=== PATIENT | male | born 1940 | race Caucasian/White ===

== ENCOUNTER → 2020-06-14 09:01 | Outpatient (BNVA) | payer MEDICARE, BC, SELFPAY | PROVIDERS: PCP Internal Medicine; Visit Provider Nurse Practitioner Family | DX: M47.27 Other spondylosis with radiculopathy, lumbosacral region (principal); M96.1 Postlaminectomy syndrome, not elsewhere classified | CPT/HCPCS: 99202 ==

== ENCOUNTER 2020-11-19 12:05 | Day surgery (SDC) | payer MEDICARE, BC, SELFPAY ==
--- NOTE | 2020-11-18 09:21 | HO.ANESPROP2 ---
Documented by User: Lore Mandujano 11/18/20 09:26 HPI - Anesthesia Eval Consult details Narrative: 80yo M for Lumbar Spinal Cord Stimulation Trial [facility] Active Problems Active Problems: All Active Problems (Updated 06/14/20 @ 13:37 by Shaylee Villafuerte NP) Failed back syndrome (Acute) Spondylosis of lumbosacral spine with radiculopathy (Acute) Past Medical History Medical History Arthritis BPH (benign prostatic hyperplasia) Diabetes HLD (hyperlipidemia) MARIE (iron deficiency anemia) Lumbar spinal stenosis Meningioma [place] (obstructive sleep apnea) PLMD (periodic limb movement disorder) Subclinical hypothyroidism Social History Social History (Updated 11/18/20 @ 09:24 by Lore Mandujano) Patient Tobacco Use Status: Former Tobacco user Tobacco use type: Cigarette Smoked in Last 30 Days: No Use of substances other than those prescribed or required for medical reasons: No Are you DNR?: No Advance Directives: No Advance Directives Information Provided: Yes Recently lost weight without trying: No Nutrition Risks: No Nutritional Risk Poor oral hygiene: No Meds Allergies Allergy/AdvReac Type Severity Reaction Status Date / Time No Known Allergies Allergy Verified 06/14/20 09:20 Home Medications Medication Instructions Recorded Confirmed Last Taken Type duloxetine 60 mg capsule,delayed 60 mg PO DAILY 06/14/20 06/14/20 Unknown History release gabapentin 600 mg tablet 0 mg PO 06/14/20 06/14/20 Unknown History lisinopril 2.5 mg tablet 2.5 mg PO DAILY 06/14/20 06/14/20 Unknown History oxycodone 5 mg tablet mg PO 06/14/20 06/14/20 Unknown History simvastatin 10 mg tablet mg PO 06/14/20 06/14/20 Unknown History tamsulosin 0.4 mg capsule 0.4 mg PO DAILY 06/14/20 06/14/20 Unknown History Exam Exam Date and Time: November 18, 2020920 Assessment and Plan Assessment Anesthesia Assessment: Chart Reviewed Documented by User: Alycia Nicholson 11/19/20 13:45 [facility] Past Medical History Medical History Arthritis BPH (benign prostatic hyperplasia) Diabetes HLD (hyperlipidemia) MARIE (iron deficiency anemia) Lumbar spinal stenosis Meningioma [place] (obstructive sleep apnea) PLMD (periodic limb movement disorder) Subclinical hypothyroidism Family History Family history of problems with anesthesia: Yes Surgical History History of Problems with Anesthesia: No Social History Social History (Updated 11/18/20 @ 09:24 by Lore Mandujano) Patient Tobacco Use Status: Former Tobacco user Tobacco use type: Cigarette Smoked in Last 30 Days: No Use of substances other than those prescribed or required for medical reasons: No Are you DNR?: No Advance Directives: No Advance Directives Information Provided: Yes Recently lost weight without trying: No Nutrition Risks: No Nutritional Risk Poor oral hygiene: No Meds Allergies Allergy/AdvReac Type Severity Reaction Status Date / Time No Known Allergies Allergy Verified 06/14/20 09:20 Home Medications Medication Instructions Recorded Confirmed Last Taken Type duloxetine 60 mg capsule,delayed 60 mg PO DAILY 06/14/20 06/14/20 Unknown History release gabapentin 600 mg tablet 0 mg PO 06/14/20 06/14/20 Unknown History lisinopril 2.5 mg tablet 2.5 mg PO DAILY 06/14/20 06/14/20 Unknown History oxycodone 5 mg tablet mg PO 06/14/20 06/14/20 Unknown History simvastatin 10 mg tablet mg PO 06/14/20 06/14/20 Unknown History tamsulosin 0.4 mg capsule 0.4 mg PO DAILY 06/14/20 06/14/20 Unknown History Exam Airway Mallampati Class: II TM Dist: >3cm Neck ROM: Full Assessment and Plan Assessment Anesthesia Assessment: Anesthesia Plan Discussed Final Anesthetic Review Family History of Problems with Anesthesia: Yes History of Problems with Anesthesia: No NPO: Yes ASA Class: II Final Preanesthetic Review: No Changes in Pt Med Stat, Meds/Allgs Chart Reviewed, Consent Obtained/Reviewed and Anes Risks/Benef Reviewed Patient Risk: Low Procedure Risk: Low Assessment/Block/Sedation in SS: Assess/Block/Sedation-SS Anesthetic Plan Anesthetic Plan: MAC: Disposition: Standard PACU
--- NOTE | ~2020-11-19 | FL_ITS ---
EXAMINATION: XR FLUOROSCOPY WITH IMAGES CLINICAL INFORMATION: Stimulator trial COMPARISON: None. TECHNIQUE: Fluoroscopy performed by Dr. Awais Queen. Fluoroscopy time: 4.3 minutes DAP: 20.4 Gycm2 Images: 3 FINDINGS: There are 2 electrodes overlying mid posterior spinal canal with tips in region of lower aspect T8. There are mild multilevel degenerative disc changes with mild disc narrowing and endplate sclerosis and vertebral spurring. FL/FL guidance in OR IMPRESSION: Fluoroscopy for pain management procedure.
[2020-11-19 12:38] VITALS: BMI 24.2
[2020-11-19 12:54] VITALS: BP 135/75; PULSE 84; RESP 16; TEMP 36.3; O2SAT 97
[2020-11-19 13:01] LABS: Glucose, Whole Blood 111 mg/dL (60-115)
--- NOTE | 2020-11-19 13:10 | MHC.SHP ---
Pre-Procedural Eval Section A Date of Service: 11/19/20 Section B Chief Complaint: Failed Back Syndrome, Spondylosis Details of Present Illness: as above Relevant Family History (Specify if Yes): No Relevant Social History: None Present Medications: see Short Stay Collaborative assessment Medical History: No relevant PMH History of Previous Operations: Relevant previous surgery/procedure and date(s) Allergies: Allergies Allergy/AdvReac Type Severity Reaction Status Date / Time No Known Allergies Allergy Verified 06/14/20 09:20 Review of Systems Sugical H&P ROS: Negative: Constitution, Cardiovascular, Respiratory, Neurological, Psychiatric, Hem-Onc, Allergic/Immunologic, Gastrointestinal, Genitourinary, Musculoskeletal, Integumentary, Endocrine and Eyes/Ears/Nose/Throat Exam Surgical H&P Exam: Normal: HEENT, Normal: Heart, Normal: Lungs, Normal: Extremities, Normal: Abdomen, Normal: Skin and Normal: Neurological Plan Diagnosis/Plan: Unchanged I have reviewed the history and physical and performed a pertinent physical examination on my patient. No changes have occurred unless specified.
[2020-11-19] MEDS: Lactated Ringers 1,000 ML 100 ML IVCONT (13:16)
[2020-11-19 15:25] VITALS: BP 127/77; PULSE 87; RESP 12; TEMP 36.6; O2SAT 97
--- NOTE | 2020-11-19 15:35 | P.BOP_ITS ---
Brief Operative Note Date of Service: 11/19/20 Pre-op diagnosis: Postlaminectomy syndrome failed back syndrome. Post-op diagnosis: same Procedure: Trial of [employer] spinal cord stimulator Implants: Nothing permanent Surgeon: Awais Queen MD Anesthesia: MAC Was an Shellac Polisher used for this Procedure?: No Estimated blood loss (mL): 8 Condition: stable Disposition: PACU
--- NOTE | 2020-11-19 15:37 | P.OP_ITS ---
Operative Note Operative Note Date of Service: 11/19/20 Narrative: Mr. Bolaños is very pleasant?80 years old male who came today into the operating room for trial of spinal cord stimulator for the treatment of post laminectomy/ failed back syndrome. Preoperatively patient received 2 g of Cefasolin approximately 30 minutes before procedure. After obtaining informed consent patient was brought to the operating room, HE was positioned prone on operating table, [place] [employer] monitors were applied and patient was deeply sedated.? Time-out was performed delineating name and date of of the patient, correct site, side, the nature of the procedure, patient's allergy, preoperative antibiotic if needed.? All operating room staff was participating in OR time-out procedure. Patient's entire back was prepped with ChloraPrep twice and draped with full body fenestrated drape.? Sterilely draped C-arm was brought over operating field and sqare picture of T11-T12 L1 L2 vertebrae as were demonstrated on the screen.?extensive hardware was noted at L3- L5 area. Attention FIRST? was concentrated on the L1- L2 epidural interspace.? The location of the projection of the right pedicle center of the L3 vertebra was found on the skin using C- arm.? This location was injected with mixture of lidocaine 2% and Marcaine 0.5% 5 cc.? After that 11 blade was used to make a dontrell on the skin.? 10 cm 14 gauge Tuohy needle was inserted through the skin and advanced toward L1- L2 epidural interspace using loss of resistance to air technique to locate epidural space. Inadvertantly the epidural needle entered the the intrathecal space and SCF flow was detected at the hub of the needle. The needle was withdrawn and pressure was applied. After that 15 cm 14 gauge curved introducer epidural needle was inserted through the same skin dontrell and advanced to T12 - L1 epidural interspace.? The advancement of the needle was performed on anterior posterior and lateral views.? Guitar wire and loss of resistance technique were used to locate epidural space.? When guitar wire was spread in the epidural fashion, epidural lead was inserted through the skin and it was advanced to T8 positionSLIGHTLY RIGHT OF THE MIDLINE.? After that location of the hardware at the pedical of the L3 vertebra was found on the skin using C-arm.? This location was injected with mixture of lidocaine 2% and Marcaine 0.5% 5 cc.? After that 11 blade was used to make a dontrell on the skin.? 15 cm 14 gauge curved introducer epidural needle was inserted through the dontrell and advanced to T12 -L1 epidural interspace.? The advancement of the needle was performed on anterior posterior and lateral views.? Guitar wire and loss of resistance technique were used to locate epidural space.? When guitar wire was spread in the epidural fashion, epidural lead was inserted through the needle and advanced to the T8 epidural slightly left of the midline. At this moment patient was awaken and the epidural leads were connected to the testing device.? The patient reported stimulation corresponding to her pain.? After satisfactory position of the leads were established the needles were withdrawn, the stylette wires were removed from the epidural leads.? The anchoring devices were dislodged on the leads and advanced to the level of the skin.? The anchoring devices were sutured with two 0-0 silk sutures to the skin of the patient.? The leads were connected to testing device.? Bacitracin ointment was applied to the entrance point of bilateral needles.? Sterile dressing was applied to the patient's back.? The testing device was also glued to the patient's back.? Upon completion of the procedure the patient was taken to PACU where HE recovered and UNEVENTFULLY, HE WENT HOME WITHOUT IMMEDIATE COMPLICATIONS.? The patient will be given prescription for small dose Percocets for postoperative pain control , she will continue to use ANTIBIOTICS:keflex 500 mg 2 pills q 8 hours. He will be taking OTC probiotics in between the doses of the antibiotics for the next 6 days while he is on the trial.Although the risck of the post dural puncture headache is low in this patient the patient was prescribed fioricet and explained conservative care of PDPH at home if headache would develop.
[2020-11-19 15:40] VITALS: BP 137/66; PULSE 74; RESP 16; O2SAT 98
[2020-11-19 15:55] VITALS: BP 144/67; PULSE 67; RESP 16; O2SAT 96
[2020-11-19 16:10] VITALS: BP 147/85; PULSE 68; RESP 16; O2SAT 96
[2020-11-19 16:25] VITALS: BP 144/78; PULSE 68; RESP 16; TEMP 36.6; O2SAT 96
[2020-11-19] MEDS: Acetaminophen 325 MG TABLET 650 MG PO (16:40)
[2020-11-19] MEDS: oxyCODONE HCl Immed Release 5 MG TABLET PO (16:40)
== END 2020-11-19 16:58 | disposition home or self-care (01) ==
PROVIDERS: PCP Internal Medicine; Visit Provider Anesthesiology
PROC: (CPT 63650; principal; 2020-11-19 13:40)
DX: M47.27 Other spondylosis with radiculopathy, lumbosacral region (principal); M96.1 Postlaminectomy syndrome, not elsewhere classified; M54.5 Low back pain; M48.061 Spinal stenosis, lumbar region without neurogenic claudication; M19.90 Unspecified osteoarthritis, unspecified site; Z98.1 Arthrodesis status; G47.61 Periodic limb movement disorder; E11.9 Type 2 diabetes mellitus without complications; D50.9 Iron deficiency anemia, unspecified; Z79.899 Other long term (current) drug therapy; Z87.891 Personal history of nicotine dependence
CPT/HCPCS: 63650 ×2; 82947; C1778; J0690; J3010

== ENCOUNTER → 2020-11-25 11:32 | Outpatient (BNVA) | payer MEDICARE, BC, SELFPAY | PROVIDERS: PCP Internal Medicine; Visit Provider Anesthesiology | DX: M47.27 Other spondylosis with radiculopathy, lumbosacral region (principal); M96.1 Postlaminectomy syndrome, not elsewhere classified | CPT/HCPCS: 99212 ==

== ENCOUNTER 2021-02-03 11:34 | Day surgery (SDC) | payer MEDICARE, BC, SELFPAY ==
[2021-01-27 13:52] VITALS: BMI 24.2
--- NOTE | 2021-02-02 10:06 | HO.ANESPROP2 ---
Documented by User: Lore Mandujano NP 02/02/21 10:10 HPI - Anesthesia Eval Consult details Narrative: 81yo M for Lumbar Spinal Cord Stimulation Implant s/p stim trial 10/2020 with MAC [facility] Active Problems Active Problems: All Active Problems (Updated 01/27/21 @ 13:49 by Yvrose Clemens, MIAN) Spondylosis of lumbosacral spine with radiculopathy (Acute) Failed back syndrome (Acute) Past Medical History Medical History Arthritis BPH (benign prostatic hyperplasia) Diabetes HLD (hyperlipidemia) MARIE (iron deficiency anemia) Lumbar spinal stenosis Meningioma [place] (obstructive sleep apnea) PLMD (periodic limb movement disorder) Spinal cord stimulator status Subclinical hypothyroidism Family History Family history of problems with anesthesia: Yes Surgical History Surgical History History of lumbar fusion History of Problems with Anesthesia: No Social History Social History Are you a primary child day care teacher to a significant other at home: No Do you presently have visiting nurse or other home services: No Patient Tobacco Use Status: Former Tobacco user Tobacco use type: Cigarette Use of substances other than those prescribed or required for medical reasons: No Have you been hit, kicked, punched, or otherwise hurt by someone within the past year? If so, by whom?: No Are you DNR?: No Advance Directives: No Advance Directives Information Provided: No Advance Directives on File: No Recently lost weight without trying: No Eating poorly because of decreased appetite: No Nutrition Risks: No Nutritional Risk Meds Allergies Allergy/AdvReac Type Severity Reaction Status Date / Time No Known Allergies Allergy Verified 01/27/21 13:49 Home Medications Medication Instructions Recorded Confirmed Last Taken Type duloxetine 60 mg capsule,delayed 60 mg PO DAILY 06/14/20 01/27/21 Unknown History release gabapentin 600 mg tablet 600 mg PO DAILY 06/14/20 01/27/21 Unknown History lisinopril 2.5 mg tablet 2.5 mg PO DAILY 06/14/20 01/27/21 Unknown History oxycodone 5 mg tablet 5 mg PO 06/14/20 06/14/20 Unknown History simvastatin 10 mg tablet 10 mg PO DAILY 06/14/20 01/27/21 Unknown History tamsulosin 0.4 mg capsule 0.4 mg PO DAILY 06/14/20 01/27/21 Unknown History Exam Exam Date and Time: February 02, 2021 1006 Height,Weight and Vital Signs: Height 5 ft 6 in Weight 68 kg Assessment and Plan Assessment Anesthesia Assessment: Chart Reviewed Final Anesthetic Review Family History of Problems with Anesthesia: Yes History of Problems with Anesthesia: No Documented by User: Branden Godwin MD 02/03/21 14:21 [facility] Past Medical History Medical History Arthritis BPH (benign prostatic hyperplasia) Diabetes HLD (hyperlipidemia) MARIE (iron deficiency anemia) Lumbar spinal stenosis Meningioma [place] (obstructive sleep apnea) PLMD (periodic limb movement disorder) Spinal cord stimulator status Subclinical hypothyroidism Family History Family history of problems with anesthesia: No Surgical History Surgical History History of lumbar fusion History of Problems with Anesthesia: Yes (PONV) Social History Social History Are you a primary child day care teacher to a significant other at home: No Do you presently have visiting nurse or other home services: No Patient Tobacco Use Status: Former Tobacco user Tobacco use type: Cigarette Use of substances other than those prescribed or required for medical reasons: No Have you been hit, kicked, punched, or otherwise hurt by someone within the past year? If so, by whom?: No Are you DNR?: No Advance Directives: No Advance Directives Information Provided: No Advance Directives on File: No Recently lost weight without trying: No Eating poorly because of decreased appetite: No Nutrition Risks: No Nutritional Risk Meds Allergies Allergy/AdvReac Type Severity Reaction Status Date / Time No Known Allergies Allergy Verified 01/27/21 13:49 Home Medications Medication Instructions Recorded Confirmed Last Taken Type duloxetine 60 mg capsule,delayed 60 mg PO DAILY 06/14/20 01/27/21 Unknown History release gabapentin 600 mg tablet 600 mg PO DAILY 06/14/20 01/27/21 Unknown History lisinopril 2.5 mg tablet 2.5 mg PO DAILY 06/14/20 01/27/21 Unknown History oxycodone 5 mg tablet 5 mg PO 06/14/20 06/14/20 Unknown History simvastatin 10 mg tablet 10 mg PO DAILY 06/14/20 01/27/21 Unknown History tamsulosin 0.4 mg capsule 0.4 mg PO DAILY 06/14/20 01/27/21 Unknown History Exam Airway Mallampati Class: II TM Dist: >3cm Neck ROM: Limited Denture: Upper Other: Bilateral hearing aids Assessment and Plan Assessment Anesthesia Assessment: Anesthesia Plan Discussed Final Anesthetic Review Family History of Problems with Anesthesia: No History of Problems with Anesthesia: Yes (PONV) NPO: Yes ASA Class: III Final Preanesthetic Review: No Changes in Pt Med Stat, Meds/Allgs Chart Reviewed, Consent Obtained/Reviewed and Anes Risks/Benef Reviewed Patient Risk: Intermediate Procedure Risk: Low Anesthetic Plan Anesthetic Plan: MAC: Disposition: Standard PACU
--- NOTE | ~2021-02-03 | FL_ITS ---
EXAMINATION: XR FLUOROSCOPY WITH IMAGES CLINICAL INFORMATION: Spinal cord stimulation implant COMPARISON: Fluoroscopic spot view 11/19/2020. TECHNIQUE: Fluoroscopy performed by Dr. Awais Queen. Fluoroscopy time: 5.0 minutes DAP: 1.15 mGycm2 Images: 3 FINDINGS: There are 2 electrodes seen overlying the midline posterior thoracic spinal canal. Visualized leads within the [id number] are intact without defect or kinking. FL/FL guidance in OR IMPRESSION: Fluoroscopy for pain management procedure.
--- NOTE | 2021-02-03 12:48 | PC.NURSE ---
cut noted to left index finger. dry and intact. redness and swelling noted. instructed patient to see his primary care physician for his finger.
[2021-02-03 12:59] VITALS: BP 138/64; PULSE 91; RESP 16; TEMP 36.3; O2SAT 96
[2021-02-03] MEDS: Lactated Ringers 1,000 ML 100 ML IVCONT (13:14)
--- NOTE | 2021-02-03 13:15 | MHC.SHP ---
Pre-Procedural Eval Section A Date of Service: 02/03/21 The patient is an INPATIENT: No Changes since office visit: Yes Changes in Medication and Yes Patient answered all questions Section B Chief Complaint: Post Laminectomy Syndrome Details of Present Illness: as above Relevant Family History (Specify if Yes): No Relevant Social History: None Present Medications: see Short Stay Collaborative assessment Medical History: No relevant PMH History of Previous Operations: No relevant previous surgery Allergies: Allergies Allergy/AdvReac Type Severity Reaction Status Date / Time No Known Allergies Allergy Verified 01/27/21 13:49 Review of Systems Sugical H&P ROS: Negative: Constitution, Cardiovascular, Respiratory, Neurological, Psychiatric, Hem-Onc, Allergic/Immunologic, Gastrointestinal, Genitourinary, Musculoskeletal, Integumentary, Endocrine and Eyes/Ears/Nose/Throat Exam Surgical H&P Exam: Normal: HEENT, Normal: Heart, Normal: Lungs, Normal: Extremities, Normal: Abdomen, Normal: Skin and Normal: Neurological Plan Diagnosis/Plan: Unchanged I have reviewed the history and physical and performed a pertinent physical examination on my patient. No changes have occurred unless specified.
--- NOTE | 2021-02-03 13:19 | P.OP_ITS ---
Operative Note Operative Note Date of Service: 02/03/21 Narrative: Mr. Ibrahim is a very pleasant 81 y.o. who came today into the operating room for implantation of spinal cord stimulator for the treatment of pain related to? postlaminectomy syndrome.?He had successful trial of spinal cord stimulation. ? Preoperatively patient received antibiotic cefasolin? 2g approximately 30 minutes before the procedure. After obtaining informed consent patient was brought to the operating room, he was positioned prone on the OR table, [place] [employer] monitors were applied and patient was sedated. ?? Time-out was performed delineating correct site, side, the nature of the procedure, patient's allergy, preoperative antibiotic.? All operating room staff was participating in OR time-out procedure. Patient's entire back was prepped with DuraPrep twice and draped with full body drape including [place]ob[place] film.? Sterilely draped C-arm was brought over operating field and square picture of T12, L1, L2?vertebrae? were demonstrated on the screen.? THE PROJECTION OF?L1- L2??SPINOUS PROCESSES TO THE SKIN WERE INFILTRATED WITH LIDOCAINE 2% MIXED WITH BUPIVACAINE 0.5%.? 7 CM LONG VERTICAL INCISION using a 10 blade scalpel WAS PERFORMED IN STRICT MIDLINE VERTICAL FASHION.? THOROUGH HEMOSTASIS WAS PERFORMED using electrocautery. ?Thorough tissue dissections was performed until prevertebral fascia was freed from overlying tissues.? Attention FIRST? was concentrated on the RIGHT T12-L1 epidural interspace.? The location of the projection of the right pedicle center of the?L2?vertebra was found on the prevertebral fascia using C-arm.? This location was injected with mixture of lidocaine 2% and Marcaine 0.5% 5 cc in approximate direction of needle advancement.? After that ? 10 cm 14 gauge straight introducer epidural needle was inserted through the fascia and advanced toward?T12-L1 epidural interspace.? The advancement of the needle was performed on anterior posterior and lateral views.? Guitar wire and loss of resistance technique were used to locate epidural space.? When guitar wire was spread in the epidural fashion, epidural lead was inserted through the skin and it was advanced to the position in the POSTERIOR EPIDURAL SPACE slightly?RIGHT?TO THE MIDLINE at the posterior T8 needle body epidural space. After that location of the projection of the LEFT pedicle center of the L2 vertebra was found -using C-arm.? This location was injected with mixture of lidocaine 2% and Marcaine 0.5% 5 cc.. .? 10 cm 14 gauge curved introducer epidural needle was inserted through the fascia and advanced to T12-L1 epidural interspace.? The advancement of the needle was performed on anterior posterior and lateral views.? Guitar wire and loss of resistance technique TO AIR were used to locate epidural space.? When guitar wire was spread in the epidural fashion, epidural lead was inserted through the needle and advanced to the T9 POSTERIOR EPIDURAL SPACE SLIGHTLY?LEFT to the existing LEAD.? THE LOCATION OF BOTH LEADS WAS VERIFIED ON ANTERIOR POSTERIOR AND LATERAL VIEWS. THE PATIENT WAS AWAKEN and the test of the stimulation was performed. The patient reported stimulation corresponding to his pain. He was resedated after that. After satisfactory position of the leads were established the needles were withdrawn, the stylette wires were removed from the epidural leads.? The anchoring devices were dislodged on the leads and advanced to the level of the skin.? The anchoring devices were advanced along the epidural leads and dislodged and epidural leads at the level of prevertebral fascia.? They were sutured to prevertebral fascia with 2 separate etibone sutures per each anchoring device.? The fixating screws was fixed until 3 clicks were heard on each anchoring device.?Diffused cappilary bleading in the woubd requered me to use electrocautery again to stop it. After that the wound was irrigated with copious amount of Vancomycin containing normal saline and packed with Vancomycin soaked 4 x 4. ?After that attention was concentrated on the left upper buttock??of the patient?where he wanted the battery to be implanted.? 6 cm long horizontal incision was performed 3 cm below the projection to the skin of the top left illiac crest. the wound was deepened and widened and thorough hemostasis was performed. The pocket was created to accomodate the battery. Irrigation with vancomycin containing saline was performed.After that the tunneling device was used to connect midline incision and the left upper buttock incision. Thorough hemostasis was performed. ? The impedance was satisfactory.? After that tunneling device was used to connect both wounds.? Cervical leads from the thoracic wound were dislodged into the loin wound.? They were connected to the battery. After that both wounds were thoroughly irrigated with normal saline containing vancomycin.? Sutures were applied to the most superior lateral and most superior medial corners of the? wound.? Those sutures were tied after the battery was inserted into the pocket with the epidural leads collected behind the body of the battery.. After that 0 Vicryl sutures were used to close both wounds.?While closing the midline spinal wound the bleeding was discovered coming from the proximal site of the tunnel. Three surgicell pledges were used to pack the bleeding site, the pledges were left behind in the wound. 2-0 Vicryl was used to approximate the level of the skin.? [place] were applied to skin level.? Bacitracin ointment was smeared on the staple line.? Sterile dressing was applied.? Abdominal binder was applied.? The patient was transferred to the [facility], awaken, extubated and in stable condition transferred to PACU.? He recovered uneventfully.? He went home without immediate complications. ?
[2021-02-03 13:20] LABS: Glucose, Whole Blood 110 mg/dL (60-115)
[2021-02-03 15:42] VITALS: BP 118/79; PULSE 78; RESP 16; TEMP 36.2; O2SAT 96
--- NOTE | 2021-02-03 15:53 | P.BOP_ITS ---
Brief Operative Note Date of Service: 02/03/21 Pre-op diagnosis: postlaminectomy syndrome Post-op diagnosis: same Procedure: implantation of spinal cord stimulator Epidural leads and alpha technology battery P Implants: epidural leads and alpha technology battery. Surgeon: Awais Queen MD Anesthesia: MAC Was an Stull Installer used for this Procedure?: No Estimated blood loss (mL): 30 Pathology: none sent Condition: stable Disposition: PACU
[2021-02-03 15:57] VITALS: BP 125/53; PULSE 72; RESP 16; O2SAT 98
[2021-02-03 16:12] VITALS: BP 114/69; PULSE 74; RESP 16; O2SAT 100
[2021-02-03] MEDS: cephALEXin 500 MG CAPSULE 1000 MG PO (17:19)
[2021-02-03 17:20] VITALS: BP 132/64; PULSE 75; RESP 16; O2SAT 100
== END 2021-02-03 17:28 ==
LOC: HO.SSS 11:34
PROVIDERS: PCP Internal Medicine; Visit Provider Anesthesiology
PROC: (CPT 63685; principal; 2021-02-03 12:40)
DX: M54.50 Low back pain, unspecified (principal); M47.27 Other spondylosis with radiculopathy, lumbosacral region; M96.1 Postlaminectomy syndrome, not elsewhere classified; M48.061 Spinal stenosis, lumbar region without neurogenic claudication; G47.61 Periodic limb movement disorder; Z98.1 Arthrodesis status; E11.9 Type 2 diabetes mellitus without complications; Z87.891 Personal history of nicotine dependence
CPT/HCPCS: 63685; 63650 ×2; 82947; C1713; C1778; C1787; C1820; J0690; J3370

== ENCOUNTER → 2021-02-09 11:01 | Outpatient (BNVA) | payer MEDICARE, BC, SELFPAY | PROVIDERS: PCP Internal Medicine; Visit Provider Anesthesiology | DX: M47.27 Other spondylosis with radiculopathy, lumbosacral region (principal); M96.1 Postlaminectomy syndrome, not elsewhere classified | CPT/HCPCS: 99212 ==

== ENCOUNTER → 2021-02-16 11:02 | Outpatient (BNVA) | payer MEDICARE, BC, SELFPAY | PROVIDERS: PCP Internal Medicine; Visit Provider Anesthesiology | DX: M47.27 Other spondylosis with radiculopathy, lumbosacral region (principal); M96.1 Postlaminectomy syndrome, not elsewhere classified | CPT/HCPCS: 99212 ==

== ENCOUNTER 2021-10-03 15:08 | Outpatient (REF) | payer MEDICARE, BC, SELFPAY ==
--- NOTE | ~2021-10-03 | XR_ITS ---
EXAMINATION: XR PELVIS CLINICAL INFORMATION: Pain COMPARISON: None TECHNIQUE: AP view of the pelvis. FINDINGS: Bone alignment is normal. No fracture or dislocation is seen. There are mild degenerative changes of both hip joints with small osteophytes and reticular soft tissue calcifications or ossifications. No joint space narrowing is seen. Bones of the pelvis are unremarkable. There is soft tissue arterial calcification. XR/XR pelvis 1-2V IMPRESSION: Mild degenerative changes at the hip joints.
--- NOTE | ~2021-10-03 | XR_ITS ---
EXAMINATION: XR THORACIC SPINE CLINICAL INFORMATION: Post laminectomy syndrome COMPARISON: None TECHNIQUE: 3 views of the thoracic spine were obtained. FINDINGS: There is a spinal stimulator with the tip of the T8 vertebral body level. There is mild curvature of the lower thoracic spine to the left. There is multilevel degenerative spondylosis and degenerative disc disease of the lower thoracic spine. No fracture or dislocation is seen. There is elevation of the right hemidiaphragm. There is subsegmental atelectasis in the right lung. XR/XR thoracic spine 3V IMPRESSION: Spinal stimulator mid thoracic spinal canal. Degenerative changes of the mid and lower thoracic spine. Elevated right hemidiaphragm.
--- NOTE | ~2021-10-03 | XR_ITS ---
EXAMINATION: XR LUMBOSACRAL SPINE CLINICAL INFORMATION: Spondylosis and radiculopathy COMPARISON: None TECHNIQUE: Three views of the lumbosacral spine. FINDINGS: Bone alignment is normal. No fracture or dislocation is seen. Postsurgical change of the lower lumbar spine with left posterior david and interpedicular screws at L3-L4 and right posterior rods and interpedicular screws at L4-L5. There are prosthetic disc interspace her seen. There is a stimulator seen in the lower thoracic spinal canal entering the spinal canal at this T12-L1 level. Disc spaces are otherwise normal. There is lower lumbar spine facet arthritis. There is evidence of atherosclerotic disease. There is a radiopaque density that projects over the soft tissues anterior to the L4 vertebral body seen on the lateral view only. XR/XR lumbar spine 2-3V IMPRESSION: Postsurgical changes to the lower lumbar spine. Spinal stimulator. Lower lumbar spine facet arthritis.
== END 2021-10-03 15:09 | disposition home or self-care (01) ==
LOC: HO.XRAY 15:08
PROVIDERS: PCP Internal Medicine; Visit Provider Internal Medicine
DX: M96.1 Postlaminectomy syndrome, not elsewhere classified (principal); M25.559 Pain in unspecified hip
CPT/HCPCS: 72072; 72100; 72170; 99212

== ENCOUNTER → 2021-10-10 13:05 | Outpatient (BNVA) | payer MEDICARE, BC, SELFPAY | PROVIDERS: PCP Internal Medicine; Visit Provider Anesthesiology | DX: M16.12 Unilateral primary osteoarthritis, left hip (principal); M96.1 Postlaminectomy syndrome, not elsewhere classified; M47.27 Other spondylosis with radiculopathy, lumbosacral region | CPT/HCPCS: 99212 ==

== ENCOUNTER → 2021-12-19 10:05 | Outpatient (BNVA) | payer MEDICARE, BC, SELFPAY | PROVIDERS: PCP Internal Medicine; Visit Provider Anesthesiology | DX: M16.12 Unilateral primary osteoarthritis, left hip (principal); M25.552 Pain in left hip; M96.1 Postlaminectomy syndrome, not elsewhere classified; M47.27 Other spondylosis with radiculopathy, lumbosacral region | CPT/HCPCS: 99212 ==

== ENCOUNTER 2021-12-20 06:11 | Outpatient (REF) | payer MEDICARE, BC, SELFPAY ==
--- NOTE | ~2021-12-20 | FL_ITS ---
EXAMINATION: XR FLUOROSCOPY WITH IMAGES CLINICAL INFORMATION: Left hip pain. COMPARISON: None. TECHNIQUE: Fluoroscopy performed by Shaylee Villafuerte. Fluoroscopy time: 0.1 minute. Cumulative Dose: 5.10 mGy. DAP: 1.39 Gy-cm2. Images: 1. FINDINGS: There is a single right hip image revealing needle positioned at the right hip joint space with contrast opacifying the joint space. The hip joint space is maintained normal. No spurring or bony erosive changes seen. FL/FL guidance in treatment room IMPRESSION: Fluoroscopy guidance was provided to referrer for right hip injection.
== END 2021-12-20 06:12 | disposition home or self-care (01) ==
LOC: HO.RADIR 06:11
PROVIDERS: Visit Provider Anesthesiology
DX: M16.12 Unilateral primary osteoarthritis, left hip (principal); M96.1 Postlaminectomy syndrome, not elsewhere classified; M47.27 Other spondylosis with radiculopathy, lumbosacral region
CPT/HCPCS: 20610; J3300

== ENCOUNTER → 2022-01-23 13:04 | Outpatient (BNVA) | payer MEDICARE, BC, SELFPAY | PROVIDERS: PCP Internal Medicine; Visit Provider Anesthesiology | DX: M16.12 Unilateral primary osteoarthritis, left hip (principal); M25.559 Pain in unspecified hip; M96.1 Postlaminectomy syndrome, not elsewhere classified; M47.27 Other spondylosis with radiculopathy, lumbosacral region | CPT/HCPCS: 99212 ==

== ENCOUNTER 2022-03-20 14:06 | Emergency (ER) | payer MEDICARE, BC, SELFPAY ==
--- NOTE | ~2022-03-20 | CT_ITS ---
EXAMINATION: NONCONTRAST HEAD CT NONCONTRAST MAXILLOFACIAL CT NONCONTRAST CERVICAL SPINE CT INDICATION INFORMATION: Fall with head strike and facial trauma COMPARISON: None TECHNIQUE: Separate noncontrast CT examinations of the head, maxillofacial bones, and cervical spine were performed. Coronal and sagittal images were created for each examination at the technologist workstation. This CT examination was performed using dose optimization techniques as appropriate, variously including the following: *Automated exposure control *Adjustment of mA and/or kV according to patient size (this includes techniques or standardized protocols for targeted exams where dose is matched to indication/reason for exam; i.e. extremities or head) *Use of iterative reconstruction technique DLP: 1518 mGy-cm FINDINGS: HEAD: No intra or extra-axial fluid collection or hemorrhage. Small 0.7 cm partially calcified anterior left frontal extra-axial mass consistent with small meningioma series 4 image 30. No midline shift or herniation. Basal cisterns are patent. Montes-white matter differentiation is maintained. Small area of encephalomalacia in the anterior right frontal lobe underlying the frontal craniotomy. No hydrocephalus. Small there is mild scattered hypoattenuation in the supratentorial white matter, nonspecific. No acute soft tissue abnormality. No calvarial fracture. Prior right frontal craniotomy. The mastoid air cells are well aerated. MAXILLOFACIAL: Minimally displaced fractures of the bilateral nasal bones nondisplaced fracture through the adjacent perpendicular plate of the ethmoid. No other acute facial bone fracture. Mild mucosal thickening and small mucous retention cyst in the right maxillary sinus. Right middle turbinate cresencio bullosa. Minimal mucosal thickening along the frontal sinus drainage pathways. The mandibular heads are normally positioned in the glenoid fossa. Status post bilateral lens extractions. Globes and retro-orbital structures otherwise intact. No retrobulbar hematoma. CERVICAL SPINE: Alignment:Approximately 4 mm grade 1/2 anterolisthesis of C3 upon C4 secondary to advanced facet arthrosis at this level. Minimal grade 1 anterolisthesis at C4-C5. No additional subluxation. Vertebra:No acute fracture. No prevertebral soft tissue swelling. Degenerative disc disease:Multilevel cervical spondylosis severe at C5-C6 and C6-C7 moderate to severe at C3-C4 with disc height loss, endplate sclerosis and proliferative change. Advanced multilevel bilateral facet arthrosis and multilevel uncovertebral spurring. Other findings:No cervical lymphadenopathy. Visualized thyroid gland is unremarkable. Visualized lung apices are clear. CT/CT cervical spine wo IV con IMPRESSION: 1. No intracranial hemorrhage or calvarial fracture. 2. Minimally displaced fractures of the bilateral nasal bones and nondisplaced fracture of the adjacent perpendicular plate of the ethmoid. 3. No traumatic subluxation or acute cervical spine fracture. 4. Incidental small 0.7 cm partially calcified left frontal meningioma.
--- NOTE | 2022-03-20 15:18 | ECG_ITS ---
Test Reason : FALL Blood Pressure : / mmHG Vent. Rate : 099 BPM Atrial Rate : 099 BPM P-R Int : 154 ms QRS Dur : 076 ms QT Int : 314 ms P-R-T Axes : 051 -21 013 degrees QTc Int : 402 ms Poor data quality Normal sinus rhythm Left anterior fascicular block Abnormal ECG No previous ECGs available Referred By: Dede Fonseca Electronically Signed By:ANTWAN DOBSON MD
[2022-03-20 15:19] VITALS: BP 96/43; PULSE 109; RESP 18; TEMP 36.4; O2SAT 93; BMI 24.5
--- NOTE | 2022-03-20 15:20 | ED.GENADULT ---
HPI - General Adult General Chief complaint: Fall Stated complaint: Fall/Facial lac Time Seen by Provider: 03/20/22 22:19 Related Data Home Medications Medication Instructions Recorded Confirmed duloxetine 60 mg capsule,delayed 60 mg PO DAILY 06/14/20 10/03/21 release gabapentin 600 mg tablet 600 mg PO DAILY 06/14/20 10/03/21 lisinopril 2.5 mg tablet 2.5 mg PO DAILY 06/14/20 10/03/21 oxycodone 5 mg tablet 5 mg PO 06/14/20 10/03/21 simvastatin 10 mg tablet 10 mg PO DAILY 06/14/20 10/03/21 tamsulosin 0.4 mg capsule 0.4 mg PO DAILY 06/14/20 10/03/21 diclofenac sodium 50 mg 50 mg PO BID 10/03/21 10/03/21 tablet,delayed release Previous Rx's Medication Instructions Recorded amoxicillin 875 mg-potassium 1 tab PO Q12H 10 days #20 tabs 03/21/22 clavulanate 125 mg tablet Allergies Allergy/AdvReac Type Severity Reaction Status Date / Time No Known Allergies Allergy Verified 03/20/22 15:24 [facility] Past Medical History Medical History Arthritis BPH (benign prostatic hyperplasia) Diabetes HLD (hyperlipidemia) MARIE (iron deficiency anemia) Lumbar spinal stenosis Meningioma [place] (obstructive sleep apnea) PLMD (periodic limb movement disorder) Spinal cord stimulator status Subclinical hypothyroidism Surgical History History of lumbar fusion Social History Social History Are you a primary intensive care ambulance paramedic to a significant other at home: No Do you presently have visiting nurse or other home services: No Patient Tobacco Use Status: Former Tobacco user Tobacco use type: Cigarette Advance Directives: No Advance Directives Information Provided: No Physical Exam ED Vital Signs: BMI result Body Mass Index 24.5 Course Reevaluation(s) Reevaluation #1: RME 82 year old male pmhx of chornic back pain prsents s/p trip and fall with headache and abrasions to face. Patient states he was walking to his car felt like his knee gave out on him falling forward and hitting his face on the sidewalk. Wasnt able to get up alone required help. Severe headache constant since fall. No loc,not on thinners. Denies preceding sx. No CP,SOB,dizziness, vision changes, weakness, changes in speech, changes in bowel habits, neck pain, numbness, tingling, saddle paresthesias PE: abrasions to face, ambulatory w/ unsteady gait. NIHSS-0 Plan- imaging, labs Time: 15:24 Medications Administered Discontinued Medications Generic Name Dose Route Start Last Admin Trade Name Rachel PRN Reason Stop Dose Admin Acetaminophen 650 mg 03/20/22 22:34 03/20/22 23:05 Acetaminophen 325 Mg Tablet PO 03/20/22 22:35 650 mg ONCE ONE Administration Diphtheria/Tetanus/Acell Pertussis 0.5 ml 03/20/22 22:32 03/20/22 22:58 Diphth,Pertus(Acell),Tet Adult 0.5 Ml Syringe IM 03/20/22 22:33 0.5 ml .ONCE ONE Administration Ceftriaxone Sodium 1 gm/ 50 mls @ 100 mls/hr 03/20/22 22:31 03/21/22 00:40 Sodium Chloride IV 03/20/22 23:00 Infused ONCE ONE Infusion Sodium Chloride 1,000 mls @ 999 mls/hr 03/20/22 22:45 03/21/22 00:40 Ns IVCONT 03/20/22 23:45 Infused .Q1H1M ALYSSA Infusion Lidocaine HCl 4 ml 03/20/22 22:33 03/20/22 23:05 Lidocaine Hcl 2% 2 Ml Vial INFILTRATI 03/20/22 22:34 4 ml ONCE ONE Administration Morphine Sulfate 2 mg 03/20/22 22:34 03/20/22 22:54 Morphine Sulfate 2 Mg/Ml Cartridge IVPUSH 03/20/22 22:35 2 mg ONCE ONE Administration Protocol Ondansetron HCl 4 mg 03/20/22 22:34 03/20/22 22:54 Ondansetron Hcl 4 Mg/2 Ml Vial IVPUSH 03/20/22 22:35 4 mg ONCE ONE Administration Medical Decision Making Lab Data 03/20/22 16:19 03/20/22 16:19 Labs: Lab Results 03/20/22 03/20/22 03/20/22 Range/Units 16:19 16:19 16:19 WBC 10.5 (4.8-10.8) X10*3/uL RBC 3.61 L (4.60-5.80) X10*6/uL Hgb 10.8 L (14.0-18.0) g/dl Hct 34.7 L (42.0-52.0) % MCV 96.1 (80.0-98.0) fL MCH 29.9 (27.0-33.0) pg MCHC 31.1 (31.0-36.0) g/dl RDW 14.5 (11.0-16.0) % Plt Count 243 (160-400) X10*3/uL MPV 10.4 (9.4-12.4) fL Immature Gran % (Auto) 0.4 (0.0-0.4) % Neut % (Auto) 76.3 H (45-73) % Lymph % (Auto) 10.7 L (20-40) % [place] % (Auto) 11.2 H (2-11) % Eos % (Auto) 1.1 (0-4) % Baso % (Auto) 0.3 (0-2) % Lymph # (Auto) 1.1 L (1.2-4.9) X10*3/uL [place] # (Auto) 1.2 (0.1-1.2) X10*3/uL Eos # (Auto) 0.1 (0.0-0.4) X10*3/uL Baso # (Auto) 0.0 (0.0-0.2) X10*3/uL Abs Immat Gran (auto) 0.04 H (0.00-0.03) X10*3/uL Absolute Neuts (auto) 8.0 (2.0-8.3) x10*3/uL Absolute Nucleated RBC 0.000 (0.0-0.012) X10*3/uL Nucleated RBC % (auto) 0.0 (0.0-0.2) /100WBC Sodium 138 (135-145) mmol/L Potassium 4.6 (3.3-5.1) mmol/L Chloride 108 (96-108) mmol/L Carbon Dioxide 23 (22-29) mmol/L Anion Gap 12 (12-20) BUN 24 H (9-16) mg/dL Creatinine 1.14 (0.5-1.4) mg/dL Estim Creat Clear Calc 43.5 Estimated GFR > 60 Random Glucose 176 H (60-115) mg/dL Calcium 9.2 (8.4-10.2) mg/dL Magnesium 2.1 (1.6-2.6) mg/dL Total Bilirubin 0.4 (0.0-1.0) mg/dL AST 19 (5-37) U/L ALT 20 (0-40) U/L Alkaline Phosphatase 62 (39-117) U/L Troponin I High Sens < 3.5 (<3.5-35.0) ng/L Total Protein 6.5 (6.5-8.0) g/dL Albumin 3.9 (3.5-5.0) g/dL Urine Color Urine Appearance Urine pH (5.0-9.0) Ur Specific [place] (1.005-1.025) Urine Protein (Neg-Trace) mg/dL Urine Glucose (UA) (Negative) mg/dL Urine Ketones (Negative) mg/dL Urine Blood (Negative) Urine Nitrite (Negative) Ur Leukocyte Esterase (Negative) Urine RBC (0-2) /HPF Urine WBC (0-5) /HPF Ur Squamous Epith Cells (0-2) /HPF Urine Bacteria (None Seen) Hyaline Casts (0-2) /LPF Granular Casts COVID-19 (PINEDA) (Negative) COVID-19 Clin Com 03/20/22 03/20/22 Range/Units 16:19 17:47 WBC (4.8-10.8) X10*3/uL RBC (4.60-5.80) X10*6/uL Hgb (14.0-18.0) g/dl Hct (42.0-52.0) % MCV (80.0-98.0) fL MCH (27.0-33.0) pg MCHC (31.0-36.0) g/dl RDW (11.0-16.0) % Plt Count (160-400) X10*3/uL MPV (9.4-12.4) fL Immature Gran % (Auto) (0.0-0.4) % Neut % (Auto) (45-73) % Lymph % (Auto) (20-40) % [place] % (Auto) (2-11) % Eos % (Auto) (0-4) % Baso % (Auto) (0-2) % Lymph # (Auto) (1.2-4.9) X10*3/uL [place] # (Auto) (0.1-1.2) X10*3/uL Eos # (Auto) (0.0-0.4) X10*3/uL Baso # (Auto) (0.0-0.2) X10*3/uL Abs Immat Gran (auto) (0.00-0.03) X10*3/uL Absolute Neuts (auto) (2.0-8.3) x10*3/uL Absolute Nucleated RBC (0.0-0.012) X10*3/uL Nucleated RBC % (auto) (0.0-0.2) /100WBC Sodium (135-145) mmol/L Potassium (3.3-5.1) mmol/L Chloride (96-108) mmol/L Carbon Dioxide (22-29) mmol/L Anion Gap (12-20) BUN (9-16) mg/dL Creatinine (0.5-1.4) mg/dL Estim Creat Clear Calc Estimated GFR Random Glucose (60-115) mg/dL Calcium (8.4-10.2) mg/dL Magnesium (1.6-2.6) mg/dL Total Bilirubin (0.0-1.0) mg/dL AST (5-37) U/L ALT (0-40) U/L Alkaline Phosphatase (39-117) U/L Troponin I High Sens (<3.5-35.0) ng/L Total Protein (6.5-8.0) g/dL Albumin (3.5-5.0) g/dL Urine Color Yellow Urine Appearance Clear Urine pH 5.0 (5.0-9.0) Ur Specific [place] 1.025 (1.005-1.025) Urine Protein Trace (Neg-Trace) mg/dL Urine Glucose (UA) 100 H (Negative) mg/dL Urine Ketones Trace (Negative) mg/dL Urine Blood Negative (Negative) Urine Nitrite Negative (Negative) Ur Leukocyte Esterase Small (1+) H (Negative) Urine RBC 0-2 (0-2) /HPF Urine WBC 11-20 H (0-5) /HPF Ur Squamous Epith Cells 3-5 (0-2) /HPF Urine Bacteria None Seen (None Seen) Hyaline Casts >20 (0-2) /LPF Granular Casts Present COVID-19 (PINEDA) Negative (Negative) COVID-19 Clin Com See Note Discharge Plan Discharge Clinical Impression: Concussion without loss of consciousness, Closed fracture nasal bone, Closed fracture of ethmoid sinus, Laceration of nose Patient Disposition: Home, Self-Care Instructions: Nasal Fracture (ED), Facial Fracture (ED), Concussion (ED), Post Concussion Syndrome (ED), Facial Laceration (ED) Additional Instructions: You were evaluated for injury sustained from a fall. CT scan of head, facial bones and cervical spine indicates nasal bone fracture and ethmoid sinus fracture. Your symptoms are also consistent with a concussion. You must follow-up with her primary care physician closely for post concussive protocol. We placed 4 sutures to your nose. Please return in 5-7 days to have sutures removed. Take Augmentin 875 mg twice a day for the next 10 days. Take Tylenol 650 mg every 6 hours as needed for muscle aches and headache. Thank you for choosing this emergency department for evaluation. Please follow-up with primary care physician as needed. Return to the emergency department for any new, concerning, or worsening symptoms. Prescriptions: New amoxicillin-pot clavulanate 875-125 mg tablet 1 tab PO Q12H 10 Days Qty: 20 0RF No Action duloxetine 60 mg capsule,delayed release(DR/EC) 60 mg PO DAILY lisinopril 2.5 mg tablet 2.5 mg PO DAILY simvastatin 10 mg tablet 10 mg PO DAILY gabapentin 600 mg tablet 600 mg PO DAILY tamsulosin 0.4 mg capsule 0.4 mg PO DAILY oxycodone 5 mg tablet 5 mg PO diclofenac sodium 50 mg tablet,delayed release (DR/EC) 50 mg PO BID Referrals: Parrish Cabrera MD [Primary Care Provider] - 3 days (Nasal bone fracture, ethmoid fracture, concussion, nasal laceration) Interventions: ED Discharge Assessment Last Done: 03/21/22 01:26 Discharge Date/Time: 03/21/22 01:29
[2022-03-20 16:26] LABS: MANUAL DIFF FLAG NO
[2022-03-20 16:35] LABS: Basophils Percent Auto 0.3 % (0-2); Eosinophils Absolute Auto 0.1 X10*3/uL (0.0-0.4); Eosinophils Percent Auto 1.1 % (0-4); Hematocrit 34.7 % (42.0-52.0); Hemoglobin 10.8 g/dl (14.0-18.0); Imm Gran Abs Auto 0.04 X10*3/uL (0.00-0.03); Imm Gran Pct Auto 0.4 % (0.0-0.4); Lymphocytes Absolute Auto 1.1 X10*3/uL (1.2-4.9); Lymphocytes Percent Auto 10.7 % (20-40); Mean Corpuscular HGB Conc 31.1 g/dl (31.0-36.0); Mean Corpuscular Hemoglobin 29.9 pg (27.0-33.0); Mean Corpuscular Volume 96.1 fL (80.0-98.0); Mean Platelet Volume 10.4 fL (9.4-12.4); Monocytes Absolute Auto 1.2 X10*3/uL (0.1-1.2); Monocytes Percent Auto 11.2 % (2-11); Neutrophils Percent Auto 76.3 % (45-73); Platelet Count 243 X10*3/uL (160-400); Red Blood Count 3.61 X10*6/uL (4.60-5.80); Red Cell Distribution Width 14.5 % (11.0-16.0); White Blood Count 10.5 X10*3/uL (4.8-10.8)
[2022-03-20 16:48] LABS: COVID-19 Test Negative (Negative); IDNOW Serial# 16C4AD1C
[2022-03-20 16:51] LABS: Alanine Aminotransferase 20 U/L (0-40); Albumin Level 3.9 g/dL (3.5-5.0); Alkaline Phosphatase 62 U/L (39-117); Anion Gap 12 (12-20); Aspartate Amino Transferase 19 U/L (5-37); Bilirubin Total 0.4 mg/dL (0.0-1.0); Blood Urea Nitrogen 24 mg/dL (9-16); Calcium 9.2 mg/dL (8.4-10.2); Carbon Dioxide 23 mmol/L (22-29); Chloride 108 mmol/L (96-108); Creatinine Clr Calc Pharmacy 43.5; Estimated Glomerular Filt Rate > 60; Glucose Random 176 mg/dL (60-115); Magnesium 2.1 mg/dL (1.6-2.6); Potassium 4.6 mmol/L (3.3-5.1); Sodium 138 mmol/L (135-145); Total Protein 6.5 g/dL (6.5-8.0)
[2022-03-20 16:52] LABS: Troponin-I High Sensitivity < 3.5 ng/L (<3.5-35.0)
[2022-03-20 18:00] LABS: Appearance Urine Clear; Color Urine Yellow; Glucose Urine UA 100 mg/dL (Negative); Leukocyte Esterase Urine Small (1+) (Negative); Nitrite Urine Negative (Negative); Specific Gravity - Urine 1.025 (1.005-1.025); UMIC TRIGGER UACC YES; Urine Blood Negative (Negative); Urine Ketones Trace mg/dL (Negative); Urine Protein Trace mg/dL (Neg-Trace)
[2022-03-20 18:09] LABS: Bacteria Urine None Seen (None Seen); Granular Casts Urine Present; Hyaline Casts Urine >20 /LPF (0-2); RBC Urine 0-2 /HPF (0-2); UACC Culture Trigger YES
[2022-03-20 21:31] VITALS: BP 136/87; PULSE 74; RESP 16; TEMP 36.8; O2SAT 98
--- NOTE | 2022-03-20 22:19 | ED_ITS ---
HPI - Fall General Chief Complaint: Fall Stated Complaint: Fall/Facial lac Time Seen by Provider: 03/20/22 22:19 Source: patient and family Mode of arrival: wheelchair Limitations: no limitations History of Present Illness HPI Narrative: 82-year-old male presents for evaluations of injury sustained from a mechanical fall. Patient states that he either tripped and fell, had some leg weakness, and landed on his face. He does not recall the entire events of the fall, states that his found him on the ground behind his car. MD complaint: fall Onset (ago): hour(s) (Within the hour of arrival) Fall from: standing Fall witnessed: no Place fall occurred: home Loss of consciousness: unsure Prolonged down time: no Context: tripped/slipped Location of injury: head and face Severity: moderate Severity scale (1-10): 5 Quality: aching Associated symptoms (after fall): headache and neck pain Related Data Home Medications Medication Instructions Recorded Confirmed duloxetine 60 mg capsule,delayed 60 mg PO DAILY 06/14/20 10/03/21 release gabapentin 600 mg tablet 600 mg PO DAILY 06/14/20 10/03/21 lisinopril 2.5 mg tablet 2.5 mg PO DAILY 06/14/20 10/03/21 oxycodone 5 mg tablet 5 mg PO 06/14/20 10/03/21 simvastatin 10 mg tablet 10 mg PO DAILY 06/14/20 10/03/21 tamsulosin 0.4 mg capsule 0.4 mg PO DAILY 06/14/20 10/03/21 diclofenac sodium 50 mg 50 mg PO BID 10/03/21 10/03/21 tablet,delayed release Previous Rx's Medication Instructions Recorded amoxicillin 875 mg-potassium 1 tab PO Q12H 10 days #20 tabs 03/21/22 clavulanate 125 mg tablet Allergies Allergy/AdvReac Type Severity Reaction Status Date / Time No Known Allergies Allergy Verified 03/20/22 15:24 Review of Systems Review of Systems: Constitutional: No Fever, No Chills ENT/Mouth: No Ear Pain, No Hoarseness, No sore throat Eyes: No Eye Pain, No Swelling, No Redness, No Foreign Body Cardiovascular: No Chest Pain, No SOB Respiratory: No Cough, No Dyspnea Gastrointestinal: No Nausea, No Vomiting, No Diarrhea, No abdominal Pain Genitourinary: No Dysuria, No Hematuria Musculoskeletal: positive neck pain, No Myalgias, No Joint Swelling Skin: Positive nasal bridge laceration, positive forehead abrasion, No rash Neuro: No Weakness, No Numbness, No Paresthesias, No Loss of Consciousness, No Dizziness, No Headache Psych: No Anxiety/Panic, No Depression Heme/Lymph: no easy bruising, no Lymphadenopathy Endocrine: No Polyuria, No Polydipsia Yes all other systems are reviewed and are negative [facility] Past Medical History Attestation statement: The following information was validated with the patient. Source: old records reviewed Medical History Arthritis BPH (benign prostatic hyperplasia) Diabetes HLD (hyperlipidemia) MARIE (iron deficiency anemia) Lumbar spinal stenosis Meningioma CAROLINA (obstructive sleep apnea) PLMD (periodic limb movement disorder) Spinal cord stimulator status Subclinical hypothyroidism Surgical History History of lumbar fusion Social History Social History Are you a primary hospice care consultant to a significant other at home: No Do you presently have visiting nurse or other home services: No Patient Tobacco Use Status: Former Tobacco user Tobacco use type: Cigarette Advance Directives: No Advance Directives Information Provided: No Physical Exam Vital Signs: Vital Signs: Last Vital Signs Temp 98.3 F 03/20/22 21:31 Pulse 97 03/20/22 22:49 Resp 16 03/20/22 21:31 BP 140/72 H 03/20/22 22:49 Pulse Ox 98 03/20/22 21:31 O2 Del Method 03/20/22 21:31 BMI result Body Mass Index 24.5 Appearance: Alert. Oriented X3. No acute distress. Eyes: Pupils equal, round and reactive to light. ENT: Pharynx normal. Neck: Normal inspection. Neck supple. CVS: Normal heart rate and rhythm. Pulses normal. Respiratory: No respiratory distress. Breath sounds normal. Abdomen: Soft and nontender. Skin: Laceration to bridge of nose, abrasion to forehead and nasal bridge Extremities: No lower extremity edema. Moves all extremities against resistance. Gait well-balanced well coordinated. Neuro: No motor deficit. No sensory deficit. Cranial nerves 2-12 intact. Course Course Course Narrative: 82-year-old male presents for injury sustained from a fall. States that he had head strike to the face, felt dizzy prior to the fall, he has a laceration down the bridge of his nose. Upon triage patient's blood pressure was 96/43 with a heart rate of 109. Currently blood pressure is 137/68. Both nares are patent. CT scan indicates a minimally displaced nasal fracture, and a nondisplaced ethmoid fracture. Patient has a noted calcified meningioma, has a had a history of tumor resection to the frontal portion of his brain and has a metal plate. He is aware that he does have the meningioma, which has been longstanding chronic issue. 22:[address] Cain, hospitalist feels that this patient requires ENT evaluation for minimally displaced nasal fracture. We did call out to [facility]. 00:58 patient states that he would like to discontinue the order for PT social sciences lecturer, states that he would like to be discharged home. I did discuss in detail signs and symptoms indicating need for emergent intervention. Patient and patient's verbalized understanding and agrees to plan of care. They do understand that must follow-up with primary care physician this week. Consultations Consultation #1: Ant Medications Administered Discontinued Medications Generic Name Dose Route Start Last Admin Trade Name Freq PRN Reason Stop Dose Admin Acetaminophen 650 mg 03/20/22 22:34 03/20/22 23:05 Acetaminophen 325 Mg Tablet PO 03/20/22 22:35 650 mg ONCE ONE Administration Diphtheria/Tetanus/Acell Pertussis 0.5 ml 03/20/22 22:32 03/20/22 22:58 Diphth,Pertus(Acell),Tet Adult 0.5 Ml Syringe IM 03/20/22 22:33 0.5 ml .ONCE ONE Administration Ceftriaxone Sodium 1 gm/ 50 mls @ 100 mls/hr 03/20/22 22:31 03/21/22 00:40 Sodium Chloride IV 03/20/22 23:00 Infused ONCE ONE Infusion Sodium Chloride 1,000 mls @ 999 mls/hr 03/20/22 22:45 03/21/22 00:40 Ns IVCONT 03/20/22 23:45 Infused .Q1H1M ALYSSA Infusion Lidocaine HCl 4 ml 03/20/22 22:33 03/20/22 23:05 Lidocaine Hcl 2% 2 Ml Vial INFILTRATI 03/20/22 22:34 4 ml ONCE ONE Administration Morphine Sulfate 2 mg 03/20/22 22:34 03/20/22 22:54 Morphine Sulfate 2 Mg/Ml Cartridge IVPUSH 03/20/22 22:35 2 mg ONCE ONE Administration Protocol Ondansetron HCl 4 mg 03/20/22 22:34 03/20/22 22:54 Ondansetron Hcl 4 Mg/2 Ml Vial IVPUSH 03/20/22 22:35 4 mg ONCE ONE Administration Procedures Laceration Laceration 1: Site: face Size (cm): 2 Description: linear and contaminated Depth: simple, single layer Local Anesthetic: lidocaine 2% Amount of anesthesia used (mL): 4 Pre-repair: wound explored, irrigated extensively and extensive helen ridement Skin layer closed with: nylon Size (cm): 6-0 Number of sutures: 4 Technique: simple, interrupted MDM - Fall Differential Diagnosis Differential diagnosis: Likely fracture and concussion without loss of consciousness Medical Records Attestation: I reviewed the patient's medical records. Lab Data Attestation: I reviewed the patient's lab results. Result diagrams: 03/20/22 16:19 03/20/22 16:19 Labs: Lab Results 03/20/22 03/20/22 03/20/22 Range/Units 16:19 16:19 16:19 WBC 10.5 (4.8-10.8) X10*3/uL RBC 3.61 L (4.60-5.80) X10*6/uL Hgb 10.8 L (14.0-18.0) g/dl Hct 34.7 L (42.0-52.0) % MCV 96.1 (80.0-98.0) fL MCH 29.9 (27.0-33.0) pg MCHC 31.1 (31.0-36.0) g/dl RDW 14.5 (11.0-16.0) % Plt Count 243 (160-400) X10*3/uL MPV 10.4 (9.4-12.4) fL Immature Gran % (Auto) 0.4 (0.0-0.4) % Neut % (Auto) 76.3 H (45-73) % Lymph % (Auto) 10.7 L (20-40) % [place] % (Auto) 11.2 H (2-11) % Eos % (Auto) 1.1 (0-4) % Baso % (Auto) 0.3 (0-2) % Lymph # (Auto) 1.1 L (1.2-4.9) X10*3/uL [place] # (Auto) 1.2 (0.1-1.2) X10*3/uL Eos # (Auto) 0.1 (0.0-0.4) X10*3/uL Baso # (Auto) 0.0 (0.0-0.2) X10*3/uL Abs Immat Gran (auto) 0.04 H (0.00-0.03) X10*3/uL Absolute Neuts (auto) 8.0 (2.0-8.3) x10*3/uL Absolute Nucleated RBC 0.000 (0.0-0.012) X10*3/uL Nucleated RBC % (auto) 0.0 (0.0-0.2) /100WBC Sodium 138 (135-145) mmol/L Potassium 4.6 (3.3-5.1) mmol/L Chloride 108 (96-108) mmol/L Carbon Dioxide 23 (22-29) mmol/L Anion Gap 12 (12-20) BUN 24 H (9-16) mg/dL Creatinine 1.14 (0.5-1.4) mg/dL Estim Creat Clear Calc 43.5 Estimated GFR > 60 Random Glucose 176 H (60-115) mg/dL Calcium 9.2 (8.4-10.2) mg/dL Magnesium 2.1 (1.6-2.6) mg/dL Total Bilirubin 0.4 (0.0-1.0) mg/dL AST 19 (5-37) U/L ALT 20 (0-40) U/L Alkaline Phosphatase 62 (39-117) U/L Troponin I High Sens < 3.5 (<3.5-35.0) ng/L Total Protein 6.5 (6.5-8.0) g/dL Albumin 3.9 (3.5-5.0) g/dL Urine Color Urine Appearance Urine pH (5.0-9.0) Ur Specific [place] (1.005-1.025) Urine Protein (Neg-Trace) mg/dL Urine Glucose (UA) (Negative) mg/dL Urine Ketones (Negative) mg/dL Urine Blood (Negative) Urine Nitrite (Negative) Ur Leukocyte Esterase (Negative) Urine RBC (0-2) /HPF Urine WBC (0-5) /HPF Ur Squamous Epith Cells (0-2) /HPF Urine Bacteria (None Seen) Hyaline Casts (0-2) /LPF Granular Casts COVID-19 (PINEDA) (Negative) COVID-19 Clin Com 03/20/22 03/20/22 Range/Units 16:19 17:47 WBC (4.8-10.8) X10*3/uL RBC (4.60-5.80) X10*6/uL Hgb (14.0-18.0) g/dl Hct (42.0-52.0) % MCV (80.0-98.0) fL MCH (27.0-33.0) pg MCHC (31.0-36.0) g/dl RDW (11.0-16.0) % Plt Count (160-400) X10*3/uL MPV (9.4-12.4) fL Immature Gran % (Auto) (0.0-0.4) % Neut % (Auto) (45-73) % Lymph % (Auto) (20-40) % [place] % (Auto) (2-11) % Eos % (Auto) (0-4) % Baso % (Auto) (0-2) % Lymph # (Auto) (1.2-4.9) X10*3/uL [place] # (Auto) (0.1-1.2) X10*3/uL Eos # (Auto) (0.0-0.4) X10*3/uL Baso # (Auto) (0.0-0.2) X10*3/uL Abs Immat Gran (auto) (0.00-0.03) X10*3/uL Absolute Neuts (auto) (2.0-8.3) x10*3/uL Absolute Nucleated RBC (0.0-0.012) X10*3/uL Nucleated RBC % (auto) (0.0-0.2) /100WBC Sodium (135-145) mmol/L Potassium (3.3-5.1) mmol/L Chloride (96-108) mmol/L Carbon Dioxide (22-29) mmol/L Anion Gap (12-20) BUN (9-16) mg/dL Creatinine (0.5-1.4) mg/dL Estim Creat Clear Calc Estimated GFR Random Glucose (60-115) mg/dL Calcium (8.4-10.2) mg/dL Magnesium (1.6-2.6) mg/dL Total Bilirubin (0.0-1.0) mg/dL AST (5-37) U/L ALT (0-40) U/L Alkaline Phosphatase (39-117) U/L Troponin I High Sens (<3.5-35.0) ng/L Total Protein (6.5-8.0) g/dL Albumin (3.5-5.0) g/dL Urine Color Yellow Urine Appearance Clear Urine pH 5.0 (5.0-9.0) Ur Specific [place] 1.025 (1.005-1.025) Urine Protein Trace (Neg-Trace) mg/dL Urine Glucose (UA) 100 H (Negative) mg/dL Urine Ketones Trace (Negative) mg/dL Urine Blood Negative (Negative) Urine Nitrite Negative (Negative) Ur Leukocyte Esterase Small (1+) H (Negative) Urine RBC 0-2 (0-2) /HPF Urine WBC 11-20 H (0-5) /HPF Ur Squamous Epith Cells 3-5 (0-2) /HPF Urine Bacteria None Seen (None Seen) Hyaline Casts >20 (0-2) /LPF Granular Casts Present COVID-19 (PINEDA) Negative (Negative) COVID-19 Clin Com See Note Imaging Data CT scan head, face, cervical spine: Attestation: I personally reviewed and interpreted this imaging study as follows: Radiologist's impression: FINDINGS: HEAD: No intra or extra-axial fluid collection or hemorrhage. Small 0.7 cm partially calcified anterior left frontal extra-axial mass consistent with small meningioma series 4 image 30. No midline shift or herniation. Basal cisterns are patent. Montes-white matter differentiation is maintained. Small area of encephalomalacia in the anterior right frontal lobe underlying the frontal craniotomy. No hydrocephalus. Small there is mild scattered hypoattenuation in the supratentorial white matter, nonspecific. No acute soft tissue abnormality. No calvarial fracture. Prior right frontal craniotomy. The mastoid air cells are well aerated. MAXILLOFACIAL: Minimally displaced fractures of the bilateral nasal bones nondisplaced fracture through the adjacent perpendicular plate of the ethmoid. No other acute facial bone fracture. Mild mucosal thickening and small mucous retention cyst in the right maxillary sinus. Right middle turbinate cresencio bullosa. Minimal mucosal thickening along the frontal sinus drainage pathways. The mandibular heads are normally positioned in the glenoid fossa. Status post bilateral lens extractions. Globes and retro-orbital structures otherwise intact. No retrobulbar hematoma. CERVICAL SPINE: Alignment:Approximately 4 mm grade 1/2 anterolisthesis of C3 upon C4 secondary to advanced facet arthrosis at this level. Minimal grade 1 anterolisthesis at C4-C5. No additional subluxation. Vertebra:No acute fracture. No prevertebral soft tissue swelling. Degenerative disc disease:Multilevel cervical spondylosis severe at C5-C6 and C6-C7 moderate to severe at C3-C4 with disc height loss, endplate sclerosis and proliferative change. Advanced multilevel bilateral facet arthrosis and multilevel uncovertebral spurring. Other findings:No cervical lymphadenopathy. Visualized thyroid gland is unremarkable. Visualized lung apices are clear. CT/CT cervical spine wo IV con IMPRESSION: 1.? No intracranial hemorrhage or calvarial fracture. 2.? Minimally displaced fractures of the bilateral nasal bones and nondisplaced fracture of the adjacent perpendicular plate of the ethmoid. 3.? No traumatic subluxation or acute cervical spine fracture. 4.? Incidental small 0.7 cm partially calcified left frontal meningioma. ? ECG Data Attestation: I personally reviewed and interpreted this ECG as follows: ECG interpretation date: 03/20/22 ECG interpretation time: 16:08 Prior ECG tracings: not available for review Interpretation: Vent. rate 99 BPM WI interval 154 ms QRS duration 76 ms QT/QTc 314/402 ms P-R-T axes 51 -21 13 Normal sinus rhythm Inferior infarct , age undetermined Abnormal ECG No previous ECGs available Discharge Plan Discharge Clinical Impression: Concussion without loss of consciousness, Closed fracture nasal bone, Closed fracture of ethmoid sinus, Laceration of nose Patient Disposition: Home, Self-Care Instructions: Nasal Fracture (ED), Facial Fracture (ED), Concussion (ED), Post Concussion Syndrome (ED), Facial Laceration (ED) Additional Instructions: You were evaluated for injury sustained from a fall. CT scan of head, facial bones and cervical spine indicates nasal bone fracture and ethmoid sinus fract ure. Your symptoms are also consistent with a concussion. You must follow-up with her primary care physician closely for post concussive protocol. We placed 4 sutures to your nose. Please return in 5-7 days to have sutures removed. Take Augmentin 875 mg twice a day for the next 10 days. Take Tylenol 650 mg every 6 hours as needed for muscle aches and headache. Thank you for choosing this emergency department for evaluation. Please follow-up with primary care physician as needed. Return to the emergency department for any new, concerning, or worsening symptoms. Prescriptions: New amoxicillin-pot clavulanate 875-125 mg tablet 1 tab PO Q12H 10 Days Qty: 20 0RF No Action duloxetine 60 mg capsule,delayed release(DR/EC) 60 mg PO DAILY lisinopril 2.5 mg tablet 2.5 mg PO DAILY simvastatin 10 mg tablet 10 mg PO DAILY gabapentin 600 mg tablet 600 mg PO DAILY tamsulosin 0.4 mg capsule 0.4 mg PO DAILY oxycodone 5 mg tablet 5 mg PO diclofenac sodium 50 mg tablet,delayed release (DR/EC) 50 mg PO BID Referrals: Parrish Cabrera MD [Primary Care Provider] - 3 days (Nasal bone fracture, ethmoid fracture, concussion, nasal laceration)
[2022-03-20 22:47] VITALS: BP 137/68; PULSE 85
[2022-03-20 22:48] VITALS: BP 129/72; PULSE 93
[2022-03-20 22:49] VITALS: BP 140/72; PULSE 97
[2022-03-20] MEDS: ondansetron HCL 4 MG/2 ML VIAL IVPUSH (22:54)
[2022-03-20] MEDS: 0.9 % Sodium Chloride 1,000 ML 999 ML IVCONT (22:54)
[2022-03-20] MEDS: Morphine Sulfate 2 MG/ML CARTRIDGE IVPUSH (22:54)
[2022-03-20] MEDS: Diphth,Pertus(ACell),Tet Adult 0.5 ML SYRINGE IM (22:58)
[2022-03-20] MEDS: cefTRIAXone sodium 1 GM in 0.9 % Sodium Chloride 50 ML IV (23:03)
[2022-03-20] MEDS: Acetaminophen 325 MG TABLET 650 MG PO (23:05)
--- NOTE | 2022-03-21 00:40 | PC.NURSE ---
Patient's Belonging's are in Locker [employer], In the POD. Yellow copy of list is in belonging's bag, White copy is at the Nurses' Station
--- NOTE | 2022-03-21 07:46 | MHC.CM.ED ---
Received case management consult overnight. Patient was discharged prior to being seen by case management.
== END 2022-03-21 01:29 | disposition home or self-care (01) ==
PROVIDERS: Physician Assistant; Emergency Provider Emergency Medicine; PCP Internal Medicine
DX: S06.0X0A Concussion without loss of consciousness, initial encounter (principal); S02.2XXA Fracture of nasal bones, initial encounter for closed fracture; S02.19XA Other fracture of base of skull, initial encounter for closed fracture; S01.21XA Laceration without foreign body of nose, initial encounter; W18.30XA Fall on same level, unspecified, initial encounter; Y93.9 Activity, unspecified; Y92.014 Private driveway to single-family (private) house as the place of occurrence of the external cause; Y99.9 Unspecified external cause status; D32.9 Benign neoplasm of meninges, unspecified; Z20.822 Contact with and (suspected) exposure to COVID-19
CPT/HCPCS: 12051; 70450; 70486; 72125; 80053; 81001; 83735; 84484; 85025; 87086; 87635; 90471; 90715; 93005; 96361; 96374; 96375; 99284; J0696; J2270; J2405

== ENCOUNTER 2022-12-21 13:59 | Outpatient (AMB) | payer MEDICARE, BC, SELFPAY ==
--- NOTE | 2022-12-21 14:00 | AM.OFFWIN_ITS ---
Intake Vital Signs 12/21/22 14:06 Weight 139 lb BP 110/60 Blood Pressure Location Lt brachial Position Sitting Pulse 103 H Pulse Source Pulse Oximeter Pulse Oximetry (%) 98 Oxygen Delivery Method Room Air Intake Visit Reasons: LIFE CONSULTANT Sciatic nerve pain Intake Note: Patient here for sciatic nerve pain that has been very bothersome over the past week, he states he is unable to sleep at night. Patient Tobacco Use Status: Former Tobacco user Allergies No Known Allergies Allergy (Verified 12/21/22 14:07) Do you need a note to return to daycare/school/sports/work: No HPI HPI Comments History of Present Illness Details a 2-year-old male that presents with back pain. Patient states he woke up been having back pain for approximately 1 week the pain starts in his right lower back and radiates down to his leg. Worse with movement. Study is adequate. Denies fevers chills saddle anesthesia difficulties in the restroom [facility] Medical History Arthritis BPH (benign prostatic hyperplasia) Diabetes HLD (hyperlipidemia) MARIE (iron deficiency anemia) Lumbar spinal stenosis Meningioma [place] (obstructive sleep apnea) PLMD (periodic limb movement disorder) Spinal cord stimulator status Subclinical hypothyroidism Surgical History History of lumbar fusion Social History Are you a primary medicare compliance auditor to a significant other at home: No Do you presently have visiting nurse or other home services: No Patient Tobacco Use Status: Former Tobacco user Tobacco use type: Cigarette Review of Systems [facility] [place] Reports back pain Physical Exam Vital Signs: Last Vital Signs Pulse 103 H 12/21/22 14:06 BP 110/60 12/21/22 14:06 Pulse Ox 98 12/21/22 14:06 Oxygen Delivery Method Room Air 12/21/22 14:06 Back/Spine/Pelvis Other: no midline tenderness to palpation Assessment & Plan Assessment & Plan (1) Back pain: Code(s): M54.9 - Dorsalgia, unspecified Plan VSs Exam patient Alert andoriented no acute distress exam is otherwise unremarkable note above. Patient presentation most consistent with sciatic. Patient can take NSAIDs given history of gastric ulcer. Will prescribe 2 days steroids lidocaine patches and recommend symptomatic treatment. Medications: New prednisone 40 mg (2 x 20 mg) PO DAILY 4 tabs 0RF lidocaine 4% (Aspercreme (lidocaine)) 1 patch topical DAILY PRN 10 ea 0RF pain Coding Level of Care Code New Pt Level 3 (76687) Diagnoses Back pain M54.9
[2022-12-21 14:06] VITALS: BP 110/60; PULSE 103; O2SAT 98
== END 2022-12-21 14:54 | disposition home or self-care (01) ==
PROVIDERS: PCP Internal Medicine; Visit Provider Physician Assistant
DX: M54.9 Dorsalgia, unspecified (principal)
CPT/HCPCS: 99203

== ENCOUNTER 2024-08-23 16:14 | Emergency (ER) | payer MEDICARE, BC, SELFPAY ==
--- NOTE | 2024-08-23 16:21 | ED.WOUNDLAC ---
HPI - Wound/Laceration General Chief Complaint: Wound/Laceration Stated Complaint: abrasion l arm Time Seen by Provider: 08/23/24 16:32 Source: patient Mode of arrival: ambulatory Limitations: no limitations History of Present Illness ED Provider: opal sepulveda np HPI narrative: Patient is an 84-year-old male who presents emergency department for evaluation of accident until laceration to the left forearm. He reports he was attempting to put some grass into a wagon, he sustained an abrasion to the left forearm from a metal portion of the wagon. Reports that the skin is torn off. Reports initially that it had bled quite a bit but has since stopped. Denies use of anticoagulants or known coagulation disorders. Is uncertain of the exact date of his last tetanus vaccination believes it has been within the past 5 years. Related Data Home Medications ?Medication ?Instructions ?Recorded ?Confirmed duloxetine 60 mg capsule,delayed 60 mg PO DAILY 06/14/20 10/03/21 release gabapentin 600 mg tablet 600 mg PO DAILY 06/14/20 10/03/21 lisinopril 2.5 mg tablet 2.5 mg PO DAILY 06/14/20 10/03/21 simvastatin 10 mg tablet 10 mg PO DAILY 06/14/20 10/03/21 tamsulosin 0.4 mg capsule 0.4 mg PO DAILY 06/14/20 10/03/21 diclofenac sodium 50 mg 50 mg PO BID 10/03/21 10/03/21 tablet,delayed release Previous Rx's ?Medication ?Instructions ?Recorded lidocaine 4 % topical patch 1 patch topical DAILY PRN pain #10 12/21/22 (Aspercreme (lidocaine)) ea prednisone 20 mg tablet 40 mg (2 x 20 mg) PO DAILY #4 tabs 12/21/22 Allergies Allergy/AdvReac Type Severity Reaction Status Date / Time No Known Allergies Allergy Verified 08/23/24 16:24 Review of Systems Review of Systems: Yes all other systems are reviewed and are negative PMFSH Past Medical History Attestation statement: The following information was validated with the patient. Source: old records reviewed Medical History Spinal cord stimulator status HLD (hyperlipidemia) BPH (benign prostatic hyperplasia) Meningioma Lumbar spinal stenosis Arthritis CAROLINA (obstructive sleep apnea) PLMD (periodic limb movement disorder) Subclinical hypothyroidism Diabetes MARIE (iron deficiency anemia) Surgical History History of lumbar fusion Social History Social History Are you a primary residential care facility manager to a significant other at home: No Do you presently have visiting nurse or other home services: No Comment: medicated at 1640 with Tylenol and Oxycodone Patient Tobacco Use Status: Former Tobacco user Tobacco use type: Cigarette Smoked in Last 30 Days: No Use of substances other than those prescribed or required for medical reasons: No Advance Directives: No Advance Directives Information Provided: Yes Physical Exam Vital Signs: Vital Signs: Last Vital Signs Temp 97.5 F 08/23/24 16:22 Pulse 95 08/23/24 16:32 Resp 18 08/23/24 16:22 BP 108/52 L 08/23/24 16:32 Pulse Ox 99 08/23/24 16:22 O2 Del Method Room Air 08/23/24 16:22 BMI result Body Mass Index 23.4 Appearance: Alert.?Oriented to person, place and time. No acute distress.?Normal affect. CVS: Heart sounds normal. Normal heart rate and rhythm.? Pulses normal.?? Respiratory: No respiratory distress.? Lung sounds clear to auscultation bilaterally?? Skin: Skin warm and dry.? Normal skin color.? Left forearm skin tear Neuro: Moves all extremities spontaneously. Sensation intact bilaterally. Ambulates with normal steady gait. Medical Decision Making Medical Decision Making MDM Narrative: Patient is an 84-year-old male past medical history of BPH, diabetes, hyperlipidemia, IVDA, angioma, CAR[place]INA, subclinical hypothyroidism who presents emergency department for evaluation of an accidental laceration to the left [place] some metal on a wagon as per HPI. Initially endorsed quite a bit of bleeding but has resolved on arrival to triage. Examination is concerning for superficial avulsion/skin tear as per PE portion of this note. His blood pressure is a bit low on arrival 93/42, mildly tachycardic with a pulse of 104. Out of abundance of caution, will check CBC to assure significant anemia. He is not aware of what his baseline blood pressure is. He does take lisinopril for hypertension. Tetanus vaccination per medical record was updated in November of 2023. Patient is declining to have his CBC checked while in the ED, has had no further bleeding, on evaluation Repeat blood pressure 108/52. Dizziness, lightheadedness, palpitations, shortness of breath. Wound was cleansed with normal saline, Xeroform gauze applied over the exposed epidermis, a nonstick dressing followed by a gauze wrap. He has full range of motion to the bony tenderness admission for acute osseous abnormality, would defer XR imaging. Patient discharged home Differential Diagnosis Differential Diagnoses: The differential diagnosis associated with the presentation includes (See narrative above) Admission/Observation Consideration of admission/observation: Escalation of care including admission/observation considered Lab Data 08/23/24 17:57 Labs: Lab Results 08/23/24 Range/Units 17:57 WBC 8.5 (4.8-10.8) X10*3/uL RBC 2.70 L D (4.60-5.80) X10*6/uL Hgb 8.5 L D (14.0-18.0) g/dl Hct 26.6 L D (42.0-52.0) % MCV 98.5 H (80.0-98.0) fL MCH 31.5 (27.0-33.0) pg MCHC 32.0 (31.0-36.0) g/dl RDW 13.2 (11.0-16.0) % Plt Count 269 (160-400) X10*3/uL MPV 9.2 L (9.4-12.4) fL Immature Gran % (Auto) 0.4 (0.0-0.4) % Neut % (Auto) 68.6 (45-73) % Lymph % (Auto) 16.1 L (20-40) % [place] % (Auto) 11.1 H (2-11) % Eos % (Auto) 3.3 (0-4) % Baso % (Auto) 0.5 (0-2) % Lymph # (Auto) 1.4 (1.2-4.9) X10*3/uL [place] # (Auto) 0.9 (0.1-1.2) X10*3/uL Eos # (Auto) 0.3 (0.0-0.4) X10*3/uL Baso # (Auto) 0.0 (0.0-0.2) X10*3/uL Abs Immat Gran (auto) 0.03 (0.00-0.03) X10*3/uL Absolute Neuts (auto) 5.8 (2.0-8.3) x10*3/uL Absolute Nucleated RBC 0.000 (0.0-0.012) X10*3/uL Nucleated RBC % (auto) 0.0 (0.0-0.2) /100WBC External Record Review External record reviewed: Outpatient record Chronic Conditions Patient?s care impacted by: Other (Narrative above) Discharge Plan Discharge Clinical Impression: Skin tear of left upper extremity Patient Disposition: Home, Self-Care Instructions: Laceration (ED) Additional Instructions: Clean the area twice daily with warm water and mild soap. Apply topical bacitracin ointment and a nonstick dressing. Follow-up with primary care doctor. Return with any new or worsening symptoms or concerns. Prescriptions: No Action prednisone 20 mg tablet 40 mg PO DAILY Qty: 4 0RF lidocaine [Aspercreme (lidocaine)] 4 % adhesive patch,medicated 1 patch topical DAILY PRN (Reason: pain) Qty: 10 0RF duloxetine 60 mg capsule,delayed release(DR/EC) 60 mg PO DAILY lisinopril 2.5 mg tablet 2.5 mg PO DAILY simvastatin 10 mg tablet 10 mg PO DAILY gabapentin 600 mg tablet 600 mg PO DAILY tamsulosin 0.4 mg capsule 0.4 mg PO DAILY diclofenac sodium 50 mg tablet,delayed release (DR/EC) 50 mg PO BID Referrals: Parrish Cabrera MD [Primary Care Provider] - Print Language: Telugu
[2024-08-23 16:22] VITALS: BP 93/42; PULSE 86; RESP 18; TEMP 36.4; O2SAT 99; BMI 23.4
[2024-08-23 16:32] VITALS: BP 108/52; PULSE 95
[2024-08-23 18:09] LABS: MANUAL DIFF FLAG NO
[2024-08-23 18:10] LABS: Basophils Percent Auto 0.5 % (0-2); Eosinophils Absolute Auto 0.3 X10*3/uL (0.0-0.4); Eosinophils Percent Auto 3.3 % (0-4); Hematocrit 26.6 % (42.0-52.0); Hemoglobin 8.5 g/dl (14.0-18.0); Imm Gran Abs Auto 0.03 X10*3/uL (0.00-0.03); Imm Gran Pct Auto 0.4 % (0.0-0.4); Lymphocytes Absolute Auto 1.4 X10*3/uL (1.2-4.9); Lymphocytes Percent Auto 16.1 % (20-40); Mean Corpuscular Hemoglobin 31.5 pg (27.0-33.0); Mean Corpuscular Volume 98.5 fL (80.0-98.0); Mean Platelet Volume 9.2 fL (9.4-12.4); Monocytes Absolute Auto 0.9 X10*3/uL (0.1-1.2); Monocytes Percent Auto 11.1 % (2-11); Neutrophils Absolute Auto 5.8 x10*3/uL (2.0-8.3); Neutrophils Percent Auto 68.6 % (45-73); Platelet Count 269 X10*3/uL (160-400); Red Cell Distribution Width 13.2 % (11.0-16.0); White Blood Count 8.5 X10*3/uL (4.8-10.8)
[2024-08-23 18:27] VITALS: BP 108/52; PULSE 95; RESP 20; TEMP -17.7; TEMP 0; O2SAT 0
== END 2024-08-23 18:27 | disposition home or self-care (01) ==
PROVIDERS: Nurse Practitioner Family; Emergency Provider Emergency Medicine; PCP Internal Medicine
DX: S51.812A Laceration without foreign body of left forearm, initial encounter (principal); W26.8XXA Contact with other sharp object(s), not elsewhere classified, initial encounter; Y93.H2 Activity, gardening and landscaping; Y92.017 Garden or yard in single-family (private) house as the place of occurrence of the external cause; Y99.9 Unspecified external cause status; R00.0 Tachycardia, unspecified; I10 Essential (primary) hypertension
CPT/HCPCS: 36415; 85025; 99283; 99284

== ENCOUNTER 2024-09-02 12:44 | Emergency (ER) | payer MEDICARE, BC, SELFPAY ==
--- NOTE | 2024-09-02 13:04 | ED.GENADULT ---
HPI - General Adult General Chief complaint: Wound/Laceration Stated complaint: seen recently, arm turning red Time Seen by Provider: 09/02/24 16:17 Source: patient and family Mode of arrival: ambulatory Limitations: no limitations History of Present Illness ED Provider: Dr. Shaylee Matson HPI narrative: patient comes to the emergency room complaining of an infected forearm. Patient states that approximately 10 days ago, patient has scraped his forearm with a stephane nail. According to the patient, he is up-to-date with his tetanus shot, received his last Tdap in November of 2023 per patient's . Patient states that his wound is very itchy, does not hurt, has not had any fever or chills. Patient states that now it is oozing clear fluid. Patient denies any numbness tingling, denies any significant pain in the area. Patient able to flex and extend the elbow without any pain with normal range of motion. Related Data Home Medications ?Medication ?Instructions ?Recorded ?Confirmed duloxetine 60 mg capsule,delayed 60 mg PO DAILY 06/14/20 10/03/21 release gabapentin 600 mg tablet 600 mg PO DAILY 06/14/20 10/03/21 lisinopril 2.5 mg tablet 2.5 mg PO DAILY 06/14/20 10/03/21 simvastatin 10 mg tablet 10 mg PO DAILY 06/14/20 10/03/21 tamsulosin 0.4 mg capsule 0.4 mg PO DAILY 06/14/20 10/03/21 diclofenac sodium 50 mg 50 mg PO BID 10/03/21 10/03/21 tablet,delayed release Previous Rx's ?Medication ?Instructions ?Recorded lidocaine 4 % topical patch 1 patch topical DAILY PRN pain #10 12/21/22 (Aspercreme (lidocaine)) ea prednisone 20 mg tablet 40 mg (2 x 20 mg) PO DAILY #4 tabs 12/21/22 cephalexin 500 mg capsule 500 mg PO BID #14 caps 09/02/24 diphenhydramine HCl 2 % topical 1 appl topical QID PRN itching 09/02/24 gel (Benadryl) #103 mL doxycycline hyclate 100 mg capsule 100 mg PO BID #14 caps 09/02/24 Allergies Allergy/AdvReac Type Severity Reaction Status Date / Time No Known Allergies Allergy Verified 09/02/24 13:08 Review of Systems Review of Systems: Constitutional : No Weight loss, No Fever, No Chills, No Night Sweats, No Fatigue, No Malaise ENT/Mouth : No Hearing loss, No Ear Pain, No Nasal Congestion, No Sinus Pain, No Hoarseness, No sore throat, No Rhinorrhea, No Swallowing Difficulty Eyes: No Eye Pain, No Swelling, No Redness, No Foreign Body, No Discharge, No Vision Changes Cardiovascular : No Chest Pain, No SOB, No Dyspnea on Exertion, No Orthopnea, No Edema, No Palpitations Respiratory : No Cough, No Sputum, No Wheezing, No Smoke Exposure, No Dyspnea Gastrointestinal : No Nausea, No Vomiting, No Diarrhea, No Constipation, No abdominal Pain, No Hematochezia, No Melena Genitourinary : no irregular bleeding, No Dysuria, No Urinary Frequency, No Hematuria, No Urinary Incontinence, No Urgency, No Flank Pain, No Urinary Flow Changes, No Hesitancy Musculoskeletal : No joint pain, No Myalgias, No Joint Swelling Skin : Complaining of an infected scrape in the left forearm Neuro : No Weakness, No Numbness, No Paresthesias, No Loss of Consciousness, No Dizziness, No Headache Psych : No Anxiety/Panic, No Depression, No SI/HI/AH/VH, No Social Issues, Heme/Lymph: No Bruising, No Bleeding,No Lymphadenopathy Endocrine : No Polyuria, No Polydipsia, No Temperature Intolerance PMFSH Past Medical History Medical History Spinal cord stimulator status HLD (hyperlipidemia) BPH (benign prostatic hyperplasia) Meningioma Lumbar spinal stenosis Arthritis [place] (obstructive sleep apnea) PLMD (periodic limb movement disorder) Subclinical hypothyroidism Diabetes MARIE (iron deficiency anemia) Surgical History History of lumbar fusion Social History Social History Are you a primary caretaker resort to a significant other at home: No Do you presently have visiting nurse or other home services: No Comment: medicated at 1640 with Tylenol and Oxycodone Patient Tobacco Use Status: Former Tobacco user Tobacco use type: Cigarette Advance Directives: No Advance Directives Information Provided: No Physical Exam ED Vital Signs: Vital Signs - 24 hr 09/02/24 13:06 Temperature 97.8 F Pulse Rate 96 Respiratory Rate 18 Blood Pressure 126/63 Pulse Oximetry 95 Oxygen Delivery Method Room Air BMI result Body Mass Index 23.5 Const Other: Appearance: Alert. Oriented X3. No acute distress. Eyes: Pupils equal, round and reactive to light. ENT: Pharynx normal. Neck: Normal inspection. Neck supple. No lymph nodes noted. No crepitus CVS: Normal heart rate and rhythm. Pulses normal. Normal S1 and S2 Respiratory: No respiratory distress. Breath sounds normal. No Wheezing. No rales Abdomen: Soft and nontender. No rigidity. No distention. Skin: Skin warm and dry. see extremities below. Extremities: No lower extremity edema. No Lacerations. No Rash . Patient's left arm in the proximal forearm there is cellulitis, ecchymosis. There is a 3 cm x 3 cm abrasion that is oozing serosanguineous fluid. No pus. Patient states that there is no pain at all. Patient's elbow within normal limits, no effusion noted, normal flexion and extension Neuro: Oriented X 3. No motor deficit. No sensory deficit. Moving all extremities. No slurred speech. CN 2 through 12 grossly intact Psych: calm, cooperative, normal affect Course Course Course Narrative: This is a rapid medical exam performed by Ranulfo Alexandre NP: Additional HPI, ROS, PE not included below will be deferred to primary provider. Patient is an 84-year-old male with history of lumbar postlaminectomy syndrome, failed back syndrome presenting with complaint of left arm redness spreading up arm. Seen on 08/23 for skin tear to same arm. Plan: labs Medical Decision Making Medical Decision Making [facility] Narrative: my interpretation of labs: Patient's hematology is at baseline, normal white blood cell count. Anemic at baseline. Patient asymptomatic. No significant abnormality in patient's chemistry. Septic joint is not suspected. Patient was given the 1st dose of antibiotics here in the emergency room, cephalexin and doxycycline. Patient instructed to keep a close eye on his 1, if it is not getting better or getting worse, he needs to return to emergency room and plan for admission for IV antibiotics. Patient and agree with plan. Patient also requesting an anti-itch medication to put a in the surrounding skin since it is very itchy Lab Data [facility] Lab Attestation statement: I reviewed the patient's lab results. 09/02/24 13:40 09/02/24 13:40 Labs: Lab Results 09/02/24 Range/Units 13:40 WBC 6.7 (4.8-10.8) X10*3/uL RBC 2.88 L (4.60-5.80) X10*6/uL Hgb 9.0 L (14.0-18.0) g/dl Hct 28.3 L (42.0-52.0) % MCV 98.3 H (80.0-98.0) fL MCH 31.3 (27.0-33.0) pg MCHC 31.8 (31.0-36.0) g/dl RDW 13.0 (11.0-16.0) % Plt Count 228 (160-400) X10*3/uL MPV 9.5 (9.4-12.4) fL Immature Gran % (Auto) 0.3 (0.0-0.4) % Neut % (Auto) 60.8 (45-73) % Lymph % (Auto) 22.5 (20-40) % [place] % (Auto) 11.7 H (2-11) % Eos % (Auto) 4.0 (0-4) % Baso % (Auto) 0.7 (0-2) % Lymph # (Auto) 1.5 (1.2-4.9) X10*3/uL [place] # (Auto) 0.8 (0.1-1.2) X10*3/uL Eos # (Auto) 0.3 (0.0-0.4) X10*3/uL Baso # (Auto) 0.1 (0.0-0.2) X10*3/uL Abs Immat Gran (auto) 0.02 (0.00-0.03) X10*3/uL Absolute Neuts (auto) 4.1 (2.0-8.3) x10*3/uL Absolute Nucleated RBC 0.000 (0.0-0.012) X10*3/uL Nucleated RBC % (auto) 0.0 (0.0-0.2) /100WBC ESR 28 H (0-15) MM/HR Sodium 137 (135-145) mmol/L Potassium 4.5 (3.3-5.1) mmol/L Chloride 107 (96-108) mmol/L Carbon Dioxide 24 (22-29) mmol/L Anion Gap 11 L (12-20) BUN 24 H (9-16) mg/dL Creatinine 0.75 (0.5-1.4) mg/dL Estim Creat Clear Calc 63.8 Estimated GFR > 60 Random Glucose 100 (60-115) mg/dL Calcium 8.9 (8.4-10.2) mg/dL Total Bilirubin 0.3 (0.0-1.0) mg/dL AST 25 (5-37) U/L ALT 21 (0-40) U/L Alkaline Phosphatase 110 (39-117) U/L C-Reactive Protein 0.18 (< or = 0.50) mg/dL Total Protein 6.6 (6.5-8.0) g/dL Albumin 3.8 (3.5-5.0) g/dL Discharge Plan Discharge Clinical Impression: Cellulitis of forearm, left Patient Disposition: Home, Self-Care Instructions: Cellulitis (ED) Additional Instructions: Please follow-up with your primary care physician tomorrow. If you have any worsening or new symptoms, please return to the emergency room or call 911 Prescriptions: New cephalexin 500 mg capsule 500 mg PO BID Qty: 14 0RF doxycycline hyclate 100 mg capsule 100 mg PO BID Qty: 14 0RF Benadryl 2 % gel 1 appl topical QID PRN (Reason: itching) Qty: 103 0RF No Action prednisone 20 mg tablet 40 mg PO DAILY Qty: 4 0RF lidocaine [Aspercreme (lidocaine)] 4 % adhesive patch,medicated 1 patch topical DAILY PRN (Reason: pain) Qty: 10 0RF duloxetine 60 mg capsule,delayed release(DR/EC) 60 mg PO DAILY lisinopril 2.5 mg tablet 2.5 mg PO DAILY simvastatin 10 mg tablet 10 mg PO DAILY gabapentin 600 mg tablet 600 mg PO DAILY tamsulosin 0.4 mg capsule 0.4 mg PO DAILY diclofenac sodium 50 mg tablet,delayed release (DR/EC) 50 mg PO BID Print Language: Armenian
[2024-09-02 13:06] VITALS: BP 126/63; PULSE 96; RESP 18; TEMP 36.6; O2SAT 95; BMI 23.5
[2024-09-02 13:48] LABS: MANUAL DIFF FLAG NO
[2024-09-02 13:50] LABS: Basophils Absolute Auto 0.1 X10*3/uL (0.0-0.2); Basophils Percent Auto 0.7 % (0-2); Eosinophils Absolute Auto 0.3 X10*3/uL (0.0-0.4); Hematocrit 28.3 % (42.0-52.0); Imm Gran Abs Auto 0.02 X10*3/uL (0.00-0.03); Imm Gran Pct Auto 0.3 % (0.0-0.4); Lymphocytes Absolute Auto 1.5 X10*3/uL (1.2-4.9); Lymphocytes Percent Auto 22.5 % (20-40); Mean Corpuscular HGB Conc 31.8 g/dl (31.0-36.0); Mean Corpuscular Hemoglobin 31.3 pg (27.0-33.0); Mean Corpuscular Volume 98.3 fL (80.0-98.0); Mean Platelet Volume 9.5 fL (9.4-12.4); Monocytes Absolute Auto 0.8 X10*3/uL (0.1-1.2); Monocytes Percent Auto 11.7 % (2-11); Neutrophils Absolute Auto 4.1 x10*3/uL (2.0-8.3); Neutrophils Percent Auto 60.8 % (45-73); Platelet Count 228 X10*3/uL (160-400); Red Blood Count 2.88 X10*6/uL (4.60-5.80); White Blood Count 6.7 X10*3/uL (4.8-10.8)
[2024-09-02 14:07] LABS: Alanine Aminotransferase 21 U/L (0-40); Albumin Level 3.8 g/dL (3.5-5.0); Alkaline Phosphatase 110 U/L (39-117); Anion Gap 11 (12-20); Aspartate Amino Transferase 25 U/L (5-37); Bilirubin Total 0.3 mg/dL (0.0-1.0); Blood Urea Nitrogen 24 mg/dL (9-16); C Reactive Protein 0.18 mg/dL (< or = 0.50); Calcium 8.9 mg/dL (8.4-10.2); Carbon Dioxide 24 mmol/L (22-29); Chloride 107 mmol/L (96-108); Creatinine Clr Calc Pharmacy 63.8; Estimated Glomerular Filt Rate > 60; Glucose Random 100 mg/dL (60-115); Potassium 4.5 mmol/L (3.3-5.1); Sodium 137 mmol/L (135-145); Total Protein 6.6 g/dL (6.5-8.0)
[2024-09-02 14:27] LABS: Erythrocyte Sedimentation Rate 28 MM/HR (0-15)
--- OUTSIDE RECORDS SUMMARY | 2024-09-02 16:34 | XMS_ITS | Clinical Summary ---
Author Organization [facility] Address [address] [place] [address] Phone Care Team Providers Care Senior Sql Server Developer Name Role Phone Parrish Cabrera MD Primary Care Provider [phone] Allergies No known active allergies Medications tamsulosin (FLOMAX) 0.4 mg 24 hr capsule Take 1 capsule (0.4 mg total) by mouth 1 (one) time each day. 10/29/19 24 Active aspirin 81 mg EC tablet Take 1 tablet (81 mg total) by mouth 1 (one) time each day. Active blood-glucose meter kit Use to test blood sugars daily 10/19/19 22 Active acetaminophen (TYLENOL) 500 mg tablet Take 1 tablet (500 mg total) by mouth every 6 (six) hours if needed for moderate pain or mild pain. OTC Active apple cider vinegar 600 mg capsule Take by mouth 1 (one) time each day. OTC Active MAGNESIUM ORAL Take 1 tablet by mouth 1 (one) time each day. OTC Active glucose blood (Truetest Test Strips) test strip Test blood sugar Daily 05/12/19 16 Active ACETYLCARNITIN E HCL ORAL Take 1,000 mg by mouth 2 (two) times a day. OTC Active ONETOUCH DELICA LANCETS MISC 1 Each by Does not apply route daily. 07/21/19 15 Active Autolet lancing device Use to test blood sugar once daily 03/04/20 14 Active lisinopriL (PRINIVIL,ZEST RIL) 2.5 mg tablet TAKE 1 TABLET BY MOUTH DAILY 90 tablet 1 05/30/19 25 Active diclofenac (VOLTAREN) 50 mg EC tablet TAKE 1 TABLET BY MOUTH TWICE DAILY NEEDED FOR PAIN 180 tablet 1 06/11/19 25 Active celecoxib (CeleBREX) 100 mg capsule 05/19/19 25 Active DULoxetine (CYMBALTA) [address] capsule Take 1 capsule (60 mg total) by mouth 1 (one) time each day. 90 each 08/22/19 25 Active simvastatin (ZOCOR) 10 mg tablet Take 1 tablet (10 mg total) by mouth at bedtime. 90 each 08/22/19 25 Active gabapentin (NEURONTIN) 600 mg tablet TAKE 1 TABLET BY MOUTH TWICE DAILY 60 tablet 2 09/03/19 25 Active DULoxetine (CYMBALTA) [address] capsule Take 1 capsule (60 mg total) by mouth 1 (one) time each day. 02/20/20 24 025 Discontinued(Re order) ondansetron (ZOFRAN) 4 mg tablet Take 1 tablet (4 mg total) by mouth every 8 (eight) hours if needed. 025 Discontinued(Th erapy completed) clotrimazole-b etamethasone (LOTRISONE) 1-0.05 % cream Apply thin layer to affected area twice daily for 1 week 11/27/19 24 025 Discontinued(Th erapy completed) simvastatin (ZOCOR) 10 mg tablet Take 1 tablet (10 mg total) by mouth at bedtime. 10/29/19 24 025 Discontinued(Re order) gabapentin (NEURONTIN) 600 mg tablet TAKE 1 TABLET BY MOUTH TWICE DAILY 60 tablet 4 03/31/20 24 025 Discontinued Active Problems Problem Noted Date Diagnosed Date Abnormal ECG 04/23/2024 Assessment & Plan (04/24/2024 12:47 PM EST): The patient has not had clinical evidence of coronary obstructive disease. 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 The patient has also had frequent but asymptomatic atrial premature beats in the past. There is no evidence of dysrhythmia on today's examination or electrocardiogram. I am making arrangements for a regadenoson nuclear stress test which will be performed tomorrow. I would have a high threshold for invasive study. We will be in touch with the patient and with the referring physician team once the results of stress testing are available. I am hoping that the patient's surgery can be performed in timely fashion. Orders: Regadenoson (Lexiscan) nuclear stress test with myocardial perfusion; Future Hepatic steatosis 12/27/2023 Overview (03/18/2024): Noted on CT scan done in [facility] emergency room on 12/22/2023. Mild ascending aorta dilation (CMS/HCC V24) 08/2023 Overview (03/18/2024): 4.0 cm on echo May 2023. Echo was obtained due to isolated episode of short lived atypical chest pain. Renal cyst 05/04/2023 Iron deficiency anemia 12/16/2018 Subclinical hypothyroidism 12/16/2018 Essential hypertension 01/14/2018 Assessment & Plan (04/24/2024 12:47 PM EST): Orders: ECG 12 lead PLMD (periodic limb movement disorder) 7 Overview (03/18/2024): [facility] Polysomnogram: Date 06/22/2016; SE 60%; SM 79%; REM 1%; RDI 2 (AHI 5), worse in REM (RDI 13 - AHI 13), Central apneas 0; Obstructive apneas 0; Mixed apneas 0; hypopneas 10; RERAs 16; average oxygen saturation 93% (lowest 89% - without saturations <88% for 5% or more of study); PLMs 102. Obstructive sleep apnea 06/20/2016 Overview (03/18/2024): [facility] Polysomnogram: Date 06/22/2016; SE 60%; SM 79%; REM 1%; RDI 2 (AHI 5), worse in REM (RDI 13 - AHI 13), Central apneas 0; Obstructive apneas 0; Mixed apneas 0; hypopneas 10; RERAs 16; average oxygen saturation 93% (lowest 89% - without saturations <88% for 5% or more of study); PLMs 102. 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 No polyuria or polydipsia. He is not on any glucose lowering agents. Orders: CBC and differential; Future Thyroid stimulating hormone; Future Vitamin B12; Future Comprehensive metabolic panel; Future Hemoglobin A1c; Future Actinic keratosis 03/05/2014 Overview (03/18/2024): Actinic keratosis Lumbar spinal stenosis 07/02/2012 Meningioma ([facility] V24, [facility] V28) 07/28/2008 Overview (03/18/2024): Follow with Dr. Vela, last visit 06/03, per pt, follow up q2y 11/03/11: I spoke to the Miky in regards to the scheduling of his mri brain scan, he did not keep his schedule appointment on 09/21/11 , his states that when her saw the specialist he was told that he was doing well and to follow up in 3 years so she thinks that we are trying to book the mri too early so I am going to remove his mri order from scheduling report Benign prostatic hyperplasia 10/14/2007 Diverticulitis of colon without hemorrhage 04/02 Overview (03/18/2024): Incidental finding at colonoscopy 04/02/2007. Benign neoplasm of cerebral meninges ([facility] V24, [facility] V28) 11/22/2006 Overview (03/18/2024): small frontal meningioma on MRI 2006 Pt prefers no further evaluation DM w/o complication type II ([facility] V24, [facility] V[facility]) 11/13/2006 Overview (03/18/2024): Last Assessment & Plan: Checking Your Blood Sugars Please check your blood sugars every day. Please check your sugars at the following times of day: before breakfast and before bedtime Your Blood Sugar Goals Pre Meal: 90-130 2 hours after meals: 110-160 Bedtime: 110-150 Use the Results ?? Bring your glucometer to every appointment ?? Write your fingerstick blood sugars down on a log sheet or record book. Bring them to your appointment ?? Look for patterns in the numbers. The results help you and your provider make decisions about your diabetes treatment plan. Your Results and your Goals Your Result / Date of Completion Your Goal / How Often to Assess Component Value Date HGBA1C 6.6 11/21/2013 Less than 7% --- 2-4 times per year BP Readings from Last 1 Encounters: 01/27/14 119/68 Less than 140/90 --- once per year Component Value Date MALBCR 46 05/22/2013 Less than 30 --- once per year Component Value Date LDL 83 07/05/2013 Less than 100 --- once per year Wt Readings from Last 1 Encounters: 01/27/14 179 lb 1.6 oz (81.239 kg) Your goal weight by next visit: 170lb --- reassess 2-4 times a year Health Maintenance Due Topic Date Due ? Adult Immunization: Zostavax For Patients Over 60 1998 ? Adult Immunization: Pneumovax For High Risk Patients (#2) 07/23/2007 ? Diabetes: Annual Foot Exam 10/18/2011 ? Diabetes: Annual Care Plan 08/27/2013 ? Flu Shot 12/22/2013 Your Action Plan Your diabetes is well controlled and no changes are required to your current plan. Check blood glucose as directed and write down all results. Continue to work on weight loss with a goal of losing 2-4 pounds per month Contact me if you experience any barriers to care such as inability to purchase your medication, difficulty getting to your appointments or difficulty understanding your care plan When to Call your Healthcare Provider If your blood sugar falls below 70 and you do not know why or you become unconscious If you are sick and unable to take liquids because or nausea or vomiting If you have a fever over 101 If your blood sugar is 300 or higher on greater than 3 separate occasions during the same week If you are just unsure what to do Educational Resources [place] [employer] (www.diabetes.org) Centers for Disease Control and Prevention (www.cdc.gov/diabetes) This care plan was created in collaboration with Miky Mnoge on 01/27/2014 Assessment & Plan (04/24/2024 12:47 PM EST): The patient has diabetes mellitus and nonobstructive peripheral vascular disease. He has an abnormal electrocardiogram but no clinical evidence of congestive heart failure. Although his electrocardiogram has suggested prior inferior infarction for at least a couple of years the patient has more recently had an echocardiogram which demonstrated normal wall motion and no evidence of prior infarction. Orders: Regadenoson (Lexiscan) nuclear stress test with myocardial perfusion; Future Pure hypercholesterolemia 11/13/2006 Assessment & Plan (04/24/2024 12:47 PM EST): The patient has treated hypercholesterolemia with an LDL cholesterol of 62 mg/dL. This meets the goal of less than 70 mg/dL. We will continue the present regimen. Osteoarthrosis 03/31/2005 Overview (03/18/2024): IMO Update Fall 2015 Encounters Date Type Department Care Team Description 09/01/2024 1:30 PM EDT Office Visit Adult Medicine [address] [phone] Parrish Cabrera MD Skin abrasion (Primary Dx); 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, CMS/HCC V28); Essential hypertension; Accidental fall, subsequent encounter 08/28/2024 Telephone Adult Medicine [address] [phone] Parrish Cabrera MD faxed order ([facility] [id number]) 08/26/2024 Telephone Adult Medicine [address] [phone] Parrish Cabrera MD faxed order ([employer] [id number]) 08/25/2024 Telephone Adult Medicine [address] [phone] Kayla Conrad MA home health certificate [id number] 08/21/2024 11:00 AM EDT Office Visit [address] [phone] Alexx Benjamin, RORY Ear anomaly (Primary Dx); Chronic bilateral low back pain, unspecified whether sciatica present 08/21/[address] [phone] Parrish Cabrera MD vna 08/13/[address] [phone] Parrish Cabrera MD VNA 08/11/[address] [facility] [address] [place] [phone] Nilesh Adams MD Encounter for other general examination 08/08/[address] [phone] Parrish Cabrera MD Hospital Follow-up; Reschedule (Hospital Follow-up) 08/06/[address] [facility] [address] [place] [phone] Nilesh Adams MD Encounter for other general examination 08/04/[address] [facility] [address] [place] [phone] Nilesh Adams MD Encounter for other general examination 08/02/[address] [facility] [address] [place] [phone] Nilesh Adams MD Encounter for other general examination 08/02/[address] [facility] [address] [place] [phone] Nilesh Adams MD Encounter for other general examination 08/01/[address] [phone] Parrish Cabrera MD vna 08/01/2024 Lab Requisition [facility] [address] [facility] [place] [phone] Nilesh Adams MD Encounter for other general examination 07/22/2024 Telephone [facility] Cardiology [place] [address] [place] [address] Parrish Cabrera MD Medical Records from Last 3 Months Immunizations Name Administration Dates Next Due H1N1 Inj Preservative Free 05/03/2009 Influenza trivalent, 0.5mL ( Fluad) 65yo and older 02/21/2023,02/17/2022,02/02/2021,02/05,03/05/2019,01/14/2018,01/22/2017 Influenza trivalent, 0.5mL, preservative free (Fluarix; FluLaval; Fluzone) ages 6mo and older (Afluria) 3 years and older 01/11/2016,01/20/2015,01/27/2014,01/01,01/02/2012,02/20/2011,01/30/2010 ,01/20/2009,02/11/2008,02/02/2007,12/0 05/2005,02/14/2005 Pfizer (ages 12 & older) Biv alent, COVID-19 02/17/2022 Pneumococcal conjugate 13 va lent (Prevnar 13, PCV13) 2mo and older 01/11/2016 Pneumococcal conjugate 20 va lent (Prevnar 20, PCV 20) 2mo and older 02/21/2023 Pneumococcal polysaccharide 23 valent (Pneumovax 23) 2yo and older 07/22/2002 Td Tetanus diptheria (Tdvax) 7yo and older 07/22/2002,07/22/2002 Tdap Tetanus diptheria acell ular pertussis (Boostrix; Adacel) 7yo and older 03/20/2022,01/02/2012 Zoster recombinant (Shingrix ) 19yo and older 11/08/2020,08/30/2020 Surgical History Surgery Date Site/Laterality Comments OTHER SURGICAL HISTORY 1968 PROCEDURE: AR VGTMY W/PYLOROPLASTY W/WO GASTROST PARIETAL CELL; COMMENT: GI bleeding, remote; [facility]. ROTATOR CUFF REPAIR 2002 PROCEDURE: HISTORICAL ROTATOR CUFF REPAIR; COMMENT: right CATARACT EXTRACTION PROCEDURE: HISTORICAL CATARACT REMOVAL; COMMENT: right eye COLONOSCOPY 04/02/2007 PROCEDURE: HISTORICAL COLONOSCOPY; COMMENT: negative COLONOSCOPY 04/21/2019 PROCEDURE: HISTORICAL COLONOSCOPY; COMMENT: 5 mm AC polyp: Tubular adenoma UPPER GASTROINTESTINAL ENDOSCOPY 04/21/2019 PROCEDURE: AR UPPER GI ENDOSCOPY PERFORMED; COMMENT: Visually normal, duodenal biopsies obtained, pathology: Normal APPENDECTOMY PROCEDURE: AR APPENDECTOMY Medical History Medical History Date Comments Hypertrophy of prostate with out urinary obstruction and other lower urinary tract symptoms (LUTS) DX:Hypertrophy of prosta te without urinary obstruction and other lower urinary tract symptoms (LUTS) Calculus of kidney DX:Calculus o f kidney Closed fracture of lateral malleolus DX:Closed fracture of lateral malleolus; COMMENT: right ankle Peptic ulcer, unspecified si te, unspecified as acute or chronic, without mention of hemorrhage or perforation, with obstruction DX:Peptic ulcer, unspeci fied site, unspecified as acute or chronic, without mention of hemorrhage or perforation, with obstruction; COMMENT: s/p vagotamy Osteoarthrosis, unspecified whether generalized or localized, lower leg DX:Osteoarthrosis, unspecified whether generalized or localized, lower leg; COMMENT: right ankle Pure hypercholesterolemia 11/13/2006 DX:Pur e hypercholesterolemia Benign neoplasm of cerebral meninges (CMS/HCC V24, CMS/HCC V28) 11/22/2006 DX:Benign neoplasm of cereb ral meninges (HCC); COMMENT: small frontal meningioma on MRI 2006 Diverticulosis of colon (wit hout mention of hemorrhage) 04/02/2007 DX:Diverticulosis of colon ( without mention of hemorrhage); COMMENT: Incidental finding at colonoscopy 04/02/2007. Special screening for malign ant neoplasms, colon 04/02/2007 DX:Special screening for mal ignant neoplasms, colon; COMMENT: Negative colonoscopy 04/02/2007, no colon cancer screening needed for 10 years. Family history of carotid endarterectomy 10/14/2007 DX:Family history of carotid endarterectomy Historical Medical DX 10/14/2007 DX:BPH Meningioma (CMS/HCC V24, CMS/HCC V28) 07/28/2008 DX:Meningioma (HCC) Type II or unspecified type diabetes mellitus without mention of complication, not stated as uncontrolled DX:Type II or unspecified ty pe diabetes mellitus without mention of complication, not stated as uncontrolled Type II or unspecified type diabetes mellitus with unspecified complication, not stated as uncontrolled DX:Type II or unspecified ty pe diabetes mellitus with unspecified complication, not stated as uncontrolled Lumbar spinal stenosis 07/02/2012 DX:Lumbar spinal stenosis Actinic keratosis, hx of DX:Acti ramos keratosis, hx of Moderate obstructive sleep apnea 09/21/2014 DX:Moderate obstructive sleep apnea; COMMENT: 2008 polysomnogram, pt decided against cPAP treatment Essential hypertension 01/14/2018 DX:Essent ial hypertension Subclinical hypothyroidism 12/16/2018 DX:[place] bclinical hypothyroidism Essential hypertension 01/14/2018 Family History Medical History Relation Name Comments No Known Problems Aunt No Known Problems Brother Alzheimer's disease Father late ons et Cataracts Father No Known Problems Maternal Grandfather No Known Problems Maternal Grandmother Lung cancer Mother smoker No Known Problems Other No Known Problems Paternal Grandfather No Known Problems Paternal Grandmother No Known Problems Sister No Known Problems Uncle Blindness Neg Hx Colon cancer Neg Hx Glaucoma Neg Hx Macular degeneration Neg Hx Strabismus Neg Hx Relation Name Status Comments Aunt Brother Father Maternal Grandfather Maternal Grandmother Mother Other Paternal Grandfather Paternal Grandmother Sister Uncle Social History Tobacco Use Types Packs/Day Years Used Date Smoking Tobacco: Former Smokeless Tobacco: Never Alcohol Use Standard Drinks/Week Comments No 0 (1 standard drink = 0.6 oz pur e alcohol) Financial Risk Answer Date Recorded How hard is it for you to pa y for the very basics like food, housing, medical care, and air conditioning / heating? Not very hard 08/15/2024 Transportation Answer Date Recorded Has the lack of transportati on kept you from meetings, work, or from getting things needed for daily living? No Has the lack of transportati on kept you from medical appointments or from getting medications? No 08/15/2024 Living Situation Answer Date Recorded What is your living situation? 0 08/15/2024 Sex and Gender Information Value Date Recorded Sex Assigned at Male 07/30/2024 2:37 PM EDT Legal Sex Male 4:41 AM EST Gender Identity Male 07/30/2024 2:37 PM EDT Sexual Orientation Straight 07/30/2024 2 :37 PM EDT Obstetrics History Last Filed Vital Signs Vital Sign Reading Time Taken Comments Blood Pressure 122/66 09/01/2024 1:21 PM EDT Pulse 82 09/01/2024 1:21 PM EDT Temperature 36.1 ??C (96.9 ??F) 09/01/2024 1:21 PM ED T Respiratory Rate 20 09/01/2024 1:21 PM EDT Oxygen Saturation 95% 08/21/2024 11:08 AM EDT Inhaled Oxygen Concentration - - Weight 66.7 kg (147 lb) 09/01/2024 1:21 PM EDT Height 160 cm (5' 3 ) 09/01/2024 1:21 PM EDT Body Mass Index 26.04 09/01/2024 1:21 PM EDT Plan of Treatment Upcoming Encounters Date Type Department Care Team (Late st Contact Info) Description 09/09/2024 11:00 AM EDT Office Visit Adult Medicine [facility] [address] [place] [phone] Parrish Cabrera MD [address] [place] [address] 04/14/2025 1:00 PM EST Appointment [facility] Ultrasound [address] [place] [phone] 05/20/2025 10:00 AM EST Office Visit Vascular Surgery - [place] [address] [phone] Zenaida Rose MD [address] [address] Health Maintenance Due Date Last Done Comments Diabetes: Annual Foot Exam 01/25/1950 Hepatitis A Vaccines (1 of 2 - Risk 2-dose series) 1957 Hepatitis B Vaccines (1 of 3 - Risk 3-dose series) 1998 RSV Immunization Adult Patients (1 - 1-dose 75+ series) 2013 Diabetes: Blood Sugar Control Test (HGBA1C) 03/26/2024 09/25/2023, 09/25/2023 COVID-19 Vaccine (7 - Pfizer risk season) 2024 01/26/2024, 02/17/2022, 09/12/2021, Additional history exists Diabetes: Annual Retina Eye Exam 08/13/2024 08/14/2023 Depression Screening 08/19/2024 08/20/2023 Medicare Annual Wellness Visit 08/19/2024 08/20/2023 Falls Risk Assessment 12/03/2024 12/04/2023 Hypertension/CHF/CAD Annual BMP Blood Test 08/11/2025 08/11/2024, 08/06/2024, 08/04/2024, Additional history exists Social Influencers of Health Screening 08/15/2025 08/15/2024 Cholesterol Screening (Lipid Panel) 11/17/2027 11/16/2022 DTaP,Tdap,and Td Vaccines (6 - Td or Tdap) 12/13/2033 12/14/2023, 03/20/2022, 01/02/2012, Additional history exists Zoster Vaccines Completed 11/08/2020, 08/30/2020 Pneumococcal Vaccine: 50+ Years Completed 02/21/2023, 01/11/2016, 07/22/2002 Influenza Vaccine Completed 01/26/2024, , 12/25/2022, Additional history exists HIB Vaccines Aged Out No longer eligi ble based on patient's age to complete this topic HPV Vaccines Aged Out No longer eligi ble based on patient's age to complete this topic IPV Vaccines Aged Out No longer eligi ble based on patient's age to complete this topic MMR Vaccines Aged Out No longer eligi ble based on patient's age to complete this topic Meningococcal ACWY Vaccine Aged Out N o longer eligible based on patient's age to complete this topic Meningococcal B Vaccine Aged Out No l onger eligible based on patient's age to complete this topic RSV Immunization Patients Under 20 months Aged Out No longer eligible based on patient's age to complete this topic Varicella Vaccines Aged Out No longer eligible based on patient's age to complete this topic Procedures Procedure Name Priority Date/Time Associated Diagnosis Comments POC GLUCOSE Routine 09/01/2024 1:37 PM EDT Diabetes mellitus type 2 with neurological manifestations ([facility] V24, [facility] V28) CBC WITH AUTO DIFFERENTIAL Routine 08/11/2024 5:25 AM EDT Encounter for other general examination CBC AND DIFFERENTIAL Routine 08/11/2024 5:25 AM EDT Encounter for other general examination COMPREHENSIVE METABOLIC PANEL Routine 08/11/2024 5:25 AM EDT Encounter for other general examination CBC WITH AUTO DIFFERENTIAL Routine 08/06/2024 6:12 AM EDT Encounter for other general examination CBC AND DIFFERENTIAL Routine 08/06/2024 6:12 AM EDT Encounter for other general examination COMPREHENSIVE METABOLIC PANEL Routine 08/06/2024 6:12 AM EDT Encounter for other general examination BASIC METABOLIC PANEL Routine 08/04/2024 6:06 AM EDT Encounter for other general examination CULTURE BLOOD Routine 08/02/2024 2:45 PM EDT Encounter for other general examination CBC WITH AUTO DIFFERENTIAL STAT 08/02/2024 2:40 PM EDT Encounter for other general examination CBC AND DIFFERENTIAL STAT 08/02/2024 2:40 PM EDT Encounter for other general examination COMPREHENSIVE METABOLIC PANEL STAT 08/02/2024 2:40 PM EDT Encounter for other general examination CULTURE BLOOD Routine 08/02/2024 2:40 PM EDT Encounter for other general examination URINALYSIS WITH REFLEX MICROSCOPIC AND CULTURE Routine 08/02/2024 4:00 AM EDT Encounter for other general examination MONTES URINE CULTURE TUBE Routine 08/02/2024 4:00 AM EDT Encounter for other general examination URINALYSIS WITH REFLEX MICROSCOPIC AND CULTURE Routine 08/02/2024 4:00 AM EDT Encounter for other general examination RBC MORPHOLOGY REVIEW Routine 08/01/2024 6:47 AM EDT Encounter for other general examination CBC WITH AUTO DIFFERENTIAL Routine 08/01/2024 6:47 AM EDT Encounter for other general examination MAGNESIUM Routine 08/01/2024 6:47 AM EDT Encounter for other general examination CBC AND DIFFERENTIAL Routine 08/01/2024 6:47 AM EDT Encounter for other general examination COMPREHENSIVE METABOLIC PANEL Routine 08/01/2024 6:47 AM EDT Encounter for other general examination FALLS RISK ASSESSMENT Routine 12/04/2023 HEMOGLOBIN A1C Routine 09/25/2023 DEPRESSION SCREENING Routine 08/20/2023 DIABETES EYE EXAM Routine 08/14/2023 LIPID PANEL Routine 11/16/2022 from Last 3 Months or Most Recently Relevant to Health Maintenance Results * POC glucose manually resulted (09/01/2024 1:37 PM EDT) Glucose POC 190 mg/dL Blood Capillary blood specimen / Unknown 09/01/2024 1:37 PM EDT Parrish Cabrera MD POINT OF CARE TEST ENTER/EDIT OR DERABLES Final Result * (ABNORMAL) CBC auto differential (08/11/2024 5:25 AM EDT) Only the most recent of4 resultswithin the time period is included. WBC 10.1 4.8 - 10.8 K/mcL LAB HEMETOLOGY METHOD 08/11/2024 1:15 PM EDT [facility] RBC 2.90(L) 4.50 - 5.50 M/mcL LAB HEMETOLOGY METHOD 08/11/2024 1:15 PM EDT [facility] Hemoglobin 9.4(L) 13.5 - 17.5 g/dL LAB HEMETOLOGY METHOD 08/11/2024 1:15 PM [facility] Hematocrit 30.1(L) 42.0 - 54.0 % LAB HEMETOLOGY METHOD 08/11/2024 1:15 PM [facility] MCV 103.1(H) 79.0 - 98.0 FL LAB HEMETOLOGY METHOD 08/11/2024 1:15 PM [facility] MCH 32.2(H) 27.0 - 32.0 pcg LAB HEMETOLOGY METHOD 08/11/2024 1:15 PM [facility] MCHC 31.2(L) 32.0 - 37.0 g/dL LAB HEMETOLOGY METHOD 08/11/2024 1:15 PM [facility] RDW 13.4 11.0 - 15.0 % LAB HEMETOLOGY METHOD 08/11/2024 1:15 PM [facility] Platelets 425(H) 130 - 400 K/mcL LAB HEMETOLOGY METHOD 08/11/2024 1:15 PM [facility] MPV 9.8 7.0 - 11.0 FL LAB HEMETOLOGY METHOD 08/11/2024 1:15 PM [facility] NRBC 0.0 <1.0 % LAB HEMETOLOGY METHOD 08/11/2024 1:15 PM [facility] NRBC Absolute 0.00 <0.10 K/mcL LAB HEMETOLOGY METHOD 08/11/2024 1:15 PM [facility] Neutrophils Relative 67.1 % LAB HEMETOLOGY METHOD 08/11/2024 1:15 PM EDT [facility] Lymphocytes Relative 17.1 % LAB HEMETOLOGY METHOD 08/11/2024 1:15 PM T [facility] Monocytes Relative 11.2 % LAB HEMETOLOGY METHOD 08/11/2024 1:15 PM [facility] Eosinophils Relative 3.5 % LAB HEMETOLOGY METHOD 08/11/2024 1:15 PM [facility] Basophils Relative 0.5 % LAB HEMETOLOGY METHOD 08/11/2024 1:15 PM [facility] Immature Granulocytes Relative 0.6 % LAB HEMETOLOGY METHOD 08/11/2024 1:15 PM [facility] Neutrophils Absolute 6.74 1.50 - 7.00 K/mcL LAB HEMETOLOGY METHOD 08/11/2024 1:15 PM [facility] Lymphocytes Absolute 1.72 1.00 - 5.00 K/mcL LAB HEMETOLOGY METHOD 08/11/2024 1:15 PM [facility] Monocytes Absolute 1.13(H) 0.20 - 1.00 K/mcL LAB HEMETOLOGY METHOD 08/11/2024 1:15 PM [facility] Eosinophils Absolute 0.35 0.00 - 0.50 K/mcL LAB HEMETOLOGY METHOD 08/11/2024 1:15 PM [facility] Basophils Absolute 0.05 0.00 - 0.20 K/mcL LAB HEMETOLOGY METHOD 08/11/2024 1:15 PM [facility] Immature Granulocytes Absolute 0.06(H) 0.00 - 0.03 K/mcL LAB HEMETOLOGY METHOD 08/11/2024 1:15 PM [facility] Blood Venous blood specimen / Unknown Venipuncture / Unknown 08/11/2024 5:25 AM EDT 08/11/2024 11:25 AM EDT us Nilesh Adams MD LAB BLOOD ORDERABLES Final Res ult [facility] [address] [place] [address], * (ABNORMAL) Comprehensive metabolic panel (08/11/2024 5:25 AM EDT) Only the most recent of4 resultswithin the time period is included. Sodium 139 133 - 145 mmol/L LAB CHEMISTRY METHOD 08/11/2024 3:12 PM [facility] Potassium 4.5 3.5 - 5.5 mmol/L LAB CHEMISTRY METHOD 08/11/2024 3:12 PM [facility] Chloride 105 96 - 110 mmol/L LAB CHEMISTRY METHOD 08/11/2024 3:12 PM [facility] CO2 27 21 - 32 mmol/L LAB CHEMISTRY METHOD 08/11/2024 3:12 PM [facility] Anion Gap 7 3 - 11 LAB CHEMISTRY METHOD 08/11/2024 3:12 PM [facility] Glucose 91 70 - 100 mg/dL LAB CHEMISTRY METHOD 08/11/2024 3:12 PM [facility] BUN 15 5 - 25 mg/dL LAB CHEMISTRY METHOD 08/11/2024 3:12 PM [facility] Creatinine 0.60(L) 0.70 - 1.30 mg/dL LAB CHEMISTRY METHOD 08/11/2024 3:12 PM [facility] eGFR 94 >=60 mL/min/1. 73m2 LAB CHEMISTRY METHOD 08/11/2024 3:12 PM [facility] Comment:Calculation based on the??Chronic Kidney Disease Epidemiology Collaboration (CKD-EPI) equation refit??without adjustment for race. BUN/Creatinine Ratio 25.0 LAB CHEMISTRY METHOD 08/11/2024 3:12 PM [facility] Calcium 9.1 8.5 - 10.5 mg/dL LAB CHEMISTRY METHOD 08/11/2024 3:12 PM [facility] AST (SGOT) 45(H) 10 - 42 unit/L LAB CHEMISTRY METHOD 08/11/2024 3:12 PM [facility] ALT (SGPT) 60 10 - 60 unit/L LAB CHEMISTRY METHOD 08/11/2024 3:12 PM [facility] Alkaline Phosphatase 120 42 - 121 unit/L LAB CHEMISTRY METHOD 08/11/2024 3:12 PM [facility] Total Protein 6.5 6.0 - 8.0 g/dL LAB CHEMISTRY METHOD 08/11/2024 3:12 PM [facility] Albumin 3.1(L) 3.2 - 5.0 g/dL LAB CHEMISTRY METHOD 08/11/2024 3:12 PM [facility] Total Bilirubin 0.4 0.0 - 1.4 mg/dL LAB CHEMISTRY METHOD 08/11/2024 3:12 PM [facility] Blood Venous blood specimen / Unknown Venipuncture / Unknown 08/11/2024 5:25 AM EDT 08/11/2024 11:25 AM EDT us Nilesh Adams MD LAB BLOOD ORDERABLES Final Res ult [facility] [address] [place] [address], * (ABNORMAL) Basic metabolic panel (08/04/2024 6:06 AM EDT) Sodium 140 133 - 145 mmol/L LAB CHEMISTRY METHOD 08/04/2024 1:42 PM [facility] Potassium 4.4 3.5 - 5.5 mmol/L LAB CHEMISTRY METHOD 08/04/2024 1:42 PM EDT [facility] Chloride 110 96 - 110 mmol/L LAB CHEMISTRY METHOD 08/04/2024 1:42 PM [facility] CO2 23 21 - 32 mmol/L LAB CHEMISTRY METHOD 08/04/2024 1:42 PM [facility] Anion Gap 7 3 - 11 LAB CHEMISTRY METHOD 08/04/2024 1:42 PM [facility] Glucose 107(H) 70 - 100 mg/dL LAB CHEMISTRY METHOD 08/04/2024 1:42 PM [facility] BUN 20 5 - 25 mg/dL LAB CHEMISTRY METHOD 08/04/2024 1:42 PM [facility] Creatinine 0.68(L) 0.70 - 1.30 mg/dL LAB CHEMISTRY METHOD 08/04/2024 1:42 PM [facility] eGFR 91 >=60 mL/min/1. 73m2 LAB CHEMISTRY METHOD 08/04/2024 1:42 PM [facility] Comment:Calculation based on the??Chronic Kidney Disease Epidemiology Collaboration (CKD-EPI) equation refit??without adjustment for race. BUN/Creatinine Ratio 29.4 LAB CHEMISTRY METHOD 08/04/2024 1:42 PM [facility] Calcium 8.7 8.5 - 10.5 mg/dL LAB CHEMISTRY METHOD 08/04/2024 1:42 PM [facility] Blood Venous blood specimen / Unknown Venipuncture / Unknown 08/04/2024 6:06 AM EDT 08/04/2024 9:47 AM EDT us Nilesh Adams MD LAB BLOOD ORDERABLES Final Res ult [facility] [address] [place] [address], * Culture blood (08/02/2024 2:45 PM EDT) Only the most recent of2 resultswithin the time period is included. Culture, Blood No growth at 5 days 08/07/2024 6:02 PM EDT [facility] Blood 08/02/2024 2:45 PM EDT 08/02/2024 5:03 PM EDT us Nilesh Adams MD LAB MICROBIOLOGY - GENERAL ORD ERABLES Final Result [facility] [address] [place] [address], [place] [phone] * (ABNORMAL) Urinalysis with reflex microscopic and culture (08/02/2024 4:00 AM EDT) [facility] Specific [place] Urine 1.025 1.003 - 1.030 LAB URINALYSIS - AUTOMATED METHOD 08/02/2024 11:47 AM [facility] pH, Urine 5.5 5.0 - 8.0 pH LAB URINALYSIS - AUTOMATED METHOD 08/02/2024 11:47 AM [facility] Leukocytes, Urine Negative Negative LAB URINALYSIS - AUTOMATED METHOD 08/02/2024 11:47 AM [facility] Nitrite, Urine Negative Negative LAB URINALYSIS - AUTOMATED METHOD 08/02/2024 11:47 AM [facility] Protein, Urine Trace <=Trace mg/dL LAB URINALYSIS - AUTOMATED METHOD 08/02/2024 11:47 AM [facility] Glucose, Urine Negative Negative mg/dL LAB URINALYSIS - AUTOMATED METHOD 08/02/2024 11:47 AM [facility] Ketones, Urine Trace(A) Negative mg/dL LAB URINALYSIS - AUTOMATED METHOD 08/02/2024 11:47 AM [facility] Urobilinogen, Urine 1.0 0.2 - 1.0 mg/dL LAB URINALYSIS - AUTOMATED METHOD 08/02/2024 11:47 AM EDT [facility] Bilirubin, Urine Negative Negative LAB URINALYSIS - AUTOMATED METHOD 08/02/2024 11:47 AM EDT [facility] Blood, Urine Negative Negative LAB URINALYSIS - AUTOMATED METHOD 08/02/2024 11:47 AM EDT [facility] Urine Urine specimen obtained by clean catch procedure / Unknown Non-blood Collection / Unknown 08/02/2024 4:00 AM EDT 08/02/2024 11:03 AM EDT Nilesh Adams MD LAB URINE ORDERABLES Final Res ult Performing Organization Address City/[facility]/ZIP Co de Phone Number [facility] [address] [place] [address], [place] [phone] * Montes urine culture tube (08/02/2024 4:00 AM EDT) Extra Tube Hold for add-ons. 08/02/2024 1:01 PM EDT [facility] Comment:Auto resulted. Urine Urine specimen obtained by clean catch procedure / Unknown Non-blood Collection / Unknown 08/02/2024 4:00 AM EDT 08/02/2024 11:03 AM EDT Nilesh Adams MD LAB URINE ORDERABLES Final Res ult [facility] [address] [place] [address], [place] [phone] * (ABNORMAL) RBC morphology review (08/01/2024 6:47 AM EDT) Rbc Morphology Consistent with indices Consistent with indices, Normal for LAB HEMETOLOGY METHOD 08/01/2024 12:00 PM EDT [facility] Platelet Morphology - WAM See Note(A) Normal LAB HEMETOLOGY METHOD 08/01/2024 12:00 PM EDT [facility] Comment:PLT: Normal Blood Venous blood specimen / Unknown Venipuncture / Unknown 08/01/2024 6:47 AM EDT 08/01/2024 10:49 AM EDT Nilesh Adams MD LAB BLOOD ORDERABLES Final Res ult Performing Organization Address City/[facility]/ZIP Co de Phone Number [facility] [address] [place] [address], [place] [phone] * Magnesium (08/01/2024 6:47 AM EDT) [facility] Magnesium 2.1 1.9 - 2.6 mg/dL LAB CHEMISTRY METHOD 08/01/2024 12:20 PM EDT [facility] Blood Venous blood specimen / Unknown Venipuncture / Unknown 08/01/2024 6:47 AM EDT 08/01/2024 10:49 AM EDT Nilesh Adams MD LAB BLOOD ORDERABLES Final Res ult Performing Organization Address [facility]/ZIP Co de Phone Number [facility] [address] [place] [address], [place] [phone] * Falls Risk Assessment (12/04/2023) Pathologist [facility] Falls Risk Assessment Abstracted Historical Provider HEALTH MAINTENANCE Final Result * Hemoglobin A1c (09/25/2023) Pathologist [facility] Hemoglobin A1C 6.3 <=6.5 % Blood Venous blood specimen / Unknown Historical Provider LAB BLOOD ORDERABLES Soniya l Result * Depression Screening (08/20/2023) Pathologist [facility] Depression Screening Abstracted Historical Provider HEALTH MAINTENANCE Final Result * Diabetes Eye Exam (08/14/2023) Diabetes: Annual Retina Eye Exam Abstracted Historical Provider HEALTH MAINTENANCE Final Result * Lipid panel (11/16/2022) LDL/HDL Ratio 3 0 - 4 Triglycerides 89 0 - 150 mg/dL Cholesterol 123 0 - 200 mg/dL HDL 44 >=40 mg/dL LDL Cholesterol 62 0 - 100 mg/dL Blood Venous blood specimen / Unknown Historical Provider LAB BLOOD ORDERABLES Soniya l Result from Last 3 Months or Most Recently Relevant to Health Maintenance Insurance MEDICARE [facility] Member Subscriber Plan / Payer (Ef fective 2015-Present) Name:Miky Monge Relation to Subscriber:Spouse Name:BETTE MONGE Date of :1941 Address: [address] [place] [id number] Payer ID:[id number] Group ID:[id number] Type:Not on file Address: [address] [place] [id number] Care Teams Senior Sql Server Developer Relationship Specialty Start Date End Date Parrish Cabrera MD [address] [place] [id number] PCP - General 12/24/1998
--- OUTSIDE RECORDS SUMMARY | 2024-09-02 16:34 | XMS_ITS | Clinical Summary ---
Author Organization [facility] Address [address] [place] [address] Care Team Providers Care Marriage Counselor Name Role Phone Unavailable Primary Care Provider Unavailabl e Social History Tobacco Use Types Packs/Day Years Used Date Smoking Tobacco: Never Assessed Sex and Gender Information Value Date Recorded Sex Assigned at Not on file Gender Identity Not on file Sexual Orientation Not on file Plan of Treatment Health Maintenance Due Date Last Done Comments COVID-19 Vaccine (#1) 1938 Depression Screening 1950 Preventative Health Evaluation 01/25/1956 Shingrix-Zoster Vaccine (1 of 2) 01/25/1988 Fall Risk Assessment 2003 RSV Adult > 60+ Yrs or (1 - 1-dose 75+ series) 2013 Pneumococcal Vaccine (3 of 3 - PPSV23 or PCV20) 01/10/2021 01/11/2016, 07/22/2002 DTap / Tdap / Td (2 - Td or Tdap) 01/01/2022 01/02/2012 Influenza Vaccine (#1) 2023 9, 01/14/2018, 01/22/2017, Additional history exists Hepatitis B Vaccines Aged Out No long er eligible based on patient's age to complete this topic RSV Ped < 20 months Aged Out No longe r eligible based on patient's age to complete this topic
--- OUTSIDE RECORDS SUMMARY | 2024-09-02 16:34 | XMS_ITS | Encounter Summary ---
Author Organization [facility] Address [address] [place] [address] Care Team Providers Care Bottom Stop Attacher Name Role Phone Parrish Cabrera MD Primary Care Provider [phone] Encounter Details Date Type Department Care Team (Late Contact Info) Description 08/02/2024 Lab Requisition [facility] - Main Lab [address] [facility] [place] [phone] Nilesh Adams MD [address] [place] [phone] Encounter for other general examination Social History Tobacco Use Types Packs/Day Years Used Date Smoking Tobacco: Former Smokeless Tobacco: Never Alcohol Use Standard Drinks/Week Comments No 0 (1 standard drink = 0.6 oz pur e alcohol) Sex and Gender Information Value Date Recorded Sex Assigned at Male 07/30/2024 2:37 PM EDT Legal Sex Male 4:41 AM EST Gender Identity Male 07/30/2024 2:37 PM EDT Sexual Orientation Straight 07/30/2024 2: 37 PM EDT documented as of this encounter Plan of Treatment Upcoming Encounters Date Type Department Care Team (Late Contact Info) Description 09/09/2024 11:00 AM EDT Office Visit Adult Medicine [address] [phone] Parrish Cabrera MD [address] [place] [address] 04/14/2025 1:00 PM EST Appointment [facility] Ultrasound [address] [place] [phone] 05/20/2025 10:00 AM EST Office Visit Vascular Surgery - [place] [address] [place] [phone] Zenaida Rose MD [address] [place] [address] documented as of this encounter Procedures Procedure Name Priority Date/Time Associated Diagnosis Comments URINALYSIS WITH REFLEX MICROSCOPIC AND CULTURE Routine 08/02/2024 4:00 AM EDT Encounter for other general examination MONT[facility] URINE CULTURE TUBE Routine 08/02/2024 4:00 AM EDT Encounter for other general examination URINALYSIS WITH REFLEX MICROSCOPIC AND CULTURE Routine 08/02/2024 4:00 AM EDT Encounter for other general examination documented in this encounter Results * (ABNORMAL) Urinalysis with reflex microscopic and culture (08/02/2024 4:00 AM EDT) Specific [place] Urine 1.025 1.003 - 1.030 LAB URINALYSIS - AUTOMATED METHOD 08/02/2024 11:47 AM T [facility] pH, Urine 5.5 5.0 - 8.0 pH LAB URINALYSIS - AUTOMATED METHOD 08/02/2024 11:47 AM [facility] Leukocytes, Urine Negative Negative LAB URINALYSIS - AUTOMATED METHOD 08/02/2024 11:47 AM [facility] Nitrite, Urine Negative Negative LAB URINALYSIS - AUTOMATED METHOD 08/02/2024 11:47 AM [facility] Protein, Urine Trace <=Trace mg/dL LAB URINALYSIS - AUTOMATED METHOD 08/02/2024 11:47 AM EDT [facility] Glucose, Urine Negative Negative mg/dL LAB URINALYSIS - AUTOMATED METHOD 08/02/2024 11:47 AM EDT [facility] Ketones, Urine Trace(A) Negative mg/dL LAB URINALYSIS - AUTOMATED METHOD 08/02/2024 11:47 AM EDT [facility] Urobilinogen, Urine 1.0 0.2 - 1.0 mg/dL LAB URINALYSIS - AUTOMATED METHOD 08/02/2024 11:47 AM EDT [facility] Bilirubin, Urine Negative Negative LAB URINALYSIS - AUTOMATED METHOD 08/02/2024 11:47 AM EDT [facility] Blood, Urine Negative Negative LAB URINALYSIS - AUTOMATED METHOD 08/02/2024 11:47 AM T [facility] Urine Urine specimen obtained by clean catch procedure / Unknown Non-blood Collection / Unknown 08/02/2024 4:00 AM EDT 08/02/2024 11:03 AM EDT us Nilesh Adams MD LAB URINE ORDERABLES Final Res ult Performing Organization Address City/[facility]/ZIP Co de Phone Number [facility] [address] [place] [address], [place] [phone] * Montes urine culture tube (08/02/2024 4:00 AM EDT) Extra Tube Hold for add-ons. 08/02/2024 1:01 PM EDT [facility] Comment:Auto resulted. Urine Urine specimen obtained by clean catch procedure / Unknown Non-blood Collection / Unknown 08/02/2024 4:00 AM EDT 08/02/2024 11:03 AM EDT us Nilesh Adams MD LAB URINE ORDERABLES Final Res ult [facility] [address] [place] [address], documented in this encounter Visit Diagnoses Diagnosis Encounter for other general examination documented in this encounter Care Teams Bottom Stop Attacher Relationship Specialty Start Date End Date Parrish Cabrera MD [address] [place] [address] PCP - General 12/24/1998 documented as of this encounter
--- OUTSIDE RECORDS SUMMARY | 2024-09-02 16:34 | XMS_ITS | Encounter Summary ---
Author Organization [facility] Address [address] [place] [address] Care Team Providers Care Correctional Officer Captain Name Role Phone Parrish Cabrera MD Primary Care Provider [phone] Encounter Details Date Type Department Care Team (Late st Contact Info) Description 08/11/2024 Lab Requisition [facility] - Main Lab [address] [facility] [place] [address] Nilesh Adams MD [address] [place] [address] [phone] Encounter for other general examination Social History [...] 11:00 AM EDT Office Visit Adult Medicine [facility] [address] [place] [address] Parrish Cabrera MD [address] [place] [address] 04/14/2025 1:00 PM EST Appointment [facility] Ultrasound [address] [place] [phone] 05/20/2025 10:00 AM EST Office Visit Vascular Surgery - [place] [address] [place] [phone] Zenaida Rose MD [address] [place] [address] documented as of this encounter Procedures Procedure Name Priority Date/Time Associated Diagnosis Comments CBC WITH AUTO DIFFERENTIAL Routine 08/11/2024 5:25 AM EDT Encounter for other general examination CBC AND DIFFERENTIAL Routine 08/11/2024 5:25 AM EDT Encounter for other general examination COMPREHENSIVE METABOLIC PANEL Routine 08/11/2024 5:25 AM EDT Encounter for other general examination documented in this encounter Results * (ABNORMAL) CBC auto differential (08/11/2024 5:25 AM EDT) WBC 10.1 4.8 - 10.8 K/[facility] LAB HEMETOLOGY METHOD 08/11/2024 1:15 PM EDT [facility] RBC 2.90(L) 4.50 - 5.50 M/[facility] LAB HEMETOLOGY METHOD 08/11/2024 1:15 PM [facility] LAB Hemoglobin 9.4(L) 13.5 - 17.5 g/dL LAB HEMETOLOGY METHOD [facility]24 [facility] Hematocrit 30.1(L) 42.0 - 54.0 % LAB HEMETOLOGY METHOD 08/11/2024 1:15 PM [facility] LAB MCV 103.1(H) 79.0 - 98.0 FL LAB HEMETOLOGY METHOD 08/11/2024 1:15 PM [facility] MCH 32.2(H) 27.0 - 32.0 pcg LAB HEMETOLOGY METHOD 08/11/2024 1:15 PM [facility] LAB MCHC 31.2(L) 32.0 - 37.0 g/dL LAB HEMETOLOGY METHOD 08/11/2024 1:15 PM [facility] LAB RDW 13.4 11.0 - 15.0 % LAB HEMETOLOGY METHOD 08/11/2024 1:15 PM [facility] LAB Platelets 425(H) 130 - 400 K/mcL LAB HEMETOLOGY METHOD 08/11/2024 1:15 PM [facility] LAB MPV 9.8 7.0 - 11.0 FL LAB HEMETOLOGY METHOD 08/11/2024 1:15 PM [facility] LAB NRBC 0.0 <1.0 % LAB HEMETOLOGY METHOD 08/11/2024 1:15 PM [facility] LAB NRBC Absolute 0.00 <0.10 K/mcL LAB HEMETOLOGY METHOD 08/11/2024 1:15 PM [facility] Neutrophils Relative 67.1 % LAB HEMETOLOGY METHOD 08/11/2024 1:15 PM [facility] LAB Lymphocytes Relative 17.1 % LAB HEMETOLOGY METHOD 08/11/2024 1:15 PM EDT [facility] Monocytes Relative 11.2 % LAB HEMETOLOGY METHOD 08/11/2024 1:15 PM EDT [facility] Eosinophils Relative 3.5 % LAB HEMETOLOGY METHOD 08/11/2024 1:15 PM [facility] Basophils Relative 0.5 % LAB HEMETOLOGY METHOD 08/11/2024 1:15 PM [facility] LAB Immature Granulocytes Relative 0.6 % LAB HEMETOLOGY METHOD 08/11/2024 1:15 PM [facility] Neutrophils Absolute 6.74 1.50 - 7.00 K/mcL LAB HEMETOLOGY METHOD 08/11/2024 1:15 PM [facility] Lymphocytes Absolute 1.72 1.00 - 5.00 K/mcL LAB HEMETOLOGY METHOD 08/11/2024 1:15 PM [facility] Monocytes Absolute 1.13(H) 0.20 - 1.00 K/mcL LAB HEMETOLOGY METHOD 08/11/2024 1:15 PM [facility] LAB Eosinophils Absolute 0.35 0.00 - 0.50 K/mcL LAB HEMETOLOGY METHOD 08/11/2024 1:15 PM [facility] Basophils Absolute 0.05 0.00 - 0.20 K/mcL LAB HEMETOLOGY METHOD 08/11/2024 1:15 PM [facility] LAB Immature Granulocytes Absolute 0.06(H) 0.00 - 0.03 K/mcL LAB HEMETOLOGY METHOD 08/11/2024 1:15 PM [facility] Blood Venous blood specimen / Unknown Venipuncture / Unknown 08/11/2024 5:25 AM EDT 08/11/2024 11:25 AM EDT us Nilesh Adams MD LAB BLOOD ORDERABLES Final Res ult [facility] [address] [place] [address], [place] [phone] * (ABNORMAL) Comprehensive metabolic panel (08/11/2024 5:25 AM EDT) Sodium 139 133 - 145 mmol/L LAB CHEMISTRY METHOD 08/11/2024 3:12 PM EDT [facility] Potassium 4.5 3.5 - 5.5 mmol/L LAB CHEMISTRY METHOD 08/11/2024 3:12 PM [facility] Chloride 105 96 - 110 mmol/L LAB CHEMISTRY METHOD 08/11/2024 3:12 PM [facility] CO2 27 21 - 32 mmol/L LAB CHEMISTRY METHOD 08/11/2024 3:12 PM [facility] Anion Gap 7 3 - 11 LAB CHEMISTRY METHOD 08/11/2024 3:12 PM [facility] Glucose 91 70 - 100 mg/dL LAB CHEMISTRY METHOD 08/11/2024 3:12 PM [facility] BUN 15 5 - 25 mg/dL LAB CHEMISTRY METHOD 08/11/2024 3:12 PM [facility] Creatinine 0.60(L) 0.70 - 1.30 mg/dL LAB CHEMISTRY METHOD 08/11/2024 3:12 PM [facility] eGFR 94 >=60 mL/min/1. 73m2 LAB CHEMISTRY METHOD 08/11/2024 3:12 PM [facility] LAB Comment:Calculation based on the??Chronic Kidney Disease Epidemiology Collaboration (CKD-EPI) equation refit??without adjustment for race. BUN/Creatinine Ratio 25.0 LAB CHEMISTRY METHOD 08/11/2024 3:12 PM [facility] Calcium 9.1 8.5 - 10.5 mg/dL LAB CHEMISTRY METHOD 08/11/2024 3:12 PM EDT [facility] AST (SGOT) 45(H) 10 - 42 unit/L LAB CHEMISTRY METHOD 08/11/2024 3:12 PM EDT [facility] ALT (SGPT) 60 10 - 60 unit/L LAB CHEMISTRY METHOD 08/11/2024 3:12 PM EDT [facility] Alkaline Phosphatase 120 42 - 121 unit/L LAB CHEMISTRY METHOD 08/11/2024 3:12 PM EDT [facility] Total Protein 6.5 6.0 - 8.0 g/dL LAB CHEMISTRY METHOD 08/11/2024 3:12 PM EDT [facility] Albumin 3.1(L) 3.2 - 5.0 g/dL LAB CHEMISTRY METHOD 08/11/2024 3:12 PM EDT [facility] Total Bilirubin 0.4 0.0 - 1.4 mg/dL LAB CHEMISTRY METHOD 08/11/2024 3:12 PM EDT [facility] Blood Venous blood specimen / Unknown Venipuncture / Unknown 08/11/2024 5:25 AM EDT 08/11/2024 11:25 AM EDT us Nilesh Adams MD LAB BLOOD ORDERABLES Final Res ult [facility] [address] [place] [address], documented in this encounter Visit Diagnoses Diagnosis Encounter for other general examination documented in this encounter Care Teams Correctional Officer Captain Relationship Specialty Start Date End Date Parrish Cabrera MD [address] [place] [id number] PCP - General 12/24/1998 documented as of this encounter
--- OUTSIDE RECORDS SUMMARY | 2024-09-02 16:34 | XMS_ITS | Encounter Summary ---
Author Organization [facility] Address [address] [place] [address] Care Team Providers Care Motor Room Controller Name Role Phone Parrish Cabrera MD Primary Care Provider [phone] Reason for Visit * Reason Comments Hospital Follow-up Encounter Details Date Type Department Care Team (Late st Contact Info) Description 09/01/2024 1:30 PM EDT Office Visit Adult Medicine [facility] [address] [place] [phone] Parrish Cabrera MD [address] [place] [address] [phone] Skin abrasion (Primary Dx); 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, CMS/HCC V28); Essential hypertension; Accidental fall, subsequent encounter Social History Tobacco Use Types Packs/Day Years [...] PM EDT documented as of this encounter Last Filed Vital Signs Vital Sign Reading Time Taken Comments Blood Pressure 122/66 09/01/2024 1:21 PM EDT Pulse 82 09/01/2024 1:21 PM EDT Temperature 36.1 ??C (96.9 ??F) 09/01/2024 1:21 PM ED T Respiratory Rate 20 09/01/2024 1:21 PM EDT Oxygen Saturation - - Inhaled Oxygen Concentration - - Weight 66.7 kg (147 lb) 09/01/2024 1:21 PM EDT Height 160 cm (5' 3 ) 09/01/2024 1:21 PM EDT Body Mass Index 26.04 09/01/2024 1:21 PM EDT documented in this encounter Progress Notes * Parrish Cabrera MD - 09/01/2024 1:30 PM EDT CHIEF COMPLAINT: Hospital Follow-up IDENTIFIER: Miky Ibrahim is a 84 y.o. old male. HPI: Although the main purpose for this visit is for posthospital evaluation after patient's recent back surgery, he is however reported an accidental fall causing large area of skin abrasion in the left forearm, requiring another ER relation about 1 week ago. Patient and the have many questions regarding local care of the large area of skin breakdown. stated patient developed confusion during the immediate postoperative time requiring prolongedrehabitation. His pain is overall better but he obviously did not get the level of improvement he expected. ROS: GENERAL: Negative for malaise, significant weight loss and fever RESPIRATORY: No cough, wheezing or shortness of breath CARDIOVASCULAR: Negative for chest pain, leg swelling and palpitations GI: Negative for abdominal discomfort, changes in bowel habits, blood in stool or black stools HEMATOLOGY/LYMPHOLOGY: No prolonged bleeding, easy bruising, or swollen lymph nodes ENDOCRINE: Negative for cold or heat intolerance, polyuria, polydipsia and goiter NEURO: No persistent headache, fainting, seizures, strokes, TIAs, weakness, numbness or tingling PAST MEDICAL HISTORY: Patient Active Problem List Diagnosis Date Noted Abnormal ECG 04/23/2024 Hepatic steatosis 12/27/2023 Mild ascending aorta dilation ([facility] V24) 06/26/2023 Renal cyst 05/04/2023 Iron deficiency anemia 12/16/2018 Subclinical hypothyroidism 12/16/2018 Essential hypertension 01/14/2018 PLMD (periodic limb movement disorder) 06/29/2016 Obstructive sleep apnea 06/20/2016 Arthritis, midfoot 04/03/2016 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/03/2016 Diabetes mellitus type 2 with neurological manifestations ([facility] V24, [facility] V28) 04/03/2016 Actinic keratosis 03/05/2014 Lumbar spinal stenosis 07/02/2012 Meningioma ([facility] V24, [facility] V28) 07/28/2008 Benign prostatic hyperplasia 10/14/2007 Diverticulitis of colon without hemorrhage 04/02/2007 Benign neoplasm of cerebral meninges ([facility] V24, [facility] V28) 11/22/2006 DM w/o complication type II ([facility] V24, [facility] V28) 11/13/2006 Pure hypercholesterolemia 11/13/2006 Osteoarthrosis 03/31/2005 SOCIAL HISTORY: Social History Tobacco Use Smoking status: Former Smokeless tobacco: Never Substance Use Topics Alcohol use: No FAMILY HISTORY: Family Status Relation Name Status Mother (Not Specified) Father (Not Specified) Brother (Not Specified) Sister (Not Specified) MGF (Not Specified) MGM (Not Specified) PGF (Not Specified) PGM (Not Specified) Aunt (Not Specified) Uncle (Not Specified) Other (Not Specified) Neg Hx (Not Specified) No partnership data on file Family History Problem Relation Name Age of Onset Lung cancer Mother smoker Cataracts Father Alzheimer's disease Father 70.00 late onset No Known Problems Brother No Known Problems Sister No Known Problems Maternal Grandfather No Known Problems Maternal Grandmother No Known Problems Paternal Grandfather No Known Problems Paternal Grandmother No Known Problems Aunt No Known Problems Uncle No Known Problems Other Blindness Neg Hx Glaucoma Neg Hx Macular degeneration Neg Hx Strabismus Neg Hx Colon cancer Neg Hx ACTIVE MEDICATIONS: Outpatient Medications Marked as Taking for the 09/01/24 encounter (Office Visit) with Parrish Cabrera MD Medication Sig Dispense Refill acetaminophen (TYLENOL) 500 mg tablet Take 1 tablet (500 mg total) by mouth every 6 (six) hours if needed for moderate pain or mild pain. OTC ACETYLCARNITINE HCL ORAL Take 1,000 mg by mouth 2 (two) times a day. OTC apple cider vinegar 600 mg capsule Take by mouth 1 (one) time each day. OTC aspirin 81 mg EC tablet Take 1 tablet (81 mg total) by mouth 1 (one) time each day. Autolet lancing device Use to test blood sugar once daily blood-glucose meter kit Use to test blood sugars daily celecoxib (CeleBREX) 100 mg capsule diclofenac (VOLTAREN) 50 mg EC tablet TAKE 1 TABLET BY MOUTH TWICE DAILY NEEDED FOR PAIN 180 tablet 1 DULoxetine (CYMBALTA) [address] capsule Take 1 capsule (60 mg total) by mouth 1 (one) time each day.90 each 0 gabapentin (NEURONTIN) 600 mg tablet TAKE 1 TABLET BY MOUTH TWICE DAILY 60 tablet 4 glucose blood (Truetest Test Strips) test strip Test blood sugar Daily lisinopriL (PRINIVIL,ZESTRIL) 2.5 mg tablet TAKE 1 TABLET BY MOUTH DAILY 90 tablet 1 MAGNESIUM ORAL Take 1 tablet by mouth 1 (one) time each day. OTC ONETOUCH DELICA LANCETS MISC 1 Each by Does not apply route daily. simvastatin (ZOCOR) 10 mg tablet Take 1 tablet (10 mg total) by mouth at bedtime. 90 each 0 tamsulosin (FLOMAX) 0.4 mg 24 hr capsule Take 1 capsule (0.4 mg total) by mouth 1 (one) time each day. ALLERGIES: Patient has no known allergies. PHYSICAL EXAM: Blood pressure 122/66, pulse 82, temperature 36.1 ??C (96.9 ??F), temperature source Temporal, resp. rate 20, height 1.6 m (63 ), weight 66.7 kg (147 lb). Body mass index is 26.04 kg/m??. Plan is deferred until next visit APPEARANCE: Alert and in no acute distress, smiling, well hydrated, well groomed NECK: No JVD HEART: Normal S1-S2 LUNG: clear to auscultation bilaterally ABDOMEN: Bowel sounds normoactive, no bruits and soft, non-tender, without organomegaly or palpablemasses EXTREMITIES: Left anterior forearm arm, large, palm sized area of deep skin abrasion with granulomatous tissue developing an area of erythema and serosanguineous exudates. No spreading redness, no foul-smelling LABS: Lab Results Component Value Date WBC 10.1 08/11/2024 HGB 9.4 (L) 08/11/2024 HCT 30.1 (L) 08/11/2024 MCV 103.1 (H) 08/11/2024 PLT 425 (H) 08/11/2024 Lab Results Component Value Date GLUCOSE 190 09/01/2024 CALCIUM 9.1 08/11/2024 NA 139 08/11/2024 K 4.5 08/11/2024 CO2 27 08/11/2024 CL 105 08/11/2024 BUN 15 08/11/2024 CREATININE 0.60 (L) 08/11/2024 BP Readings from Last 5 Encounters: 09/01/24 122/66 08/21/24 102/55 05/14/24 104/70 04/25/24 106/66 04/24/24 100/62 Wt Readings from Last 5 Encounters: 09/01/24 66.7 kg (147 lb) 08/21/24 65.8 kg (145 lb) 05/14/24 66.7 kg (147 lb) 04/25/24 64 kg (141 lb) 04/24/24 64.7 kg (142 lb 9.6 oz) IMPRESSION: 1. Skin abrasion 2. 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, CMS/HCC V28) 3. Essential hypertension 4. Accidental fall, subsequent encounter PLAN: Although the main purpose for this visit is for posthospital evaluation after patient's recent back surgery, he is however reported an accidental fall causing large area of skin abrasion in the left forearm, requiring another ER relation about 1 week ago. Patient and the have many questions regarding local care of the large area of skin breakdown. stated patient developed confusion during the immediate postoperative time requiring prolongedrehabitation. His pain is overall better but he obviously did not get the level of improvement he expected. 1 accidental fall with large area of skin abrasion in the left forearm, with some adhesion, I took extra attention to gradually peel off layers of dressing. Area was cleaned, necrotic, dried superficial skin was removed. Bacitracin ointment was applied generously, and the wound was dressed with nonadhesive dressing. I paid attention to show regarding dressing change, and answered her many questions. Multiple supply was given I obtained and reviewed ER evaluation regarding this fall, the fall appears to be accidental, not related with patient's recent back injury and the confusion the reported. 2 patient appears to be recovering from back surgery from what appears to be quite an eventful (from cardiac standpoint) surgery. Patient appears to be clinically stable, no CHF. His blood pressure is well-controlled. His weight is stable if not slightly increased. I will obtain more record for review, due to the extent of skin abrasion, more than 7 days after the initial injury without gross infection I decided against systemic antibiotics, rather I will arrange follow-up visit in 7 days. Patient well cared for by , who herself has medical issues of her own after recent joint replacement surgery, Warning symptoms discussed that would need immediate reevaluation, including ER visit. Orders Placed This Encounter Procedures POC glucose manually resulted ADDITIONAL ORDERS: None Parrish Cabrera MD on 09/01/2024 at 9:12 PM EDT documented in this encounter Plan of Treatment Upcoming Encounters Date Type Department Care Team (Late st Contact Info) Description 09/09/2024 11:00 AM EDT Office Visit Adult Medicine [address] [phone] Parrish Cabrera MD [address] [place] [phone] 04/14/2025 1:00 PM EST Appointment [facility] Ultrasound [address] [place] [phone] 05/20/2025 10:00 AM EST Office Visit Vascular Surgery - [place] [address] [place] [phone] Zenaida Rose MD [address] [place] [address] documented as of this encounter Procedures Procedure Name Priority Date/Time Associated Diagnosis Comments POC GLUCOSE Routine 09/01/2024 1:37 PM EDT Diabetes mellitus type 2 with neurological manifestations ([facility] V24, [facility] V28) documented in this encounter Results * POC glucose manually resulted (09/01/2024 1:37 PM EDT) Glucose POC 190 mg/dL Blood Capillary blood specimen / Unknown 09/01/2024 1:37 PM EDT Parrish Cabrera MD POINT OF CARE TEST ENTER/EDIT OR DERABLES Final Result documented in this encounter Visit Diagnoses Diagnosis Skin abrasion- Primary Abrasion or friction burn of other, multiple, and unspecified sites, without mention of infection Diabetes mellitus type 2 with neurological manifestations ([facility] V24, [facility] V28) Essential hypertension Unspecified essential hypertension Accidental fall, subsequent encounter documented in this encounter Care Teams Motor Room Controller Relationship Specialty Start Date End Date Parrish Cabrera MD [address] [place] [address] PCP - General 12/24/1998 documented as of this encounter
--- OUTSIDE RECORDS SUMMARY | 2024-09-02 16:34 | XMS_ITS | Encounter Summary ---
Author Organization [facility] Address [address] [place] [address] Care Team Providers Care Coach Operator Name Role Phone Parrish Cabrera MD Primary Care Provider [phone] Encounter Details Date Type Department Care Team (Late Contact Info) Description 08/02/2024 Lab Requisition [facility] - Main Lab 299 [facility] [place] [phone] Nilesh Adams MD [address] [place] [phone] Encounter for other general examination Social History [...] 11:00 AM EDT Office Visit Adult Medicine [address] [phone] Parrish Cabrera MD [address] [place] [address] 04/14/2025 1:00 PM EST Appointment [facility] Ultrasound [address] [place] [phone] 05/20/2025 10:00 AM EST Office Visit Vascular Surgery - [place] [address] [place] [phone] Zenaida Rose MD [address] [place] [address] documented as of this encounter Procedures Procedure Name Priority Date/Time Associated Diagnosis Comments CULTURE BLOOD Routine 08/02/2024 2:45 PM EDT [...] PM EDT Encounter for other general examination documented in this encounter Results * Culture blood (08/02/2024 2:45 PM EDT) Culture, Blood No growth at 5 days 08/07/2024 6:02 PM EDT [facility] Blood 08/02/2024 2:45 PM EDT 08/02/2024 5:03 PM EDT Nilesh Adams MD LAB MICROBIOLOGY - GENERAL ORD ERABLES Final Result [facility] [address] [place] [address], [place] [phone] * (ABNORMAL) CBC auto differential (08/02/2024 2:40 PM EDT) [facility] WBC 7.4 4.8 - 10.8 K/mcL LAB HEMETOLOGY METHOD 08/02/2024 5:16 PM EDT [facility] RBC 2.50(L) 4.50 - 5.50 M/mcL LAB HEMETOLOGY METHOD 08/02/2024 5:16 PM EDT [facility] Hemoglobin 8.2(L) 13.5 - 17.5 g/dL LAB HEMETOLOGY METHOD 08/02/2024 5:16 PM EDT [facility] Hematocrit 25.1(L) 42.0 - 54.0 % LAB HEMETOLOGY METHOD 08/02/2024 5:[facility] MCV 99.6(H) 79.0 - 98.0 FL LAB HEMETOLOGY METHOD 08/02/2024 5:16 PM EDT [facility] MCH 32.5(H) 27.0 - 32.0 pcg LAB HEMETOLOGY METHOD 08/02/2024 5:16 PM [facility] MCHC 32.7 32.0 - 37.0 g/dL LAB HEMETOLOGY METHOD 08/02/2024 5:16 PM [facility] RDW 13.3 11.0 - 15.0 % LAB HEMETOLOGY METHOD 08/02/2024 5:16 PM EDT [facility] Platelets 235 130 - 400 K/mcL LAB HEMETOLOGY METHOD 08/02/2024 5:16 PM EDT [facility] MPV 10.4 7.0 - 11.0 FL LAB HEMETOLOGY METHOD 08/02/2024 5:16 PM EDT [facility] NRBC 0.0 <1.0 % LAB HEMETOLOGY METHOD 08/02/2024 5:16 PM EDT [facility] NRBC Absolute 0.00 <0.10 K/mcL LAB HEMETOLOGY METHOD 08/02/2024 5:16 PM EDT [facility] Neutrophils Relative 76.2 % LAB HEMETOLOGY METHOD 08/02/2024 5:16 PM EDT [facility] Lymphocytes Relative 10.8 % LAB HEMETOLOGY METHOD 08/02/2024 5:16 PM EDT [facility] Monocytes Relative 9.9 % LAB HEMETOLOGY METHOD 08/02/2024 5:16 PM EDT [facility] Eosinophils Relative 2.4 % LAB HEMETOLOGY METHOD 08/02/2024 5:16 PM EDT [facility] Basophils Relative 0.3 % LAB HEMETOLOGY METHOD 08/02/2024 5:16 PM EDT [facility] Immature Granulocytes Relative 0.4 % LAB HEMETOLOGY METHOD 08/02/2024 5:16 PM EDT [facility] Neutrophils Absolute 5.67 1.50 - 7.00 K/mcL LAB HEMETOLOGY METHOD 08/02/2024 5:16 PM EDT [facility] Lymphocytes Absolute 0.80(L) 1.00 - 5.00 K/mcL LAB HEMETOLOGY METHOD 08/02/2024 5:16 PM EDT [facility] Monocytes Absolute 0.74 0.20 - 1.00 K/mcL LAB HEMETOLOGY METHOD 08/02/2024 5:16 PM EDT [facility] Eosinophils Absolute 0.18 0.00 - 0.50 K/mcL LAB HEMETOLOGY METHOD 08/02/2024 5:16 PM EDT [facility] Basophils Absolute 0.02 0.00 - 0.20 K/mcL LAB HEMETOLOGY METHOD 08/02/2024 5:16 PM EDT [facility] Immature Granulocytes Absolute 0.03 0.00 - 0.03 K/mcL LAB HEMETOLOGY METHOD 08/02/2024 5:16 PM EDT [facility] Blood Venous blood specimen / Unknown 08/02/2024 2:40 PM EDT 08/02/2024 5:03 PM EDT us Nilesh Adams MD LAB BLOOD ORDERABLES Final Res ult Performing Organization Address City/[facility]/ZIP Co de Phone Number [facility] [address] [place] [address], [place] [phone] * Culture blood (08/02/2024 2:40 PM EDT) Pathologist [facility] Culture, Blood No growth at 5 days 08/07/2024 6:02 PM EDT [facility] Blood Venipuncture / Unknown 08/02/2024 2:40 PM EDT 08/02/2024 5:03 PM EDT us Nilesh Adams MD LAB MICROBIOLOGY - GENERAL ORD ERABLES Final Result Performing Organization Address [facility]/ZIP Co de Phone Number [facility] [address] [place] [address], [place] [phone] * (ABNORMAL) Comprehensive metabolic panel (08/02/2024 2:40 PM EDT) Sodium 138 133 - 145 mmol/L LAB CHEMISTRY METHOD 08/02/2024 5:43 PM EDT [facility] Potassium 4.4 3.5 - 5.5 mmol/L LAB CHEMISTRY METHOD 08/02/2024 5:43 PM EDT [facility] Chloride 105 96 - 110 mmol/L LAB CHEMISTRY METHOD 08/02/2024 5:43 PM EDT [facility] CO2 27 21 - 32 mmol/L LAB CHEMISTRY METHOD 08/02/2024 5:43 PM EDT [facility] Anion Gap 6 3 - 11 LAB CHEMISTRY METHOD 08/02/2024 5:43 PM [facility] Glucose 153(H) 70 - 100 mg/dL LAB CHEMISTRY METHOD 08/02/2024 5:43 PM [facility] BUN 41(H) 5 - 25 mg/dL LAB CHEMISTRY METHOD 08/02/2024 5:43 PM [facility] Creatinine 0.69(L) 0.70 - 1.30 mg/dL LAB CHEMISTRY METHOD 08/02/2024 5:43 PM [facility] eGFR 90 >=60 mL/min/1. 73m2 LAB CHEMISTRY METHOD 08/02/2024 5:43 PM [facility] Comment:Calculation based on the??Chronic Kidney Disease Epidemiology Collaboration (CKD-EPI) equation refit??without adjustment for race. BUN/Creatinine Ratio 59.4 LAB CHEMISTRY METHOD 08/02/2024 5:43 PM [facility] Calcium 9.1 8.5 - 10.5 mg/dL LAB CHEMISTRY METHOD 08/02/2024 5:43 PM [facility] AST (SGOT) 46(H) 10 - 42 unit/L LAB CHEMISTRY METHOD 08/02/2024 5:43 PM [facility] ALT (SGPT) 33 10 - 60 unit/L LAB CHEMISTRY METHOD 08/02/2024 5:43 PM [facility] Alkaline Phosphatase 83 42 - 121 unit/L LAB CHEMISTRY METHOD 08/02/2024 5:43 PM [facility] Total Protein 5.6(L) 6.0 - 8.0 g/dL LAB CHEMISTRY METHOD 08/02/2024 5:43 PM [facility] Albumin 2.7(L) 3.2 - 5.0 g/dL LAB CHEMISTRY METHOD 08/02/2024 5:43 PM [facility] Total Bilirubin 0.5 0.0 - 1.4 mg/dL LAB CHEMISTRY METHOD 08/02/2024 5:43 PM EDT [facility] Blood Venous blood specimen / Unknown Venipuncture / Unknown 08/02/2024 2:40 PM EDT 08/02/2024 5:03 PM EDT us Nilesh Adams MD LAB BLOOD ORDERABLES Final Res ult [facility] [address] [place] [address], documented in this encounter Visit Diagnoses Diagnosis Encounter for other general examination documented in this encounter Care Teams Coach Operator Relationship Specialty Start Date End Date Parrish Cabrera MD [address] [place] [address] PCP - General 12/24/1998 documented as of this encounter
--- OUTSIDE RECORDS SUMMARY | 2024-09-02 16:34 | XMS_ITS | Encounter Summary ---
Author Organization [facility] Address [address] [place] [address] Care Team Providers Care Office Clerk Assistant Name Role Phone Parrish Cabrera MD Primary Care Provider [phone] Encounter Details Date Type Department Care Team (Late Contact Info) Description 08/06/2024 Lab Requisition [facility] - Main Lab 299 [facility] [place] [phone] Nilesh Adams MD [address] [place] [address] Encounter for other general examination Social History [...] 11:00 AM EDT Office Visit Adult Medicine [address] [phone] Parrish Cabrera MD [address] [place] [address] 04/14/2025 1:00 PM EST Appointment [facility] Ultrasound [address] [place] [phone] 05/20/2025 10:00 AM EST Office Visit Vascular Surgery - [place] [address] [place] [phone] Zenaida Rose MD [address] [place] [address] documented as of this encounter Procedures Procedure Name Priority Date/Time Associated Diagnosis Comments CBC WITH AUTO DIFFERENTIAL Routine 08/06/2024 6:12 AM EDT Encounter for other general examination CBC AND DIFFERENTIAL Routine 08/06/2024 6:12 AM EDT Encounter for other general examination COMPREHENSIVE METABOLIC PANEL Routine 08/06/2024 6:12 AM EDT Encounter for other general examination documented in this encounter Results * (ABNORMAL) CBC auto differential (08/06/2024 6:12 AM EDT) [facility] Signature WBC 8.1 4.8 - 10.8 K/mcL LAB HEMETOLOGY METHOD 08/06/2024 11:04 AM T [facility] RBC 2.60(L) 4.50 - 5.50 M/mcL LAB HEMETOLOGY METHOD 08/06/2024 11:04 AM EDT [facility] Hemoglobin 8.4(L) 13.5 - 17.5 g/dL LAB HEMETOLOGY METHOD 08/06/2024 11:04 AM [facility] Hematocrit 26.6(L) 42.0 - 54.0 % LAB HEMETOLOGY METHOD 08/06/2024 11:04 AM [facility] MCV 102.3(H) 79.0 - 98.0 FL LAB HEMETOLOGY METHOD 08/06/2024 11:04 AM [facility] MCH 32.3(H) 27.0 - 32.0 pcg LAB HEMETOLOGY METHOD 08/06/2024 11:04 AM [facility] MCHC 31.6(L) 32.0 - 37.0 g/dL LAB HEMETOLOGY METHOD 08/06/2024 11:04 AM [facility] RDW 13.2 11.0 - 15.0 % LAB HEMETOLOGY METHOD 08/06/2024 11:04 AM [facility] Platelets 348 130 - 400 K/mcL LAB HEMETOLOGY METHOD 08/06/2024 11:04 AM [facility] MPV 9.9 7.0 - 11.0 [place] LAB HEMETOLOGY METHOD 08/06/2024 11:04 AM [facility] NRBC 0.0 <1.0 % LAB HEMETOLOGY METHOD 08/06/2024 11:04 AM [facility] NRBC Absolute 0.00 <0.10 K/mcL LAB HEMETOLOGY METHOD 08/06/2024 11:04 AM [facility] Neutrophils Relative 67.9 % LAB HEMETOLOGY METHOD 08/06/2024 11:04 AM [facility] Lymphocytes Relative 14.1 % LAB HEMETOLOGY METHOD 08/06/2024 11:04 AM [facility] Monocytes Relative 14.3 % LAB HEMETOLOGY METHOD 08/06/2024 11:04 AM [facility] Eosinophils Relative 2.2 % LAB HEMETOLOGY METHOD 08/06/2024 11:04 AM [facility] Basophils Relative 0.6 % LAB HEMETOLOGY METHOD 08/06/2024 11:04 AM [facility] Immature Granulocytes Relative 0.9 % LAB HEMETOLOGY METHOD 08/06/2024 11:04 AM EDT [facility] Neutrophils Absolute 5.53 1.50 - 7.00 K/mcL LAB HEMETOLOGY METHOD 08/06/2024 11:04 AM EDT [facility] Lymphocytes Absolute 1.15 1.00 - 5.00 K/mcL LAB HEMETOLOGY METHOD 08/06/2024 11:04 AM EDT [facility] Monocytes Absolute 1.16(H) 0.20 - 1.00 K/mcL LAB HEMETOLOGY METHOD 08/06/2024 11:04 AM EDT [facility] Eosinophils Absolute 0.18 0.00 - 0.50 K/[facility] LAB HEMETOLOGY METHOD 08/06/2024 11:04 AM [facility] Basophils Absolute 0.05 0.00 - 0.20 K/mcL LAB HEMETOLOGY METHOD 08/06/2024 11:04 AM [facility] Immature Granulocytes Absolute 0.07(H) 0.00 - 0.03 K/mcL LAB HEMETOLOGY METHOD 08/06/2024 11:04 AM [facility] Blood Venous blood specimen / Unknown Venipuncture / Unknown 08/06/2024 6:12 AM EDT 08/06/2024 10:00 AM EDT us Nilesh Adams MD LAB BLOOD ORDERABLES Final Res ult [facility] [address] [place] [address], * (ABNORMAL) Comprehensive metabolic panel (08/06/2024 6:12 AM EDT) Sodium 135 133 - 145 mmol/L LAB CHEMISTRY METHOD 08/06/2024 11:52 AM EDT [facility] Potassium 4.1 3.5 - 5.5 mmol/L LAB CHEMISTRY METHOD 08/06/2024 11:52 AM [facility] Chloride 102 96 - 110 mmol/L LAB CHEMISTRY METHOD 08/06/2024 11:52 AM [facility] CO2 25 21 - 32 mmol/L LAB CHEMISTRY METHOD 08/06/2024 11:52 AM [facility] Anion Gap 8 3 - 11 LAB CHEMISTRY METHOD 08/06/2024 11:52 AM [facility] Glucose 144(H) 70 - 100 mg/dL LAB CHEMISTRY METHOD 08/06/2024 11:52 AM [facility] BUN 11 5 - 25 mg/dL LAB CHEMISTRY METHOD 08/06/2024 11:52 AM [facility] Creatinine 0.66(L) 0.70 - 1.30 mg/dL LAB CHEMISTRY METHOD 08/06/2024 11:52 AM [facility] eGFR 91 >=60 mL/min/1. 73m2 LAB CHEMISTRY METHOD 08/06/2024 11:52 AM [facility] Comment:Calculation based on the??Chronic Kidney Disease Epidemiology Collaboration (CKD-EPI) equation refit??without adjustment for race. BUN/Creatinine Ratio 16.7 LAB CHEMISTRY METHOD 08/06/2024 11:52 AM [facility] Calcium 8.7 8.5 - 10.5 mg/dL LAB CHEMISTRY METHOD 08/06/2024 11:52 AM [facility] AST (SGOT) 46(H) 10 - 42 unit/L LAB CHEMISTRY METHOD 08/06/2024 11:52 AM [facility] ALT (SGPT) 50 10 - 60 unit/L LAB CHEMISTRY METHOD 08/06/2024 11:52 AM [facility] Alkaline Phosphatase 100 42 - 121 unit/L LAB CHEMISTRY METHOD 08/06/2024 11:52 AM [facility] Total Protein 5.9(L) 6.0 - 8.0 g/dL LAB CHEMISTRY METHOD 08/06/2024 11:52 AM EDT [facility] Albumin 2.8(L) 3.2 - 5.0 g/dL LAB CHEMISTRY METHOD 08/06/2024 11:52 AM EDT [facility] Total Bilirubin 0.5 0.0 - 1.4 mg/dL LAB CHEMISTRY METHOD 08/06/2024 11:52 AM EDT [facility] Blood Venous blood specimen / Unknown Venipuncture / Unknown 08/06/2024 6:12 AM EDT 08/06/2024 10:00 AM EDT us Nilesh Adams MD LAB BLOOD ORDERABLES Final Res ult [facility] [address] [place] [address], documented in this encounter Visit Diagnoses Diagnosis Encounter for other general examination documented in this encounter Care Teams Office Clerk Assistant Relationship Specialty Start Date End Date Parrish Cabrera MD [address] [place] [id number] PCP - General 12/24/1998 documented as of this encounter
--- OUTSIDE RECORDS SUMMARY | 2024-09-02 16:34 | XMS_ITS | Encounter Summary ---
Author Organization [facility] Address [address] [place] [address] Care Team Providers Care Stripper Soft Plastic Name Role Phone Parrish Cabrera MD Primary Care Provider [phone] Encounter Details Date Type Department Care Team (Late Contact Info) Description 08/01/2024 Lab Requisition [facility] - Main Lab 299 [facility] [place] [phone] Nilesh Adams MD [address] [place] [address] Encounter for other general examination Social History [...] 11:00 AM EDT Office Visit Adult Medicine [address] [phone] Parrish Cabrera MD [address] [place] [address] 04/14/2025 1:00 PM EST Appointment [facility] Ultrasound [address] [place] [phone] 05/20/2025 10:00 AM EST Office Visit Vascular Surgery - [place] [address] [place] [phone] Zenaida Rose MD [address] [place] [address] documented as of this encounter Procedures Procedure Name Priority Date/Time Associated Diagnosis Comments RBC MORPHOLOGY REVIEW Routine 08/01/2024 6:47 AM [...] documented in this encounter Results * (ABNORMAL) RBC morphology review (08/01/2024 6:47 AM EDT) Rbc Morphology Consistent with indices Consistent with indices, Normal for [place] LAB HEMETOLOGY METHOD 08/01/2024 12:00 PM EDT [facility] Platelet Morphology - WAM See Note(A) Normal LAB HEMETOLOGY METHOD 08/01/2024 12:00 PM EDT [facility] Comment:PLT: Normal Blood Venous blood specimen / Unknown Venipuncture / Unknown 08/01/2024 6:47 AM EDT 08/01/2024 10:49 AM EDT us Nilesh Adams MD LAB BLOOD ORDERABLES Final Res ult [facility] [address] [place] [address], * (ABNORMAL) CBC auto differential (08/01/2024 6:47 AM EDT) WBC 12.5(H) 4.8 - 10.8 K/mcL LAB HEMETOLOGY METHOD 08/01/2024 12:00 PM EDT [facility] RBC 2.70(L) 4.50 - 5.50 M/mcL LAB HEMETOLOGY METHOD [facility] Hemoglobin 8.8(L) 13.5 - 17.5 g/dL LAB HEMETOLOGY METHOD 08/01/2024 12:00 PM [facility] Hematocrit 27.6(L) 42.0 - 54.0 % LAB HEMETOLOGY METHOD 08/01/2024 12:[facility] MCV 102.6(H) 79.0 - 98.0 FL LAB HEMETOLOGY METHOD 08/01/2024 12:00 PM [facility] MCH 32.7(H) 27.0 - 32.0 pcg LAB HEMETOLOGY METHOD 08/01/2024 12:00 PM [facility] MCHC 31.9(L) 32.0 - 37.0 g/dL LAB HEMETOLOGY METHOD 08/01/2024 12:00 PM [facility] RDW 13.4 11.0 - 15.0 % LAB HEMETOLOGY METHOD 08/01/2024 12:00 PM [facility] Platelets 189 130 - 400 K/mcL LAB HEMETOLOGY METHOD 08/01/2024 12:00 PM [facility] MPV 10.9 7.0 - 11.0 FL LAB HEMETOLOGY METHOD 08/01/2024 12:00 PM [facility] NRBC 0.0 <1.0 % LAB HEMETOLOGY METHOD 08/01/2024 12:00 PM [facility] NRBC Absolute 0.00 <0.10 K/mcL LAB HEMETOLOGY METHOD 08/01/2024 12:00 PM [facility] Neutrophils Relative 77.5 % LAB HEMETOLOGY METHOD 08/01/2024 12:00 PM [facility] Comment:This is an appended report. These results have been appended to a previously preliminary verified report. Lymphocytes Relative 7.7 % LAB HEMETOLOGY METHOD 08/01/2024 12:00 PM [facility] Comment:This is an appended report. These results have been appended to a previously preliminary verified report. Monocytes Relative 12.9 % LAB HEMETOLOGY METHOD 08/01/2024 12:00 PM [facility] Comment:This is an appended report. These results have been appended to a previously preliminary verified report. Eosinophils Relative 1.4 % LAB HEMETOLOGY METHOD 08/01/2024 12:00 PM [facility] Comment:This is an appended report. These results have been appended to a previously preliminary verified report. Basophils Relative 0.2 % LAB HEMETOLOGY METHOD 08/01/2024 12:00 PM [facility] Comment:This is an appended report. These results have been appended to a previously preliminary verified report. Immature Granulocytes Relative 0.3 % LAB HEMETOLOGY METHOD 08/01/2024 12:00 PM [facility] Comment:This is an appended report. These results have been appended to a previously preliminary verified report. Neutrophils Absolute 9.71(H) 1.50 - 7.00 K/mcL LAB HEMETOLOGY METHOD 08/01/2024 12:00 PM EDT [facility] Comment:This is an appended report. These results have been appended to a previously preliminary verified report. Lymphocytes Absolute 0.97(L) 1.00 - 5.00 K/mcL LAB HEMETOLOGY METHOD 08/01/2024 12:00 PM EDT [facility] Comment:This is an appended report. These results have been appended to a previously preliminary verified report. Monocytes Absolute 1.62(H) 0.20 - 1.00 K/mcL LAB HEMETOLOGY METHOD 08/01/2024 12:00 PM EDT [facility] Comment:This is an appended report. These results have been appended to a previously preliminary verified report. Eosinophils Absolute 0.18 0.00 - 0.50 K/mcL LAB HEMETOLOGY METHOD 08/01/2024 12:00 PM EDT [facility] Comment:This is an appended report. These results have been appended to a previously preliminary verified report. Basophils Absolute 0.02 0.00 - 0.20 K/mcL LAB HEMETOLOGY METHOD 08/01/2024 12:00 PM EDT [facility] Comment:This is an appended report. These results have been appended to a previously preliminary verified report. Immature Granulocytes Absolute 0.04(H) 0.00 - 0.03 K/mcL LAB HEMETOLOGY METHOD 08/01/2024 12:00 PM EDT [facility] Comment:This is an appended report. These results have been appended to a previously preliminary verified report. Blood Venous blood specimen / Unknown Venipuncture / Unknown 08/01/2024 6:47 AM EDT 08/01/2024 10:49 AM EDT us Nilesh Adams MD LAB BLOOD ORDERABLES Final Res ult [facility] [address] [place] [address], * Magnesium (08/01/2024 6:47 AM EDT) Magnesium 2.1 1.9 - 2.6 mg/dL LAB CHEMISTRY METHOD 08/01/2024 12:20 PM [facility] Blood Venous blood specimen / Unknown Venipuncture / Unknown 08/01/2024 6:47 AM EDT 08/01/2024 10:49 AM EDT us Nilesh Adams MD LAB BLOOD ORDERABLES Final Res ult [facility] [address] [place] [address], * (ABNORMAL) Comprehensive metabolic panel (08/01/2024 6:47 AM EDT) Sodium 136 133 - 145 mmol/L LAB CHEMISTRY METHOD 08/01/2024 12:20 PM [facility] Potassium 4.2 3.5 - 5.5 mmol/L LAB CHEMISTRY METHOD 08/01/2024 12:20 PM [facility] Chloride 103 96 - 110 mmol/L LAB CHEMISTRY METHOD 08/01/2024 12:20 PM [facility] CO2 25 21 - 32 mmol/L LAB CHEMISTRY METHOD 08/01/2024 12:20 PM [facility] Anion Gap 8 3 - 11 LAB CHEMISTRY METHOD 08/01/2024 12:20 PM [facility] Glucose 132(H) 70 - 100 mg/dL LAB CHEMISTRY METHOD 08/01/2024 12:20 PM [facility] BUN 33(H) 5 - 25 mg/dL LAB CHEMISTRY METHOD 08/01/2024 12:20 PM [facility] Creatinine 0.96 0.70 - 1.30 mg/dL LAB CHEMISTRY METHOD 08/01/2024 12:20 PM [facility] eGFR 77 >=60 mL/min/1. 73m2 LAB CHEMISTRY METHOD 08/01/2024 12:20 PM [facility] Comment:Calculation based on the??Chronic Kidney Disease Epidemiology Collaboration (CKD-EPI) equation refit??without adjustment for race. BUN/Creatinine Ratio 34.4 LAB CHEMISTRY METHOD 08/01/2024 12:20 PM [facility] Calcium 8.9 8.5 - 10.5 mg/dL LAB CHEMISTRY METHOD 08/01/2024 12:20 PM [facility] AST (SGOT) 53(H) 10 - 42 unit/L LAB CHEMISTRY METHOD 08/01/2024 12:20 PM [facility] ALT (SGPT) 27 10 - 60 unit/L LAB CHEMISTRY METHOD 08/01/2024 12:20 PM [facility] Alkaline Phosphatase 81 42 - 121 unit/L LAB CHEMISTRY METHOD 08/01/2024 12:20 PM [facility] Total Protein 5.9(L) 6.0 - 8.0 g/dL LAB CHEMISTRY METHOD 08/01/2024 12:20 PM [facility] Albumin 2.9(L) 3.2 - 5.0 g/dL LAB CHEMISTRY METHOD 08/01/2024 12:20 PM [facility] Total Bilirubin 0.7 0.0 - 1.4 mg/dL LAB CHEMISTRY METHOD 08/01/2024 12:20 PM [facility] Blood Venous blood specimen / Unknown Venipuncture / Unknown 08/01/2024 6:47 AM EDT 08/01/2024 10:49 AM EDT us Nilesh Adams MD LAB BLOOD ORDERABLES Final Res ult [facility] [address] [place] [address], [place] [phone] documented in this encounter Visit Diagnoses Diagnosis Encounter for other general examination documented in this encounter Care Teams Stripper Soft Plastic Relationship Specialty Start Date End Date Parrish Cabrera MD [address] [place] [id number] PCP - General 12/24/1998 documented as of this encounter
--- OUTSIDE RECORDS SUMMARY | 2024-09-02 16:34 | XMS_ITS | Encounter Summary ---
Author Organization [facility] Address [address] [place] [address] Care Team Providers Care Fountain Roller Assembler Name Role Phone Parrish Cabrera MD Primary Care Provider [phone] Encounter Details Date Type Department Care Team (Late Contact Info) Description 08/04/2024 Lab Requisition [facility] - Main Lab [address] [facility] [place] [phone] Nilesh Adams MD [address] [place] [address] Encounter for other general examination Social History [...] 11:00 AM EDT Office Visit Adult Medicine [address] [phone] Parrish Cabrera MD [address] [place] [address] 04/14/2025 1:00 PM EST Appointment [facility] Ultrasound [address] [place] [phone] 05/20/2025 10:00 AM EST Office Visit Vascular Surgery - [place] [address] [place] [phone] Zenaida Rose MD [address] [place] [address] documented as of this encounter Procedures Procedure Name Priority Date/Time Associated Diagnosis Comments BASIC METABOLIC PANEL Routine 08/04/2024 6:06 AM EDT Encounter for other general examination documented in this encounter Results * (ABNORMAL) Basic metabolic panel (08/04/2024 6:06 AM EDT) Sodium 140 133 - 145 mmol/L LAB CHEMISTRY METHOD 08/04/2024 1:42 PM [facility] Potassium 4.4 3.5 - 5.5 mmol/L LAB CHEMISTRY METHOD 08/04/2024 1:42 PM [facility] Chloride 110 96 - 110 mmol/L LAB CHEMISTRY METHOD 08/04/2024 1:42 PM [facility] CO2 23 21 - 32 mmol/L LAB CHEMISTRY METHOD 08/04/2024 1:42 PM [facility] Anion Gap 7 3 - 11 LAB CHEMISTRY METHOD 08/04/2024 1:42 PM [facility] Glucose 107(H) 70 - 100 mg/dL LAB CHEMISTRY METHOD 08/04/2024 1:42 PM [facility] BUN 20 5 - 25 mg/dL LAB CHEMISTRY METHOD 08/04/2024 1:42 PM [facility] Creatinine 0.68(L) 0.70 - 1.30 mg/dL LAB CHEMISTRY METHOD 08/04/2024 1:42 PM EDT [facility] eGFR 91 >=60 mL/min/1. 73m2 LAB CHEMISTRY METHOD 08/04/2024 1:42 PM EDT [facility] Comment:Calculation based on the??Chronic Kidney Disease Epidemiology Collaboration (CKD-EPI) equation refit??without adjustment for race. BUN/Creatinine Ratio 29.4 LAB CHEMISTRY METHOD 08/04/2024 1:42 PM EDT [facility] Calcium 8.7 8.5 - 10.5 mg/dL LAB CHEMISTRY METHOD 08/04/2024 1:42 PM EDT [facility] Blood Venous blood specimen / Unknown Venipuncture / Unknown 08/04/2024 6:06 AM EDT 08/04/2024 9:47 AM EDT us Nilesh Adams MD LAB BLOOD ORDERABLES Final Res ult [facility] [address] [place] [address], documented in this encounter Visit Diagnoses Diagnosis Encounter for other general examination documented in this encounter Care Teams Fountain Roller Assembler Relationship Specialty Start Date End Date Parrish Cabrera MD [address] [place] [address] PCP - General 12/24/1998 documented as of this encounter
--- OUTSIDE RECORDS SUMMARY | 2024-09-02 16:34 | XMS_ITS | Data Portability ---
Author Organization [facility] Address [address] [place] [address] Care Team Providers Care Dropper Tank Storage Name Role Phone [facility] Prim brayan Care Provider Assessment No assessment recorded. Plan of Treatment Reminders Order Date Submit Date Provider Last Modified By Organization Details Last Modified Time Details Appointments None recorded. Lab None recorded. Referral None recorded. Procedures None recorded. Surgeries None recorded. Imaging None recorded. Medication Orders Keflex 500 mg capsule 023 023 [facility], [address] [place] [address], [address], 3 19:00:14 Patient TargetsNo targets recorded. Patient Instructions Encounter Date Encounter Id Patient Instructions Last Modified By Organization Details Last Modified Time 10/04/2022 [id number] A puncture wound can happen anywhere on your body. These wounds tend to be narrower and deeper than cuts. A puncture wound is usually left open instead of being closed. This is because a puncture wound can be easily infected, and closing it can make infection even more likely. You will probably have a bandage over the wound. The doctor has checked you carefully, but problems can develop later. If you notice any problems or new symptoms, get medical treatment right away. How can you care for yourself at home? Keep the wound dry for the first 24 to 48 hours. After this, you can shower if your doctor okays it. Pat the wound dry. Don't soak the wound, such as in a bathtub. Your doctor will tell you when it's safe to get the wound wet. If your doctor told you how to care for your wound, follow your doctor's instructions. If you did not get instructions, follow this general advice: After the first 24 to 48 hours, wash the wound with clean water 2 times a day. Don't use hydrogen peroxide or alcohol, which can slow healing. You may cover the wound with a thin layer of petroleum jelly, such as Vaseline, and a non-stick bandage. Apply more petroleum jelly and replace the bandage as needed. Prop up the sore area on pillows anytime you sit or lie down during the next 3 days. Try to keep it above the level of your heart. This helps reduce swelling. Avoid any activity that could cause your wound to get worse. Be safe with medicines. Read and follow all instructions on the label. If the doctor gave you a prescription medicine for pain, take it as prescribed. If you are not taking a prescription pain medicine, ask your doctor if you can take an [id number]-[id number] medicine. If your doctor prescribed antibiotics, take them as directed. Do not stop taking them just because you feel better. You need to take the full course of antibiotics. [email or web address] Not available 10/04/2022 18:59:50 Reason for Referral None Reported. Problems Name Problem SNOMED Code Status Onset Date Resolution Date Notes Provider Name and Address Organization Details Recorded Time Diabetes mellitus 02541421 Active 023 Ashlyn diane [place] - [facility] 18:40:47 Notes:enlarged prostate Problem Notes None recorded. Procedures Surgical History Date Name Laterality Status Provider Name and Address Organization Details Recorded Time complete repair of rotator cuff completed Ashlyn BETTENCOURT - [facility] 10/04/2022 18:47:51 Imaging Results None recorded. Procedure Notes None recorded. Medical Equipment None Reported. Allergies No known drug allergies Medications Name Sig Start Date Stop Date Status Note LastModified by Organization Details LastModified Time gabapentin 600 mg tablet active Not Available Not Available Not Available Keflex 500 mg capsule Take 1 capsule every 8 hours by oral route with meals for 7 days. 2022 active Not Available Not Available Not Avai lable simvastatin 10 mg tablet Take 1 tablet every day by oral route at bedtime. active Not Available Not Available No t Available ciprofloxaci n 500 mg tablet active Not Available Not Available Not Available oxycodone-ac etaminophen 5 mg-325 mg tablet active Not Available Not Available Not Available tamsulosin 0.4 mg capsule Take 1 capsule every day by oral route. active Not Available Not Available No t Available apple cider vinegar 600 mg capsule Take 1 capsule every day by oral route. active Not Available Not Available No t Available diclofenac sodium 50 mg tablet,delay ed release active Not Available Not Available N ot Available levofloxacin 500 mg tablet active Not Available Not Available Not Available lisinopril 2.5 mg tablet Take 1 tablet every day by oral route. active Not Available Not Available No t Available ipratropium bromide 21 mcg (0.03 %) nasal spray active Not Available Not Available Not Available amoxicillin 875 mg-potassium clavulanate 125 mg tablet active Not Available Not Available Not Available duloxetine 60 mg capsule,galen yed release Take 1 capsule every day by oral route. active Not Available Not Available No t Available gabapentin 600 mg, 2 tablets by mouth 3 times daily active Not Available Not Available Not Available Zfomnc-Y-Nqg nitine 1000 mg, 1 tablet by mouth twice daily active Not Available Not Available No t Available Cinnamon 1000 mg, 1 capsule by mouth twice daily active Not Available Not Available No t Available GaviLyte-G 236 gram-22.74 gram-6.74 gram-5.86 gram oral solution active Not Available Not Available Not Available buprenorphin e 5 mcg/hour weekly transdermal patch active Not Available Not Available Not Available buprenorphin e 10 mcg/hour weekly transdermal patch active Not Available Not Available Not Available buprenorphin e 7.5 mcg/hour weekly transdermal patch active Not Available Not Available Not Available OneTouch Ultra2 Meter active Not Available Not Available Not Available Flowflex COVID-19 Antigen Home Test kit FOLLOW DIRECTIONS ON BOX active Not Available Not Available No t Available Vitals Date Recorded Body height Body mass index (BMI) Body weight Pain severity - 0-10 verbal numeric rating [Score] - Reported Oxygen saturation Oxygen saturation in Arterial blood by Pulse oximetry Heart rate Respiratory rate Body temperature Systolic blood pressure Diastolic blood pressure Provider Name and Address Organization Details Last Updated DateTime 3 167.64 cm 25.5 kg/m2 05418.5 9 g 10 98 % 98 % 88 /min 18 /min 98 [degF] 143 mm[Hg] 87 mm[Hg] Ashlyn Vazquez PA - [facility] 3 18:50:34 Social History Question Answer Notes LastModified by Organizat ion Details LastModified Time Tobacco Smoking Status Never Smoker Ashlyn Vazquez null, PA - [facility] 10/04/2022 18:46:50 Have You Had Direct Contact, Or Contact During Intimacy, With Monkeypox Rash, Scabs, Or Body Fluids From A Person With Monkeypox? No Information not available 10/04/2022 Have You Recently Traveled Abroad? No Information not available 10/04/2022 Sex: Unknown Functional Status Question Answer Note LastModified by Organizat ion Details LastModified Time Do you use any illicit or recreational drugs? No Information not available 10/04/2022 Do you or have you ever used any other forms of tobacco or nicotine? No Information not available 10/04/2022 What is your level of alcohol consumption? None Information not available 10/04/2022 Are you currently employed? No Information not available 10/04/2022 Mental Status None recorded. Family History Relationship Description Onset Age of this Age Resolved Age Notes LastModified by Organization Details LastModified Time Father No current problems or disability [email or web address] Not available 10/04 18:46:52 Mother No current problems or disability [email or web address] Not available 10/04 18:46:52 Medical History No medical history recorded. Immunizations Vaccine Type Date Status Note Provider Nam e and Address Organization Details Recorded Time zoster recombinant 1 completed Ashlyn Ruszala null, PA - [facility] 10/04/2022 18:39:42 zoster recombinant 1 completed Ashlyn Ruszala null, PA - [facility] 10/04/2022 18:39:42 Influenza, high-dose, quadrivalent, PF 2 completed Ashlyn Ruszala null, PA - [facility] 10/04/2022 18:39:42 COVID-19, mRNA, LNP-S, PF, 30 mcg/0.3 mL dose 1 completed Ashlyn Ruszala null, PA - [facility] 10/04/2022 18:39:42 COVID-19, mRNA, LNP-S, PF, 30 mcg/0.3 mL dose 1 completed Ashlyn Ruszala null, PA - [facility] 10/04/2022 18:39:42 COVID-19, mRNA, LNP-S, PF, 30 mcg/0.3 mL dose 1 completed Ashlyn Ruszala null, PA - [facility] 10/04/2022 18:39:42 COVID-19, mRNA, LNP-S, PF, 30 mcg/0.3 mL dose, nick-sucrose 2 completed Ashlyn Ruszala null, PA - [facility] 10/04/2022 18:39:42 COVID-19, mRNA, LNP-S, bivalent, PF, 30 mcg/0.3 mL dose 2 completed Ashlyn Ruszala null, PA - [facility] 10/04/2022 18:39:42 pneumococcal polysaccharide PPV23 3 completed Ashlyn Ruszala null, PA - [facility] 10/04/2022 18:39:42 Td(adult) unspecified formulation 3 completed Ashlyn Ruszala null, PA - [facility] 10/04/2022 18:39:42 Tdap 2 completed Ashlyn Ruszala null, PA - [facility] 10/04/2022 18:39:42 Tdap 2 completed Ashlyn Ruszala null, PA - [facility] 10/04/2022 18:39:42 Pneumococcal conjugate PCV 13 6 completed Ashlyn Ruszala null, PA - [facility] 10/04/2022 18:39:42 Influenza, high-dose, trivalent, PF 8 completed Ashlyn Ruszala null, PA - [facility] 10/04/2022 18:39:42 Influenza, high-dose, trivalent, PF 7 completed Ashlyn Ruszala null, PA - [facility] 10/04/2022 18:39:42 Influenza, high-dose, trivalent, PF 1 completed Ashlyn Ruszala null, PA - [facility] 10/04/2022 18:39:42 Influenza, high-dose, trivalent, PF 0 completed Ashlyn Ruszala null, PA - [facility] 10/04/2022 18:39:42 Influenza, high-dose, trivalent, PF 9 completed Ashlyn Ruszala null, PA - [facility] 10/04/2022 18:39:42 Influenza, split virus, trivalent, preservative 2 completed Ashlyn Ruszala null, PA - [facility] 10/04/2022 18:39:42 Influenza, split virus, trivalent, preservative 3 completed Ashlyn Ruszala null, PA - [facility] 10/04/2022 18:39:42 Influenza, split virus, trivalent, preservative 6 completed Ashlyn Ruszala null, PA - [facility] 10/04/2022 18:39:42 Influenza, split virus, trivalent, preservative 9 completed Ashlyn Ruszala null, PA - [facility] 10/04/2022 18:39:42 Influenza, split virus, trivalent, preservative 5 completed Ashlyn Ruszala null, PA - [facility] 10/04/2022 18:39:42 Influenza, split virus, trivalent, preservative 4 completed Ashlyn Ruszala null, PA - [facility] 10/04/2022 18:39:42 Influenza, split virus, trivalent, preservative 0 completed Ashlyn Ruszala null, PA - [facility] 10/04/2022 18:39:42 Influenza, split virus, trivalent, preservative 7 completed Ashlyn Ruszala null, PA - [facility] 10/04/2022 18:39:42 Influenza, split virus, trivalent, preservative 8 completed Ashlyn Ruszala null, PA - [facility] 10/04/2022 18:39:42 Influenza, split virus, trivalent, preservative 5 completed Ashlyn Ruszala null, PA - [facility] 10/04/2022 18:39:42 Influenza, split virus, trivalent, preservative 1 completed Ashlyn Ruszala null, PA - [facility] 10/04/2022 18:39:42 Influenza, split virus, trivalent, preservative 6 completed Ashlyn Ruszala null, PA - [facility] 10/04/2022 18:39:42 Novel [id number], preservative-free 0 completed Ashlyn Ruszala null, PA - [facility] 10/04/2022 18:39:42 Past Encounters Encounter ID Performer Location Encounter Start Date Encounter Closed Date Diagnosis/Indication Diagnosis SNOMED-CT Code Diagnosis ICD10 Code Diagnosis Note [id number] [place] [address] [address] 10/04/2022 16:30:19 10/04/2022 19:05:45 Puncture wound of heel 830719258 S91.331A Health Concerns Section Related Observation LastModified by Organization Detai ls LastModified Time None Recorded Concern Status LastModified by Organization Details LastModified Time None Recorded Advance Directives Directive None Recorded Payers Insurance Date Sequence Insurance Name Policy Number Policy Briggs Covered Member ID Briggs Member ID Guarantor Name 10/05/2022 1 [place] [employer] Miky Ibrahim [id number] Miky Ibrahim 10/05/2022 2 [facility] [employer] Samra Ibrahim [id number] Miky Ibrahim Notes Date Note Type Note Provider Name and Address Organization Details Recorded Time 10/04/2022 text/html Skin Redness UCReported bypatient.Locatio n:right foot; puncture wound on right heel x 2 weeks ago. tetanus URD. Quality:painful;e rythematous Severity:improvin g;moderate;consta nt Duration:2 weeks Onset:sudden onset Alleviating factors:nothing gives relief Symptoms:no fever; no nausea; no vomiting;swelling Seymour Munguia NP [address] [place], [address], [place] - [facility] 10/04/2022 19:00:29
--- OUTSIDE RECORDS SUMMARY | 2024-09-02 16:35 | XMS_ITS | Encounter Summary ---
Author Organization [facility] Address [address] [place] [address] Care Team Providers Care Apron Man Name Role Phone Parrish Parker MD Primary Care Provider [phone] Reason for Visit * Reason Onset Date Comments home health certificate [id number] 08/25/2024 Encounter Details Date Type Department Care Team (Late st Contact Info) Description 08/25/2024 Telephone Adult Medicine [address] [phone] Kayla Conrad MA home health certificate [id number] Social History Tobacco Use Types Packs/Day Years [...] PM EDT documented as of this encounter Progress Notes * Kayla Conrad MA - 09/02/2024 12:45 PM EDT Home health certificate [id number] signed and faxed * Kayla Conrad MA - 08/25/2024 9:55 AM EDT Home health certificate [id number] put in dr parker's office for signature documented in this encounter Plan of Treatment Upcoming Encounters Date Type Department Care Team (Late st Contact Info) Description 09/09/2024 11:00 AM EDT Office Visit Adult Medicine [facility] [place] [address] [place] [address] Parrish Parker MD [address] [place], [place] 04/14/2025 1:00 PM EST Appointment [facility] Ultrasound [address] [place] [address] 05/20/2025 10:00 AM EST Office Visit Vascular Surgery - [place] [address] [place] [phone] Zenaida Rose MD [address] [place] [address] documented as of this encounter Visit Diagnoses Not on filedocumented in this encounter Care Teams Apron Man Relationship Specialty Start Date End Date Parrish Parker MD [address] [place] [address] PCP - General 12/24/1998 documented as of this encounter
--- OUTSIDE RECORDS SUMMARY | 2024-09-02 16:35 | XMS_ITS | Encounter Summary ---
Author Organization [facility] Address [address] [place] [address] Care Team Providers Care Pad Assembler Name Role Phone Parrish Cabrera MD Primary Care Provider [phone] Reason for Visit * Reason Onset Date Comments vna 08/21/2024 Encounter Details Date Type Department Care Team (Late st Contact Info) Description 08/21/2024 Telephone Adult Medicine [facility] [address] [place] [phone] Parrish Cabrera MD [address] [place], [place] [phone] vna Social History Tobacco Use Types Packs/Day Years [...] as of this encounter Progress Notes * Flash Miller LPN - 08/21/2024 4:58 PM EDT VO given on 08/13/24 care plan approved VO left on (+ID) Janiya VM * Lin Guadarrama - 08/21/2024 4:47 PM EDT [facility] CALL Which [facility] office is calling? [facility] / Full name of caller: Janiya The caller is An Occupational Therapist Is the caller at the patients home?: no Reason for call: verbal orders for PT once a week for 3 weeks Does caller need an urgent call back? yes Was CONTACT Telephone # obtained above?: yes Fax #: documented in this encounter Plan of Treatment Upcoming Encounters Date Type Department Care Team (Late st Contact Info) Description 09/09/2024 11:00 AM EDT Office Visit Adult Medicine [address] [phone] Parrish Cabrera MD [address] [place] [address] 04/14/2025 1:00 PM EST Appointment [facility] Ultrasound [address] [place] [phone] 05/20/2025 10:00 AM EST Office Visit Vascular Surgery [facility] [address] [place] [phone] Zenaida Rose MD [address] [place] [address] documented as of this encounter Visit Diagnoses Not on filedocumented in this encounter Care Teams Pad Assembler Relationship Specialty Start Date End Date Parrish Cabrera MD [address] [place] [address] PCP - General 12/24/1998 documented as of this encounter
--- OUTSIDE RECORDS SUMMARY | 2024-09-02 16:35 | XMS_ITS | Encounter Summary ---
Author Organization [facility] Address [address] [place] [address] Care Team Providers Care Cracking Unit Operator Name Role Phone Parrish Parker MD Primary Care Provider [phone] Reason for Visit * Reason Onset Date Comments faxed order 08/26/2024 Nelsy [id number] Encounter Details Date Type Department Care Team (Late st Contact Info) Description 08/26/2024 Telephone Adult Medicine [facility] [place] [address] [place] [phone] Parrish Parker MD [address] [place], [place] [phone] faxed order (Nelsy [id number]) Social History Tobacco Use Types Packs/Day Years [...] Notes * Kayla Conrad MA - 09/02/2024 12:43 PM EDT Order signed and faxed * Kayla Conrad MA - 09/01/2024 9:13 AM EDT Order put in dr parker's office for signature * Emily Pineda - 08/26/2024 12:38 PM EDT Faxed orders received from [facility] [phone] please sign and fax to [phone]. documented in this encounter Plan of Treatment Upcoming Encounters Date Type Department Care Team (Late st Contact Info) Description 09/09/2024 11:00 AM EDT Office Visit Adult Medicine [address] [phone] Parrish Parker MD [address] [place] [address] 04/14/2025 1:00 PM EST Appointment [facility] Ultrasound [address] [place] [phone] 05/20/2025 10:00 AM EST Office Visit Vascular Surgery - [place] [address] [place] [phone] Zenaida Rose MD [address] [place] [address] documented as of this encounter Visit Diagnoses Not on filedocumented in this encounter Care Teams Cracking Unit Operator Relationship Specialty Start Date End Date Parrish Parker MD [address] [place] [address] PCP - General 12/24/1998 documented as of this encounter
--- OUTSIDE RECORDS SUMMARY | 2024-09-02 16:35 | XMS_ITS | Continuity of Care Document ---
Author Organization [facility] Neurosurger y [address], [address] [place] [address]- Care Team Providers Care Food Safety Auditor Name Role Phone Deborah SILVER, [facility] Primary Care Physician Encounter [facility] Date(s): 08/01/24 - 08/31/[address] [place], [place] [address] Encounter Type: Triage Allergies, Adverse Reactions, Alerts No Known Allergies Immunizations Given and Recorded Vaccine Date Status Refusal Reason influenza virus vaccine, inactivated 02/14/18 Give n Medications aspirin 81 mg oral delayed release tablet 81 mg, 1, tablet, By Mouth, Daily, # 30 tablet, Refills 0, Maintenance, 04/12/24 8:27:00 AM EST, Partial fill upon patient request if the prescription is for a schedule II opioid drug. Start Date: 04/12/24 Status: Ordered Quantity: 30.0 Unit: tablet Repeat number: 1 Celecoxib = 100 mg, By Mouth, 0 Refills, Maintenance, 07/22/24 3:17:00 PM EDT, Partial fill upon patient request if the prescription is for a schedule II opioid drug. Start Date: 07/22/24 Status: Ordered Repeat number: 1 Diclofenac = 50 mg, By Mouth, 2 times a day, PRN Pain , Moderate, 0 Refills, Maintenance, 09/06/23 3:20:00 PM EDT, Partial fill upon patient request if the prescription is for a schedule II opioid drug. Start Date: 09/06/23 Status: Ordered Repeat number: 1 Duloxetine = 60 mg, By Mouth, Daily at bedtime, 0 Refills, Maintenance, 12/22/16 2:16:09 PM EDT Start Date: 12/22/16 Status: Ordered Repeat number: 1 gabapentin 600 mg oral tablet 1 tablet = 600 mg, By Mouth, 2 times a day, 0 Refills, Maintenance, 07/29/24 7:35:00 AM EDT, Partial fill upon patient request if the prescription is for a schedule II opioid drug. Start Date: 07/29/24 Status: Ordered Repeat number: 1 Gluco-To-Go = 15 Gm, By Mouth, Once, 0 Refills, Maintenance, 07/22/24 3:18:00 PM EDT, Partial fill upon patient request if the prescription is for a schedule II opioid drug. Start Date: 07/22/24 Status: Ordered Repeat number: 1 Lisinopril = 2.5 mg, By Mouth, Daily at bedtime, 0 Refills, Maintenance, 12/22/16 2:15:26 PM EDT Start Date: 12/22/16 Status: Ordered Repeat number: 1 Magnesium Oxide By Mouth, 0 Refills, Maintenance, 04/12/24 8:30:00 AM EST, Partial fill upon patient request if theprescription is for a schedule II opioid drug. Start Date: 04/12/24 Status: Ordered Repeat number: 1 Patient's Own Meds By Mouth, Maintenance, APPLE CIDER VINEGAR 1 DAILY, 02/08/18 12:53:08 PM EDT Start Date: 02/08/18 Status: Ordered Repeat number: 1 simvastatin 20 mg oral tablet = 10 mg, By Mouth, Daily at bedtime, 0 Refills, Maintenance, 06/22/10 10:48:00 AM EST Start Date: 06/22/10 Status: Ordered Repeat number: 1 tamsulosin 0.4 mg oral capsule 1 capsule = 0.4 mg, By Mouth, Daily, 0 Refills, Maintenance, 03/05/12 10:06:38 AM EST Start Date: 03/05/12 Status: Ordered Repeat number: 1 Tylenol Extra Strength 500 mg oral tablet 2 tablet = 1,000 mg, By Mouth, Every 6 hours, PRN for pain, # 120 tablet, 0 Refills, Maintenance, 04/12/24 8:27:00 AM EST, Tablet, Partial fill upon patient request if the prescription is for a schedule II opioid drug. Start Date: 04/12/24 Status: Ordered Quantity: 120.0 Unit: tablet Repeat number: 1 Problem List Condition Confirmation Course Effective Dates Status Health St atus Informant LBP (low back pain) Confirmed Active Obstructive sleep apnea (adult) Confirmed Stable 07/2008 Active Social History Social History Type Response Smoking Status Former smoker, quit more than 30 days ago entered on: 04/06/22 Sex Male Sex Representation Male (finding) Implantable Device List Procedure Provider Procedure Date Device Type Site Decompression Transforaminal Lumbar Inte Chandana Vega MD 02/13/18 Unknown Lumbar Spine Device Identifier Serial Number Lot or Batch Number Manufacturing Date Expiration Date Distinct Identification Code MRI Safety Implantable Status Assigning Authority Unknown [id number] AAI Unknown 04/22/20 Unknown Unknown Active Unknown Patient Care team information Care Team Personnel Name: Jeremias Richard RN Position: S RN Member Role: Primary Care Nurse Name: Yvette Muse RN Position: S RN Member Role: Primary Care Nurse Name: Vanessa Landis RN Position: [facility] Onco RN Member Role: Primary Care Nurse Name: Tiffany Mahan LPN Position: S RN Member Role: Primary Care Nurse Name: Ashlyn Abrasm RN Position: S RN Member Role: Primary Care Nurse Name: Parrish Cabrera MD Position: Reference Physician Member Role: PCP Address: [address] [place] [address] Telecom: Care Team Related Persons Name: BETTE MONGE Insurance Providers Guarantor name: SOYJESSICA MONGE Health Plan Information #: 1 Payer: MEDICARE PART B OUTPT Member Number: NA Policy Number: NA Group Number: NA Health Plan Information #: 2 Payer: [employer] Member Number: NA Policy Number: NA Group Number: NA
--- OUTSIDE RECORDS SUMMARY | 2024-09-02 16:35 | XMS_ITS ---
Author Organization [facility] Address [address] [place] [phone] Phone Care Team Providers Care Location Director Name Role Phone Parrish Cabrera MD Primary Care Provider [phone] Transitional Care Management Status:Ongoing (Active) Start date:08/13/2024 Enrollment date:08/13/2024 Enrollment reason:Identified using hospital discharge data Case Team Name Relationship Phone Bernice Brunner LPN Care Manager(Responsible Staf f) Continued Care and Services Coordination
--- OUTSIDE RECORDS SUMMARY | 2024-09-02 16:35 | XMS_ITS | Encounter Summary ---
Author Organization [facility] Address [address] [place] [address] Care Team Providers Care Form Tamper Operator Name Role Phone Parrish Cabrera MD Primary Care Provider [phone] Reason for Visit * Reason Onset Date Comments faxed order 08/28/2024 Nelsy [phone] Encounter Details Date Type Department Care Team (Late st Contact Info) Description 08/28/2024 Telephone Adult Medicine [facility] [address] [place] [phone] Parrish Cabrera MD [address] [place], [place] [phone] faxed order (Nelsy [id number]) Social History Tobacco Use Types Packs/Day Years [...] as of this encounter Progress Notes * Emily Pineda - 08/28/2024 1:03 PM EDT [facility] [phone] please sign and fax to [phone]. documented in this encounter Plan of Treatment Upcoming Encounters Date Type Department Care Team (Late st Contact Info) Description 09/09/2024 11:00 AM EDT Office Visit Adult Medicine [facility] [address] [place] [address] Parrish Cabrera MD [address] [place] [address] 04/14/2025 1:00 PM EST Appointment [facility] Ultrasound [address] [place] [phone] 05/20/2025 10:00 AM EST Office Visit Vascular Surgery - [place] [address] [place] [address] Zenaida Rose MD [address] [place] [address] documented as of this encounter Visit Diagnoses Not on filedocumented in this encounter Care Teams Form Tamper Operator Relationship Specialty Start Date End Date Parrish Cabrera MD [address] [place] [address] PCP - General 12/24/1998 documented as of this encounter
[2024-09-02 16:55] VITALS: BP 112/82; PULSE 80; RESP 14; TEMP 36.2; O2SAT 98
[2024-09-02] MEDS: cephALEXin 500 MG CAPSULE PO (17:16)
[2024-09-02] MEDS: Doxycycline Monohydrate 100 MG CAPSULE PO (17:16)
[2024-09-02 17:32] VITALS: BP 112/82; PULSE 80; RESP 14; TEMP 36.2; O2SAT 98
== END 2024-09-02 17:33 | disposition home or self-care (01) ==
PROVIDERS: Registered Nurse Emergency; Emergency Provider Emergency Medicine; PCP Internal Medicine
DX: L03.114 Cellulitis of left upper limb (principal); L29.9 Pruritus, unspecified; E11.9 Type 2 diabetes mellitus without complications; E78.5 Hyperlipidemia, unspecified; Z87.891 Personal history of nicotine dependence; Z79.02 Long term (current) use of antithrombotics/antiplatelets; Z79.899 Other long term (current) drug therapy
CPT/HCPCS: 36415; 80053; 85025; 85652; 86140; 99283; 99284

== ENCOUNTER 2024-12-31 14:47 | Outpatient (REF) | payer MEDICARE, BC, SELFPAY ==
[2024-12-31 18:18] LABS: Folate 8.1 ng/mL (> or = 4.0); Vitamin B12 654 pg/mL (200-900)
== END 2024-12-31 14:48 | disposition home or self-care (01) ==
LOC: HO.LAB 14:47
PROVIDERS: PCP Internal Medicine; Visit Provider Psychiatry & Neurology Neurology
DX: D32.9 Benign neoplasm of meninges, unspecified (principal); R41.3 Other amnesia
CPT/HCPCS: 36415; 82607; 82746; 99202

== ENCOUNTER 2024-12-31 14:47 | Outpatient (AMB) | payer MEDICARE, BC, SELFPAY ==
--- OUTSIDE RECORDS SUMMARY | 2024-12-29 15:00 | XMS_ITS | Encounter Summary ---
Author Organization [facility] Address [address] [place] [address] Care Team Providers Care Natural Gas Plant Technician Name Role Phone Parrish Cabrera MD Primary Care Provider [phone] Reason for Visit * Reason Comments DM Foot Care Casting Machine Adjuster b/l feet * Consultation (Routine) - Authorized Specialty Diagnoses / Procedures Referred By Contact Referred To Contact Podiatry / Orthopaedic Surgery Diagnoses Encounter for diabetic foot exam (CMS/HCC V24, CMS/HCC V28) Parrish Cabrera MD [address] [place] [address] Phone: tel: fax: Javier Flores DPM [address] [address] Phone: tel: fax: Referral ID Status Reason Start Date Expiration Date Visits Requested Visits Authorized [id number] Authorized Specialty Services Required 10/08/2024 10/08/2025 1 1 Encounter Details Date Type Department Care Team (Late st Contact Info) Description 12/29/2024 3:00 PM EDT Office Visit Orthopedic Surgery - [place] [address] [address] Dalton Rodriguez DPM [address] [address] Controlled type 2 diabetes mellitus with diabetic polyneuropathy, without long-term current use of insulin ([facility] V24, [facility] V28) (Primary Dx); Arthritis of both feet; Neuropathy; Right foot drop; Onychomycosis; Callus Social History Tobacco Use Types Packs/Day Years [...] as of this encounter Progress Notes * Dalton Rodriguez, DONNA - 12/29/2024 3:00 PM EDT Referring MD: Parrish Cabrera MD Last PCP visit: 11/26/2024 IDENTIFIER: Patrice is a 84 y.o. year old male who presents for consultation. CC: Pain in feet HPI: Patient presents to office today for initial diabetic foot evaluation as recommended by their primary care physician. Patient states that they have been diabetic for the past few years and some tingling numbness of feet Denies any history of ulceration, or infection. Patient would like to inquire about their pedal hygiene, as their toenails have become elongated and painful. Patient is not using antifungals at this time. Patient does not wear supportive shoes and does not have an updated AFO for the right lower extremity Patient reports mild calluses that are becoming bothersome. Patient with minimal other pedal complaints at this time. Patient's FBS this AM was 116 Recent A1C is %. 6.0 ROS: GENERAL: Pt denies nausea, fever, vomiting, chills, or shortness of breath. Pt in NAD. CARDIOLOGY: pt denies chest pain, palpitations LUNGS: pt denies shortness of breath MUSCULOSKELETAL: See HPI, otherwise no joint pain or swelling, back pain, or muscle pain. SKIN: see HPI, otherwise no lesions, rash or itching NEURO: No persistent headache, weakness or numbness The remainder of the review of systems is noncontributory PAST MEDICAL HISTORY: Patient Active Problem List Diagnosis Actinic keratosis Arthritis, midfoot Benign neoplasm of cerebral meninges (CMS/HCC V24, CMS/HCC V28) Ankle arthritis Benign prostatic hyperplasia 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, CMS/HCC V28) Diverticulitis of colon without hemorrhage DM w/o complication type II (CMS/HCC V24, CMS/HCC V28) Essential hypertension Hepatic steatosis Iron deficiency anemia Lumbar spinal stenosis Meningioma (CMS/HCC V24, CMS/HCC V28) Mild ascending aorta dilation (CMS/HCC V24) Obstructive sleep apnea PLMD (periodic limb movement disorder) Pure hypercholesterolemia Renal cyst Subclinical hypothyroidism Osteoarthrosis Abnormal ECG Memory deficit Right flank pain SOCIAL HISTORY: Social History Tobacco Use Smoking status: Former Smokeless tobacco: Never Substance Use Topics Alcohol use: No ACTIVE MEDICATIONS: Outpatient Medications Marked as Taking for the 12/29/24 encounter (Office Visit) with Dalton Rodriguez DPM Medication Sig Dispense Refill acetaminophen (TYLENOL) 500 [...] TABLET BY MOUTH TWICE DAILY 60 tablet 5 glucose blood (Truetest Test Strips) test strip [...] Patient has no known allergies. PHYSICAL EXAM: There were no vitals taken for this visit. PODIATRIC EXAMINATION: GENERAL: Patient appears well nourished, with NAD. VASCULAR: Dorsalis pedis pulses are 1/4 bilaterally and Posterior tibial pulses are 0/4 bilaterally. Capillary filling time within normal limits the digits. No pallor on elevation or rubor on dependency. Positive hair growth. Few varicosities. Denies rest pain or claudication pain. NEUROLOGICAL: Sharp/dull sensation intact, protective sensation intact on Gibson. Peripheral neuropathy throughout the feet ORTHOPEDIC: Good muscle strength 5/5 of all flexors and extensors. Dorsi flexion of ankle ,10 degrees, plantar flexion WNL. No muscle atrophy. Arthritic changes of midfoot. Posttraumatic arthritis tothe right ankle. Difficulty dorsiflexing the foot to 90 degrees. Rigid contractures of digits 2 through 5 DERMATOLOGICAL:.No masses or skin lesions noted. Normal skin temperature, normal skin turgor. Nailsare elongated dystrophic discolored x 10 subungual debris BIOMECHANICS: STJ ROM wnl, MTJ ROM wnl, 1st MPJ ROM wnl. IMPRESSION: 1. Controlled type 2 diabetes mellitus with diabetic polyneuropathy, without long-term current use of insulin ([facility] V24, [facility] V28) 2. Arthritis of both feet 3. Neuropathy 4. Right foot drop 5. Onychomycosis 6. Callus PLAN: Pt was seen and examined, history reviewed. Patient educated on the importance of good pedal hygiene and tight blood glucose control. Patient encouraged to maintain a healthy lifestyle with a well-balanced diet. Patient should never go barefoot and wear supportive shoe gear. Patient should aim for A1c less than 7% every month. Continue with regular appointments with PMD or chiseler head for tight medical management Patient with symptoms of arthritic pain in the pedal joints. Patient showed good understanding of etiology of arthritis. Patient is aware that conservative options include padding, over the counter products, orthotics, and shoes. Patient aware that they are other treatments available such as oral anti- inflammatories, injections, and steroid dose packs. Patient understands that these measures are conservative measures to help handle the osteoarthritic flares. Patient has difficulty with dorsiflexing his foot and has had good success with AFO in the past. Patient was given a prescription for a new AFO Patient was given a prescription for diabetic shoes with 3 sets of custom Plastizote inserts to allow for proper and safe ambulation and decrease chances of future ulceration Nail debridement performed to nails 1-5 bilateral as nails were described to be causing pain and difficulty for walking while in shoegear at their previous length. They were debrided in thickness andlength, with no incident. Clinical evidence of mycosis is documented which required active treatment. Patient expressed immediate relief. Patient is to RTC in 9 weeks Dalton Rodriguez DPM documented in this encounter Plan of Treatment Upcoming Encounters Date Type Department Care Team (Late st Contact Info) Description 03/30/2025 1:15 PM EST Office Visit Orthopedic Surgery - [place] [address] [address] Dalton Rodriguez DPM [address] [address] 04/01/2025 1:00 PM EST Office Visit Adult Medicine [address] [phone] Parrish Cabrera MD [address] [place] [address] 04/14/2025 1:00 PM EST Appointment [facility] Ultrasound [address] [place] [address] 05/20/2025 10:00 AM EST Office Visit Vascular Surgery - [place] [address] [place] [phone] Zenaida Rose MD [address] [place] [phone] documented as of this encounter Visit Diagnoses Diagnosis Controlled type 2 diabetes mellitus with diabetic polyneuropathy, without long- term current use of insulin ([facility] V24, [facility] V28)- Primary Arthritis of both feet Neuropathy Mononeuritis of unspecified site Right foot drop Other acquired deformity of ankle and foot Onychomycosis Dermatophytosis of nail Callus Corns and callosities documented in this encounter Orders General Supply Count Last Ordered Date First Or dered Date DIABETIC CUSTOM MOLDED SHOE WITH INSERTS 1 12/29/2024 Outpatient Referral Count Last Ordered Date Fir st Ordered Date AMB REFERRAL TO PODIATRY 1 12/29/2024 documented in this encounter Care Teams Natural Gas Plant Technician Relationship Specialty Start Date End Date Parrish Cabrera MD [address] [place] [address] PCP - General 12/24/1998 documented as of this encounter
--- NOTE | 2024-12-31 14:48 | A.OFFVIS_ITS ---
Intake Visit Reasons: ENP-Memory Deficit Allergies No Known Allergies Allergy (Verified 09/02/24 13:08) HPI Comments Details: 84 years old man for cognitive difficulties. He was initially seen in this office by Dr. 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 At that time he was here with complaints of forgetfulness noted by others and a diagnosis of mild cognitive impairment was made. Apparently, sometime later he was diagnosed with intracranial meningioma and was treated with surgery and radiation. He used to get a follow-up scan in [place] but had not gotten any for few years. He is presenting with concerns about Alzheimer's disease. His daughter suggested evaluation due to her concern about his forgetfulness. Despite these concerns, the patient describes his memory performance as typical for someone his age, noting the ability to recall significant past events and manage his finances without assistance. The patient has a medical history significant for meningioma, which was surgically addressed with no subsequent worsening upon periodic evaluations. He also reports a nocturia pattern but denies prostate concerns. He reports using a walker following past back surgery, which limits some physical tasks. [facility] Medical History (Updated 12/31/24 @ 15:09 by Helen Dale MD) Memory deficit Spinal cord stimulator status HLD (hyperlipidemia) BPH (benign prostatic hyperplasia) Meningioma Lumbar spinal stenosis Arthritis CAROLINA (obstructive sleep apnea) PLMD (periodic limb movement disorder) Subclinical hypothyroidism Diabetes MARIE (iron deficiency anemia) Surgical History History of lumbar fusion Social History Are you a primary long term care social worker to a significant other at home: No Do you presently have visiting nurse or other home services: No Comment: medicated at 1640 with Tylenol and Oxycodone Patient Tobacco Use Status: Former Tobacco user Tobacco use type: Cigarette Review of Systems Const Details: - Neurologic: Reports forgetfulness. Denies recent cognitive impairments beyond typical age-related forgetfulness. - Genitourinary: Reports nocturia (voiding three times per night). Denies incontinence or specific bladder control issues. - Musculoskeletal: Reports use of a walker due to history of back surgery. Physical Exam Neuro Other: Mental Status: He is alert and awake with normal spontaneity of speech fluency comprehension and jovial affect. He knows the correct year and month but not date. He he knew where he lived and he was following commands. Cranial Nerves: CN II: Visual clark full to confrontation, visual acuity intact. CN III, IV, : Pupils equal, round, reactive to light and accommodation. Extraocular movements are normal. CN V: Facial sensation is normal. CN VII: Facial movements symmetrical. CN VIII: Hearing intact to bedside conversation is normal. CN IX, X: Palate elevates symmetrically. CN XI: Shoulder shrug and head turn symmetrical. CN XII: Tongue midline without atrophy or fasciculations. Deep tendon reflexes were absent. He was walking in a cautious gait using a walker. Extrapyramidal: Full facial expressions and blinking. No rigidity. Movements are appropriate with no tremor or abnormality. Speech: Normal; no dysarthria or tremor. Assessment & Plan Assessment & Plan (1) Meningioma: Code(s): D32.9 - Benign neoplasm of meninges, unspecified Category: Medical (2) Memory deficit: Code(s): R41.3 - Other amnesia Category: Medical Plan 84 years old man with longstanding history of cognitive difficulties initially seen in this office in 2013. Sometime later, he was diagnosed with intracranial meningioma and was treated with surgery and radiation. He used to have follow- up scans but did not have for last few years. Now he was here with complaints of forgetfulness. Recommendations: 1. MRI of brain 2. B12 and folate level 3. Reassurance and education. A briefly talked about potential possibilities but further management will be discussed after reviewing his brain scan. Orders: Orders MR head/brain wo con Today D32.9 - Benign neoplasm of meninges, unspecified, R41.3 - Other amnesia Vitamin B12 and Folate Today R41.3 - Other amnesia Coding Level of Care Code New Pt Level 4 (58959) Diagnoses Meningioma D32.9 Memory deficit R41.3
--- OUTSIDE RECORDS SUMMARY | 2024-12-31 18:01 | XMS_ITS | Encounter Summary ---
Author Organization [facility] Address [address] [place] [address] Care Team Providers Care Furniture Fabricator Name Role Phone Parrish Cabrera MD Primary Care Provider [phone] Encounter Details Date Type Department Care Team (Late st Contact Info) Description 08/04/2024 Lab Requisition [facility] - Main Lab [address] [facility] [place] [address] Nilesh Adams MD [address] [place] [phone] Encounter for other general examination Social History [...] Department Care Team (Late Contact Info) Description 03/30/2025 1:15 PM EST Office Visit Orthopedic Surgery - [place] [address] [facility] [address] [place] [address] Dalton Rodriguez DPM 175 [facility] [address] [place] [address] 04/01/2025 1:00 PM EST Office Visit [facility] [address] [place] [address] Parrish Cabrera MD [address] [place] [address] 04/14/2025 1:00 PM EST Appointment [facility] Ultrasound [address] [place] [phone] 05/20/2025 10:00 AM EST Office Visit Vascular Surgery - [place] [address] [place] [address] Zenaida Rose MD [address] [place] [address] documented as of this encounter Procedures Procedure Name Priority Date/Time Associated Diagnosis Comments BASIC METABOLIC PANEL Routine 08/04/2024 6:06 AM EDT Encounter for other general examination documented in this encounter Results * (ABNORMAL) Basic metabolic panel (08/04/2024 6:06 AM EDT) Sodium 140 133 - 145 mmol/L LAB CHEMISTRY METHOD 08/04/2024 1:42 PM T [facility] Potassium 4.4 3.5 - 5.5 mmol/L LAB CHEMISTRY METHOD 08/04/2024 1:42 PM T [facility] Chloride 110 96 - 110 mmol/L LAB CHEMISTRY METHOD 08/04/2024 1:42 PM T [facility] CO2 23 21 - 32 mmol/L LAB CHEMISTRY METHOD 08/04/2024 1:42 PM T [facility] Anion Gap 7 3 - 11 LAB CHEMISTRY METHOD 08/04/2024 1:42 PM T [facility] Glucose 107(H) 70 - 100 mg/dL LAB CHEMISTRY METHOD 08/04/2024 1:42 PM EDT [facility] BUN 20 5 - 25 mg/dL LAB CHEMISTRY METHOD 08/04/2024 1:42 PM EDT [facility] Creatinine 0.68(L) 0.70 - 1.30 mg/dL LAB CHEMISTRY METHOD 08/04/2024 1:42 PM EDT [facility] eGFR 91 >=60 mL/min/1. 73m2 LAB CHEMISTRY METHOD 08/04/2024 1:42 PM EDT [facility] Comment:Calculation based on the Chronic Kidney Disease Epidemiology Collaboration (CKD-EPI) equation refit without adjustment for race. BUN/Creatinine Ratio 29.4 LAB CHEMISTRY METHOD 08/04/2024 1:42 PM EDT [facility] Calcium 8.7 8.5 - 10.5 mg/dL LAB CHEMISTRY METHOD 08/04/2024 1:42 PM EDT [facility] Blood Venous blood specimen / Unknown Venipuncture / Unknown 08/04/2024 6:06 AM EDT 08/04/2024 9:47 AM EDT us Nilesh Adams MD LAB BLOOD ORDERABLES Final Res ult [facility] [address] [place] [address], documented in this encounter Visit Diagnoses Diagnosis Encounter for other general examination documented in this encounter Care Teams Furniture Fabricator Relationship Specialty Start Date End Date Parrish Cabrera MD [address] [place] [id number] PCP - General 12/24/1998 documented as of this encounter
--- OUTSIDE RECORDS SUMMARY | 2024-12-31 18:01 | XMS_ITS | Clinical Summary ---
Author Organization [facility] Address [address] [place] [address] Phone Care Team Providers Care Machinery Repair Maintenance Supervisor Name Role Phone Parrish Cabrera MD Primary Care Provider [phone] Allergies No known active allergies Medications tamsulosin (FLOMAX) 0.4 mg 24 hr capsule Take 1 capsule (0.4 mg total) by mouth 1 (one) time each day. 4 Active aspirin 81 mg EC tablet Take 1 tablet (81 mg total) by mouth 1 (one) time each day. Active blood-glucose meter kit Use to test blood sugars daily 2 Active acetaminophen (TYLENOL) 500 mg tablet Take [...] Strips) test strip Test blood sugar Daily 6 Active ACETYLCARNITIN E HCL ORAL Take 1,000 mg by mouth 2 (two) times a day. OTC Active ONETOUCH DELICA LANCETS MISC 1 Each by Does not apply route daily. 5 Active Autolet lancing device Use to test blood sugar once daily 4 Active lisinopriL (PRINIVIL,ZEST RIL) 2.5 mg tablet TAKE 1 TABLET BY MOUTH DAILY 90 tablet 1 5 Active diclofenac (VOLTAREN) 50 mg EC tablet TAKE 1 TABLET BY MOUTH TWICE DAILY NEEDED FOR PAIN 180 tablet 1 5 Active celecoxib (CeleBREX) 100 mg capsule 5 Active DULoxetine (CYMBALTA) [address] capsule Take 1 capsule (60 mg total) by mouth 1 (one) time each day. 90 each 5 Active simvastatin (ZOCOR) 10 mg tablet Take 1 tablet (10 mg total) by mouth at bedtime. 90 each 5 Active gabapentin (NEURONTIN) 600 mg tablet TAKE 1 TABLET BY MOUTH TWICE DAILY 60 tablet 5 5 Active gabapentin (NEURONTIN) 600 mg tablet TAKE 1 TABLET BY MOUTH TWICE DAILY 60 tablet 2 5 025 Discontinued Active Problems Problem Noted Date Diagnosed Date Memory deficit 10/27/2024 Overview (10/27/2024): See note October 27, 2024 Right flank pain 10/27/2024 Abnormal ECG 04/23/2024 Assessment & Plan (04/24/2024 [...] (03/18/2024): Noted on CT scan done in [facility] emergency room on 12/22/2023. Mild ascending aorta dilation (CMS/[facility] V24) 030 08/2023 Overview (03/18/2024): 4.0 cm on echo May 2023. Echo was obtained due to isolated episode of short lived atypical chest pain. Renal cyst 05/04/2023 Iron deficiency anemia 12/16/2018 Subclinical hypothyroidism 12/16/2018 Essential hypertension 01/14/2018 Assessment & Plan (04/24/2024 12:47 PM EST): Orders: ECG 12 lead PLMD (periodic limb movement disorder) 7 Overview (03/18/2024): [facility] [place]: Date 06/22/2016; SE 60%; SM 79%; REM 1%; RDI 2 (AHI 5), worse in REM (RDI 13 - AHI 13), Central apneas 0; Obstructive apneas 0; Mixed apneas 0; hypopneas 10; RERAs 16; average oxygen saturation 93% (lowest 89% - without saturations <88% for 5% or more of study); PLMs 102. Obstructive sleep apnea 06/20/2016 Overview (03/18/2024): [facility] [place]ysomnogram: Date 06/22/2016; SE 60%; SM 79%; [...] mellitus type 2 wit h neurological manifestations ([facility] V24, [facility] V28) 04/03/2016 Assessment & Plan (03/28/2024 6:22 PM EST): Will continue to follow A1c. No polyuria or polydipsia. He is not on any glucose lowering agents. Orders: CBC and differential; Future Thyroid stimulating hormone; Future Vitamin B12; Future Comprehensive metabolic panel; Future Hemoglobin A1c; Future Actinic keratosis 03/05/2014 Overview (03/18/2024): Actinic keratosis Lumbar spinal stenosis 07/02/2012 Meningioma ([facility] V24, [facility] V28) 07/28/2008 Overview (03/18/2024): Follow with Dr. [...] colonoscopy 04/02/2007. Benign neoplasm of cerebral meninges ([facility] V24, [facility] V28) 11/22/2006 Overview (03/18/2024): small frontal meningioma on MRI 2006 Pt prefers no further evaluation DM w/o complication type II ([facility] V24, [facility]/ C V28) 11/13/2006 Overview (03/18/2024): Last Assessment & Plan: Checking Your Blood Sugars Please check your blood sugars every day. Please check your sugars at the following times of day: before breakfast and before bedtime Your Blood Sugar Goals Pre Meal: 90-130 2 hours after meals: 110-160 Bedtime: 110-150 Use the Results Bring your glucometer to every appointment Write your fingerstick blood sugars down on a log sheet or record book. Bring them to your appointment Look for patterns in the numbers. The [...] just unsure what to do Educational Resources [place] [employer] (www.diabetes.org) Centers for Disease Control and Prevention (www.cdc.gov/diabetes) This care plan was created in collaboration with Miky Monge on 01/27/2014 Assessment & Plan (04/24/2024 12:47 [...] Encounters Date Type Department Care Team Description 12/29/2024 3:00 PM EDT Office Visit Orthopedic Surgery - [address] [address] Dalton Rodriguez DPM Controlled type 2 diabetes mellitus with diabetic polyneuropathy, without long-term current use of insulin ([facility] V24, CMS/[facility] V28) (Primary Dx); Arthritis of both feet; Neuropathy; Right foot drop; Onychomycosis; Callus 12/16/2024 Telephone Adult Medicine [address] [phone] Parrish Cabrera MD 11/26/2024 9:45 AM EDT Office Visit Adult [address] [phone] Parrish Cabrera MD Abrasion of skin of left elbow (Primary Dx); Iron deficiency anemia, unspecified iron deficiency anemia type 10/27/2024 10:49 AM EDT - 10/27/2024 11:59 PM EDT Hospital Encounter Radiology Department - [address] [phone] Right flank pain Discharge Disposition: Home or Self Care 10/27/2024 9:30 AM EDT Office Visit Adult [address] [phone] Parrish Cabrera MD Memory deficit (Primary Dx); Type 2 diabetes mellitus without complication, without long-term current use of insulin (CMS/HCC V24, CMS/HCC V28); Right flank pain 10/15/2024 Telephone Adult Medicine [place] - [address] [phone] Parrish Cabrera MD 10/15/2024 Telephone Adult [address] [phone] Parrish Cabrera MD 10/13/2024 Telephone Adult [address] [phone] Kayla Conrad [place] 10/08/2024 Telephone Adult [address] [phone] Parrish Cabrera MD 10/01/2024 Telephone Adult [address] [phone] Parrish Cabrera MD from Last 3 Months Immunizations Name Administration [...] Surgery Date Site/Laterality Comments OTHER SURGICAL HISTORY 1967 PROCEDURE: SD VGTMY W/PYLOROPLASTY W/WO GASTROST PARIETAL CELL; COMMENT: GI bleeding, remote; [facility]. ROTATOR CUFF REPAIR 2002 PROCEDURE: HISTORICAL ROTATOR CUFF REPAIR; COMMENT: right CATARACT EXTRACTION PROCEDURE: HISTORICAL CATARACT REMOVAL; COMMENT: right eye COLONOSCOPY 04/02/2007 PROCEDURE: HISTORICAL COLONOSCOPY; COMMENT: negative COLONOSCOPY 04/21/2019 PROCEDURE: HISTORICAL COLONOSCOPY; COMMENT: 5 mm AC polyp: Tubular adenoma UPPER GASTROINTESTINAL ENDOSCOPY 04/21/2019 PROCEDURE: SD UPPER GI ENDOSCOPY PERFORMED; COMMENT: Visually normal, duodenal biopsies obtained, pathology: Normal APPENDECTOMY PROCEDURE: SD APPENDECTOMY Medical History Medical History Date Comments Hypertrophy of prostate with out urinary obstruction and other lower urinary tract symptoms (LUTS) DX:Hypertrophy of prosta te without urinary obstruction and other lower urinary tract symptoms (LUTS) Calculus of kidney DX:Calculus o f kidney Closed fracture of lateral malleolus 1959's DX:Closed fracture of lateral malleolus; COMMENT: right [...] Date Smoking Tobacco: Former Smokeless Tobacco: Never Tobacco Cessation:Counseling Given: Not Answered Alcohol Use Standard Drinks/Week Comments No 0 [...] Orientation Straight 07/30/2024 2: 37 PM EDT Obstetrics History Last Filed Vital Signs Vital Sign Reading Time Taken Comments Blood Pressure 120/68 11/26/2024 9:49 AM EDT Pulse 68 11/26/2024 9:49 AM EDT Temperature 36.4 C (97.5 F) 11/26/2024 9:49 AM EDT Respiratory Rate 14 11/26/2024 9:49 AM EDT Oxygen Saturation 97% 11/26/2024 9:49 AM EDT Inhaled Oxygen Concentration - - Weight 64.9 kg (143 lb) 11/26/2024 9:49 AM EDT Height 154.9 cm (5' 1 ) 11/26/2024 9:49 AM EDT Body Mass Index 27.02 11/26/2024 9:49 AM EDT Plan of Treatment Upcoming Encounters Date Type Department Care Team (Late st Contact Info) Description 03/30/2025 1:15 PM EST Office Visit Orthopedic Surgery [facility] [address] [facility] [address] [place] [address] Dalton Rodriguez, DPM [address] [address] 04/01/2025 1:00 PM EST Office Visit Adult Medicine [facility] [address] [place] [address] Parrish Cabrera MD [address] [place] [address] 04/14/2025 1:00 PM EST Appointment [facility] Ultrasound [address] [place] [address] 05/20/2025 10:00 AM EST Office Visit Vascular Surgery [facility] [address] [facility] [address] [place] [address] Zenaida Rose MD [facility] [place] [address] Health Maintenance Due Date Last Done Comments Diabetes: Annual Foot Exam 01/25/1950 RSV Immunization Adult Patients (1 - 1-dose 75+ series) 2013 Diabetes: Blood Sugar Control Test (HGBA1C) 03/26/2024 09/25/2023, 09/25/2023 Depression Screening 04/23/2024 08/20/2023 Diabetes: Annual Retina Eye Exam 08/13/2024 08/14/2023 Medicare Annual Wellness Visit 08/19/2024 08/20/2023 Falls Risk Assessment 12/03/2024 12/04/2023 COVID-19 Vaccine (7 - Pfizer risk season) 2024 01/26/2024, 02/17/2022, 09/12/2021, Additional history exists Hypertension/CHF/CAD Annual BMP Blood Test 08/11/2025 08/11/2024, 08/06/2024, 08/04/2024, Additional history exists Social Influencers of Health Screening 08/15/2025 08/15/2024 Cholesterol Screening (Lipid Panel) 11/17/2027 11/16/2022 DTaP,Tdap,and Td Vaccines (6 - Td or Tdap) 12/13/2033 12/14/2023, 03/20/2022, 01/02/2012, Additional history exists Zoster Vaccines Completed 11/08/2020, 08/30/2020 Pneumococcal Vaccine: 50+ Years Completed 02/21/2023, 01/11/2016, 07/22/2002 Influenza Vaccine Completed 12/24/2024, , 02/21/2023, Additional history exists HIB Vaccines Aged Out No longer eligi ble based on patient's age to complete this topic HPV Vaccines Aged Out No longer eligi ble based on patient's age to complete this topic Hepatitis A Vaccines Aged Out No long er eligible based on patient's age to complete this topic Hepatitis B Vaccines Aged Out No long [...] Procedure Name Priority Date/Time Associated Diagnosis Comments US ABDOMEN LIMITED Routine 10/27/2024 11 :40 AM EDT Right flank pain COMPREHENSIVE METABOLIC PANEL Routine 08/11/2024 5:25 AM EDT Encounter for other general examination FALLS RISK ASSESSMENT Routine 12/04/2023 HEMOGLOBIN A1C Routine 09/25/2023 DEPRESSION SCREENING Routine 08/20/2023 DIABETES EYE EXAM Routine 08/14/2023 LIPID PANEL Routine 11/16/2022 from Last 3 Months or Most Recently Relevant to Health Maintenance Results * US Abdomen Limited (10/27/2024 11:40 AM EDT) Anatomical Region Laterality Modality Body Ultrasound 10/27/2024 4:43 PM EDT Impressions 10/27/2024 4:49 PM EDT Limited exam. Cholelithiasis without evidence of cholecystitis or biliary ductal dilatation. Pancreas obscured by bowel gas. POS [id number] -------- FINAL REPORT -------- Dictated By: Bozena Katz Dictated Date: 10/27/2024 16:43 ET Assigned Physician: Bozena Katz Reviewed and Electronically Signed By: Bozena Katz Signed Date: 10/27/2024 16:49 ET Workstation ID: [id number] Transcribed By: Self Edit Transcribed Date: 10/27/2024 16:43 ET Narrative 10/27/2024 4:49 PM EDT EXAM: Abdomen ultrasound, limited HISTORY: Right upper quadrant pain. Right flank pain. COMPARISON: 03/01/2023, CT abdomen and pelvis 11/01/2021 FINDINGS: Exam limited by prominent bowel gas. Liver: Normal in size measuring 12.3 cm in craniocaudad extent. Parenchymal echotexture appears within normal limits without lesions detected. Gallbladder/Biliary Tree: Small mobile shadowing echogenic gallstones. No gallbladder wall thickening or pericholecystic fluid. No intrahepatic biliary ductal dilatation. The common hepatic duct is normal in caliber measuring 0.4 cm. Common bile duct obscured by bowel gas. Pancreas: Obscured by bowel gas. Right kidney: Normal in size measuring 9.6 cm in craniocaudad extent. No hydronephrosis or shadowing stones. 2.2 x 2.1 x 2.0 cm cyst arising from the mid/upper kidney. Vasculature: Hepatopedal flow in the main portal vein. Procedure Note Bozena Katz MD - 10/27/2024 EXAM: Abdomen ultrasound, limited HISTORY: Right upper quadrant pain. Right flank pain. COMPARISON: 03/01/2023, CT abdomen and pelvis 11/01/2021 FINDINGS: Exam limited by prominent bowel gas. Liver: Normal in size measuring 12.3 cm in craniocaudad extent.Parenchymal echotexture appears within normal limits without lesionsdetected. Gallbladder/Biliary Tree: Small mobile shadowing echogenic gallstones. Nogallbladder wall thickening or pericholecystic fluid. No intrahepaticbiliary ductal dilatation. The common hepatic duct is normal in calibermeasuring 0.4 cm. Common bile duct obscured by bowel gas. Pancreas: Obscured by bowel gas. Right kidney: Normal in size measuring 9.6 cm in craniocaudad extent. Nohydronephrosis or shadowing stones. 2.2 x 2.1 x 2.0 cm cyst arising fromthe mid/upper kidney. Vasculature: Hepatopedal flow in the main portal vein. IMPRESSION: Limited exam. Cholelithiasis without evidence of cholecystitis or biliary ductaldilatation. Pancreas obscured by bowel gas. POS [id number] -------- FINAL REPORT -------- Dictated By: Bozena Katz Dictated Date: 10/27/2024 16:43 ET Assigned Physician: Bozena Katz Reviewed and Electronically Signed By: Bozena Katz Signed Date: 10/27/2024 16:49 ET Workstation ID: [id number] Transcribed By: Self Edit Transcribed Date: 10/27/2024 16:43 ET us Parrish Cabrera MD [facility] PROCEDURES Final Result * (ABNORMAL) Comprehensive metabolic panel (08/11/2024 5:25 AM EDT) Sodium 139 133 - 145 mmol/L LAB CHEMISTRY METHOD 08/11/2024 3:12 PM [facility] Potassium 4.5 3.5 - 5.5 mmol/L LAB CHEMISTRY METHOD 08/11/2024 3:12 PM [facility] Chloride 105 96 - 110 mmol/L LAB CHEMISTRY METHOD 08/11/2024 3:12 PM [facility] CO2 27 21 - 32 mmol/L LAB CHEMISTRY METHOD 08/11/2024 3:12 PM [facility] Anion Gap 7 3 - 11 LAB CHEMISTRY METHOD 08/11/2024 3:12 PM [facility] Glucose 91 70 - 100 mg/dL LAB CHEMISTRY METHOD 08/11/2024 3:12 PM [facility] BUN 15 5 - 25 mg/dL LAB CHEMISTRY METHOD 08/11/2024 3:12 PM [facility] Creatinine 0.60(L) 0.70 - 1.30 mg/dL LAB CHEMISTRY METHOD 08/11/2024 3:12 PM [facility] eGFR 94 >=60 mL/min/1. 73m2 LAB CHEMISTRY METHOD 08/11/2024 3:12 PM [facility] Comment:Calculation based on the Chronic Kidney Disease Epidemiology Collaboration (CKD-EPI) equation refit without adjustment for race. BUN/Creatinine Ratio 25.0 LAB CHEMISTRY METHOD 08/11/2024 3:12 PM [facility] Calcium 9.1 8.5 - 10.5 mg/dL LAB CHEMISTRY METHOD 08/11/2024 3:12 PM [facility] AST (SGOT) 45(H) 10 - 42 unit/L LAB CHEMISTRY METHOD 08/11/2024 3:12 PM [facility] ALT (SGPT) 60 10 - 60 unit/L LAB CHEMISTRY METHOD 08/11/2024 3:12 PM [facility] Alkaline Phosphatase 120 42 - 121 unit/L LAB CHEMISTRY METHOD 08/11/2024 3:12 PM [facility] Total Protein 6.5 6.0 - 8.0 g/dL LAB CHEMISTRY METHOD 08/11/2024 3:12 PM [facility] Albumin 3.1(L) 3.2 - 5.0 g/dL LAB CHEMISTRY METHOD 08/11/2024 3:12 PM [facility] Total Bilirubin 0.4 0.0 - 1.4 mg/dL LAB CHEMISTRY METHOD 08/11/2024 3:12 PM [facility] Blood Venous blood specimen / Unknown Venipuncture / Unknown 08/11/2024 5:25 AM EDT 08/11/2024 11:25 AM EDT Nilesh Adams MD LAB BLOOD ORDERABLES Final Res ult [facility] [address] [place] [address], * Hm Falls Risk Assessment (12/04/2023) Falls Risk Assessment Abstracted Historical Provider HEALTH MAINTENANCE Final Result * Hemoglobin A1c (09/25/2023) Hemoglobin A1C 6.3 <=6.5 % Blood Venous blood specimen / Unknown [facility] Provider MD LAB BLOOD ORDERABLES Soniya l Result * Depression Screening (08/20/2023) Pathologist [facility] Depression Screening Abstracted [facility] Provider HEALTH MAINTENANCE Final Result * Diabetes Eye Exam (08/14/2023) Pathologist [facility] Diabetes: Annual Retina Eye Exam Abstracted [facility] Provider [place] HEALTH MAINTENANCE Final Result * Lipid panel (11/16/2022) [facility] LDL/HDL Ratio 3 0 - 4 Triglycerides 89 0 - 150 mg/dL Cholesterol 123 0 - 200 mg/dL HDL 44 >=40 mg/dL LDL Cholesterol 62 0 - 100 mg/dL Blood Venous blood specimen / Unknown Result [facility] Provider LAB BLOOD ORDERABLES Soniya l Result from Last 3 Months or Most Recently Relevant to Health Maintenance Insurance MEDICARE [facility] Member Subscriber Plan / Payer (Ef fective 2015-Present) Name:MIKY MONGE Relation to Subscriber:Spouse Name:BETTE MONGE Date of :1941 Address: [address] [place] [id number] Payer ID:[id number] Group ID:[id number] Type:Not on file Address: [address] [place] [address] Care Teams Machinery Repair Maintenance Supervisor Relationship Specialty Start Date End Date Parrish Cabrera MD [address] [place] [address] PCP - General 12/24/1998
--- OUTSIDE RECORDS SUMMARY | 2024-12-31 18:01 | XMS_ITS | Encounter Summary ---
Author Organization [facility] Address [address] [place] [address] Care Team Providers Care Dry Cleaning Checker Name Role Phone Parrish Cabrera MD Primary Care Provider [phone] Encounter Details Date Type Department Care Team (Late st Contact Info) Description 08/06/2024 Lab Requisition [facility] Lab [address] [facility] [place] [address] Nilesh Adams MD [address] [place] [phone] Encounter for other general examination Social History [...] PM EST Office Visit Orthopedic Surgery - [place] [address] [facility] [address] [place] [address] Dalton Rodriguez DPM [address] [facility] [address] [place] [address] 04/01/2025 1:00 PM EST Office Visit Adult Medicine [facility] [address] [place] [address] Parrish Cabrera MD [address] [place] [address] 04/14/2025 1:00 PM EST Appointment [facility] Ultrasound [address] [place] [phone] 05/20/2025 10:00 AM EST Office Visit Vascular Surgery - [place] [address] [place] [address] Zenaida Rose MD [address] [place] [address] documented as of this encounter Procedures Procedure [...] CBC auto differential (08/06/2024 6:12 AM EDT) [facility] WBC 8.1 4.8 - 10.8 K/mcL LAB HEMETOLOGY METHOD 08/06/2024 11:04 AM EDT [facility] RBC 2.60(L) 4.50 - 5.50 M/mcL LAB HEMETOLOGY METHOD 08/06/2024 11:04 AM EDT [facility] Hemoglobin 8.4(L) 13.5 - 17.5 g/dL [...] HOSPITAL LAB MPV 9.9 7.0 - 11.0 FL LAB HEMETOLOGY METHOD 08/06/2024 11:04 AM [...] LAB HEMETOLOGY METHOD 08/06/2024 11:04 AM EDT [facility] Basophils Relative 0.6 % LAB HEMETOLOGY METHOD 08/06/2024 11:04 AM EDT [facility] Immature Granulocytes Relative 0.9 % LAB HEMETOLOGY METHOD 08/06/2024 11:04 AM EDT [facility] Neutrophils Absolute 5.53 1.50 - 7.00 K/mcL LAB HEMETOLOGY METHOD 08/06/2024 11:04 AM EDT [facility] Lymphocytes Absolute 1.15 1.00 - 5.00 K/mcL LAB HEMETOLOGY METHOD 08/06/2024 11:04 AM EDT [facility] Monocytes Absolute 1.16(H) 0.20 - 1.00 K/mcL LAB HEMETOLOGY METHOD 08/06/2024 11:04 AM EDT [facility] Eosinophils Absolute 0.18 0.00 - 0.50 K/mcL LAB HEMETOLOGY METHOD 08/06/2024 11:04 AM EDT [facility] Basophils Absolute 0.05 0.00 - 0.20 K/mcL LAB HEMETOLOGY METHOD 08/06/2024 11:04 AM EDT [facility] Immature Granulocytes Absolute 0.07(H) 0.00 - 0.03 K/mcL LAB HEMETOLOGY METHOD 08/06/2024 11:04 AM EDT [facility] Blood Venous blood specimen / Unknown Venipuncture / Unknown 08/06/2024 6:12 AM EDT 08/06/2024 10:00 AM EDT us Nilesh Adams MD LAB BLOOD ORDERABLES Final Res ult [facility] [address] [place] [address], * (ABNORMAL) Comprehensive metabolic panel (08/06/2024 6:12 AM EDT) [facility] Signature Sodium 135 133 - 145 mmol/L LAB CHEMISTRY METHOD 08/06/2024 11:52 AM [facility] Potassium 4.1 3.5 - 5.5 [...] [facility] Comment:Calculation based on the Chronic Kidney Disease Epidemiology Collaboration (CKD-EPI) equation refit without adjustment for race. BUN/Creatinine Ratio 16.7 LAB [...] unit/L LAB CHEMISTRY METHOD 08/06/2024 11:52 AM EDT [facility] Alkaline Phosphatase 100 42 - 121 unit/L LAB CHEMISTRY METHOD 08/06/2024 11:52 AM T [facility] Total Protein 5.9(L) 6.0 - 8.0 g/dL LAB CHEMISTRY METHOD 08/06/2024 11:52 AM T [facility] Albumin 2.8(L) 3.2 - 5.0 g/dL LAB CHEMISTRY METHOD 08/06/2024 11:52 AM [facility] Total Bilirubin 0.5 0.0 - 1.4 mg/dL LAB CHEMISTRY METHOD 08/06/2024 11:52 AM [facility] Blood Venous blood specimen / Unknown Venipuncture / Unknown 08/06/2024 6:12 AM EDT 08/06/2024 10:00 AM EDT us Nilesh Adams MD LAB BLOOD ORDERABLES Final Res ult [facility] [address] [place] [address], documented in this encounter Visit Diagnoses Diagnosis Encounter for other general examination documented in this encounter Care Teams Dry Cleaning Checker Relationship Specialty Start Date End Date Parrish Cabrera MD [address] [place] [address] PCP - General 12/24/1998 documented as of this encounter
--- OUTSIDE RECORDS SUMMARY | 2024-12-31 18:01 | XMS_ITS | Encounter Summary ---
Author Organization [facility] Address [address] [place] [address] Care Team Providers Care Quotation Clerk Name Role Phone Parrish Cabrera MD Primary Care Provider [phone] Encounter Details Date Type Department Care Team (Late st Contact Info) Description 08/02/2024 Lab Requisition [facility] - Main Lab 299 [facility] [place] [address] Nilesh Adams MD [address] [place] [address] [phone] Encounter for other general examination Social History [...] PM EST Office Visit Orthopedic Surgery - [place] [address] [facility] [address] [place] [address] Dalton Rodriguez DPM 175 [facility] 250 [place] [address] 04/01/2025 1:00 PM EST Office Visit Adult Medicine [facility] [place] [address] [place] [address] Parrish Cabrera MD [address] [place] [address] 04/14/2025 1:00 PM EST Appointment [facility] Ultrasound [address] [place] [address] 05/20/2025 10:00 AM EST Office Visit Vascular Surgery - [place] [address] [place] [address] Zenaida Rose MD [address] [place] [address] documented as of this encounter Procedures Procedure [...] at 5 days 08/07/2024 6:02 PM EDT [facility] ([facility] Blood 08/02/2024 2:45 PM EDT 08/02/2024 5:03 PM EDT us Nilesh Adams MD LAB MICROBIOLOGY - GENERAL ORD ERABLES Final Result [facility] [address] [place] [address], [place] [phone] * (ABNORMAL) CBC auto differential (08/02/2024 2:40 PM EDT) Pathologist [facility] WBC 7.4 4.8 - 10.8 K/mcL LAB HEMETOLOGY METHOD 08/02/2024 5:16 PM EDT [facility] RBC 2.50(L) 4.50 - 5.50 M/mcL LAB HEMETOLOGY METHOD 08/02/2024 5:16 PM EDT [facility] Hemoglobin 8.2(L) 13.5 - 17.5 g/dL LAB HEMETOLOGY METHOD 08/02/2024 5:16 PM EDT [facility] Hematocrit 25.1(L) 42.0 - 54.0 % LAB HEMETOLOGY METHOD 08/02/2024 5:16 PM EDT [facility] MCV 99.6(H) 79.0 - 98.0 FL LAB HEMETOLOGY METHOD 08/02/2024 5:16 PM EDT [facility] MCH 32.5(H) 27.0 - 32.0 pcg LAB HEMETOLOGY METHOD 08/02/2024 5:16 PM EDT [facility] MCHC 32.7 32.0 - 37.0 g/dL LAB HEMETOLOGY METHOD 08/02/2024 5:16 PM EDT [facility] RDW 13.3 11.0 - 15.0 % LAB HEMETOLOGY METHOD 08/02/2024 5:16 PM EDT [facility] Platelets 235 130 - 400 K/mcL LAB HEMETOLOGY METHOD 08/02/2024 5:16 PM [facility] MPV 10.4 7.0 - 11.0 FL LAB HEMETOLOGY METHOD 08/02/2024 5:16 PM [facility] NRBC 0.0 <1.0 % LAB HEMETOLOGY METHOD 08/02/2024 5:16 PM [facility] NRBC Absolute 0.00 <0.10 K/mcL LAB HEMETOLOGY METHOD 08/02/2024 5:16 PM [facility] Neutrophils Relative 76.2 % LAB HEMETOLOGY METHOD 08/02/2024 5:16 PM [facility] Lymphocytes Relative 10.8 % LAB HEMETOLOGY METHOD 08/02/2024 5:16 PM [facility] Monocytes Relative 9.9 % LAB HEMETOLOGY METHOD 08/02/2024 5:16 PM [facility] Eosinophils Relative 2.4 % LAB HEMETOLOGY METHOD 08/02/2024 5:16 PM [facility] Basophils Relative 0.3 % LAB HEMETOLOGY METHOD 08/02/2024 5:16 PM [facility] Immature Granulocytes Relative 0.4 % LAB HEMETOLOGY METHOD 08/02/2024 5:16 PM [facility] Neutrophils Absolute 5.67 1.50 - 7.00 K/mcL LAB HEMETOLOGY METHOD 08/02/2024 5:16 PM [facility] Lymphocytes Absolute 0.80(L) 1.00 - 5.00 K/mcL LAB HEMETOLOGY METHOD 08/02/2024 5:16 PM [facility] Monocytes Absolute 0.74 0.20 - 1.00 K/mcL LAB HEMETOLOGY METHOD 08/02/2024 5:16 PM [facility] Eosinophils Absolute 0.18 0.00 - 0.50 K/mcL LAB HEMETOLOGY METHOD 08/02/2024 5:16 PM EDT [facility] Basophils Absolute 0.02 0.00 - 0.20 K/mcL LAB HEMETOLOGY METHOD 08/02/2024 5:16 PM EDT [facility] Immature Granulocytes Absolute 0.03 0.00 - 0.03 K/[facility] LAB HEMETOLOGY METHOD 08/02/2024 5:16 PM EDT [facility] Blood Venous blood specimen / Unknown 08/02/2024 2:40 PM EDT 08/02/2024 5:03 PM EDT Nilesh Adams MD LAB BLOOD ORDERABLES Final Res ult Performing Organization Address [facility]/ZIP Co de Phone Number [facility] [address] [place] [address], [place] [phone] * Culture blood (08/02/2024 2:40 PM EDT) [facility] Culture, Blood No growth at 5 days 08/07/2024 6:02 PM EDT [facility] Blood Venipuncture / Unknown 08/02/2024 2:40 PM EDT 08/02/2024 5:03 PM EDT us Nilesh Adams MD LAB MICROBIOLOGY - GENERAL ORD ERABLES Final Result Performing Organization Address City/[facility]/ZIP Co de Phone Number [facility] [address] [place] [address], [place] [phone] * (ABNORMAL) Comprehensive metabolic panel (08/02/2024 2:40 PM EDT) Sodium 138 133 - 145 mmol/L LAB CHEMISTRY METHOD 08/02/2024 5:43 PM EDT [facility] Potassium 4.4 3.5 - 5.5 mmol/L LAB CHEMISTRY METHOD 08/02/2024 5:43 PM EDT [facility] Chloride 105 96 - 110 mmol/L LAB CHEMISTRY METHOD 08/02/2024 5:43 PM [facility] CO2 27 21 - 32 mmol/L LAB CHEMISTRY METHOD 08/02/2024 5:43 PM [facility] Anion Gap 6 3 - 11 LAB CHEMISTRY METHOD 08/02/2024 5:43 PM [facility] Glucose 153(H) 70 - 100 mg/dL LAB CHEMISTRY METHOD 08/02/2024 5:43 PM [facility] BUN 41(H) 5 - 25 mg/dL LAB CHEMISTRY METHOD 08/02/2024 5:43 PM [facility] Creatinine 0.69(L) 0.70 - 1.30 mg/dL LAB CHEMISTRY METHOD 08/02/2024 5:43 PM [facility] eGFR 90 >=60 mL/min/1. 73m2 LAB CHEMISTRY METHOD 08/02/2024 5:43 PM [facility] Comment:Calculation based on the Chronic Kidney Disease Epidemiology Collaboration (CKD-EPI) equation refit without adjustment for race. BUN/Creatinine Ratio 59.4 LAB CHEMISTRY METHOD 08/02/2024 5:43 PM [facility] Calcium 9.1 8.5 - 10.5 mg/dL LAB CHEMISTRY METHOD 08/02/2024 5:43 PM [facility] AST (SGOT) 46(H) 10 - 42 unit/L LAB CHEMISTRY METHOD 08/02/2024 5:43 PM [facility] ALT (SGPT) 33 10 - 60 unit/L LAB CHEMISTRY METHOD 08/02/2024 5:43 PM [facility] Alkaline Phosphatase 83 42 - 121 unit/L LAB CHEMISTRY METHOD 08/02/2024 5:43 PM [facility] Total Protein 5.6(L) 6.0 - 8.0 g/dL LAB CHEMISTRY METHOD 08/02/2024 5:43 PM EDT [facility] Albumin 2.7(L) 3.2 - 5.0 g/dL LAB CHEMISTRY METHOD 08/02/2024 5:43 PM EDT [facility] Total Bilirubin 0.5 0.0 - 1.4 mg/dL LAB CHEMISTRY METHOD 08/02/2024 5:43 PM EDT [facility] Blood Venous blood specimen / Unknown Venipuncture / Unknown 08/02/2024 2:40 PM EDT 08/02/2024 5:03 PM EDT us Nilesh Adams MD LAB BLOOD ORDERABLES Final Res ult [facility] [address] [place] [address], documented in this encounter Visit Diagnoses Diagnosis Encounter for other general examination documented in this encounter Care Teams Quotation Clerk Relationship Specialty Start Date End Date Parrish Cabrera MD [address] [place] [address] PCP - General 12/24/1998 documented as of this encounter
--- OUTSIDE RECORDS SUMMARY | 2024-12-31 18:01 | XMS_ITS | Encounter Summary ---
Author Organization [facility] Address [address] [place] [address] Care Team Providers Care Commercial Construction Project Manager Name Role Phone Parrish Cabrera MD Primary Care Provider [phone] Encounter Details Date Type Department Care Team (Late st Contact Info) Description 08/11/2024 Lab Requisition [facility] - Main Lab 299 [facility] [place] [address] Nilesh Adams MD [address] [place] [address] [phone] Encounter for other general examination Social History [...] 1:15 PM EST Office Visit Orthopedic Surgery [facility] 250 175 [facility] 250 [place] [phone] Dalton Rodriguez DPM 175 [facility] 250 [place] [address] 04/01/2025 1:00 PM EST Office Visit Adult Medicine [facility] [address] [place] [address] Parrish Cabrera MD [address] [place] [address] 04/14/2025 1:00 PM EST Appointment [facility] Ultrasound [address] [place] [address] 05/20/2025 10:00 AM EST Office Visit Vascular Surgery [facility] [address] [place] [address] Zenaida Rose MD [address] [place] [phone] documented as of this encounter Procedures Procedure [...] AM EDT) WBC 10.1 4.8 - 10.8 K/mcL LAB HEMETOLOGY METHOD 08/11/2024 1:[address] [facility] RBC 2.90(L) 4.50 - 5.50 M/mcL LAB HEMETOLOGY METHOD 08/11/2024 1:[address] [facility] Hemoglobin 9.4(L) 13.5 - 17.5 g/dL LAB HEMETOLOGY METHOD 08/11/2024 1:[address] [facility] Hematocrit 30.1(L) 42.0 - 54.0 % LAB HEMETOLOGY METHOD 08/11/2024 1:[address] [facility] MCV 103.1(H) 79.0 - 98.0 FL LAB HEMETOLOGY METHOD 08/11/2024 1:[address] [facility] MCH 32.2(H) 27.0 - 32.0 pcg LAB HEMETOLOGY METHOD 08/11/2024 1:[address] [facility] MCHC 31.2(L) 32.0 - 37.0 g/dL LAB HEMETOLOGY METHOD 08/11/2024 1:[address] [facility] RDW 13.4 11.0 - 15.0 % LAB HEMETOLOGY METHOD 08/11/2024 1:[address] [facility] Platelets 425(H) 130 - 400 K/mcL LAB HEMETOLOGY METHOD 08/11/2024 1:[address] [facility] MPV 9.8 7.0 - 11.0 FL LAB HEMETOLOGY METHOD 08/11/2024 1:[address] [facility] NRBC 0.0 <1.0 % LAB HEMETOLOGY METHOD 08/11/2024 1:[address] [facility] NRBC Absolute 0.00 <0.10 K/mcL LAB HEMETOLOGY METHOD 08/11/2024 1:15 PM EDT [facility] Neutrophils Relative 67.1 % LAB HEMETOLOGY METHOD 08/11/2024 1:15 PM EDT [facility] Lymphocytes Relative 17.1 % LAB HEMETOLOGY METHOD 08/11/2024 1:15 PM EDT [facility] Monocytes Relative 11.2 % LAB HEMETOLOGY METHOD 08/11/2024 1:15 PM EDT [facility] Eosinophils Relative 3.5 % LAB HEMETOLOGY METHOD 08/11/2024 1:15 PM EDT [facility] Basophils Relative 0.5 % LAB HEMETOLOGY METHOD 08/11/2024 1:[address] [facility] Immature Granulocytes Relative 0.6 % LAB HEMETOLOGY METHOD 08/11/2024 1:[address] [facility] Neutrophils Absolute 6.74 1.50 - 7.00 K/mcL LAB HEMETOLOGY METHOD 08/11/2024 1:[address] [facility] Lymphocytes Absolute 1.72 1.00 - 5.00 K/mcL LAB HEMETOLOGY METHOD 08/11/2024 1:[address] [facility] Monocytes Absolute 1.13(H) 0.20 - 1.00 K/mcL LAB HEMETOLOGY [facility] Eosinophils Absolute 0.35 0.00 - 0.50 K/mcL LAB HEMETOLOGY METHOD [facility] Basophils Absolute 0.05 0.00 - 0.20 K/mcL LAB HEMETOLOGY METHOD 08/11/2024 1:[address] [facility] Immature Granulocytes Absolute 0.06(H) 0.00 - 0.03 K/mcL LAB HEMETOLOGY METHOD 08/11/2024 1:[address] [facility] Blood Venous blood specimen / Unknown Venipuncture / Unknown 08/11/2024 5:25 AM EDT 08/11/2024 11:25 AM EDT us Nilesh Adams MD LAB BLOOD ORDERABLES Final Res ult [facility] [address] [place] [address], [place] [phone] * (ABNORMAL) Comprehensive metabolic panel (08/11/2024 5:25 AM EDT) Sodium 139 133 - 145 mmol/L LAB CHEMISTRY METHOD 08/11/2024 3:[address] [facility] Potassium 4.5 3.5 - 5.5 mmol/L LAB CHEMISTRY METHOD 08/11/2024 3:[address] [facility] Chloride 105 96 - 110 mmol/L LAB CHEMISTRY METHOD 08/11/2024 3:[address] [facility] CO2 27 21 - 32 mmol/L LAB CHEMISTRY METHOD 08/11/2024 3:[address] [facility] Anion Gap 7 3 - 11 LAB CHEMISTRY METHOD 08/11/2024 3:[address] [facility] Glucose 91 70 - 100 mg/dL LAB CHEMISTRY METHOD 08/11/2024 3:[address] [facility] BUN 15 5 - 25 mg/dL LAB CHEMISTRY METHOD 08/11/2024 3:[address] [facility] Creatinine 0.60(L) 0.70 - 1.30 mg/dL LAB CHEMISTRY METHOD 08/11/2024 3:[address] [facility] eGFR 94 >=60 mL/min/1. 73m2 LAB CHEMISTRY METHOD 08/11/2024 3:[address] [facility] Comment:Calculation based on the Chronic Kidney Disease Epidemiology Collaboration (CKD-EPI) equation refit without adjustment for race. BUN/Creatinine Ratio 25.0 LAB CHEMISTRY METHOD 08/11/2024 3:12 PM T [facility] Calcium 9.1 8.5 - 10.5 mg/dL LAB CHEMISTRY METHOD 08/11/2024 3:12 PM T [facility] AST (SGOT) 45(H) 10 - 42 unit/L LAB CHEMISTRY METHOD 08/11/2024 3:[address] [facility] ALT (SGPT) 60 10 - 60 unit/L LAB CHEMISTRY METHOD 08/11/2024 3:12 PM T [facility] Alkaline Phosphatase 120 42 - 121 unit/L LAB CHEMISTRY METHOD 08/11/2024 3:[address] [facility] Total Protein 6.5 6.0 - 8.0 g/dL LAB CHEMISTRY METHOD 08/11/2024 3:[address] [facility] Albumin 3.1(L) 3.2 - 5.0 g/dL LAB CHEMISTRY METHOD 08/11/2024 3:[address] [facility] Total Bilirubin 0.4 0.0 - 1.4 mg/dL LAB CHEMISTRY METHOD 08/11/2024 3:[address] [facility] Blood Venous blood specimen / Unknown Venipuncture / Unknown 08/11/2024 5:25 AM EDT 08/11/2024 11:25 AM EDT us Nilesh Adams MD LAB BLOOD ORDERABLES Final Res ult [facility] [address] [place] [address], documented in this encounter Visit Diagnoses Diagnosis Encounter for other general examination documented in this encounter Care Teams Commercial Construction Project Manager Relationship Specialty Start Date End Date Parrish Cabrera MD [address] [place] [id number] PCP - General 12/24/1998 documented as of this encounter
--- OUTSIDE RECORDS SUMMARY | 2024-12-31 18:01 | XMS_ITS | Clinical Summary ---
Author Organization [facility] Address [address] [place] [address] Care Team Providers Care Development Educator Name Role Phone Unavailable Primary Care Provider [...] or Tdap) 01/01/2022 01/02/2012 Influenza Vaccine (#1) 2024 9, 01/14/2018, 01/22/2017, Additional history exists Hepatitis B Vaccines Aged Out No long er eligible based on patient's age to complete this topic RSV Ped < 20 months Aged Out No longe r eligible based on patient's age to complete this topic
--- OUTSIDE RECORDS SUMMARY | 2024-12-31 18:01 | XMS_ITS ---
Author Name [facility] Organization Unknown Care Team Organization Name Specialty Phone Email Start Date End Da te [facility] 12/10/2024 [facility] Cabrera Primary Care 02/28/2022 12/10/2023
--- OUTSIDE RECORDS SUMMARY | 2024-12-31 18:01 | XMS_ITS | Encounter Summary ---
Author Organization [facility] Address [address] [place] [address] Care Team Providers Care Centrifugal Drier Operator Name Role Phone Parrish Cabrera MD Primary Care Provider [phone] Encounter Details Date Type Department Care Team (Late st Contact Info) Description 08/01/2024 Lab Requisition [facility] - Main Lab 299 [facility] [place] [address] Nilesh Adams MD [address] [place] [address] [phone] Encounter for other general examination Social History [...] PM EST Office Visit Orthopedic Surgery - [place] 250 175 [facility] [address] [place] [address] Dalton Rodriguez DPM 175 [facility] 250 [place] [address] 04/01/2025 1:00 PM EST Office Visit Adult Medicine [facility] [address] [place] [address] Parrish Cabrera MD [address] [place] [address] 04/14/2025 1:00 PM EST Appointment [facility] Ultrasound [address] [place] [address] 05/20/2025 10:00 AM EST Office Visit Vascular Surgery - [place] [address] [place] [address] Zenaida Rose MD [address] [place] [address] documented as of this encounter Procedures Procedure [...] LAB HEMETOLOGY METHOD 08/01/2024 12:00 PM EDT [facility] ([facility]) [facility] Platelet Morphology - WAM See Note(A) Normal LAB HEMETOLOGY METHOD 08/01/2024 12:00 PM EDT [facility] Comment:PLT: Normal Blood Venous blood specimen / Unknown Venipuncture / Unknown 08/01/2024 6:47 AM EDT 08/01/2024 10:49 AM EDT us Nilesh Adams MD LAB BLOOD ORDERABLES Final Res ult [facility] [address] [place] [address], * (ABNORMAL) CBC auto differential (08/01/2024 6:47 AM EDT) WBC 12.5(H) 4.8 - 10.8 K/mcL LAB HEMETOLOGY METHOD 08/01/2024 12:00 PM EDT [facility] RBC 2.70(L) 4.50 - 5.50 M/mcL LAB HEMETOLOGY METHOD 08/01/2024 12:00 PM [facility] Hemoglobin 8.8(L) 13.5 - 17.5 g/dL LAB HEMETOLOGY METHOD 08/01/2024 12:00 PM [facility] Hematocrit 27.6(L) 42.0 - 54.0 % LAB HEMETOLOGY METHOD 08/01/2024 12:00 PM [facility] MCV 102.6(H) 79.0 - 98.0 FL LAB HEMETOLOGY METHOD 08/01/2024 12:00 PM [facility] MCH 32.7(H) 27.0 - 32.0 pcg LAB HEMETOLOGY METHOD 08/01/2024 12:00 PM [facility] MCHC 31.9(L) 32.0 - 37.0 g/dL LAB HEMETOLOGY METHOD 08/01/2024 12:00 PM [facility] RDW 13.4 11.0 - 15.0 % LAB HEMETOLOGY METHOD 08/01/2024 12:00 PM [facility] Platelets 189 130 - 400 K/mcL LAB HEMETOLOGY METHOD 08/01/2024 12:00 PM [facility] MPV 10.9 7.0 - 11.0 FL LAB HEMETOLOGY METHOD 08/01/2024 12:00 PM [facility] NRBC 0.0 <1.0 % LAB HEMETOLOGY METHOD 08/01/2024 12:00 PM [facility] NRBC Absolute 0.00 <0.10 K/mcL LAB HEMETOLOGY METHOD 08/01/2024 12:00 PM [facility] Neutrophils Relative 77.5 % LAB HEMETOLOGY METHOD 08/01/2024 12:00 PM [facility] Comment:This is an appended report. These results have been appended to a previously preliminary verified report. Lymphocytes Relative 7.7 % LAB HEMETOLOGY METHOD 08/01/2024 12:00 PM [facility] Comment:This is an appended report. These results have been appended to a previously preliminary verified report. Monocytes Relative 12.9 % LAB HEMETOLOGY METHOD 08/01/2024 12:00 PM [facility] Comment:This is an appended report. These results have been appended to a previously preliminary verified report. Eosinophils Relative 1.4 % LAB HEMETOLOGY METHOD 08/01/2024 12:00 PM T [facility] Comment:This is an appended report. These results have been appended to a previously preliminary verified report. Basophils Relative 0.2 % LAB HEMETOLOGY METHOD 08/01/2024 12:00 PM [facility] Comment:This is an appended report. These results have been appended to a previously preliminary verified report. Immature Granulocytes Relative 0.3 % LAB HEMETOLOGY METHOD 08/01/2024 12:00 PM [facility] Comment:This is an appended report. These results have been appended to a previously preliminary verified report. Neutrophils Absolute 9.71(H) 1.50 - 7.00 K/mcL LAB HEMETOLOGY METHOD 08/01/2024 12:00 PM [facility] Comment:This is an appended report. These results have been appended to a previously preliminary verified report. Lymphocytes Absolute 0.97(L) 1.00 - 5.00 K/mcL LAB HEMETOLOGY METHOD 08/01/2024 12:00 PM [facility] Comment:This is an appended report. These results have been appended to a previously preliminary verified report. Monocytes Absolute 1.62(H) 0.20 - 1.00 K/mcL LAB HEMETOLOGY METHOD 08/01/2024 12:00 PM [facility] Comment:This is an appended report. These results have been appended to a previously preliminary verified report. Eosinophils Absolute 0.18 0.00 - 0.50 K/mcL LAB HEMETOLOGY METHOD 08/01/2024 12:00 PM [facility] Comment:This is an appended report. These results have been appended to a previously preliminary verified report. Basophils Absolute 0.02 0.00 - 0.20 K/mcL LAB HEMETOLOGY METHOD 08/01/2024 12:00 PM [facility] Comment:This is an appended report. These results have been appended to a previously preliminary verified report. Immature Granulocytes Absolute 0.04(H) 0.00 - 0.03 K/mcL LAB HEMETOLOGY METHOD 08/01/2024 12:00 PM [facility] Comment:This is an appended report. These results have been appended to a previously preliminary verified report. Blood Venous blood specimen / Unknown Venipuncture / Unknown 08/01/2024 6:47 AM EDT 08/01/2024 10:49 AM EDT us Nilesh Adams MD LAB BLOOD ORDERABLES Final Res ult [facility] [address] [place] [address], [place] [phone] * Magnesium (08/01/2024 6:47 AM EDT) Pathologist [facility] Magnesium 2.1 1.9 - 2.6 mg/dL LAB CHEMISTRY METHOD 08/01/2024 12:20 PM EDT [facility] Blood Venous blood specimen / Unknown Venipuncture / Unknown 08/01/2024 6:47 AM EDT 08/01/2024 10:49 AM EDT us Nilesh Adams MD LAB BLOOD ORDERABLES Final Res ult Performing Organization Address City/[facility]/ZIP Co de Phone Number [facility] [address] [place] [address], [place] [phone] * (ABNORMAL) Comprehensive metabolic panel (08/01/2024 6:47 AM EDT) [facility] Sodium 136 133 - 145 mmol/L LAB CHEMISTRY METHOD 08/01/2024 12:20 PM EDT [facility] Potassium 4.2 3.5 - 5.5 mmol/L LAB CHEMISTRY METHOD 08/01/2024 12:20 PM EDT [facility] Chloride 103 96 - 110 mmol/L LAB CHEMISTRY METHOD 08/01/2024 12:20 PM EDT [facility] CO2 25 21 - 32 mmol/L LAB CHEMISTRY METHOD 08/01/2024 12:20 PM EDT [facility] Anion Gap 8 3 - 11 LAB CHEMISTRY METHOD 08/01/2024 12:20 PM EDT [facility] Glucose 132(H) 70 - 100 mg/dL LAB CHEMISTRY METHOD 08/01/2024 12:20 PM EDT [facility] BUN 33(H) 5 - 25 mg/dL LAB CHEMISTRY METHOD 08/01/2024 12:20 PM [facility] Creatinine 0.96 0.70 - 1.30 mg/dL LAB CHEMISTRY METHOD 08/01/2024 12:20 PM [facility] eGFR 77 >=60 mL/min/1. 73m2 LAB CHEMISTRY METHOD 08/01/2024 12:20 PM [facility] Comment:Calculation based on the Chronic Kidney Disease Epidemiology Collaboration (CKD-EPI) equation refit without adjustment for race. BUN/Creatinine Ratio 34.4 LAB CHEMISTRY METHOD 08/01/2024 12:20 PM [facility] Calcium 8.9 8.5 - 10.5 mg/dL LAB CHEMISTRY METHOD 08/01/2024 12:20 PM [facility] AST (SGOT) 53(H) 10 - 42 unit/L LAB CHEMISTRY METHOD 08/01/2024 12:20 PM [facility] ALT (SGPT) 27 10 - 60 unit/L LAB CHEMISTRY METHOD 08/01/2024 12:20 PM [facility] Alkaline Phosphatase 81 42 - 121 unit/L LAB CHEMISTRY METHOD 08/01/2024 12:20 PM [facility] Total Protein 5.9(L) 6.0 - 8.0 g/dL LAB CHEMISTRY METHOD 08/01/2024 12:20 PM [facility] Albumin 2.9(L) 3.2 - 5.0 g/dL LAB CHEMISTRY METHOD 08/01/2024 12:20 PM [facility] Total Bilirubin 0.7 0.0 - 1.4 mg/dL LAB CHEMISTRY METHOD 08/01/2024 12:20 PM [facility] Blood Venous blood specimen / Unknown Venipuncture / Unknown 08/01/2024 6:47 AM EDT 08/01/2024 10:49 AM EDT us Nilesh Adams MD LAB BLOOD ORDERABLES Final Res ult [facility] ([facility]) [facility] [address] [place] [address], documented in this encounter Visit Diagnoses Diagnosis Encounter for other general examination documented in this encounter Care Teams Centrifugal Drier Operator Relationship Specialty Start Date End Date Parrish Cabrera MD [address] [place] [address] PCP - General 12/24/1998 documented as of this encounter
--- OUTSIDE RECORDS SUMMARY | 2024-12-31 18:01 | XMS_ITS | Encounter Summary ---
Author Organization [facility] Address [address] [place] [address] Care Team Providers Care Medical Assistant Internal Medicine Name Role Phone Parrish Cabrera MD Primary Care Provider [phone] Encounter Details Date Type Department Care Team (Late st Contact Info) Description 08/02/2024 Lab Requisition [facility] - Main Lab [address] [place] [address] Nilesh Adams MD [address] [place] [address] [phone] Encounter for other general examination Social History [...] PM EST Office Visit Orthopedic Surgery - [place] [address] [facility] [address] [place] [address] Dalton Rodriguez DPM 175 [facility] [address] [place] [address] 04/01/2025 1:00 PM EST Office Visit Adult Medicine [facility] [address] [place] [address] Parrish Cabrera MD [address] [place] [address] 04/14/2025 1:00 PM EST Appointment [facility] Ultrasound [address] [place] [phone] 05/20/2025 10:00 AM EST Office Visit Vascular Surgery - [place] [address] [place] [address] Zenaida Rose MD [address] [place] [address] documented as of this encounter Procedures Procedure [...] and culture (08/02/2024 4:00 AM EDT) Specific [place] Urine 1.025 1.003 - 1.030 LAB URINALYSIS - AUTOMATED METHOD 08/02/2024 11:47 AM EDT [facility] pH, Urine 5.5 5.0 - 8.0 pH LAB URINALYSIS - AUTOMATED METHOD 08/02/2024 11:47 AM EDT [facility] Leukocytes, Urine Negative Negative LAB URINALYSIS - AUTOMATED METHOD 08/02/2024 11:47 AM [facility] Nitrite, Urine Negative Negative LAB URINALYSIS - AUTOMATED METHOD 08/02/2024 11:47 AM [facility] Protein, Urine Trace <=Trace mg/dL LAB URINALYSIS - AUTOMATED METHOD 08/02/2024 11:47 AM [facility] Glucose, Urine Negative Negative mg/dL LAB URINALYSIS - AUTOMATED METHOD 08/02/2024 11:47 AM [facility] Ketones, Urine Trace(A) Negative mg/dL LAB URINALYSIS - AUTOMATED METHOD 08/02/2024 11:47 AM [facility] Urobilinogen, Urine 1.0 0.2 - 1.0 mg/dL LAB URINALYSIS - AUTOMATED METHOD 08/02/2024 11:47 AM [facility] Bilirubin, Urine Negative Negative LAB URINALYSIS - AUTOMATED METHOD 08/02/2024 11:47 AM [facility] Blood, Urine Negative Negative LAB URINALYSIS - AUTOMATED METHOD 08/02/2024 11:47 AM [facility] Urine Urine specimen obtained by clean catch procedure / Unknown Non-blood Collection / Unknown 08/02/2024 4:00 AM EDT 08/02/2024 11:03 AM EDT us Nilesh Adams MD LAB URINE ORDERABLES Final Res ult [facility] [address] [place] [address], * Montes urine culture tube (08/02/2024 4:00 AM EDT) Extra Tube Hold for add-ons. 08/02/2024 1:01 PM [facility] Comment:Auto resulted. Urine Urine specimen obtained by clean catch procedure / Unknown Non-blood Collection / Unknown 08/02/2024 4:00 AM EDT 08/02/2024 11:03 AM EDT us Nilesh Adams MD LAB URINE ORDERABLES Final Res ult [facility] [address] [place] [address], documented in this encounter Visit Diagnoses Diagnosis Encounter for other general examination documented in this encounter Care Teams Medical Assistant Internal Medicine Relationship Specialty Start Date End Date Parrish Cabrera MD [address] [place] [phone] PCP - General 12/24/1998 documented as of this encounter
== END 2024-12-31 15:24 | disposition home or self-care (01) ==
LOC: HO.HSM 14:47
PROVIDERS: PCP Internal Medicine; Visit Provider Psychiatry & Neurology Neurology
DX: D32.9 Benign neoplasm of meninges, unspecified (principal); R41.3 Other amnesia
CPT/HCPCS: 99204

== ENCOUNTER 2025-01-05 14:36 | Outpatient (AMB) | payer MEDICARE, BC, SELFPAY ==
[2025-01-05 14:54] VITALS: BP 108/62; PULSE 114; TEMP 36.7; O2SAT 98; BMI 23.6
--- NOTE | 2025-01-05 14:54 | AM.OFFWIN_ITS ---
Intake Vital Signs 01/05/25 14:54 Height 5 ft 6 in Weight 146 lb BMI 23.6 BP 108/62 Blood Pressure Location Lt brachial Position Sitting Pulse 114 H Pulse Source Pulse Oximeter Temp 98.1 F Temp Source Oral Pulse Oximetry (%) 98 Oxygen Delivery Method Room Air Intake Visit Reasons: EP back pain/soreness Intake Note: pt presents with right flank pain that worsens with deep breath for a few weeks- s/s for a long time - reports a pmhx of kidney stones and pshx x4 lumbar Patient Tobacco Use Status: Former Tobacco user Allergies No Known Allergies Allergy (Verified 01/05/25 15:02) Do you need a note to return to daycare/school/sports/work: No HPI HPI Comments History of Present Illness Details 84 y/o Male patient who presents to the walk in clinic with c/o Chronic Lower back pain. He does have a complicated h/o multiple Back surgeries x 4. He has failed most conservative methods and nothing has worked for him. Denies Bowel or bladder symptoms. [facility] Medical History (Updated 12/31/24 @ 15:09 by Helen Dale MD) Memory deficit Spinal cord stimulator status HLD (hyperlipidemia) BPH (benign prostatic hyperplasia) Meningioma Lumbar spinal stenosis Arthritis CAROLINA (obstructive sleep apnea) PLMD (periodic limb movement disorder) Subclinical hypothyroidism Diabetes MARIE (iron deficiency anemia) Surgical History History of lumbar fusion Social History Are you a primary intensive care nurse to a significant other at home: No Do you presently have visiting nurse or other home services: No Comment: medicated at 1640 with Tylenol and Oxycodone Patient Tobacco Use Status: Former Tobacco user Tobacco use type: Cigarette Review of Systems Const All systems reviewed & are unremarkable except as noted in HPI and below Physical Exam Vital Signs: Last Vital Signs Temp 98.1 F 01/05/25 14:54 Pulse 114 H 01/05/25 14:54 BP 108/62 01/05/25 14:54 Pulse Ox 98 01/05/25 14:54 Oxygen Delivery Method Room Air 01/05/25 14:54 BMI result Body Mass Index 23.6 Const General: no acute distress Nutritional Appearance: well nourished Orientation/consciousness: patient oriented x3 Limitations: ambulation with walker Back/Spine/Pelvis Back: back tenderness Thoracic/Lumbar Spine: pain with thoraco-lumbar ROM and lumbar spinal tenderness Neuro General: patient oriented x3 and moves all extremities Results AMB Urinalysis, Automated UA Leukoctes 0 Obed/uL Last Edit by Jennifer Go MA on 01/05/25 16:27 UA Nitrite Negative Last Edit by Jennifer Go MA on 01/05/25 16:27 UA Urobilinogen 0.2 mg/dL Last Edit by Jennifer Go MA on 01/05/25 16:27 UA Protein 6.0 mg/dL Last Edit by Jennifer Go MA on 01/05/25 16:27 UA pH 0 Last Edit by Jennifer Go MA on 01/05/25 16:27 UA Blood 0 Jovanny/uL Last Edit by Jennifer Go MA on 01/05/25 16:27 UA Specific [place] 1.010 Last Edit by Jennifer Go MA on 01/05/25 16:2 7 UA Ketone Negative Last Edit by Jennifer Go MA on 01/05/25 16:27 UA Bilirubin 0 mg/dL Last Edit by Jennifer Go MA on 01/05/25 16:27 UA Glucose 0 mg/dL Last Edit by Jennifer Go MA on 01/05/25 16:27 Results Reviewed Results Reviewed: Laboratory Last Values Urine pH (Auto) 0 01/05/25 14:04 Specific [place] (Auto) 1.010 01/05/25 14:04 Urine Protein (Auto) 6.0 mg/dL 01/05/25 14:04 Glucose (UA)(Auto) 0 mg/dL 01/05/25 14:04 Urine Ketones (Auto) Negative 01/05/25 14:04 Urine Blood (Auto) 0 Jovanny/uL 01/05/25 14:04 Urine Nitrite (Auto) Negative 01/05/25 14:04 Urine Bilirubin (Auto) 0 mg/dL 01/05/25 14:04 Urine Urobilinogen (Auto) 0.2 mg/dL 01/05/25 14:04 Leukocyte Esterase (Auto) 0 Obed/uL 01/05/25 14:04 Assessment & Plan Assessment & Plan (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 Ice/Hot F/U with PCP. Orders: Orders AMB Urinalysis Automated Today Z13.9 - Encounter for screening, unspecified Coding Level of Care Code Est Pt Level 4 (04407) Diagnoses Failed back syndrome M96.1 Time Spent (min) 20
--- OUTSIDE RECORDS SUMMARY | 2025-01-05 20:02 | XMS_ITS | Clinical Summary ---
Author Organization [facility] Address [address] [place] [address] Care Team Providers Care Terminal Operator Name Role Phone Unavailable Primary Care Provider [...]
--- OUTSIDE RECORDS SUMMARY | 2025-01-05 20:02 | XMS_ITS | Clinical Summary ---
Author Organization [facility] Address [address] [place] [address] Phone Care Team Providers Care Customer Technical Services Manager Name Role Phone Parrish Cabrera MD Primary Care Provider [phone] Allergies No known active allergies Medications tamsulosin (FLOMAX) 0.4 mg 24 hr capsule Take 1 capsule (0.4 mg total) by mouth 1 (one) time each day. 10/29/2023 Active aspirin 81 mg EC tablet Take 1 tablet (81 mg total) by mouth 1 (one) time each day. Active blood-glucose meter kit Use to test blood sugars daily 10/18/2021 Active acetaminophen (TYLENOL) 500 mg tablet Take [...] Strips) test strip Test blood sugar Daily 05/12/2015 Active ACETYLCARNITINE HCL ORAL Take 1,000 mg by mouth 2 (two) times a day. OTC Active ONETOUCH DELICA LANCETS MISC 1 Each by Does not apply route daily. 07/20/2014 Active Autolet lancing device Use to test blood sugar once daily 03/04/2014 Active lisinopriL (PRINIVIL,ZESTR IL) 2.5 mg tablet TAKE 1 TABLET BY MOUTH DAILY 90 tablet 1 05/30/2024 Active diclofenac (VOLTAREN) 50 mg EC tablet TAKE 1 TABLET BY MOUTH TWICE DAILY NEEDED FOR PAIN 180 tablet 1 06/11/2024 Active celecoxib (CeleBREX) 100 mg capsule 05/19/2024 Active DULoxetine (CYMBALTA) [address] capsule Take 1 capsule (60 mg total) by mouth 1 (one) time each day. 90 each 08/21/2024 Active simvastatin (ZOCOR) 10 mg tablet Take 1 tablet (10 mg total) by mouth at bedtime. 90 each 08/21/2024 Active gabapentin (NEURONTIN) 600 mg tablet TAKE 1 TABLET BY MOUTH TWICE DAILY 60 tablet 5 12/02/2024 Active Active Problems Problem Noted Date Diagnosed Date [...] (03/18/2024): Noted on CT scan done in [facility] emergency room on 12/22/2023. Mild ascending aorta [...] (periodic limb movement disorder) 7 Overview (03/18/2024): [facility] Polys[facility]: Date 06/22/2016; SE 60%; SM 79%; REM 1%; RDI 2 (AHI 5), worse in REM (RDI 13 - AHI 13), Central apneas 0; Obstructive apneas 0; Mixed apneas 0; hypopneas 10; RERAs 16; average oxygen saturation 93% (lowest 89% - without saturations <88% for 5% or more of study); PLMs 102. Obstructive sleep apnea 06/20/2016 Overview (03/18/2024): [facility] Polysomnogram: Date 06/22/2016; SE 60%; SM 79%; [...] mellitus type 2 wit h neurological manifestations (CMS/HCC V24, CMS/HCC V28) 04/03/2016 Assessment & Plan (03/28/2024 6:22 PM EST): Will continue to follow A1c. No polyuria or polydipsia. He is not on any glucose lowering agents. Orders: CBC and differential; Future Thyroid stimulating hormone; Future Vitamin B12; Future Comprehensive metabolic panel; Future Hemoglobin A1c; Future Actinic keratosis 03/05/2014 Overview (03/18/2024): Actinic keratosis Lumbar spinal stenosis 07/02/2012 Meningioma ([facility] V24, [facility] V28) 07/28/2008 Overview (03/18/2024): Follow with Dr. [...] colonoscopy 04/02/2007. Benign neoplasm of cerebral meninges ([facility] V24, [facility] V28) 11/22/2006 Overview (03/18/2024): small frontal meningioma on MRI 2006 Pt prefers no further evaluation DM w/o complication type II ([facility] V24, [facility] V28) 11/13/2006 Overview (03/18/2024): Last [...] just unsure what to do Educational Resources [place] [employer] (www.diabetes.org) Centers for Disease Control [...] PM EDT Office Visit Orthopedic Surgery - [address] [phone] Dalton Rodriguez DPM Controlled type 2 diabetes mellitus with diabetic polyneuropathy, without long-term current use of insulin ([facility] V24, [facility] V28) (Primary Dx); Arthritis of both feet; Neuropathy; Right foot drop; Onychomycosis; Callus 12/16/2024 Telephone Adult Medicine [address] [phone] Parrish Cabrera MD 11/26/2024 9:45 AM EDT Office Visit [address] [phone] Parrish Cabrera MD Abrasion of skin of left elbow (Primary Dx); Iron deficiency anemia, unspecified iron deficiency anemia type 10/27/2024 10:49 AM EDT - 10/27/2024 11:59 PM EDT Hospital Encounter Radiology Department - [address] [phone] Right flank pain Discharge Disposition: Home or Self Care 10/27/2024 9:30 AM EDT Office Visit Adult [address] [phone] Parrish Cabrera MD Memory deficit (Primary Dx); Type 2 diabetes mellitus without complication, without long-term current use of insulin ([facility] V24, [facility] V28); Right flank pain 10/15/2024 Telephone Adult [address] [phone] Parrish Cabrera MD 10/15/2024 Telephone Adult Medicine [address] [phone] Parrish Cabrera MD 10/13/2024 Telephone Adult Medicine [address] [phone] Kayla Conrad [place] 10/08/2024 Telephone Adult Medicine [address] [phone] Parrish Cabrera MD from Last 3 Months [...] Site/Laterality Comments OTHER SURGICAL HISTORY 1968 PROCEDURE: FL VGTMY W/PYLOROPLASTY W/WO GASTROST PARIETAL CELL; COMMENT: GI bleeding, remote; [facility]. ROTATOR CUFF REPAIR 2002 PROCEDURE: HISTORICAL ROTATOR CUFF REPAIR; COMMENT: right CATARACT EXTRACTION PROCEDURE: HISTORICAL CATARACT REMOVAL; COMMENT: right eye COLONOSCOPY 04/02/2007 PROCEDURE: HISTORICAL COLONOSCOPY; COMMENT: negative COLONOSCOPY 04/21/2019 PROCEDURE: HISTORICAL COLONOSCOPY; COMMENT: 5 mm AC polyp: Tubular adenoma UPPER GASTROINTESTINAL ENDOSCOPY 04/21/2019 PROCEDURE: FL UPPER GI ENDOSCOPY PERFORMED; COMMENT: Visually normal, duodenal biopsies obtained, pathology: Normal APPENDECTOMY PROCEDURE: FL APPENDECTOMY Medical History Medical History Date Comments [...] 1:15 PM EST Office Visit Orthopedic Surgery [facility] [address] [facility] [address] [place] [phone] Dalton Rodriguez DPM 175 [facility] 250 [place] [address] 04/01/2025 1:00 PM EST Office Visit Adult Medicine [facility] [address] [place] [address] Parrish Cabrera MD [address] [place] [address] 04/14/2025 1:00 PM EST Appointment [facility] Ultrasound [address] [place] [phone] 05/20/2025 10:00 AM EST Office Visit Vascular Surgery [facility] [address] [place] [phone] Zenaida Rose MD [address] [place] [phone] Health Maintenance Due Date Last Done Comments [...] Procedure Name Priority Date/Time Associated Diagnosis Comments EXTERNAL CLINICAL LAB 12/31/2024 US ABDOMEN LIMITED Routine 10/27/2024 11 :40 AM EDT Right flank pain COMPREHENSIVE METABOLIC PANEL Routine 08/11/2024 5:25 AM EDT Encounter for other general examination FALLS RISK ASSESSMENT Routine 12/04/2023 HEMOGLOBIN A1C Routine 09/25/2023 DEPRESSION SCREENING Routine 08/20/2023 DIABETES EYE EXAM Routine 08/14/2023 LIPID PANEL Routine 11/16/2022 from Last 3 Months or Most Recently Relevant to Health Maintenance Results * External clinical lab (12/31/2024) Provider [facility] LAB BLOOD ORDERABLES Fin al Result * US Abdomen Limited (10/27/2024 11:40 AM EDT) Anatomical Region Laterality Modality Body Ultrasound 10/27/2024 4:43 PM EDT Impressions 10/27/2024 4:49 PM EDT Limited exam. Cholelithiasis without evidence of cholecystitis or biliary ductal dilatation. Pancreas obscured by bowel gas. POS [id number] -------- FINAL REPORT -------- Dictated By: Bozena Katz Dictated Date: 10/27/2024 16:43 ET Assigned Physician: Bozena Katz Reviewed and Electronically Signed By: Bozena Katz Signed Date: 10/27/2024 16:49 ET Workstation ID: [id number] Transcribed By: Self Edit Transcribed Date: 10/27/2024 [...] ductaldilatation. Pancreas obscured by bowel gas. POS [id number] -------- FINAL REPORT -------- Dictated By: Bozena Katz Dictated Date: 10/27/2024 16:43 ET Assigned Physician: Bozena Katz Reviewed and Electronically Signed By: Bozena Katz Signed Date: 10/27/2024 16:49 ET Workstation ID: [id number] Transcribed By: Self Edit Transcribed Date: 10/27/2024 16:43 ET us Parrish Cabrera MD [place] US PROCEDURES Final Result * (ABNORMAL) Comprehensive metabolic panel (08/11/2024 5:25 AM EDT) Sodium 139 133 - 145 mmol/L LAB CHEMISTRY METHOD 08/11/2024 3:12 PM [facility] Potassium 4.5 3.5 - 5.5 mmol/L LAB CHEMISTRY METHOD 08/11/2024 3:12 PM [facility] Chloride 105 96 - 110 mmol/L LAB CHEMISTRY METHOD 08/11/2024 3:12 PM [facility] CO2 27 21 - 32 mmol/L LAB CHEMISTRY METHOD 08/11/2024 3:12 PM [facility] Anion Gap 7 3 - 11 LAB CHEMISTRY METHOD 08/11/2024 3:12 PM [facility] Glucose 91 70 - 100 mg/dL LAB CHEMISTRY METHOD 08/11/2024 3:12 PM [facility] BUN 15 5 - 25 mg/dL LAB CHEMISTRY METHOD 08/11/2024 3:12 PM [facility] Creatinine 0.60(L) 0.70 - 1.30 mg/dL LAB CHEMISTRY METHOD 08/11/2024 3:12 PM [facility] eGFR 94 >=60 mL/min/1. 73m2 LAB CHEMISTRY METHOD 08/11/2024 3:12 PM [facility] Comment:Calculation based on the Chronic Kidney Disease Epidemiology Collaboration (CKD-EPI) equation refit without adjustment for race. BUN/Creatinine Ratio 25.0 LAB CHEMISTRY METHOD 08/11/2024 3:12 PM EDT [facility] Calcium 9.1 8.5 - 10.5 mg/dL LAB CHEMISTRY METHOD 08/11/2024 3:12 PM T [facility] AST (SGOT) 45(H) 10 - 42 unit/L LAB CHEMISTRY METHOD 08/11/2024 3:12 PM [facility] ALT (SGPT) 60 10 - 60 unit/L LAB CHEMISTRY METHOD 08/11/2024 3:12 PM EDT [facility] Alkaline Phosphatase 120 42 - 121 unit/L LAB CHEMISTRY METHOD 08/11/2024 3:12 PM [facility] Total Protein 6.5 6.0 - 8.0 g/dL LAB CHEMISTRY METHOD 08/11/2024 3:12 PM [facility] Albumin 3.1(L) 3.2 - 5.0 g/dL LAB CHEMISTRY METHOD 08/11/2024 3:12 PM [facility] Total Bilirubin 0.4 0.0 - 1.4 mg/dL LAB CHEMISTRY METHOD 08/11/2024 3:12 PM [facility] Blood Venous blood specimen / Unknown Venipuncture / Unknown 08/11/2024 5:25 AM EDT 08/11/2024 11:25 AM EDT Nilesh Adams MD LAB BLOOD ORDERABLES Final Res ult [facility] [address] [place] [address], * Falls Risk Assessment (12/04/2023) Falls Risk Assessment Abstracted Historical Provider HEALTH MAINTENANCE Final Result * Hemoglobin A1c (09/25/2023) Hemoglobin A1C 6.3 <=6.5 % Blood Venous blood specimen / Unknown [facility] Provider LAB BLOOD ORDERABLES Soniya l Result * Depression Screening (08/20/2023) Pathologist [facility] Depression Screening Abstracted [facility] Provider HEALTH MAINTENANCE Final Result * Diabetes Eye Exam (08/14/2023) Pathologist [facility] Diabetes: Annual Retina Eye Exam Abstracted [facility] Provider HEALTH MAINTENANCE Final Result * Lipid panel (11/16/2022) [facility] [address] LDL/HDL Ratio 3 0 - 4 Triglycerides 89 0 - 150 mg/dL Cholesterol 123 0 - 200 mg/dL HDL 44 >=40 mg/dL LDL Cholesterol 62 0 - 100 mg/dL Blood Venous blood specimen / Unknown Result [facility] Provider LAB BLOOD ORDERABLES Soniya l Result from Last 3 Months or Most Recently Relevant to Health Maintenance Insurance MEDICARE [facility] Member Subscriber Plan / Payer (Ef fective 2015-Present) Name:MIKY MONGE Relation to Subscriber:Spouse Name:SALEEMBETTE Chirag Date of :1941 Address: [address] [place] [address] Payer ID:[id number] Group ID:[id number] Type:Not on file Address: [address] [place] [id number] Care Teams Customer Technical Services Manager Relationship Specialty Start Date End Date Parrish Cabrera MD [address] [place] [address] PCP - General 12/24/1998
--- OUTSIDE RECORDS SUMMARY | 2025-01-05 20:02 | XMS_ITS | Encounter Summary ---
Author Organization [facility] Address [address] [place] [address] Care Team Providers Care Purler Name Role Phone Parrish Cabrera MD Primary Care Provider [phone] Encounter Details Date Type Department Care Team (Late st Contact Info) Description 08/04/2024 Lab Requisition [facility] - Main Lab [address] [facility] [place] [address] Nilesh Adams MD [address] [place] [address] [phone] Encounter for other general examination Social History [...] PM EST Office Visit Orthopedic Surgery - [place] [address] [facility] [address] [place] [address] Dalton Rodriguez DPM 175 [facility] [address] [place] [address] 04/01/2025 1:00 PM EST Office Visit Adult Medicine [facility] [address] [place] [address] Parrish Cabrera MD [address] [place] [address] 04/14/2025 1:00 PM EST Appointment [facility] Ultrasound [address] [place] [phone] 05/20/2025 10:00 AM EST Office Visit Vascular Surgery - [place] [address] [place] [address] Zenaida Rose MD [address] [place] [phone] documented as of this encounter Procedures Procedure Name Priority Date/Time Associated Diagnosis Comments BASIC METABOLIC PANEL Routine 08/04/2024 6:06 AM EDT Encounter for other general examination documented in this encounter Results * (ABNORMAL) Basic metabolic panel (08/04/2024 6:06 AM EDT) Sodium 140 133 - 145 mmol/L LAB CHEMISTRY METHOD 08/04/2024 1:42 PM T [facility] Potassium 4.4 3.5 - 5.5 mmol/L LAB CHEMISTRY METHOD 08/04/2024 1:42 PM T [facility] Chloride 110 96 - 110 mmol/L LAB CHEMISTRY METHOD 08/04/2024 1:42 PM T [facility] CO2 23 21 - 32 mmol/L LAB CHEMISTRY METHOD 08/04/2024 1:42 PM T [facility] Anion Gap 7 3 - 11 LAB CHEMISTRY METHOD 08/04/2024 1:42 PM T [facility] Glucose 107(H) 70 - 100 mg/dL LAB CHEMISTRY METHOD 08/04/2024 1:42 PM EDT [facility] BUN 20 5 - 25 mg/dL LAB CHEMISTRY METHOD 08/04/2024 1:42 PM EDT [facility] Creatinine 0.68(L) 0.70 - 1.30 mg/dL LAB CHEMISTRY METHOD 08/04/2024 1:42 PM EDT [facility] eGFR 91 >=60 mL/min/1. 73m2 LAB CHEMISTRY METHOD 08/04/2024 1:42 PM EDT [facility] Comment:Calculation based on the Chronic Kidney Disease Epidemiology Collaboration (CKD-EPI) equation refit without adjustment for race. BUN/Creatinine Ratio 29.4 LAB CHEMISTRY METHOD 08/04/2024 1:42 PM EDT [facility] Calcium 8.7 8.5 - 10.5 mg/dL LAB CHEMISTRY METHOD 08/04/2024 1:42 PM EDT [facility] Blood Venous blood specimen / Unknown Venipuncture / Unknown 08/04/2024 6:06 AM EDT 08/04/2024 9:47 AM EDT us Nilesh Adams MD LAB BLOOD ORDERABLES Final Res ult [facility] [address] [place] [address], documented in this encounter Visit Diagnoses Diagnosis Encounter for other general examination documented in this encounter Care Teams Purler Relationship Specialty Start Date End Date Parrish Cabrera MD [address] [place] [phone] PCP - General 12/24/1998 documented as of this encounter
--- OUTSIDE RECORDS SUMMARY | 2025-01-05 20:02 | XMS_ITS | Encounter Summary ---
Author Organization [facility] Address [address] [place] [address] Care Team Providers Care Mass Communications Professor Name Role Phone Parrish Cabrera MD Primary Care Provider [phone] Encounter Details Date Type Department Care Team (Late st Contact Info) Description 08/11/2024 Lab Requisition [facility] - Main Lab 299 [facility] [place] [address] Nilesh Adams MD [address] [place] [address] [phone] Encounter for other general examination Social History [...] 1:15 PM EST Office Visit Orthopedic Surgery [facility] 250 175 [facility] 250 [place] [phone] Dalton Rodriguez DPM 175 [facility] 250 [place] [address] 04/01/2025 1:00 PM EST Office Visit Adult Medicine [facility] [address] [place] [address] Parrish Cabrera MD 444 [place] [address] 04/14/2025 1:00 PM EST Appointment [facility] Ultrasound [address] [place] [address] 05/20/2025 10:00 AM EST Office Visit Vascular Surgery [facility] [address] [place] [address] Zenaida Rose MD [address] [place] [phone] documented as of this encounter Procedures Procedure [...] K/mcL LAB HEMETOLOGY METHOD 08/11/2024 1:[address] [facility] RBC 2.90(L) 4.50 - 5.50 M/mcL LAB HEMETOLOGY METHOD 08/11/2024 1:[address] [facility] Hemoglobin 9.4(L) 13.5 - 17.5 g/dL LAB HEMETOLOGY METHOD 08/11/2024 1:[address] [facility] Hematocrit 30.1(L) 42.0 - 54.0 % LAB HEMETOLOGY METHOD 08/11/2024 1:[address] [facility] MCV 103.1(H) 79.0 - 98.0 FL LAB HEMETOLOGY METHOD 08/11/2024 1:[address] [facility] MCH 32.2(H) 27.0 - 32.0 pcg LAB HEMETOLOGY METHOD 08/11/2024 1:[address] [facility] MCHC 31.2(L) 32.0 - 37.0 g/dL LAB HEMETOLOGY METHOD 08/11/2024 1:[address] [facility] RDW 13.4 11.0 - 15.0 % LAB HEMETOLOGY METHOD 08/11/2024 1:[address] [facility] Platelets 425(H) 130 - 400 K/mcL LAB HEMETOLOGY METHOD 08/11/2024 1:[address] [facility] MPV 9.8 7.0 - 11.0 FL LAB HEMETOLOGY METHOD 08/11/2024 1:[address] [facility] NRBC 0.0 <1.0 % LAB HEMETOLOGY METHOD 08/11/2024 1:[address] [facility] NRBC Absolute 0.00 <0.10 K/mcL LAB HEMETOLOGY METHOD 08/11/2024 1:15 PM EDT [facility] Neutrophils Relative 67.1 % LAB HEMETOLOGY METHOD 08/11/2024 1:15 PM EDT [facility] Lymphocytes Relative 17.1 % LAB HEMETOLOGY METHOD 08/11/2024 1:15 PM EDT [facility] Monocytes Relative 11.2 % LAB HEMETOLOGY METHOD 08/11/2024 1:15 PM EDT [facility] Eosinophils Relative 3.5 % LAB HEMETOLOGY METHOD 08/11/2024 1:15 PM EDT [facility] Basophils Relative 0.5 % LAB HEMETOLOGY METHOD 08/11/2024 1:[address] [facility] Immature Granulocytes Relative 0.6 % LAB HEMETOLOGY METHOD 08/11/2024 1:[address] [facility] Neutrophils Absolute 6.74 1.50 - 7.00 K/mcL LAB HEMETOLOGY METHOD 08/11/2024 1:[address] [facility] Lymphocytes Absolute 1.72 1.00 - 5.00 K/mcL LAB HEMETOLOGY METHOD 08/11/2024 1:[address] [facility] Monocytes Absolute 1.13(H) 0.20 - 1.00 K/mcL LAB [facility] E[facility] Absolute 0.35 0.00 - 0.50 K/mcL LAB [facility]OLOGY [facility] Basophils Absolute 0.05 0.00 - 0.20 K/mcL LAB HEMETOLOGY METHOD 08/11/2024 1:[address] [facility] Immature Granulocytes Absolute 0.06(H) 0.00 - 0.03 K/mcL LAB HEMETOLOGY METHOD 08/11/2024 1:[address] [facility] Blood Venous blood specimen / Unknown Venipuncture / Unknown 08/11/2024 5:25 AM EDT 08/11/2024 11:25 AM EDT us Nilesh Adams MD LAB BLOOD ORDERABLES Final Res ult [facility] 299 [place] [address], [place] [phone] * (ABNORMAL) Comprehensive metabolic panel (08/11/2024 5:25 AM EDT) Sodium 139 133 - 145 mmol/L LAB CHEMISTRY METHOD 08/11/2024 3:[address] [facility] Potassium 4.5 3.5 - 5.5 mmol/L LAB CHEMISTRY METHOD 08/11/2024 3:[address] [facility] Chloride 105 96 - 110 mmol/L LAB CHEMISTRY METHOD 08/11/2024 3:[address] [facility] CO2 27 21 - 32 mmol/L LAB CHEMISTRY METHOD 08/11/2024 3:[address] [facility] Anion Gap 7 3 - 11 LAB CHEMISTRY METHOD 08/11/2024 3:[address] [facility] Glucose 91 70 - 100 mg/dL LAB CHEMISTRY METHOD 08/11/2024 3:[address] [facility] BUN 15 5 - 25 mg/dL LAB CHEMISTRY METHOD 08/11/2024 3:[address] [facility] Creatinine 0.60(L) 0.70 - 1.30 mg/dL LAB CHEMISTRY METHOD 08/11/2024 3:[address] [facility] eGFR 94 >=60 mL/min/1. 73m2 LAB CHEMISTRY METHOD 08/11/2024 3:[address] [facility] Comment:Calculation based on the Chronic Kidney Disease Epidemiology Collaboration (CKD-EPI) equation refit without adjustment for race. BUN/Creatinine Ratio 25.0 LAB CHEMISTRY METHOD 08/11/2024 3:12 PM T [facility] Calcium 9.1 8.5 - 10.5 mg/dL LAB CHEMISTRY METHOD 08/11/2024 3:12 PM T [facility] AST (SGOT) 45(H) 10 - 42 unit/L LAB CHEMISTRY METHOD 08/11/2024 3:[address] [facility] ALT (SGPT) 60 10 - 60 unit/L LAB CHEMISTRY METHOD 08/11/2024 3:12 PM T [facility] Alkaline Phosphatase 120 42 - 121 unit/L LAB CHEMISTRY METHOD 08/11/2024 3:[address] [facility] Total Protein 6.5 6.0 - 8.0 g/dL LAB CHEMISTRY METHOD 08/11/2024 3:[address] [facility] Albumin 3.1(L) 3.2 - 5.0 g/dL LAB CHEMISTRY METHOD 08/11/2024 3:[address] [facility] Total Bilirubin 0.4 0.0 - 1.4 mg/dL LAB CHEMISTRY METHOD 08/11/2024 3:[address] [facility] Blood Venous blood specimen / Unknown Venipuncture / Unknown 08/11/2024 5:25 AM EDT 08/11/2024 11:25 AM EDT us Nilesh Adams MD LAB BLOOD ORDERABLES Final Res ult [facility] [address] [place] [address], documented in this encounter Visit Diagnoses Diagnosis Encounter for other general examination documented in this encounter Care Teams Mass Communications Professor Relationship Specialty Start Date End Date Parrish Cabrera MD [address] [place] [id number] PCP - General 12/24/1998 documented as of this encounter
--- OUTSIDE RECORDS SUMMARY | 2025-01-05 20:02 | XMS_ITS | Encounter Summary ---
Author Organization [facility] Address [address] [place] [address] Care Team Providers Care Web Press Jogger Name Role Phone Parrish Cabrera MD Primary Care Provider Encounter Details Date Type Department Care Team (Late st Contact Info) Description 08/02/2024 Lab Requisition [facility] - Main Lab 299 [facility] [place] [address] Nilesh Adams MD [address] [place] [address] [phone] Encounter for other general examination Social History [...] PM EST Office Visit Orthopedic Surgery - [place] 250 175 [facility] [address] [place] [address] Dalton Rodriguez DPM 175 [facility] 250 [place] [address] 04/01/2025 1:00 PM EST Office Visit Adult Medicine [facility] 444 [place] [address] Parrish Cabrera MD 444 [place] [address] 04/14/2025 1:00 PM EST Appointment [facility] Ultrasound 271 [place] [phone] 05/20/2025 10:00 AM EST Office Visit Vascular Surgery - [place] [address] [place] [address] Zenaida Rose MD 230 [place] [address] documented as of this encounter Procedures Procedure [...] and culture (08/02/2024 4:00 AM EDT) Specific [place] Urine 1.025 1.003 - 1.030 LAB URINALYSIS - AUTOMATED METHOD 08/02/2024 11:47 AM EDT [facility] pH, Urine 5.5 5.0 - 8.0 pH LAB URINALYSIS - AUTOMATED METHOD 08/02/2024 11:47 AM EDT [facility] Leukocytes, Urine Negative Negative LAB URINALYSIS - AUTOMATED METHOD 08/02/2024 11:47 AM [facility] Nitrite, Urine Negative Negative LAB URINALYSIS - AUTOMATED METHOD 08/02/2024 11:47 AM [facility] Protein, Urine Trace <=Trace mg/dL LAB URINALYSIS - AUTOMATED METHOD 08/02/2024 11:47 AM [facility] Glucose, Urine Negative Negative mg/dL LAB URINALYSIS - AUTOMATED METHOD 08/02/2024 11:47 AM [facility] Ketones, Urine Trace(A) Negative mg/dL LAB URINALYSIS - AUTOMATED METHOD 08/02/2024 11:47 AM [facility] Urobilinogen, Urine 1.0 0.2 - 1.0 mg/dL LAB URINALYSIS - AUTOMATED METHOD 08/02/2024 11:47 AM [facility] Bilirubin, Urine Negative Negative LAB URINALYSIS - AUTOMATED METHOD 08/02/2024 11:47 AM [facility] Blood, Urine Negative Negative LAB URINALYSIS - AUTOMATED METHOD 08/02/2024 11:47 AM [facility] Urine Urine specimen obtained by clean catch procedure / Unknown Non-blood Collection / Unknown 08/02/2024 4:00 AM EDT 08/02/2024 11:03 AM EDT us Nilseh Adams MD LAB URINE ORDERABLES Final Res ult [facility] [address] [place] [address], * Montes urine culture tube (08/02/2024 4:00 AM EDT) Extra Tube Hold for add-ons. 08/02/2024 1:01 PM [facility] Comment:Auto resulted. Urine Urine specimen obtained by clean catch procedure / Unknown Non-blood Collection / Unknown 08/02/2024 4:00 AM EDT 08/02/2024 11:03 AM EDT us Nilesh Adams MD LAB URINE ORDERABLES Final Res ult [facility] [address] [place] [address], documented in this encounter Visit Diagnoses Diagnosis Encounter for other general examination documented in this encounter Care Teams Web Press Jogger Relationship Specialty Start Date End Date Parrish Cabrera MD [address] [place] [id number] PCP - General 12/24/1998 documented as of this encounter
--- OUTSIDE RECORDS SUMMARY | 2025-01-05 20:02 | XMS_ITS | Encounter Summary ---
Author Organization [facility] Address [address] [place] [address] Care Team Providers Care Pharmacy Student Name Role Phone Parrish Cabrera MD Primary Care Provider [phone] Encounter Details Date Type Department Care Team (Late st Contact Info) Description 08/01/2024 Lab Requisition [facility] - Main Lab 299 [facility] [place] [address] Nilesh Adams MD [address] [place] [address] [phone] Encounter for other general examination Social History [...] PM EST Office Visit Orthopedic Surgery - [place] 250 [address] [facility] [address] [place] [address] Dalton Rodriguez DPM 175 [facility] 250 [place] [address] 04/01/2025 1:00 PM EST Office Visit Adult Medicine [facility] 444 [place] [address] Parrish Cabrera MD 444 [place] [address] 04/14/2025 1:00 PM EST Appointment [facility] Ultrasound 271 [place] [address] 05/20/2025 10:00 AM EST Office Visit Vascular Surgery - [place] [address] [place] [address] Zenaida Rose MD 230 [place] [phone] documented as of this encounter Procedures Procedure [...] LAB HEMETOLOGY METHOD 08/01/2024 12:00 PM EDT [facility] ([facility]) [facility] Platelet Morphology - WAM See Note(A) Normal LAB HEMETOLOGY METHOD 08/01/2024 12:00 PM EDT [facility] Comment:PLT: Normal Blood Venous blood specimen / Unknown Venipuncture / Unknown 08/01/2024 6:47 AM EDT 08/01/2024 10:49 AM EDT us Nilesh Adams MD LAB BLOOD ORDERABLES Final Res ult [facility] [address] [place] [address], * (ABNORMAL) CBC auto differential (08/01/2024 6:47 AM EDT) WBC 12.5(H) 4.8 - 10.8 K/mcL LAB HEMETOLOGY METHOD 08/01/2024 12:00 PM EDT [facility] RBC 2.70(L) 4.50 - 5.50 M/mcL LAB HEMETOLOGY METHOD 08/01/2024 12:00 PM [facility] Hemoglobin 8.8(L) 13.5 - 17.5 g/dL LAB HEMETOLOGY METHOD 08/01/2024 12:00 PM [facility] Hematocrit 27.6(L) 42.0 - 54.0 % LAB HEMETOLOGY METHOD 08/01/2024 12:00 PM [facility] MCV 102.6(H) 79.0 - 98.0 FL LAB HEMETOLOGY METHOD 08/01/2024 12:00 PM [facility] MCH 32.7(H) 27.0 - 32.0 pcg LAB HEMETOLOGY METHOD 08/01/2024 12:00 PM [facility] MCHC 31.9(L) 32.0 - 37.0 g/dL LAB HEMETOLOGY METHOD 08/01/2024 12:00 PM [facility] RDW 13.4 11.0 - 15.0 % LAB HEMETOLOGY METHOD 08/01/2024 12:00 PM [facility] Platelets 189 130 - 400 K/mcL LAB HEMETOLOGY METHOD 08/01/2024 12:00 PM [facility] MPV 10.9 7.0 - 11.0 FL LAB HEMETOLOGY METHOD 08/01/2024 12:00 PM [facility] NRBC 0.0 <1.0 % LAB HEMETOLOGY METHOD 08/01/2024 12:00 PM [facility] NRBC Absolute 0.00 <0.10 K/mcL LAB HEMETOLOGY METHOD 08/01/2024 12:00 PM [facility] Neutrophils Relative 77.5 % LAB HEMETOLOGY METHOD 08/01/2024 12:00 PM [facility] Comment:This is an appended report. These results have been appended to a previously preliminary verified report. Lymphocytes Relative 7.7 % LAB HEMETOLOGY METHOD 08/01/2024 12:00 PM [facility] Comment:This is an appended report. These results have been appended to a previously preliminary verified report. Monocytes Relative 12.9 % LAB HEMETOLOGY METHOD 08/01/2024 12:00 PM [facility] Comment:This is an appended report. These results have been appended to a previously preliminary verified report. Eosinophils Relative 1.4 % LAB HEMETOLOGY METHOD 08/01/2024 12:00 PM T [facility] Comment:This is an appended report. These results have been appended to a previously preliminary verified report. Basophils Relative 0.2 % LAB HEMETOLOGY METHOD 08/01/2024 12:00 PM [facility] Comment:This is an appended report. These results have been appended to a previously preliminary verified report. Immature Granulocytes Relative 0.3 % LAB HEMETOLOGY METHOD 08/01/2024 12:00 PM [facility] Comment:This is an appended report. These results have been appended to a previously preliminary verified report. Neutrophils Absolute 9.71(H) 1.50 - 7.00 K/mcL LAB HEMETOLOGY METHOD 08/01/2024 12:00 PM [facility] Comment:This is an appended report. These results have been appended to a previously preliminary verified report. Lymphocytes Absolute 0.97(L) 1.00 - 5.00 K/mcL LAB HEMETOLOGY METHOD 08/01/2024 12:00 PM [facility] Comment:This is an appended report. These results have been appended to a previously preliminary verified report. Monocytes Absolute 1.62(H) 0.20 - 1.00 K/mcL LAB HEMETOLOGY METHOD 08/01/2024 12:00 PM [facility] Comment:This is an appended report. These results have been appended to a previously preliminary verified report. Eosinophils Absolute 0.18 0.00 - 0.50 K/mcL LAB HEMETOLOGY METHOD 08/01/2024 12:00 PM [facility] Comment:This is an appended report. These results have been appended to a previously preliminary verified report. Basophils Absolute 0.02 0.00 - 0.20 K/mcL LAB HEMETOLOGY METHOD 08/01/2024 12:00 PM [facility] Comment:This is an appended report. These results have been appended to a previously preliminary verified report. Immature Granulocytes Absolute 0.04(H) 0.00 - 0.03 K/mcL LAB HEMETOLOGY METHOD 08/01/2024 12:00 PM [facility] Comment:This is an appended report. These results have been appended to a previously preliminary verified report. Blood Venous blood specimen / Unknown Venipuncture / Unknown 08/01/2024 6:47 AM EDT 08/01/2024 10:49 AM EDT us Nilesh Adams MD LAB BLOOD ORDERABLES Final Res ult [facility] [address] [place] [address], [place] [phone] * Magnesium (08/01/2024 6:47 AM EDT) Pathologist [facility] Magnesium 2.1 1.9 - 2.6 mg/dL LAB CHEMISTRY METHOD 08/01/2024 12:20 PM EDT [facility] Blood Venous blood specimen / Unknown Venipuncture / Unknown 08/01/2024 6:47 AM EDT 08/01/2024 10:49 AM EDT us Nilesh Adams MD LAB BLOOD ORDERABLES Final Res ult Performing Organization Address City/[facility]/ZIP Co de Phone Number [facility] [address] [place] [address], [place] [phone] * (ABNORMAL) Comprehensive metabolic panel (08/01/2024 6:47 AM EDT) [facility] Sodium 136 133 - 145 mmol/L LAB CHEMISTRY METHOD 08/01/2024 12:20 PM EDT [facility] Potassium 4.2 3.5 - 5.5 mmol/L LAB CHEMISTRY METHOD 08/01/2024 12:20 PM EDT [facility] Chloride 103 96 - 110 mmol/L LAB CHEMISTRY METHOD 08/01/2024 12:20 PM EDT [facility] CO2 25 21 - 32 mmol/L LAB CHEMISTRY METHOD 08/01/2024 12:20 PM EDT [facility] Anion Gap 8 3 - 11 LAB CHEMISTRY METHOD 08/01/2024 12:20 PM EDT [facility] Glucose 132(H) 70 - 100 mg/dL LAB CHEMISTRY METHOD 08/01/2024 12:20 PM EDT [facility] BUN 33(H) 5 - 25 mg/dL LAB CHEMISTRY METHOD 08/01/2024 12:20 PM [facility] Creatinine 0.96 0.70 - 1.30 mg/dL LAB CHEMISTRY METHOD 08/01/2024 12:20 PM [facility] eGFR 77 >=60 mL/min/1. 73m2 LAB CHEMISTRY METHOD 08/01/2024 12:20 PM [facility] Comment:Calculation based on the Chronic Kidney Disease Epidemiology Collaboration (CKD-EPI) equation refit without adjustment for race. BUN/Creatinine Ratio 34.4 LAB CHEMISTRY METHOD 08/01/2024 12:20 PM [facility] Calcium 8.9 8.5 - 10.5 mg/dL LAB CHEMISTRY METHOD 08/01/2024 12:20 PM [facility] AST (SGOT) 53(H) 10 - 42 unit/L LAB CHEMISTRY METHOD 08/01/2024 12:20 PM [facility] ALT (SGPT) 27 10 - 60 unit/L LAB CHEMISTRY METHOD 08/01/2024 12:20 PM [facility] Alkaline Phosphatase 81 42 - 121 unit/L LAB CHEMISTRY METHOD 08/01/2024 12:20 PM [facility] Total Protein 5.9(L) 6.0 - 8.0 g/dL LAB CHEMISTRY METHOD 08/01/2024 12:20 PM [facility] Albumin 2.9(L) 3.2 - 5.0 g/dL LAB CHEMISTRY METHOD 08/01/2024 12:20 PM [facility] Total Bilirubin 0.7 0.0 - 1.4 mg/dL LAB CHEMISTRY METHOD 08/01/2024 12:20 PM [facility] Blood Venous blood specimen / Unknown Venipuncture / Unknown 08/01/2024 6:47 AM EDT 08/01/2024 10:49 AM EDT us Nilesh Adams MD LAB BLOOD ORDERABLES Final Res ult [facility] ([facility]) [facility] [address] [place] [address], documented in this encounter Visit Diagnoses Diagnosis Encounter for other general examination documented in this encounter Care Teams Pharmacy Student Relationship Specialty Start Date End Date Parrish Cabrera MD 4 [place] [address] PCP - General 12/24/1998 documented as of this encounter
--- OUTSIDE RECORDS SUMMARY | 2025-01-05 20:02 | XMS_ITS | Encounter Summary ---
Author Organization [facility] Address [address] [place] [address] Care Team Providers Care Pyrometer Mechanic Name Role Phone Parrish Cabrera MD Primary Care Provider Encounter Details Date Type Department Care Team (Late st Contact Info) Description 08/06/2024 Lab Requisition [facility] - Main Lab [address] [facility] [place] [address] Nilesh Adams MD [address] [place] [address] [phone] Encounter for other general examination Social History [...] PM EST Office Visit Orthopedic Surgery - [place] [address] [facility] [address] [place] [address] Dalton Rodriguez DPM 175 [facility] [address] [place] [address] 04/01/2025 1:00 PM EST Office Visit Adult Medicine [facility] [address] [place] [address] Parrish Cabrera MD [address] [place] [address] 04/14/2025 1:00 PM EST Appointment [facility] Ultrasound [address] [place] [phone] 05/20/2025 10:00 AM EST Office Visit Vascular Surgery - [place] [address] [place] [address] Zenaida Rose MD [address] [place] [address] documented as of this encounter Procedures Procedure [...] CBC auto differential (08/06/2024 6:12 AM EDT) [facility] WBC 8.1 4.8 - 10.8 K/mcL LAB HEMETOLOGY METHOD 08/06/2024 11:04 AM EDT [facility] LAB RBC 2.60(L) 4.50 - 5.50 M/mcL LAB HEMETOLOGY METHOD 08/06/2024 11:04 AM EDT [facility] LAB Hemoglobin 8.4(L) 13.5 - 17.5 g/dL LAB HEMETOLOGY METHOD 08/06/2024 11:04 AM [facility] LAB Hematocrit 26.6(L) 42.0 - 54.0 % LAB HEMETOLOGY METHOD 08/06/2024 11:04 AM [facility] LAB MCV 102.3(H) 79.0 - 98.0 FL LAB HEMETOLOGY METHOD 08/06/2024 11:04 AM [facility] LAB MCH 32.3(H) 27.0 - 32.0 pcg LAB HEMETOLOGY METHOD 08/06/2024 11:04 AM [facility] LAB MCHC 31.6(L) 32.0 - 37.0 g/dL LAB HEMETOLOGY METHOD 08/06/2024 11:04 AM [facility] LAB RDW 13.2 11.0 - 15.0 % LAB HEMETOLOGY METHOD 08/06/2024 11:04 AM [facility] Platelets 348 130 - 400 K/mcL LAB HEMETOLOGY METHOD 08/06/2024 11:04 AM [facility] LAB MPV 9.9 7.0 - 11.0 FL LAB HEMETOLOGY METHOD 08/06/2024 11:04 AM [facility] NRBC 0.0 <1.0 % LAB HEMETOLOGY METHOD 08/06/2024 11:04 AM [facility] NRBC Absolute 0.00 <0.10 K/mcL LAB HEMETOLOGY METHOD 08/06/2024 11:04 AM [facility] Neutrophils Relative 67.9 % LAB HEMETOLOGY METHOD 08/06/2024 11:04 AM [facility] Lymphocytes Relative 14.1 % LAB HEMETOLOGY METHOD 08/06/2024 11:04 AM [facility] Monocytes Relative 14.3 % LAB HEMETOLOGY METHOD 08/06/2024 11:04 AM [facility] Eosinophils Relative 2.2 % LAB HEMETOLOGY METHOD 08/06/2024 11:04 AM EDT [facility] Basophils Relative 0.6 % LAB HEMETOLOGY METHOD 08/06/2024 11:04 AM EDT [facility] Immature Granulocytes Relative 0.9 % LAB HEMETOLOGY METHOD 08/06/2024 11:04 AM EDT [facility] LAB Neutrophils Absolute 5.53 1.50 - 7.00 K/mcL LAB HEMETOLOGY METHOD 08/06/2024 11:04 AM EDT [facility] Lymphocytes Absolute 1.15 1.00 - 5.00 K/mcL LAB HEMETOLOGY METHOD 08/06/2024 11:04 AM EDT [facility] Monocytes Absolute 1.16(H) 0.20 - 1.00 K/mcL LAB HEMETOLOGY METHOD 08/06/2024 11:04 AM EDT [facility] Eosinophils Absolute 0.18 0.00 - 0.50 K/mcL LAB HEMETOLOGY METHOD 08/06/2024 11:04 AM EDT [facility] Basophils Absolute 0.05 0.00 - 0.20 K/mcL LAB HEMETOLOGY METHOD 08/06/2024 11:04 AM EDT [facility] LAB Immature Granulocytes Absolute 0.07(H) 0.00 - 0.03 K/mcL LAB HEMETOLOGY METHOD 08/06/2024 11:04 AM EDT [facility] Blood Venous blood specimen / Unknown Venipuncture / Unknown 08/06/2024 6:12 AM EDT 08/06/2024 10:00 AM EDT us Nilesh Adams MD LAB BLOOD ORDERABLES Final Res ult [facility] [address] [place] [address], * (ABNORMAL) Comprehensive metabolic panel (08/06/2024 6:12 AM EDT) [facility] Signature Sodium 135 133 - 145 mmol/L LAB CHEMISTRY METHOD 08/06/2024 11:52 AM [facility] Potassium 4.1 3.5 - 5.5 mmol/L LAB CHEMISTRY METHOD 08/06/2024 11:52 AM [facility] Chloride 102 96 - 110 mmol/L LAB CHEMISTRY METHOD 08/06/2024 11:52 AM [facility] CO2 25 21 - 32 mmol/L LAB CHEMISTRY METHOD 08/06/2024 11:52 AM [facility] Anion Gap 8 3 - 11 LAB CHEMISTRY METHOD 08/06/2024 11:52 AM [facility] Glucose 144(H) 70 - 100 mg/dL LAB CHEMISTRY METHOD 08/06/2024 11:52 AM [facility] BUN 11 5 - 25 mg/dL LAB CHEMISTRY METHOD 08/06/2024 11:52 AM [facility] Creatinine 0.66(L) 0.70 - 1.30 mg/dL LAB CHEMISTRY METHOD 08/06/2024 11:52 AM [facility] LAB eGFR 91 >=60 mL/min/1. 73m2 LAB CHEMISTRY METHOD 08/06/2024 11:52 AM [facility] LAB Comment:Calculation based on the Chronic Kidney Disease Epidemiology Collaboration (CKD-EPI) equation refit without adjustment for race. BUN/Creatinine Ratio 16.7 LAB CHEMISTRY METHOD 08/06/2024 11:52 AM [facility] Calcium 8.7 8.5 - 10.5 mg/dL LAB CHEMISTRY METHOD 08/06/2024 11:52 AM [facility] AST (SGOT) 46(H) 10 - 42 unit/L LAB CHEMISTRY METHOD 08/06/2024 11:52 AM [facility] ALT (SGPT) 50 10 - 60 unit/L LAB CHEMISTRY METHOD 08/06/2024 11:52 AM EDT [facility] Alkaline Phosphatase 100 42 - 121 unit/L LAB CHEMISTRY METHOD 08/06/2024 11:52 AM T [facility] Total Protein 5.9(L) 6.0 - 8.0 g/dL LAB CHEMISTRY METHOD 08/06/2024 11:52 AM T [facility] Albumin 2.8(L) 3.2 - 5.0 g/dL LAB CHEMISTRY METHOD 08/06/2024 11:52 AM [facility] Total Bilirubin 0.5 0.0 - 1.4 mg/dL LAB CHEMISTRY METHOD 08/06/2024 11:52 AM [facility] Blood Venous blood specimen / Unknown Venipuncture / Unknown 08/06/2024 6:12 AM EDT 08/06/2024 10:00 AM EDT us Nilesh Adams MD LAB BLOOD ORDERABLES Final Res ult [facility] [address] [place] [address], documented in this encounter Visit Diagnoses Diagnosis Encounter for other general examination documented in this encounter Care Teams Pyrometer Mechanic Relationship Specialty Start Date End Date Parrish Cabrera MD [address] [place] [address] PCP - General 12/24/1998 documented as of this encounter
--- OUTSIDE RECORDS SUMMARY | 2025-01-05 20:02 | XMS_ITS | Encounter Summary ---
Author Organization [facility] Address [address] [place] [address] Care Team Providers Care Structural Steel Trades Worker Name Role Phone Parrish Cabrera MD Primary Care Provider [phone] Encounter Details Date Type Department Care Team (Late st Contact Info) Description 08/02/2024 Lab Requisition [facility] - Main Lab [address] [facility] [place] [address] Nilesh Adams MD [address] [place] [address] [phone] Encounter for other general examination Social History [...] PM EST Office Visit Orthopedic Surgery - [place] [address] [facility] [address] [place] [address] Dalton Rodriguez DPM 175 [facility] 250 [place] [address] 04/01/2025 1:00 PM EST Office Visit Adult Medicine [facility] [address] [place] [address] Parrish Cabrera MD [address] [place] [address] 04/14/2025 1:00 PM EST Appointment [facility] Ultrasound [address] [place] [address] 05/20/2025 10:00 AM EST Office Visit Vascular Surgery - [place] [address] [place] [address] Zenaida Rose MD [address] [place] [address] documented as of this encounter Procedures Procedure [...] at 5 days 08/07/2024 6:02 PM EDT [facility] Blood 08/02/2024 2:45 PM EDT 08/02/2024 5:03 PM EDT us Nilesh Adams MD LAB MICROBIOLOGY - GENERAL ORD ERABLES Final Result [facility] [address] [place] [address], [place] [phone] * (ABNORMAL) CBC auto differential (08/02/2024 2:40 PM EDT) Pathologist [facility] WBC 7.4 4.8 - 10.8 K/mcL LAB HEMETOLOGY METHOD 08/02/2024 5:16 PM EDT [facility] RBC 2.50(L) 4.50 - 5.50 M/mcL LAB HEMETOLOGY METHOD 08/02/2024 5:16 PM EDT [facility] Hemoglobin 8.2(L) 13.5 - 17.5 g/dL LAB HEMETOLOGY METHOD 08/02/2024 5:16 PM EDT [facility] LAB Hematocrit 25.1(L) 42.0 - 54.0 % LAB HEMETOLOGY METHOD 08/02/2024 5:16 PM EDT [facility] LAB MCV 99.6(H) 79.0 - 98.0 FL LAB HEMETOLOGY METHOD 08/02/2024 5:16 PM EDT [facility] LAB MCH 32.5(H) 27.0 - 32.0 pcg LAB HEMETOLOGY METHOD 08/02/2024 5:16 PM EDT [facility] LAB MCHC 32.7 32.0 - 37.0 g/dL LAB HEMETOLOGY METHOD 08/02/2024 5:16 PM EDT [facility] LAB RDW 13.3 11.0 - 15.0 % LAB HEMETOLOGY METHOD 08/02/2024 5:16 PM EDT [facility] LAB Platelets 235 130 - 400 K/mcL LAB HEMETOLOGY METHOD 08/02/2024 5:16 PM [facility] LAB MPV 10.4 7.0 - 11.0 FL LAB HEMETOLOGY METHOD 08/02/2024 5:16 PM [facility] NRBC 0.0 <1.0 % LAB HEMETOLOGY METHOD 08/02/2024 5:16 PM [facility] NRBC Absolute 0.00 <0.10 K/mcL LAB HEMETOLOGY METHOD 08/02/2024 5:16 PM [facility] Neutrophils Relative 76.2 % LAB HEMETOLOGY METHOD 08/02/2024 5:16 PM [facility] Lymphocytes Relative 10.8 % LAB HEMETOLOGY METHOD 08/02/2024 5:16 PM [facility] Monocytes Relative 9.9 % LAB HEMETOLOGY METHOD 08/02/2024 5:16 PM [facility] Eosinophils Relative 2.4 % LAB HEMETOLOGY METHOD 08/02/2024 5:16 PM [facility] Basophils Relative 0.3 % LAB HEMETOLOGY METHOD 08/02/2024 5:16 PM [facility] Immature Granulocytes Relative 0.4 % LAB HEMETOLOGY METHOD 08/02/2024 5:16 PM [facility] Neutrophils Absolute 5.67 1.50 - 7.00 K/mcL LAB HEMETOLOGY METHOD 08/02/2024 5:16 PM [facility] Lymphocytes Absolute 0.80(L) 1.00 - 5.00 K/mcL LAB HEMETOLOGY METHOD 08/02/2024 5:16 PM [facility] Monocytes Absolute 0.74 0.20 - 1.00 K/mcL LAB HEMETOLOGY METHOD 08/02/2024 5:16 PM [facility] Eosinophils Absolute 0.18 0.00 - 0.50 K/mcL LAB HEMETOLOGY METHOD 08/02/2024 5:16 PM EDT [facility] LAB Basophils Absolute 0.02 0.00 - 0.20 K/mcL LAB HEMETOLOGY METHOD 08/02/2024 5:16 PM EDT [facility] LAB Immature Granulocytes Absolute 0.03 0.00 - 0.03 K/[facility] LAB HEMETOLOGY METHOD 08/02/2024 5:16 PM EDT [facility] LAB Blood Venous blood specimen / Unknown 08/02/2024 2:40 PM EDT 08/02/2024 5:03 PM EDT Nilesh Adams MD LAB BLOOD ORDERABLES Final Res ult Performing Organization Address [facility]/ZIP Co de Phone Number [facility] [address] [place] [address], [place] [phone] * Culture blood (08/02/2024 2:40 PM EDT) [facility] Culture, Blood No growth at 5 days 08/07/2024 6:02 PM EDT [facility] Blood Venipuncture / Unknown 08/02/2024 2:40 PM EDT 08/02/2024 5:03 PM EDT us Nilesh Adams MD LAB MICROBIOLOGY - GENERAL ORD ERABLES Final Result Performing Organization Address City/[facility]/ZIP Co de Phone Number [facility] [address] [place] [address], [place] [phone] * (ABNORMAL) Comprehensive metabolic panel (08/02/2024 2:40 PM EDT) Sodium 138 133 - 145 mmol/L LAB CHEMISTRY METHOD 08/02/2024 5:43 PM EDT [facility] Potassium 4.4 3.5 - 5.5 mmol/L LAB CHEMISTRY METHOD 08/02/2024 5:43 PM EDT [facility] Chloride 105 96 - 110 mmol/L LAB CHEMISTRY METHOD 08/02/2024 5:43 PM [facility] CO2 27 21 - 32 mmol/L LAB CHEMISTRY METHOD 08/02/2024 5:43 PM [facility] Anion Gap 6 3 - 11 LAB CHEMISTRY METHOD 08/02/2024 5:43 PM [facility] Glucose 153(H) 70 - 100 mg/dL LAB CHEMISTRY METHOD 08/02/2024 5:43 PM [facility] BUN 41(H) 5 - 25 mg/dL LAB CHEMISTRY METHOD 08/02/2024 5:43 PM [facility] Creatinine 0.69(L) 0.70 - 1.30 mg/dL LAB CHEMISTRY METHOD 08/02/2024 5:43 PM [facility] LAB eGFR 90 >=60 mL/min/1. 73m2 LAB CHEMISTRY METHOD 08/02/2024 5:43 PM [facility] LAB Comment:Calculation based on the Chronic Kidney Disease Epidemiology Collaboration (CKD-EPI) equation refit without adjustment for race. BUN/Creatinine Ratio 59.4 LAB CHEMISTRY METHOD 08/02/2024 5:43 PM [facility] Calcium 9.1 8.5 - 10.5 mg/dL LAB CHEMISTRY METHOD 08/02/2024 5:43 PM [facility] AST (SGOT) 46(H) 10 - 42 unit/L LAB CHEMISTRY METHOD 08/02/2024 5:43 PM [facility] ALT (SGPT) 33 10 - 60 unit/L LAB CHEMISTRY METHOD 08/02/2024 5:43 PM [facility] Alkaline Phosphatase 83 42 - 121 unit/L LAB CHEMISTRY METHOD 08/02/2024 5:43 PM [facility] Total Protein 5.6(L) 6.0 - 8.0 g/dL LAB CHEMISTRY METHOD 08/02/2024 5:43 PM EDT [facility] Albumin 2.7(L) 3.2 - 5.0 g/dL LAB CHEMISTRY METHOD 08/02/2024 5:43 PM EDT [facility] Total Bilirubin 0.5 0.0 - 1.4 mg/dL LAB CHEMISTRY METHOD 08/02/2024 5:43 PM EDT [facility] Blood Venous blood specimen / Unknown Venipuncture / Unknown 08/02/2024 2:40 PM EDT 08/02/2024 5:03 PM EDT us Nilesh Adams MD LAB BLOOD ORDERABLES Final Res ult [facility] [address] [place] [address], documented in this encounter Visit Diagnoses Diagnosis Encounter for other general examination documented in this encounter Care Teams Structural Steel Trades Worker Relationship Specialty Start Date End Date Parrish Cabrera MD [address] [place] [address] PCP - General 12/24/1998 documented as of this encounter
== END 2025-01-05 16:31 | disposition home or self-care (01) ==
PROVIDERS: PCP Internal Medicine; Visit Provider Nurse Practitioner Family
DX: Z13.9 Encounter for screening, unspecified (principal); M96.1 Postlaminectomy syndrome, not elsewhere classified

== ENCOUNTER → 2025-01-05 14:36 | Outpatient (BNVA) | payer MEDICARE, BC, SELFPAY | PROVIDERS: PCP Internal Medicine; Visit Provider Nurse Practitioner Family | DX: M96.1 Postlaminectomy syndrome, not elsewhere classified (principal) | CPT/HCPCS: 81003; 99212 ==

== ENCOUNTER 2025-02-18 16:08 | Outpatient (AMB) | payer MEDICARE, BC, SELFPAY ==
[2025-02-18 16:12] VITALS: BP 152/76; PULSE 98; TEMP 36.5; O2SAT 98; BMI 23.6
--- NOTE | 2025-02-18 16:12 | AM.OFFWIN_ITS ---
Intake Vital Signs 02/18/25 16:12 Height 5 ft 6 in Weight 146 lb BMI 23.6 BP 152/76 H Blood Pressure Location Lt brachial Position Sitting Pulse 98 Pulse Source Pulse Oximeter Temp 97.7 F Temp Source Oral Pulse Oximetry (%) 98 Oxygen Delivery Method Room Air Intake Visit Reasons: EP-piece hearing aid inside rt ear Patient Tobacco Use Status: Former Tobacco user Allergies No Known Allergies Allergy (Verified 02/18/25 16:14) Do you need a note to return to daycare/school/sports/work: No HPI HPI Comments History of Present Illness Details History - The patient is an 85-year-old male pre senting with a foreign body in the ear canal. - The foreign body, a piece of a hearing aid, was lodged in the ear canal since the previous night. - The patient attempted to remove it wit h a fingernail but was unsuccessful due to its depth. - A previous examination by another robbin vidual indicated the foreign body was too deep to be removed without special tools. - The patient has a history of cerumen i mpaction, with the right ear being more affected than the left. - The patient manages earwax by flushing with water during showers, which has been effective over the years. Review of Systems - Ears: Reports presence of foreign body in the ear canal. Denies pain or irritation. All systems reviewed and are unremarkable except as noted in HPI Physical Exam General: Cooperative, healthy appearing, comfortable, no acute distress and well developed Orientation: Patient oriented x3 Limitations: No limitations Head: Normal to inspection Ears: External ears normal bilaterally, EAC with tip/piece of hearing aid in canal Face and sinus: Normal facial exam Neck: Normal visual inspection and Yes full ROM Respiratory: Normal respiratory effort and able to speak in complete sentences. Skin: No rashes or lesions noted Neuro: Patient oriented x3 Extremities: normal to inspection [facility] Medical History (Updated 02/18/25 @ 16:24 by Bella Cummings PA-C) Memory deficit Spinal cord stimulator status HLD (hyperlipidemia) BPH (benign prostatic hyperplasia) Meningioma Lumbar spinal stenosis Arthritis CAROLINA (obstructive sleep apnea) PLMD (periodic limb movement disorder) Subclinical hypothyroidism Diabetes MARIE (iron deficiency anemia) Surgical History History of lumbar fusion Social History Are you a primary home care administrator to a significant other at home: No Do you presently have visiting nurse or other home services: No Comment: medicated at 1640 with Tylenol and Oxycodone Patient Tobacco Use Status: Former Tobacco user Tobacco use type: Cigarette Physical Exam Vital Signs: Last Vital Signs Temp 97.7 F 02/18/25 16:12 Pulse 98 02/18/25 16:12 BP 152/76 H 02/18/25 16:12 Pulse Ox 98 02/18/25 16:12 Oxygen Delivery Method Room Air 02/18/25 16:12 BMI result Body Mass Index 23.6 Office Procedures AMB Foreign Body Removal Details: tip of hearing aid successfully removed with alligator clamps Foreign Body Removal, External Auditory Canal: 67784 - Foreign body removal, external auditory canal Procedure code (CPT) selection complete Assessment & Plan Assessment & Plan (1) Acute foreign body of ear canal: Code(s): T16.9XXA - Foreign body in ear, unspecified ear, initial encounter Qualifiers: Encounter type: initial encounter Laterality: right Qualified Code(s): T16.1XXA - Foreign body in right ear, initial encounter Plan: Plan - Successfully removed the foreign body from the ear canal using appropriate tools. - Advised the use of Debrox drops to manage cerumen impaction, facilitating easier removal of earwax. Patient was informed and verbally consented to the use of an ambient scribe for clinic note documentation during this visit. Orders: Orders AMB Removal of foreign body Today T16.1XXA - Foreign body in right ear, initial encounter Coding Level of Care Code New Pt Level 3 (59535) Diagnoses Acute foreign body of right ear canal, initial encounter T16.1XXA Encounter type: initial encounter Laterality: right CPT Codes Details - Foreign body removal, external auditory canal: 41855 - Foreign body removal, external auditory canal ([id number])
--- OUTSIDE RECORDS SUMMARY | 2025-02-18 20:09 | XMS_ITS | Encounter Summary ---
Author Organization [facility] Address [address] [place] [address] Care Team Providers Care Student Assistance Counselor Name Role Phone Parrish Cabrera MD Primary Care Provider [phone] Encounter Details Date Type Department Care Team (Late Contact Info) Description 08/01/[address] [facility] - Main Lab [address] [facility] [place] [address] Nilesh Adams MD [address] [place] [address] [phone] Encounter for other general examination Social History [...] PM EST Office Visit Orthopedic Surgery - [place] [address] [facility] [address] [place] [address] Dalton Rodriguez DPM [address] [place] [phone] 04/01/2025 1:00 PM EST Office Visit [place] [facility] [address] [place] [address] Parrish Cabrera MD [address] [place] [address] 04/14/2025 1:[address] [facility] Ultrasound [address] [place] [phone] 05/20/2025 10:00 AM EST Office Visit Vascular Surgery - [place] [address] [place] [address] Zenaida Rose MD [address] [place] [phone] documented as of this encounter Procedures Procedure [...] with indices Consistent with indices, Normal for Line [place] LAB HEMETOLOGY METHOD 08/01/2024 12:00 PM EDT [facility] Platelet Morphology - WAM See Note(A) Normal LAB HEMETOLOGY METHOD 08/01/2024 12:00 PM EDT [facility] Comment:PLT: Normal Blood Venous blood specimen / Unknown Venipuncture / Unknown 08/01/2024 6:47 AM EDT 08/01/2024 10:49 AM EDT us Nilesh Adams MD LAB BLOOD ORDERABLES Final Res ult [facility] [address] [place] [address], * (ABNORMAL) CBC auto differential (08/01/2024 6:47 AM EDT) WBC 12.5(H) 4.8 - 10.8 K/mcL LAB HEMETOLOGY METHOD 08/01/2024 12:00 PM EDT [facility] RBC 2.70(L) 4.50 - 5.50 M/mcL LAB HEMETOLOGY METHOD 08/01/2024 12:00 PM [facility] Hemoglobin 8.8(L) 13.5 - 17.5 g/dL LAB HEMETOLOGY METHOD 08/01/2024 12:00 PM [facility] Hematocrit 27.6(L) 42.0 - 54.0 % LAB HEMETOLOGY METHOD 08/01/2024 12:00 PM [facility] MCV 102.6(H) 79.0 - 98.0 FL LAB HEMETOLOGY METHOD 08/01/2024 12:00 PM [facility] MCH 32.7(H) 27.0 - 32.0 pcg LAB HEMETOLOGY METHOD 08/01/2024 12:00 PM [facility] MCHC 31.9(L) 32.0 - 37.0 g/dL LAB HEMETOLOGY METHOD 08/01/2024 12:00 PM [facility] RDW 13.4 11.0 - 15.0 % LAB HEMETOLOGY METHOD 08/01/2024 12:00 PM [facility] Platelets 189 130 - 400 K/mcL LAB HEMETOLOGY METHOD 08/01/2024 12:00 PM [facility] MPV 10.9 7.0 - 11.0 FL LAB HEMETOLOGY METHOD 08/01/2024 12:00 PM [facility] NRBC 0.0 <1.0 % LAB HEMETOLOGY METHOD 08/01/2024 12:00 PM [facility] NRBC Absolute 0.00 <0.10 K/mcL LAB HEMETOLOGY METHOD 08/01/2024 12:00 PM [facility] Neutrophils Relative 77.5 % LAB HEMETOLOGY METHOD 08/01/2024 12:00 PM [facility] Comment:This is an appended report. These results have been appended to a previously preliminary verified report. Lymphocytes Relative 7.7 % LAB HEMETOLOGY METHOD 08/01/2024 12:00 PM [facility] Comment:This is an appended report. These results have been appended to a previously preliminary verified report. Monocytes Relative 12.9 % LAB HEMETOLOGY METHOD 08/01/2024 12:00 PM [facility] Comment:This is an appended report. These results have been appended to a previously preliminary verified report. Eosinophils Relative 1.4 % LAB HEMETOLOGY METHOD 08/01/2024 12:00 PM T [facility] Comment:This is an appended report. These results have been appended to a previously preliminary verified report. Basophils Relative 0.2 % LAB HEMETOLOGY METHOD 08/01/2024 12:00 PM [facility] Comment:This is an appended report. These results have been appended to a previously preliminary verified report. Immature Granulocytes Relative 0.3 % LAB HEMETOLOGY METHOD 08/01/2024 12:00 PM [facility] Comment:This is an appended report. These results have been appended to a previously preliminary verified report. Neutrophils Absolute 9.71(H) 1.50 - 7.00 K/mcL LAB HEMETOLOGY METHOD 08/01/2024 12:00 PM [facility] Comment:This is an appended report. These results have been appended to a previously preliminary verified report. Lymphocytes Absolute 0.97(L) 1.00 - 5.00 K/mcL LAB HEMETOLOGY METHOD 08/01/2024 12:00 PM [facility] Comment:This is an appended report. These results have been appended to a previously preliminary verified report. Monocytes Absolute 1.62(H) 0.20 - 1.00 K/mcL LAB HEMETOLOGY METHOD 08/01/2024 12:00 PM [facility] Comment:This is an appended report. These results have been appended to a previously preliminary verified report. Eosinophils Absolute 0.18 0.00 - 0.50 K/mcL LAB HEMETOLOGY METHOD 08/01/2024 12:00 PM [facility] Comment:This is an appended report. These results have been appended to a previously preliminary verified report. Basophils Absolute 0.02 0.00 - 0.20 K/mcL LAB HEMETOLOGY METHOD 08/01/2024 12:00 PM [facility] Comment:This is an appended report. These results have been appended to a previously preliminary verified report. Immature Granulocytes Absolute 0.04(H) 0.00 - 0.03 K/mcL LAB HEMETOLOGY METHOD 08/01/2024 12:00 PM [facility] Comment:This is an appended report. These results have been appended to a previously preliminary verified report. Blood Venous blood specimen / Unknown Venipuncture / Unknown 08/01/2024 6:47 AM EDT 08/01/2024 10:49 AM EDT us Nilesh Adams MD LAB BLOOD ORDERABLES Final Res ult [facility] [address] [place] [address], [place] [phone] * Magnesium (08/01/2024 6:47 AM EDT) Pathologist [facility] Magnesium 2.1 1.9 - 2.6 mg/dL LAB CHEMISTRY METHOD 08/01/2024 12:20 PM EDT [facility] Blood Venous blood specimen / Unknown Venipuncture / Unknown 08/01/2024 6:47 AM EDT 08/01/2024 10:49 AM EDT us Nilesh Adams MD LAB BLOOD ORDERABLES Final Res ult Performing Organization Address City/[facility]/ZIP Co de Phone Number [facility] [address] [place] [address], [place] [phone] * (ABNORMAL) Comprehensive metabolic panel (08/01/2024 6:47 AM EDT) [facility] Sodium 136 133 - 145 mmol/L LAB CHEMISTRY METHOD 08/01/2024 12:20 PM EDT [facility] Potassium 4.2 3.5 - 5.5 mmol/L LAB CHEMISTRY METHOD 08/01/2024 12:20 PM EDT [facility] Chloride 103 96 - 110 mmol/L LAB CHEMISTRY METHOD 08/01/2024 12:20 PM EDT [facility] CO2 25 21 - 32 mmol/L LAB CHEMISTRY METHOD 08/01/2024 12:20 PM EDT [facility] Anion Gap 8 3 - 11 LAB CHEMISTRY METHOD 08/01/2024 12:20 PM EDT [facility] Glucose 132(H) 70 - 100 mg/dL LAB CHEMISTRY METHOD 08/01/2024 12:20 PM EDT [facility] BUN 33(H) 5 - 25 mg/dL LAB CHEMISTRY METHOD 08/01/2024 12:20 PM [facility] Creatinine 0.96 0.70 - 1.30 mg/dL LAB CHEMISTRY METHOD 08/01/2024 12:20 PM [facility] eGFR 77 >=60 mL/min/1. 73m2 LAB CHEMISTRY METHOD 08/01/2024 12:20 PM [facility] Comment:Calculation based on the Chronic Kidney Disease Epidemiology Collaboration (CKD-EPI) equation refit without adjustment for race. BUN/Creatinine Ratio 34.4 LAB CHEMISTRY METHOD 08/01/2024 12:20 PM [facility] Calcium 8.9 8.5 - 10.5 mg/dL LAB CHEMISTRY METHOD 08/01/2024 12:20 PM [facility] AST (SGOT) 53(H) 10 - 42 unit/L LAB CHEMISTRY METHOD 08/01/2024 12:20 PM [facility] ALT (SGPT) 27 10 - 60 unit/L LAB CHEMISTRY METHOD 08/01/2024 12:20 PM [facility] Alkaline Phosphatase 81 42 - 121 unit/L LAB CHEMISTRY METHOD 08/01/2024 12:20 PM [facility] Total Protein 5.9(L) 6.0 - 8.0 g/dL LAB CHEMISTRY METHOD 08/01/2024 12:20 PM [facility] Albumin 2.9(L) 3.2 - 5.0 g/dL LAB CHEMISTRY METHOD 08/01/2024 12:20 PM [facility] Total Bilirubin 0.7 0.0 - 1.4 mg/dL LAB CHEMISTRY METHOD 08/01/2024 12:20 PM [facility] Blood Venous blood specimen / Unknown Venipuncture / Unknown 08/01/2024 6:47 AM EDT 08/01/2024 10:49 AM EDT us Nilesh Adams MD LAB BLOOD ORDERABLES Final Res ult [facility] [address] [place] [address], documented in this encounter Visit Diagnoses Diagnosis Encounter for other general examination documented in this encounter Care Teams Student Assistance Counselor Relationship Specialty Start Date End Date Parrish Cabrera MD [address] [place] [address] PCP - General 12/24/1998 documented as of this encounter
--- OUTSIDE RECORDS SUMMARY | 2025-02-18 20:09 | XMS_ITS | Clinical Summary ---
Author Organization [facility] Address [address] [place] [address] Phone Care Team Providers Care Undercutter Name Role Phone Parrish Cabrera MD Primary Care Provider [phone] Allergies No known active allergies Medications tamsulosin [...] (periodic limb movement disorder) 7 Overview (03/18/2024): [facility] Polysomnogram: Date 06/22/2016; SE 60%; SM 79%; [...] Actinic keratosis Lumbar spinal stenosis 07/02/2012 Meningioma ([facility] V24, [facility] V28) 07/28/2008 Overview (03/18/2024): Follow with Dr. [...] colonoscopy 04/02/2007. Benign neoplasm of cerebral meninges ([facility] V24, [facility] V28) 11/22/2006 Overview (03/18/2024): small frontal meningioma on MRI 2006 Pt prefers no further evaluation DM w/o complication type II ([facility] V24, [facility]/ C V28) 11/13/2006 Overview (03/18/2024): Last [...] just unsure what to do Educational Resources Citizen [place] Diabetes Association (www.diabetes.org) Centers for Disease Control [...] Encounters Date Type Department Care Team Description 01/08/2025 Telephone Adult [address] [address] Rimma Lamb [place] 01/08/2025 Telephone Adult Medicine [address] [address] Rimma Lamb [place] 12/29/2024 3:00 PM EDT Office Visit Orthopedic Surgery - [address] [address] Dalton Rodriguez DPM Controlled type 2 diabetes mellitus with diabetic polyneuropathy, without long-term current use of insulin (CMS/[facility] V24, CMS/[facility] V28) (Primary Dx); Arthritis of both feet; Neuropathy; Right foot drop; Onychomycosis; Callus 12/16/2024 Telephone Adult [address] [address] Parrish Cabrera MD 11/26/2024 9:45 AM EDT Office Visit [address] [phone] Parrish Cabrera MD Abrasion of skin of left elbow (Primary Dx); Iron deficiency anemia, unspecified iron deficiency anemia type from Last 3 Months Immunizations Immunization Administration Dates Next Due H1N1 Inj Preservative Free 05/03/2009 Influenza trivalent, 0.5mL ( Fluad) 65yo and older 02/21/2023,02/17/2022,02/02/2021,02/05,03/05/2019,01/14/2018,01/22/2017 Influenza trivalent, 0.5mL, preservative free (Fluarix; FluLaval; Fluzone) ages 6mo and older (Afluria) 3 years and older 01/11/2016,01/20/2015,01/27/2014,01/01,01/02/2012,02/20/2011,01/30/2010 ,01/20/2009,02/11/2008,02/02/2007,12/05/2005,02/14/2005 Pfizer (ages 12 & older) Biv alent, [...] Site/Laterality Comments OTHER SURGICAL HISTORY 1967 PROCEDURE: NC VGTMY W/PYLOROPLASTY W/WO GASTROST PARIETAL CELL; COMMENT: GI bleeding, remote; [facility]. ROTATOR CUFF REPAIR 2002 PROCEDURE: HISTORICAL ROTATOR CUFF REPAIR; COMMENT: right CATARACT EXTRACTION PROCEDURE: HISTORICAL CATARACT REMOVAL; COMMENT: right eye COLONOSCOPY 04/02/2007 PROCEDURE: HISTORICAL COLONOSCOPY; COMMENT: negative COLONOSCOPY 04/21/2019 PROCEDURE: HISTORICAL COLONOSCOPY; COMMENT: 5 mm AC polyp: Tubular adenoma UPPER GASTROINTESTINAL ENDOSCOPY 04/21/2019 PROCEDURE: NC UPPER GI ENDOSCOPY PERFORMED; COMMENT: Visually normal, duodenal biopsies obtained, pathology: Normal APPENDECTOMY PROCEDURE: NC APPENDECTOMY Medical History Medical History Date Comments [...] Medical DX 10/14/2007 DX:BPH Meningioma (CMS/HCC V24, [facility] V28) 07/28/2008 DX:Meningioma (HCC) Type II or [...] Date Recorded What is your living situation? Unrecognized valu e 08/15/2024 Sex and Gender Information Value Date [...] PM EST Office Visit Orthopedic Surgery - [place] [address] [place] [phone] Dalton Rodriguez DPM [address] [place] [address] 04/01/2025 1:00 PM EST Office Visit Adult Medicine [facility] [address] [place] [address] Parrish Cabrera MD [address] [place] [address] 04/14/2025 1:00 PM EST Appointment [facility] Ultrasound [address] [place] [phone] 05/20/2025 10:00 AM EST Office Visit Vascular Surgery - [place] [address] [place] [phone] Zenaida Rose MD [address] [place] [phone] Health Maintenance Due Date Last Done Comments Diabetes: Annual Foot Exam 01/25/1950 RSV Immunization Adult Patients (1 - 1-dose 75+ series) 2013 Diabetes: Blood Sugar Control Test (HGBA1C) 03/26/2024 09/25/2023, 09/25/2023 Depression Screening 04/23/2024 08/20/2023 Diabetes: Annual Retina Eye Exam 08/13/2024 08/14/2023 Medicare Annual Wellness Visit 08/19/2024 08/20/2023 Falls Risk Assessment 12/03/2024 12/04/2023 COVID-19 Vaccine (7 - Pfizer risk 2023- season) 2024 01/26/2024, 02/17/2022, 09/12/2021, Additional history [...] Associated Diagnosis Comments EXTERNAL CLINICAL LAB 12/31/2024 COMPREHENSIVE METABOLIC PANEL Routine 08/11/2024 5:25 AM EDT Encounter for other general examination FALLS RISK ASSESSMENT Routine 12/04/2023 HEMOGLOBIN A1C Routine 09/25/2023 DEPRESSION SCREENING Routine 08/20/2023 DIABETES EYE EXAM Routine 08/14/2023 LIPID PANEL Routine 11/16/2022 from Last 3 Months or Most Recently Relevant to Health Maintenance Results * External clinical lab (12/31/2024) us Provider [facility] LAB BLOOD ORDERABLES Fin al Result * (ABNORMAL) Comprehensive metabolic panel (08/11/2024 5:25 AM EDT) Sodium 139 133 - 145 mmol/L LAB CHEMISTRY METHOD 08/11/2024 3:12 PM [facility] Potassium 4.5 3.5 - 5.5 mmol/L LAB CHEMISTRY METHOD 08/11/2024 3:12 PM [facility] Chloride 105 96 - 110 mmol/L LAB CHEMISTRY METHOD 08/11/2024 3:12 PM [facility] CO2 27 21 - 32 mmol/L LAB CHEMISTRY METHOD 08/11/2024 3:12 PM [facility] Anion Gap 7 3 - 11 LAB CHEMISTRY METHOD 08/11/2024 3:12 PM [facility] Glucose 91 70 - 100 mg/dL LAB CHEMISTRY METHOD 08/11/2024 3:12 PM [facility] BUN 15 5 - 25 mg/dL LAB CHEMISTRY METHOD 08/11/2024 3:12 PM [facility] Creatinine 0.60(L) 0.70 - 1.30 mg/dL LAB CHEMISTRY METHOD 08/11/2024 3:12 PM [facility] eGFR 94 >=60 mL/min/1. 73m2 LAB CHEMISTRY METHOD 08/11/2024 3:12 PM [facility] Comment:Calculation based on the Chronic Kidney Disease Epidemiology Collaboration (CKD-EPI) equation refit without adjustment for race. BUN/Creatinine Ratio 25.0 LAB CHEMISTRY METHOD 08/11/2024 3:12 PM [facility] Calcium 9.1 8.5 - 10.5 mg/dL LAB CHEMISTRY METHOD 08/11/2024 3:12 PM [facility] AST (SGOT) 45(H) 10 - 42 unit/L LAB CHEMISTRY METHOD 08/11/2024 3:12 PM EDT [facility] ALT (SGPT) 60 10 - 60 unit/L LAB CHEMISTRY METHOD 08/11/2024 3:12 PM EDT [facility] Alkaline Phosphatase 120 42 - 121 unit/L LAB CHEMISTRY METHOD 08/11/2024 3:12 PM EDT [facility] Total Protein 6.5 6.0 - 8.0 g/dL LAB CHEMISTRY METHOD 08/11/2024 3:12 PM EDT [facility] Albumin 3.1(L) 3.2 - 5.0 g/dL LAB CHEMISTRY METHOD 08/11/2024 3:12 PM EDT [facility] Total Bilirubin 0.4 0.0 - 1.4 mg/dL LAB CHEMISTRY METHOD 08/11/2024 3:12 PM EDT [facility] Blood Venous blood specimen / Unknown Venipuncture / Unknown 08/11/2024 5:25 AM EDT 08/11/2024 11:25 AM EDT Nilesh Adams MD LAB BLOOD ORDERABLES Final Res ult [facility] [address] [place] [address], * Falls Risk Assessment (12/04/2023) Pathologist [facility] Falls Risk Assessment Abstracted Historical Provider HEALTH MAINTENANCE Final Result * Hemoglobin A1c (09/25/2023) Pathologist [facility] Hemoglobin A1C 6.3 <=6.5 % Blood Venous blood specimen / Unknown Historical Provider LAB BLOOD ORDERABLES Soniya l Result * Depression Screening (08/20/2023) Pathologist [facility] Depression Screening Abstracted Historical Provider HEALTH MAINTENANCE [...] Recently Relevant to Health Maintenance Insurance MEDICARE [facility] Member Subscriber Plan / Payer (Ef fective 2015-Present) Name:MIKY MONGE Relation to Subscriber:Spouse Name:BETTE MONGE Date of :1941 Address: [address] [place] [id number] Payer ID:[id number] Group ID:[id number] Type:Not on file Address: [address] [place] [address] Care Teams Undercutter Relationship Specialty Start Date End Date Parrish Cabrera MD [address] [place] [address] PCP - General 12/24/1998
--- OUTSIDE RECORDS SUMMARY | 2025-02-18 20:09 | XMS_ITS | Encounter Summary ---
Author Organization [facility] Address [address] [place] [address] Care Team Providers Care Gas Station Operator Name Role Phone Parrish Cabrera MD Primary Care Provider Encounter Details Date Type Department Care Team (Late Contact Info) Description 08/02/2024 Lab Requisition [facility] - Main Lab [address] [facility] [place] [address] Nilesh Adams MD [address] [place] [address] [phone] Encounter for other general examination Social History [...] PM EST Office Visit Orthopedic Surgery - [place] [address] [facility] [address] [place] [address] Dalton Rodriguez DPM [address] [place] [phone] 04/01/2025 1:00 PM EST Office Visit Adult Medicine [facility] [place] [address] [place] [address] Parrish Cabrera MD [address] [place] [address] 04/14/2025 1:00 PM EST Appointment [facility] Ultrasound [address] [place] [phone] 05/20/2025 10:00 AM EST Office Visit Vascular Surgery - [place] [address] [place] [address] Zenaida Rose MD [address] [place] [address] documented as of this encounter Procedures Procedure [...] at 5 days 08/07/2024 6:02 PM EDT [facility] Blood 08/02/2024 2:45 PM EDT 08/02/2024 5:03 PM EDT us Nilesh Adams MD LAB MICROBIOLOGY - GENERAL ORD ERABLES Final Result [facility] [address] [place] [address], [place] [phone] * (ABNORMAL) CBC auto differential (08/02/2024 2:40 PM EDT) Pathologist [facility] WBC 7.4 4.8 - 10.8 K/mcL LAB HEMETOLOGY METHOD 08/02/2024 5:16 PM EDT [facility] RBC 2.50(L) 4.50 - 5.50 M/mcL LAB HEMETOLOGY METHOD 08/02/2024 5:16 PM EDT [facility] Hemoglobin 8.2(L) 13.5 - 17.5 g/dL LAB HEMETOLOGY METHOD 08/02/2024 5:16 PM EDT [facility] Hematocrit 25.1(L) 42.0 - 54.0 % LAB HEMETOLOGY METHOD 08/02/2024 5:16 PM EDT [facility] MCV 99.6(H) 79.0 - 98.0 FL LAB HEMETOLOGY METHOD 08/02/2024 5:16 PM EDT [facility] MCH 32.5(H) 27.0 - 32.0 pcg LAB HEMETOLOGY METHOD 08/02/2024 5:16 PM EDT [facility] MCHC 32.7 32.0 - 37.0 g/dL LAB HEMETOLOGY METHOD 08/02/2024 5:16 PM EDT [facility] RDW 13.3 11.0 - 15.0 % LAB HEMETOLOGY METHOD 08/02/2024 5:16 PM EDT [facility] Platelets 235 130 - 400 K/mcL LAB HEMETOLOGY METHOD 08/02/2024 5:16 PM [facility] MPV 10.4 7.0 - 11.0 FL LAB HEMETOLOGY METHOD 08/02/2024 5:16 PM [facility] NRBC 0.0 <1.0 % LAB HEMETOLOGY METHOD 08/02/2024 5:16 PM [facility] NRBC Absolute 0.00 <0.10 K/mcL LAB HEMETOLOGY METHOD 08/02/2024 5:16 PM [facility] Neutrophils Relative 76.2 % LAB HEMETOLOGY METHOD 08/02/2024 5:16 PM [facility] Lymphocytes Relative 10.8 % LAB HEMETOLOGY METHOD 08/02/2024 5:16 PM [facility] Monocytes Relative 9.9 % LAB HEMETOLOGY METHOD 08/02/2024 5:16 PM [facility] Eosinophils Relative 2.4 % LAB HEMETOLOGY METHOD 08/02/2024 5:16 PM [facility] Basophils Relative 0.3 % LAB HEMETOLOGY METHOD 08/02/2024 5:16 PM [facility] Immature Granulocytes Relative 0.4 % LAB HEMETOLOGY METHOD 08/02/2024 5:16 PM [facility] Neutrophils Absolute 5.67 1.50 - 7.00 K/mcL LAB HEMETOLOGY METHOD 08/02/2024 5:16 PM [facility] Lymphocytes Absolute 0.80(L) 1.00 - 5.00 K/mcL LAB HEMETOLOGY METHOD 08/02/2024 5:16 PM [facility] Monocytes Absolute 0.74 0.20 - 1.00 K/mcL LAB HEMETOLOGY METHOD 08/02/2024 5:16 PM [facility] Eosinophils Absolute 0.18 0.00 - 0.50 K/mcL LAB HEMETOLOGY METHOD 08/02/2024 5:16 PM EDT [facility] Basophils Absolute 0.02 0.00 - 0.20 K/mcL LAB HEMETOLOGY METHOD 08/02/2024 5:16 PM EDT [facility] Immature Granulocytes Absolute 0.03 0.00 - 0.03 K/[facility] LAB HEMETOLOGY METHOD 08/02/2024 5:16 PM EDT [facility] Blood Venous blood specimen / Unknown 08/02/2024 2:40 PM EDT 08/02/2024 5:03 PM EDT Nilesh Adams MD LAB BLOOD ORDERABLES Final Res ult Performing Organization Address [facility]/ZIP Co de Phone Number [facility] [address] [place] [address], [place] [phone] * Culture blood (08/02/2024 2:40 PM EDT) [facility] Culture, Blood No growth at 5 days 08/07/2024 6:02 PM EDT [facility] Blood Venipuncture / Unknown 08/02/2024 2:40 PM EDT 08/02/2024 5:03 PM EDT us Nilesh Adams MD LAB MICROBIOLOGY - GENERAL ORD ERABLES Final Result Performing Organization Address City/[facility]/ZIP Co de Phone Number [facility] [address] [place] [address], [place] [phone] * (ABNORMAL) Comprehensive metabolic panel (08/02/2024 2:40 PM EDT) Sodium 138 133 - 145 mmol/L LAB CHEMISTRY METHOD 08/02/2024 5:43 PM EDT [facility] Potassium 4.4 3.5 - 5.5 mmol/L LAB CHEMISTRY METHOD 08/02/2024 5:43 PM EDT [facility] Chloride 105 96 - 110 mmol/L LAB CHEMISTRY METHOD 08/02/2024 5:43 PM [facility] CO2 27 21 - 32 mmol/L LAB CHEMISTRY METHOD 08/02/2024 5:43 PM [facility] Anion Gap 6 3 - 11 LAB CHEMISTRY METHOD 08/02/2024 5:43 PM [facility] Glucose 153(H) 70 - 100 mg/dL LAB CHEMISTRY METHOD 08/02/2024 5:43 PM [facility] BUN 41(H) 5 - 25 mg/dL LAB CHEMISTRY METHOD 08/02/2024 5:43 PM [facility] Creatinine 0.69(L) 0.70 - 1.30 mg/dL LAB CHEMISTRY METHOD 08/02/2024 5:43 PM [facility] eGFR 90 >=60 mL/min/1. 73m2 LAB CHEMISTRY METHOD 08/02/2024 5:43 PM [facility] Comment:Calculation based on the Chronic Kidney Disease Epidemiology Collaboration (CKD-EPI) equation refit without adjustment for race. BUN/Creatinine Ratio 59.4 LAB CHEMISTRY METHOD 08/02/2024 5:43 PM [facility] Calcium 9.1 8.5 - 10.5 mg/dL LAB CHEMISTRY METHOD 08/02/2024 5:43 PM [facility] AST (SGOT) 46(H) 10 - 42 unit/L LAB CHEMISTRY METHOD 08/02/2024 5:43 PM [facility] ALT (SGPT) 33 10 - 60 unit/L LAB CHEMISTRY METHOD 08/02/2024 5:43 PM [facility] Alkaline Phosphatase 83 42 - 121 unit/L LAB CHEMISTRY METHOD 08/02/2024 5:43 PM [facility] Total Protein 5.6(L) 6.0 - 8.0 g/dL LAB CHEMISTRY METHOD 08/02/2024 5:43 PM EDT [facility] Albumin 2.7(L) 3.2 - 5.0 g/dL LAB CHEMISTRY METHOD 08/02/2024 5:43 PM EDT [facility] Total Bilirubin 0.5 0.0 - 1.4 mg/dL LAB CHEMISTRY METHOD 08/02/2024 5:43 PM EDT [facility] Blood Venous blood specimen / Unknown Venipuncture / Unknown 08/02/2024 2:40 PM EDT 08/02/2024 5:03 PM EDT us Nilesh Adams MD LAB BLOOD ORDERABLES Final Res ult [facility] [address] [place] [address], documented in this encounter Visit Diagnoses Diagnosis Encounter for other general examination documented in this encounter Care Teams Gas Station Operator Relationship Specialty Start Date End Date Parrish Cabrera MD [address] [place] [address] PCP - General 12/24/1998 documented as of this encounter
--- OUTSIDE RECORDS SUMMARY | 2025-02-18 20:09 | XMS_ITS | Data Portability ---
Author Organization [facility] [id number] Address [address] [place] [address] Care Team Providers Care Concept Artist Name Role Phone [facility] Prim brayan Care Provider Assessment No assessment recorded. Plan of Treatment Reminders Order Date Submit Date Provider Last Modified By Organization Details Last Modified Time Details Appointments None recorded. Lab None recorded. Referral None recorded. Procedures None recorded. Surgeries None recorded. Imaging None recorded. Medication Orders Keflex 500 mg capsule 023 023 [facility], [address] [place] [address], [address], 19:00:14 Patient TargetsNo targets recorded. Patient Instructions Encounter Date Encounter Id Patient Instructions Last Modified By Organization Details Last Modified Time 10/04/2022 [id number] A puncture wound can happen anywhere on [...] your doctor if you can take an ppfw-bwc-utoubzg medicine. If your doctor prescribed antibiotics, take them as directed. Do not stop taking them just because you feel better. You need to take the full course of antibiotics. [email or web address] Not available 10/04/2022 18:59:50 Reason for Referral None Reported. Problems Name Problem SNOMED Code Status Onset Date Resolution Date Notes Provider Name and Address Organization Details Recorded Time Diabetes mellitus 51938906 Active 023 [facility] 18:40:47 Notes:enlarged prostate Problem Notes None recorded. Procedures Surgical History Date Name Laterality Status Provider Name and Address Organization Details Recorded Time complete repair of rotator cuff completed Ashlyn Salas [facility] 10/04/2022 18:47:51 Imaging Results None recorded. Procedure [...] active Not Available Not Available Not Available Nxyebe-V-Hry nitine 1000 mg, 1 tablet by mouth [...] Heart rate Respiratory rate Body temperature Systolic And Diastolic Provider Name and Address Organization Details Last Updated DateTime 3 167.64 cm 25.5 kg/m2 58073.5 9 g 10 98 % 98 % 88 /min 18 /min 98 [degF] 143/87 mm[Hg] Ashlyn Vazquez PA - [facility] 3 18:50:34 Social History Question Answer Notes LastModified by Organizat ion Details LastModified Time Tobacco Smoking Status Never Smoker Ashlyn Alla null, PA - [facility] 10/04/2022 18:46:50 [...] 10/04/2022 18:39:42 pneumococcal polysaccharide PPV23 3 completed Sahlyn Ruszala null, PA - [facility] 10/04/2022 [...] 18:39:42 Influenza, high-dose, trivalent, PF 1 completed Ashlny Ruszala null, PA - [facility] 10/04/2022 [...] PA - [facility] 10/04/2022 18:39:42 Novel zymiougup-[id number], preservative-free 0 completed Ashlyn Ruszala null, PA - [facility] 10/04/2022 18:39:42 Past Encounters Encounter ID Performer Location Encounter Start Date Encounter Closed Date Diagnosis/Indication Diagnosis SNOMED-CT Code Diagnosis ICD10 Code Diagnosis IMO Codes Diagnosis [place] [id number] [place] [address] [address] 10/04/2022 16:30:19 10/04/2022 19:05:45 Puncture wound of heel 106224486 S91.331A Health Concerns Section Related Observation LastModified by Organization Detai ls LastModified Time None Recorded Concern Status LastModified by Organization Details LastModified Time None Recorded Advance Directives Directive None Recorded Payers Insurance Date Sequence Insurance Name Policy Number Policy Briggs Covered Member ID Briggs Member ID Guarantor Name 10/05/2022 1 MEDICARE B-PA: [employer] Miky Ibrahim [id number] Miky Ibrahim 10/05/2022 2 [facility]-PA: [employer] Samra Ibrahim [id number] Miky Ibrahim Notes Date Note Type Note Provider Name and Address Organization Details Recorded Time 10/05/19 23 text/htm l Skin Redness UCReported by PatientSkin Redness UCFor quality, patient reportspainfulanderythematous. For severity, patient reportsmoderateandconstantbut reportsimproving. For alleviating factors, patient reportsnothing gives relief. For symptoms, patient reportsswellingbut reportsno fever,no nausea, andno vomiting. For location, patient reportsright foot(puncture wound on right heel x 2 weeks ago. tetanus urd.). For duration, patient reports2 weeks. For onset, patient reportssudden onset. Seymour Munguia NP [address] [place], [address], [place] - [facility] 10/04/2022 19:00:29
--- OUTSIDE RECORDS SUMMARY | 2025-02-18 20:09 | XMS_ITS | Encounter Summary ---
Author Organization [facility] Address [address] [place] [address] Care Team Providers Care Residential Service Technician Name Role Phone Parrish Cabrera MD Primary Care Provider [phone] Encounter Details Date Type Department Care Team (Late Contact Info) Description 08/06/2024 Lab Requisition [facility] - Main Lab [address] [facility] [place] [address] Nilesh Adams MD [address] [place] [address] [phone] Encounter for other general examination Social History [...] PM EST Office Visit Orthopedic Surgery - [place] [address] [facility] [address] [place] [address] Dalton Rodriguez DPM [address] [place] [phone] 04/01/2025 1:00 PM EST Office Visit Adult Medicine [facility] [place] [address] [place] [address] Parrish Cabrrea MD [address] [place] 04/14/2025 1:[address] [facility] Ultrasound [address] [place] [phone] 05/20/2025 10:00 AM EST Office Visit Vascular Surgery - [place] [address] [place] [address] Zenaida Rose MD [address] [place] [phone] documented as of this encounter Procedures Procedure [...] CBC auto differential (08/06/2024 6:12 AM EDT) [facility] WBC 8.1 4.8 - 10.8 K/mcL LAB HEMETOLOGY METHOD 08/06/2024 11:04 AM EDT [facility] RBC 2.60(L) 4.50 - 5.50 M/mcL LAB HEMETOLOGY METHOD 08/06/2024 11:04 AM EDT [facility] Hemoglobin 8.4(L) 13.5 - 17.5 g/dL LAB HEMETOLOGY METHOD 08/06/2024 11:04 AM [facility] Hematocrit 26.6(L) 42.0 - 54.0 % LAB HEMETOLOGY METHOD 08/06/2024 11:04 AM [facility] MCV 102.3(H) 79.0 - 98.0 FL LAB HEMETOLOGY METHOD 08/06/2024 11:04 AM [facility] MCH 32.3(H) 27.0 - 32.0 pcg LAB HEMETOLOGY METHOD 08/06/2024 11:04 AM [facility] MCHC 31.6(L) 32.0 - 37.0 g/dL LAB HEMETOLOGY METHOD 08/06/2024 11:04 AM [facility] RDW 13.2 11.0 - 15.0 % LAB HEMETOLOGY METHOD 08/06/2024 11:04 AM [facility] Platelets 348 130 - 400 K/mcL LAB HEMETOLOGY METHOD 08/06/2024 11:04 AM [facility] MPV 9.9 7.0 - 11.0 FL LAB HEMETOLOGY METHOD 08/06/2024 11:04 AM [facility] NRBC 0.0 <1.0 % LAB HEMETOLOGY METHOD 08/06/2024 11:04 AM [facility] NRBC Absolute 0.00 <0.10 K/mcL LAB HEMETOLOGY METHOD 08/06/2024 11:04 AM [facility] Neutrophils Relative 67.9 % LAB HEMETOLOGY METHOD 08/06/2024 11:04 AM [facility] Lymphocytes Relative 14.1 % LAB HEMETOLOGY METHOD 08/06/2024 11:04 AM [facility] Monocytes Relative 14.3 % LAB HEMETOLOGY METHOD 08/06/2024 11:04 AM [facility] Eosinophils Relative 2.2 % LAB HEMETOLOGY METHOD 08/06/2024 11:04 AM EDT [facility] Basophils Relative 0.6 % LAB HEMETOLOGY METHOD 08/06/2024 11:04 AM EDT [facility] Immature Granulocytes Relative 0.9 % LAB HEMETOLOGY METHOD 08/06/2024 11:04 AM EDT [facility] Neutrophils Absolute 5.53 1.50 - 7.00 K/mcL LAB HEMETOLOGY METHOD 08/06/2024 11:04 AM EDT [facility] Lymphocytes Absolute 1.15 1.00 - 5.00 K/mcL LAB HEMETOLOGY METHOD 08/06/2024 11:04 AM EDT [facility] Monocytes Absolute 1.16(H) 0.20 - 1.00 K/mcL LAB HEMETOLOGY METHOD 08/06/2024 11:04 AM EDT [facility] Eosinophils Absolute 0.18 0.00 - 0.50 K/mcL LAB HEMETOLOGY METHOD 08/06/2024 11:04 AM EDT [facility] Basophils Absolute 0.05 0.00 - 0.20 K/mcL LAB HEMETOLOGY METHOD 08/06/2024 11:04 AM EDT [facility] Immature Granulocytes Absolute 0.07(H) 0.00 - 0.03 K/mcL LAB HEMETOLOGY METHOD 08/06/2024 11:04 AM EDT [facility] Blood Venous blood specimen / Unknown Venipuncture / Unknown 08/06/2024 6:12 AM EDT 08/06/2024 10:00 AM EDT us Nilesh Adams MD LAB BLOOD ORDERABLES Final Res ult [facility] [address] [place] [address], * (ABNORMAL) Comprehensive metabolic panel (08/06/2024 6:12 AM EDT) [facility] Signature Sodium 135 133 - 145 mmol/L LAB CHEMISTRY METHOD 08/06/2024 11:52 AM [facility] Potassium 4.1 3.5 - 5.5 mmol/L LAB CHEMISTRY METHOD 08/06/2024 11:52 AM [facility] Chloride 102 96 - 110 mmol/L LAB CHEMISTRY METHOD 08/06/2024 11:52 AM [facility] CO2 25 21 - 32 mmol/L LAB CHEMISTRY METHOD 08/06/2024 11:52 AM [facility] Anion Gap 8 3 - 11 LAB CHEMISTRY METHOD 08/06/2024 11:52 AM [facility] Glucose 144(H) 70 - 100 mg/dL LAB CHEMISTRY METHOD 08/06/2024 11:52 AM [facility] BUN 11 5 - 25 mg/dL LAB CHEMISTRY METHOD 08/06/2024 11:52 AM [facility] Creatinine 0.66(L) 0.70 - 1.30 mg/dL LAB CHEMISTRY METHOD 08/06/2024 11:52 AM [facility] eGFR 91 >=60 mL/min/1. 73m2 LAB CHEMISTRY METHOD 08/06/2024 11:52 AM [facility] Comment:Calculation based on the Chronic Kidney Disease Epidemiology Collaboration (CKD-EPI) equation refit without adjustment for race. BUN/Creatinine Ratio 16.7 LAB CHEMISTRY METHOD 08/06/2024 11:52 AM [facility] Calcium 8.7 8.5 - 10.5 mg/dL LAB CHEMISTRY METHOD 08/06/2024 11:52 AM [facility] AST (SGOT) 46(H) 10 - 42 unit/L LAB CHEMISTRY METHOD 08/06/2024 11:52 AM [facility] ALT (SGPT) 50 10 - 60 unit/L LAB CHEMISTRY METHOD 08/06/2024 11:52 AM EDT [facility] Alkaline Phosphatase 100 42 - 121 unit/L LAB CHEMISTRY METHOD 08/06/2024 11:52 AM T [facility] Total Protein 5.9(L) 6.0 - 8.0 g/dL LAB CHEMISTRY METHOD 08/06/2024 11:52 AM T [facility] Albumin 2.8(L) 3.2 - 5.0 g/dL LAB CHEMISTRY METHOD 08/06/2024 11:52 AM [facility] Total Bilirubin 0.5 0.0 - 1.4 mg/dL LAB CHEMISTRY METHOD 08/06/2024 11:52 AM [facility] Blood Venous blood specimen / Unknown Venipuncture / Unknown 08/06/2024 6:12 AM EDT 08/06/2024 10:00 AM EDT us Nilesh Adams MD LAB BLOOD ORDERABLES Final Res ult [facility] [address] [place] [address], documented in this encounter Visit Diagnoses Diagnosis Encounter for other general examination documented in this encounter Care Teams Residential Service Technician Relationship Specialty Start Date End Date Parrish Cabrera MD [address] [place] [address] PCP - General 12/24/1998 documented as of this encounter
--- OUTSIDE RECORDS SUMMARY | 2025-02-18 20:09 | XMS_ITS | Encounter Summary ---
Author Organization [facility] Address [address] [place] [address] Care Team Providers Care Boat Engine Mechanic Name Role Phone Parrish Cabrera MD Primary Care Provider [phone] Encounter Details Date Type Department Care Team (Late Contact Info) Description 08/04/2024 Lab Requisition [facility] - Main Lab [address] [facility] [place] [address] Nilesh Adams MD [address] [place] [address] [phone] Encounter for other general examination Social History [...] PM EST Office Visit Orthopedic Surgery - [place] [address] [facility] [address] [place] [address] Dalton Rodriguez DPM [address] [place] [phone] 04/01/2025 1:00 PM EST Office Visit Adult Medicine [facility] [address] [place] [address] Parrish Cabrera MD [address] [place], [place] 04/14/2025 1:00 PM EST Appointment [facility] Ultrasound [address] [place] [phone] 05/20/2025 10:00 AM EST Office Visit Vascular Surgery - [place] [address] [place] [address] Zenaida Rose MD [address] [place] [phone] documented as of this encounter Procedures Procedure Name Priority Date/Time Associated Diagnosis Comments BASIC METABOLIC PANEL Routine 08/04/2024 6:06 AM EDT Encounter for other general examination documented in this encounter Results * (ABNORMAL) Basic metabolic panel (08/04/2024 6:06 AM EDT) Sodium 140 133 - 145 mmol/L LAB CHEMISTRY METHOD 08/04/2024 1:42 PM T [facility] Potassium 4.4 3.5 - 5.5 mmol/L LAB CHEMISTRY METHOD 08/04/2024 1:42 PM T [facility] Chloride 110 96 - 110 mmol/L LAB CHEMISTRY METHOD 08/04/2024 1:42 PM T [facility] CO2 23 21 - 32 mmol/L LAB CHEMISTRY METHOD 08/04/2024 1:42 PM T [facility] Anion Gap 7 3 - 11 LAB CHEMISTRY METHOD 08/04/2024 1:42 PM T [facility] Glucose 107(H) 70 - 100 mg/dL LAB CHEMISTRY METHOD 08/04/2024 1:42 PM EDT [facility] BUN 20 5 - 25 mg/dL LAB CHEMISTRY METHOD 08/04/2024 1:42 PM EDT [facility] Creatinine 0.68(L) 0.70 - 1.30 mg/dL LAB CHEMISTRY METHOD 08/04/2024 1:42 PM EDT [facility] eGFR 91 >=60 mL/min/1. 73m2 LAB CHEMISTRY METHOD 08/04/2024 1:42 PM EDT [facility] Comment:Calculation based on the Chronic Kidney Disease Epidemiology Collaboration (CKD-EPI) equation refit without adjustment for race. BUN/Creatinine Ratio 29.4 LAB CHEMISTRY METHOD 08/04/2024 1:42 PM EDT [facility] Calcium 8.7 8.5 - 10.5 mg/dL LAB CHEMISTRY METHOD 08/04/2024 1:42 PM EDT [facility] Blood Venous blood specimen / Unknown Venipuncture / Unknown 08/04/2024 6:06 AM EDT 08/04/2024 9:47 AM EDT us Nilesh Adams MD LAB BLOOD ORDERABLES Final Res ult [facility] [address] [place] [address], documented in this encounter Visit Diagnoses Diagnosis Encounter for other general examination documented in this encounter Care Teams Boat Engine Mechanic Relationship Specialty Start Date End Date Parrish Cabrera MD [address] [place] [id number] PCP - General 12/24/1998 documented as of this encounter
--- OUTSIDE RECORDS SUMMARY | 2025-02-18 20:09 | XMS_ITS | Encounter Summary ---
Author Organization [facility] Address [address] [place] [address] Care Team Providers Care Procurement Representative Name Role Phone Parrish Cabrera MD Primary Care Provider [phone] Encounter Details Date Type Department Care Team (Late Contact Info) Description 08/02/2024 Lab Requisition [facility] - Main Lab [address] [facility] [place] [address] Nilesh Adams MD [address] [place] [address] [phone] Encounter for other general examination Social History [...] PM EST Office Visit Orthopedic Surgery - [place] [address] [facility] [address] [place] [address] Dalton Rodriguez DPM [address] [place] [phone] 04/01/2025 1:00 PM EST Office Visit Adult Medicine [facility] [address] [place] [address] Parrish Cabrera MD [address] [place], [place] 04/14/2025 1:00 PM EST Appointment [facility] Ultrasound [address] [place] [phone] 05/20/2025 10:00 AM EST Office Visit Vascular Surgery - [place] [address] [place] [address] Zenaida Rose MD [address] [place] [address] documented as of this encounter Procedures Procedure [...] and culture (08/02/2024 4:00 AM EDT) Specific [place] Urine 1.025 1.003 - 1.030 LAB URINALYSIS - AUTOMATED METHOD 08/02/2024 11:47 AM EDT [facility] pH, Urine 5.5 5.0 - 8.0 pH LAB URINALYSIS - AUTOMATED METHOD 08/02/2024 11:47 AM EDT [facility] Leukocytes, Urine Negative Negative LAB URINALYSIS - AUTOMATED METHOD 08/02/2024 11:47 AM [facility] Nitrite, Urine Negative Negative LAB URINALYSIS - AUTOMATED METHOD 08/02/2024 11:47 AM [facility] Protein, Urine Trace <=Trace mg/dL LAB URINALYSIS - AUTOMATED METHOD 08/02/2024 11:47 AM [facility] Glucose, Urine Negative Negative mg/dL LAB URINALYSIS - AUTOMATED METHOD 08/02/2024 11:47 AM [facility] Ketones, Urine Trace(A) Negative mg/dL LAB URINALYSIS - AUTOMATED METHOD 08/02/2024 11:47 AM [facility] Urobilinogen, Urine 1.0 0.2 - 1.0 mg/dL LAB URINALYSIS - AUTOMATED METHOD 08/02/2024 11:47 AM [facility] Bilirubin, Urine Negative Negative LAB URINALYSIS - AUTOMATED METHOD 08/02/2024 11:47 AM [facility] Blood, Urine Negative Negative LAB URINALYSIS - AUTOMATED METHOD 08/02/2024 11:47 AM [facility] Urine Urine specimen obtained by clean catch procedure / Unknown Non-blood Collection / Unknown 08/02/2024 4:00 AM EDT 08/02/2024 11:03 AM EDT us Nilesh Adams MD LAB URINE ORDERABLES Final Res ult [facility] [address] [place] [address], * Montes urine culture tube (08/02/2024 4:00 AM EDT) Extra Tube Hold for add-ons. 08/02/2024 1:01 PM [facility] Comment:Auto resulted. Urine Urine specimen obtained by clean catch procedure / Unknown Non-blood Collection / Unknown 08/02/2024 4:00 AM EDT 08/02/2024 11:03 AM EDT us Nilesh Adams MD LAB URINE ORDERABLES Final Res ult [facility] [address] [place] [address], documented in this encounter Visit Diagnoses Diagnosis Encounter for other general examination documented in this encounter Care Teams Procurement Representative Relationship Specialty Start Date End Date Parrish Cabrera MD [address] [place] [address] PCP - General 12/24/1998 documented as of this encounter
--- OUTSIDE RECORDS SUMMARY | 2025-02-18 20:09 | XMS_ITS | Clinical Summary ---
Author Organization [facility] Address [address] [place] [address] Care Team Providers Care Fiscal Manager Name Role Phone Unavailable Primary Care Provider [...]
--- OUTSIDE RECORDS SUMMARY | 2025-02-18 20:09 | XMS_ITS | Encounter Summary ---
Author Organization [facility] Address [address] [place] [address] Care Team Providers Care Contracts Director Name Role Phone Parrish Cabrera MD Primary Care Provider [phone] Encounter Details Date Type Department Care Team (Late st Contact Info) Description 08/11/2024 Lab Requisition [facility] - Main Lab 299 [facility] [place] [address] Nilesh Adams MD [address] [place] [address] [phone] Encounter for other general examination Social History [...] 1:15 PM EST Office Visit Orthopedic Surgery [facility] [address] [facility] [address] [place] [phone] Dalton Rodriguez DPM [address] [place] [phone] 04/01/2025 1:00 PM EST Office Visit Adult Medicine [facility] [address] [place] [address] Parrish Cabrera MD [address] [place] [address] 04/14/2025 1:00 PM EST Appointment [facility] Ultrasound [address] [place] [phone] 05/20/2025 10:00 AM EST Office Visit Vascular Surgery [facility] [address] [facility] [address] [place] [phone] Zenaida Rose MD [address] [place] [phone] documented as of this encounter Procedures Procedure [...] CBC auto differential (08/11/2024 5:25 AM EDT) [facility] WBC 10.1 4.8 - 10.8 K/mcL LAB HEMETOLOGY METHOD 08/11/2024 1:15 PM [facility] RBC 2.90(L) 4.50 - 5.50 M/mcL LAB HEMETOLOGY METHOD 08/11/2024 1:15 PM [facility] Hemoglobin 9.4(L) 13.5 - 17.5 g/dL LAB HEMETOLOGY METHOD 08/11/2024 1:15 PM [facility] Hematocrit 30.1(L) 42.0 - 54.0 % LAB HEMETOLOGY METHOD 08/11/2024 1:15 PM [facility] MCV 103.1(H) 79.0 - 98.0 FL LAB HEMETOLOGY METHOD 08/11/2024 1:15 PM [facility] MCH 32.2(H) 27.0 - 32.0 pcg LAB HEMETOLOGY METHOD 08/11/2024 1:15 PM [facility] MCHC 31.2(L) 32.0 - 37.0 g/dL LAB HEMETOLOGY METHOD 08/11/2024 1:15 PM [facility] RDW 13.4 11.0 - 15.0 % LAB HEMETOLOGY METHOD 08/11/2024 1:15 PM [facility] Platelets 425(H) 130 - 400 K/mcL LAB HEMETOLOGY METHOD 08/11/2024 1:15 PM [facility] MPV 9.8 7.0 - 11.0 FL LAB HEMETOLOGY METHOD 08/11/2024 1:15 PM [facility] NRBC 0.0 <1.0 % LAB HEMETOLOGY METHOD [facility]24 [facility] NRBC Absolute 0.00 [...] % LAB HEMETOLOGY METHOD 08/11/2024 1:15 PM [facility] Immature Granulocytes Relative 0.6 % LAB HEMETOLOGY METHOD 08/11/2024 1:15 PM [facility] Neutrophils Absolute 6.74 1.50 - 7.00 K/mcL LAB HEMETOLOGY METHOD 08/11/2024 1:15 PM [facility] Lymphocytes Absolute 1.72 1.00 - 5.00 K/mcL LAB HEMETOLOGY METHOD 08/11/2024 1:15 PM [facility] Monocytes Absolute 1.13(H) 0.20 - 1.00 K/mcL LAB HEMETOLOGY METHOD 08/11/2024 1:15 PM [facility] Eosinophils Absolute 0.35 0.00 - 0.50 K/mcL LAB HEMETOLOGY METHOD 08/11/2024 1:15 PM [facility] Basophils Absolute 0.05 0.00 - 0.20 K/mcL LAB HEMETOLOGY METHOD 08/11/2024 1:15 PM [facility] Immature Granulocytes Absolute 0.06(H) 0.00 - 0.03 K/mcL LAB HEMETOLOGY METHOD 08/11/2024 1:15 PM EDT [facility] Blood Venous blood specimen / Unknown Venipuncture / Unknown 08/11/2024 5:25 AM EDT 08/11/2024 11:25 AM EDT us Nilesh Adams MD LAB BLOOD ORDERABLES Final Res ult [facility] [address] [place] [address], [place] [phone] * (ABNORMAL) Comprehensive metabolic panel (08/11/2024 5:25 AM EDT) Sodium 139 133 - 145 mmol/L LAB CHEMISTRY METHOD 08/11/2024 3:12 PM [facility] Potassium 4.5 3.5 - 5.5 mmol/L LAB CHEMISTRY METHOD 08/11/2024 3:12 PM [facility] Chloride 105 96 - 110 mmol/L LAB CHEMISTRY METHOD 08/11/2024 3:12 PM [facility] CO2 27 21 - 32 mmol/L LAB CHEMISTRY METHOD 08/11/2024 3:12 PM [facility] Anion Gap 7 3 - 11 LAB CHEMISTRY METHOD 08/11/2024 3:12 PM [facility] Glucose 91 70 - 100 mg/dL LAB CHEMISTRY METHOD 08/11/2024 3:12 PM [facility] BUN 15 5 - 25 mg/dL LAB CHEMISTRY METHOD 08/11/2024 3:12 PM [facility] Creatinine 0.60(L) 0.70 - 1.30 mg/dL LAB CHEMISTRY METHOD 08/11/2024 3:12 PM [facility] eGFR 94 >=60 mL/min/1. 73m2 LAB CHEMISTRY METHOD 08/11/2024 3:12 PM [facility] Comment:Calculation based on the Chronic Kidney Disease Epidemiology Collaboration (CKD-EPI) equation refit without adjustment for race. BUN/Creatinine Ratio 25.0 LAB CHEMISTRY METHOD 08/11/2024 3:12 PM T [facility] Calcium 9.1 8.5 - 10.5 mg/dL LAB CHEMISTRY METHOD 08/11/2024 3:12 PM [facility] AST (SGOT) 45(H) 10 - 42 unit/L LAB CHEMISTRY METHOD 08/11/2024 3:12 PM [facility] ALT (SGPT) 60 10 - 60 unit/L LAB CHEMISTRY METHOD 08/11/2024 3:12 PM [facility] Alkaline Phosphatase 120 42 - 121 unit/L LAB CHEMISTRY METHOD 08/11/2024 3:12 PM [facility] Total Protein 6.5 6.0 - 8.0 g/dL LAB CHEMISTRY METHOD 08/11/2024 3:12 PM [facility] Albumin 3.1(L) 3.2 - 5.0 g/dL LAB CHEMISTRY METHOD 08/11/2024 3:12 PM [facility] Total Bilirubin 0.4 0.0 - 1.4 mg/dL LAB CHEMISTRY METHOD 08/11/2024 3:12 PM [facility] Blood Venous blood specimen / Unknown Venipuncture / Unknown 08/11/2024 5:25 AM EDT 08/11/2024 11:25 AM EDT us Nilesh Adams MD LAB BLOOD ORDERABLES Final Res ult [facility] [address] [place] [address], documented in this encounter Visit Diagnoses Diagnosis Encounter for other general examination documented in this encounter Care Teams Contracts Director Relationship Specialty Start Date End Date Parrish Cabrera MD [address] [place] [address] PCP - General 12/24/1998 documented as of this encounter
== END 2025-02-18 16:52 | disposition home or self-care (01) ==
PROVIDERS: PCP Internal Medicine; Visit Provider Physician Assistant
DX: T16.1XXA Foreign body in right ear, initial encounter (principal)

== ENCOUNTER → 2025-02-18 16:08 | Outpatient (BNVA) | payer MEDICARE, BC, SELFPAY | PROVIDERS: PCP Internal Medicine; Visit Provider Physician Assistant | DX: T16.1XXA Foreign body in right ear, initial encounter (principal) | CPT/HCPCS: 69200; 99212 ==

== ENCOUNTER 2025-02-21 16:53 | Emergency (ER) | payer MEDICARE, BC, SELFPAY ==
--- NOTE | 2025-02-21 17:11 | ED.EAR ---
HPI - Ear Problem General Chief complaint: Ear Problems Stated complaint: piece of hearing aid stuck in the rt ear Time Seen by Provider: 02/21/25 18:19 Source: patient, family and old records reviewed Mode of arrival: ambulatory Limitations: no limitations History of Present Illness ED Provider: LOLA HPI Narrative: 85 yo male with PMH of back issues, memory issues has lost 2 soft silicone pieces. His states it is due to ear wax. He has no complaints. Location: right ear Duration: constant Severity: mild Relieving factors: nothing Exacerbating factors: nothing Discharge from ear: no Treatment prior to arrival: none Related Data Home Medications ?Medication ?Instructions ?Recorded ?Confirmed duloxetine 60 mg capsule,delayed 60 mg PO DAILY 06/14/20 10/03/21 release gabapentin 600 mg tablet 600 mg PO DAILY 06/14/20 10/03/21 lisinopril 2.5 mg tablet 2.5 mg PO DAILY 06/14/20 10/03/21 simvastatin 10 mg tablet 10 mg PO DAILY 06/14/20 10/03/21 tamsulosin 0.4 mg capsule 0.4 mg PO DAILY 06/14/20 10/03/21 zinc gluconate 100 mg tablet PO ONCE 01/05/25 Previous Rx's ?Medication ?Instructions ?Recorded ofloxacin 0.3 % ear drops 10 drp otic (ears) DAILY 5 days #5 02/21/25 mL Allergies Allergy/AdvReac Type Severity Reaction Status Date / Time No Known Allergies Allergy Verified 02/21/25 17:14 Review of Systems Review of Systems: Yes all other systems are reviewed and are negative PMFSH Past Medical History Attestation statement: The following information was validated with the patient. Source: old records reviewed Medical History Memory deficit Spinal cord stimulator status HLD (hyperlipidemia) BPH (benign prostatic hyperplasia) Meningioma Lumbar spinal stenosis Arthritis CAROLINA (obstructive sleep apnea) PLMD (periodic limb movement disorder) Subclinical hypothyroidism Diabetes MARIE (iron deficiency anemia) Surgical History History of lumbar fusion Social History Social History Are you a primary nursing care attendant to a significant other at home: No Do you presently have visiting nurse or other home services: No Comment: medicated at 1640 with Tylenol and Oxycodone Patient Tobacco Use Status: Former Tobacco user Tobacco use type: Cigarette Physical Exam Vital Signs: Vital Signs: Last Vital Signs Temp 97.8 F 02/21/25 17:13 Pulse 103 H 02/21/25 17:13 Resp 18 02/21/25 17:13 BP 121/60 02/21/25 17:13 Pulse Ox 97 02/21/25 17:13 O2 Del Method Room Air 02/21/25 17:13 BMI result Body Mass Index 24.2 Appearance: Alert. Oriented X3. No acute distress. Eyes: Pupils equal, round and reactive to light. ENT: R ear soft silicone piece in canal no bleeding but erythema of canal [place] Neck: Normal inspection. CVS: . Pulses normal. Respiratory: No respiratory distress. Abdomen:atraumatic Skin: Skin warm and dry. Normal skin color. Extremities: Normal ROM Neuro: Oriented X 3. No motor deficit. No sensory deficit. Course Course Course Narrative: This is a Rapid Medical Exam performed in triage by Sandra Cole PA-C. Full HPI, ROS and PE to be performed by primary ED provider. 85yo M w/PMHx memory deficit, HLD, CAROLINA, DM, MARIE, presenting to the ED c/o piece of hearing aid stuck in R ear since last night. PE: +FB in R ear. Plan: defer to main provider. requesting b/l ears be cleaned out Procedures Procedure Narrative Procedure Narrative: removed soft silicone ear piece without issuse x 1 with micro alligators no FB after, no TM perforation but some canal erythema Medical Decision Making Medical Decision Making [facility] Narrative: 85 yo male here with R ear FB - on exam no perforation will need removal and given canal wall erythema will start on ear gtt. He is going to see the supervisor cell operation, no perforation of TM after removal Differential Diagnosis Differential Diagnoses: The differential diagnosis associated with the presentation includes FB ear canal Independent Historian Clinical information obtained from an independent historian. History obtained from or confirmed by: Spouse External Record Review External record reviewed: Outpatient record Prescription Management I considered prescription management with: Antibiotic Discharge Plan Discharge Clinical Impression: Foreign body in ear Qualifiers: Encounter type: initial encounter Laterality: right Qualified Code(s): T16.1XXA - Foreign body in right ear, initial encounter Patient Disposition: Home, Self-Care Instructions: Ear Foreign Body (ED) Additional Instructions: return for worsening pain, bloody or yellow drainage, severe headache or any other concern Prescriptions: New ofloxacin 0.3 % drops 10 drp otic (ears) DAILY 5 Days Qty: 5 0RF No Action duloxetine 60 mg capsule,delayed release(DR/EC) 60 mg PO DAILY lisinopril 2.5 mg tablet 2.5 mg PO DAILY simvastatin 10 mg tablet 10 mg PO DAILY gabapentin 600 mg tablet 600 mg PO DAILY tamsulosin 0.4 mg capsule 0.4 mg PO DAILY zinc gluconate 100 mg tablet PO ONCE Print Language: Spanish
[2025-02-21 17:13] VITALS: BP 121/60; PULSE 103; RESP 18; TEMP 36.6; O2SAT 97; BMI 24.2
--- OUTSIDE RECORDS SUMMARY | 2025-02-21 18:33 | XMS_ITS | Data Portability ---
Author Organization [facility] [address] Address [address] [place] [address] Care Team Providers Care Drying And Winding Supervisor Name Role Phone [facility] Prim brayan Care Provider Assessment No assessment recorded. Plan of Treatment Reminders Order Date Submit Date Provider Last Modified By Organization Details Last Modified Time Details Appointments None recorded. Lab None recorded. Referral None recorded. Procedures None recorded. Surgeries None recorded. Imaging None recorded. Medication Orders Keflex 500 mg capsule 023 023 [facility], [address] [place] [address], [address], 19:00:14 Patient TargetsNo targets recorded. Patient Instructions Encounter Date Encounter Id Patient Instructions Last Modified By Organization Details Last Modified Time 10/04/2022 [id number] A puncture wound can happen anywhere on [...] your doctor if you can take an jlrm-qif-vpcnosc medicine. If your doctor prescribed antibiotics, take them as directed. Do not stop taking them just because you feel better. You need to take the full course of antibiotics. [email or web address] Not available 10/04/2022 18:59:50 Reason for Referral None Reported. Problems Name Problem SNOMED Code Status Onset Date Resolution Date Notes Provider Name and Address Organization Details Recorded Time Diabetes mellitus 30356282 Active 023 [facility] 18:40:47 Notes:enlarged [...] active Not Available Not Available Not Available Pbbiet-E-Cux nitine 1000 mg, 1 tablet by mouth [...] Updated DateTime 3 167.64 cm 25.5 kg/m2 75728.5 9 g 10 98 % 98 % [...] PA - [facility] 10/04/2022 18:39:42 Novel [id number], preservative-free 0 completed Ashlyn Ruszala null, PA - [facility] 10/04/2022 18:39:42 Past Encounters Encounter ID Performer Location Encounter Start Date Encounter Closed Date Diagnosis/Indication Diagnosis SNOMED-CT Code Diagnosis ICD10 Code Diagnosis IMO Codes Diagnosis [place] [id number] [place] [address] [address] 10/04/2022 16:30:19 10/04/2022 19:05:45 Puncture wound of heel 624366470 S91.331A Health Concerns Section Related Observation LastModified by Organization Detai ls LastModified Time None Recorded Concern Status LastModified by Organization Details LastModified Time None Recorded Advance Directives Directive None Recorded Payers Insurance Date Sequence Insurance Name Policy Number Policy Briggs Covered Member ID Briggs Member ID Guarantor Name 10/05/2022 1 MEDICARE B-[place]: [employer] Miky Ibrahim [id number] Miky Ibrahim 10/05/2022 2 [facility]: [employer] PROGRAM Samra Ibrahim [id number] Miky Ibrahim Notes Date Note Type Note [...] Munguia NP [address] [place], [address], PA - [facility] 10/04/2022 19:00:29
--- OUTSIDE RECORDS SUMMARY | 2025-02-21 18:33 | XMS_ITS | Encounter Summary ---
Author Organization [facility] Address [address] [place] [address] Care Team Providers Care Real Estate Site Analyst Name Role Phone Parrish Cabrera MD Primary Care Provider [phone] Reason for Visit * Reason Onset Date Comments Provider Call Back 08/04/2019 Encounter Details Date Type Department Care Team Description 08/04/2019 Telephone Physiatry - [address] [address] Destin Jerome DO Provider Call Back Social History Tobacco Use Types Packs/Day Years Used Date Smoking Tobacco: Former Smokeless Tobacco: Never Comments:quit 1970 Alcohol Use Standard Drinks/Week Comments No 0 (1 standard drink = 0.6 oz pur e alcohol) Sex Assigned at Date Recorded Male 06/05/2022 10:03 AM EST Job Start Date Occupation Industry Not on file Not on file Not on file documented as of this encounter Miscellaneous Notes * Telephone Encounter - Jeannie Bautista M.A. - 08/04/2019 10:19 AM EDT Patient does not need to see physiatry. He can have Dr Arrieta order the EMG. * Telephone Encounter - Angela James - 08/04/2019 9:57 AM EDT Patient is stating that Dr. Arrieta office would like him to have an EMG to test and see which nerve in his back is causing him pain. I informed the patient that at this time we are not scheduling EMGS and that I would leave a message with a nurse to give him a call. He is wondering if and when hehas to see Dr. Jerome to put an order in documented in this encounter Plan of Treatment Not on file documented as of this encounter Visit Diagnoses Not on filedocumented in this encounter Care Teams Real Estate Site Analyst Relationship Specialty Start Date End Date Parrish Cabrera MD [address] [place] [phone] PCP - General 12/24/1998 documented as of this encounter
--- OUTSIDE RECORDS SUMMARY | 2025-02-21 18:33 | XMS_ITS | Encounter Summary ---
Author Organization [facility] Address [address] [place] [address] Care Team Providers Care Web Marketing Specialist Name Role Phone Parrish Cabrera MD Primary Care Provider [phone] Encounter Details Date Type Department Care Team Description 11/21/2022 Pay Station Department Manager Report Medical Records [address] [place] [address] Destin Jerome DO Social History Tobacco Use Types Packs/Day Years Used Date Smoking Tobacco: Former Smokeless Tobacco: Never Comments:quit 1970 Alcohol Use Standard Drinks/Week Comments No 0 (1 standard drink = 0.6 oz pur e alcohol) Sex Assigned at Date Recorded Male 06/05/2022 10:03 AM EST Job Start Date Occupation Industry Not on file Not on file Not on file documented as of this encounter Plan of Treatment Not on file documented as of this encounter Visit Diagnoses Not on filedocumented in this encounter Care Teams Web Marketing Specialist Relationship Specialty Start Date End Date Parrish Cabrera MD [address] [place] [address] [phone] PCP - General 12/24/1998 documented as of this encounter
--- OUTSIDE RECORDS SUMMARY | 2025-02-21 18:33 | XMS_ITS | Encounter Summary ---
Author Organization [facility] Address [address] [place] [address] Care Team Providers Care Coupon Collection Clerk Name Role Phone Parrish Cabrera MD Primary Care Provider [phone] Reason for Visit * Reason Onset Date Comments radiology 04/24/2023 MRI L-SPINE Encounter Details Date Type Department Care Team Description 04/24/2023 Telephone MRI - [place] [address] [place] [address] Jose Grullon PA-C [address] [place] [address] radiology (MRI L-SPINE) Social History Tobacco Use Types Packs/Day Years Used Date Smoking Tobacco: Former Smokeless Tobacco: Never Comments:quit 1971 Alcohol Use Standard Drinks/Week Comments No 0 (1 standard drink = 0.6 oz pur e alcohol) Sex Assigned at Date Recorded Male 06/05/2022 10:03 AM EST Job Start Date Occupation Industry Not on file Not on file Not on file documented as of this encounter Miscellaneous Notes * Telephone Encounter - Jose Grullon PA-C - 04/27/2023 5:17 PM EST Thank you for letting me know. I have updated the order. I have ordered this as an external order as it is my understanding we dont have the capability to do it due to his stimulator. FIXO Stimulator - [id number] Lead. * Telephone Encounter - Dominga Marrero - 04/24/2023 4:45 PM EST Patient had Lumbar Surgery in 2019. Our protocol for a Lumbar MRI that has had Surgery in the last 10 year would be with and without contrast cpt 98731. Would you be willing to update the order or doyou want to keep it w/o contrast. documented in this encounter Plan of Treatment Not on file documented as of this encounter Results * MRI OF LUMBAR SPINE W/WO CONTRAST (05/03/2023) 05/03/2023 Jose Grullon PA-C MRI [place] [id number] [facility] documented in this encounter Visit Diagnoses Diagnosis Spinal stenosis of lumbar region, unspecified whether neurogenic claudication present- Primary Chronic low back pain, unspecified back pain laterality, unspecified whether sciatica present documented in this encounter Care Teams Coupon Collection Clerk Relationship Specialty Start Date End Date Parrish Cabrera MD [address] [place] [address] PCP - General 12/24/1998 documented as of this encounter
--- OUTSIDE RECORDS SUMMARY | 2025-02-21 18:33 | XMS_ITS | Encounter Summary ---
Author Organization [facility] Address [address] [place] [address] Care Team Providers Care Torpedoman'S Mate Name Role Phone Parrish Cabrera MD Primary Care Provider [phone] Encounter Details Date Type Department Care Team Description 01/27/2020 Elevator Constructor Hydraulic Report Medical Records [address] [place] [address] Charlie Arrieta MD, PHD Social History Tobacco Use Types Packs/Day Years Used Date Smoking Tobacco: Former Smokeless Tobacco: Never Comments:quit 1970 Alcohol Use Standard Drinks/Week Comments No 0 (1 standard drink = 0.6 oz pur e alcohol) Sex Assigned at Date Recorded Male 06/05/2022 10:03 AM EST Job Start Date Occupation Industry Not on file Not on file Not on file COVID-19 Exposure Response Date Recorded In the last month, have you been in contact with someone who was confirmed or suspected to have Coronavirus / COVID-19? No / Unsure 01/21/2020 12:59 PM EDT documented as of this encounter Plan of Treatment Not on file documented as of this encounter Visit Diagnoses Not on filedocumented in this encounter Care Teams Torpedoman'S Mate Relationship Specialty Start Date End Date Parrish Cabrera MD [address] [place] [address] [phone] PCP - General 12/24/1998 documented as of this encounter
--- OUTSIDE RECORDS SUMMARY | 2025-02-21 18:33 | XMS_ITS | Encounter Summary ---
Author Organization [facility] Address [address] [place] [address] Care Team Providers Care Sales Consultant Residential Manager Name Role Phone Parrish Cabrera MD Primary Care Provider [phone] Encounter Details Date Type Department Care Team Description 02/27/2023 Mattress Weaver Report Medical Records [address] [place] [address] Destin Jerome DO Social History Tobacco Use [...] Exposure Response Date Recorded In the last 10 days, have yo u been in contact with someone who was confirmed or suspected to have Coronavirus/COVID-19? No / Unsure 03/01/2023 8:40 AM EST documented as of this encounter Plan of Treatment Not on file documented as of this encounter Visit Diagnoses Not on filedocumented in this encounter Care Teams Sales Consultant Residential Manager Relationship Specialty Start Date End Date Parrish Cabrera MD [address] [place] [address] [phone] PCP - General 12/24/1998 documented as of this encounter
--- OUTSIDE RECORDS SUMMARY | 2025-02-21 18:33 | XMS_ITS | Encounter Summary ---
Author Organization [facility] Address [address] [place] [address] Care Team Providers Care Wildlife Manager Name Role Phone Parrish Cabrera MD Primary Care Provider [phone] Encounter Details Date Type Department Care Team Description 12/10/2023 Orders Only Medical Records [address] [place] [address] Jose Ramirez MD Social History Tobacco Use Types Packs/Day Years [...] on file documented as of this encounter Procedures Procedure Name Priority Date/Time Associated Diagnosis Comments OUTSIDE CT Routine 11/22/2023 OUTSIDE PLAIN FILM Routine 11/22/2023 documented in this encounter Results * OUTSIDE PLAIN FILM (11/22/2023) [facility] RADIOLOGY * OUTSIDE CT (11/22/2023) Jose Ramirez MD RADIOLOGY documented in this encounter Visit Diagnoses Not on filedocumented in this encounter Care Teams Wildlife Manager Relationship Specialty Start Date End Date Parrish Cabrera MD [address] [place], [place] [phone] PCP - General 12/24/1998 documented as of this encounter
--- OUTSIDE RECORDS SUMMARY | 2025-02-21 18:33 | XMS_ITS | Encounter Summary ---
Author Organization [facility] Address [address] [place] [address] Care Team Providers Care Support Merchandiser Name Role Phone Parrish Cabrera MD Primary Care Provider [phone] Encounter Details Date Type Department Care Team Description 12/08/2022 Almond Blancher Operator Report Medical Records [address] [place] [address] Destin Jerome DO Social History Tobacco Use [...] on filedocumented in this encounter Care Teams Support Merchandiser Relationship Specialty Start Date End Date Parrish Cabrera MD [address] [place] [address] [phone] PCP - General 12/24/1998 documented as of this encounter
--- OUTSIDE RECORDS SUMMARY | 2025-02-21 18:33 | XMS_ITS | Encounter Summary ---
Author Organization [facility] Address [address] [place] [address] Care Team Providers Care Machine Plaster Mixer Name Role Phone Parrihs Cabrera MD Primary Care Provider [phone] Reason for Visit * Reason Onset Date Comments radiology 07/22/2019 Encounter Details Date Type Department Care Team Description 07/22/2019 Telephone MRI - [facility] [address] [place] [address] [phone] Parrish Cabrera MD [address] [place] [address] [phone] radiology Social History Tobacco Use Types Packs/Day Years [...] encounter Miscellaneous Notes * Telephone Encounter - Casandra Johnson - 07/22/2019 1:19 PM EDT Patient will be having contrast mri testing this week. Can you please place lab orders to check kidney function for him? THank you, Martita mri documented in this encounter Plan of Treatment Not on file documented as of this encounter Results * (ABNORMAL) BASIC METABOLIC PANEL (07/24/2019 1:57 PM EDT) GLUCOSE 100 70 - 100 mg/dL 07/24/2019 5:37 PM EDT [facility] Comment:Reference range appl icable to fasting specimens only Blood Urea Nitrogen 22 5 - 25 mg/dL 07/24/2019 5:37 PM EDT [facility] CREAT 1.14 0.7 - 1.3 mg/dL 07/24/2019 5:37 PM EDT [facility] GLOMERULAR FILTRATION RATE > 60 07/24/2019 5:37 PM EDT [facility] Comment: If patient is -[place], multiply result by 1.21 Chronic Kidney Disease: < 60 ml/min/1.73 square meters Kidney Failure: < 15 ml/min/1.73 square meters NA 139 135 - 145 mEq/L 07/24/2019 5:37 PM EDT [facility] K 5.7(H) 3.5 - 5.5 mmol/L 07/24/2019 5:37 PM EDT [facility] CL 107 96 - 110 mmol/L 07/24/2019 5:37 PM EDT [facility] CARBON DIOXIDE (CO2) 28 21 - 32 mmol/L 07/24/2019 5:37 PM EDT [facility] ANION GAP 4 3 - 11 07/24/2019 5:37 PM EDT [facility] CALCIUM 9.5 8.5 - 10.5 mg/dL 07/24/2019 5:37 PM EDT [facility] 07/24/2019 1:57 PM EDT 07/24/2019 1:59 PM EDT Parrish Cabrera MD LAB [facility] documented in this encounter Visit Diagnoses Diagnosis Essential hypertension- Primary Unspecified essential hypertension documented in this encounter Care Teams Machine Plaster Mixer Relationship Specialty Start Date End Date Parrish Cabrera MD [address] [place] [phone] PCP - General 12/24/1998 documented as of this encounter
--- OUTSIDE RECORDS SUMMARY | 2025-02-21 18:33 | XMS_ITS | Encounter Summary ---
Author Organization [facility] Address [address] [place] [address] Care Team Providers Care Java Sql Developer Name Role Phone Parrish Cabrera MD Primary Care Provider [phone] Reason for Visit * Reason Onset Date Comments Special Procedure 12/15/2011 Encounter Details Date Type Department Care Team Description 12/15/2011 Telephone Physiatry - [address] [address] Destin Jerome DO Special Procedure Social History Tobacco Use Types Packs/Day Years Used Date Smoking Tobacco: Former Comments:quit 1970 Alcohol Use Standard Drinks/Week Comments No 0 (1 standard drink = 0.6 oz pur e alcohol) Sex Assigned at Date Recorded Male 06/05/2022 10:03 AM EST Job Start Date Occupation Industry Not on file Not on file Not on file documented as of this encounter Miscellaneous Notes * Telephone Encounter - Destin Jerome - 12/17/2011 7:41 PM EDT I reviewed MRI again, recommend trying the same procedure again, I ordered it, please schedule if he wants to proceed. * Telephone Encounter - Gerri Westbrook M.A. - 12/15/2011 3:25 PM EDT Spoke to Miky. He had left L4 TFE in May, and injection helped for approx. 5 months. The second shot (left L4 TFE) on 11/09/11 didn't give that much relief. Patient is questioning if he can repeat injection, or would you order another type of injection. Wouldn't be that to soon? Please, review. * Telephone Encounter - Ivett Lutz - 12/15/2011 3:17 PM EDT Patients spouse called to book a repeat injection. Please call back the home number. documented in this encounter Plan of Treatment Scheduled Orders Name Type Priority Associated Diagnoses Orde r Schedule PHYSIATRY PROCEDURE PHYSIATRY Routine Radiculitis, lumbosacral Ordered: 12/17/2011 documented as of this encounter Visit Diagnoses Diagnosis Radiculitis, lumbosacral- Primary Thoracic or lumbosacral neuritis or radiculitis, unspecified documented in this encounter Care Teams Java Sql Developer Relationship Specialty Start Date End Date Parrish Cabrera MD [address] [place] [phone] PCP - General 12/24/1998 documented as of this encounter
--- OUTSIDE RECORDS SUMMARY | 2025-02-21 18:33 | XMS_ITS | Encounter Summary ---
Author Organization [facility] Address [address] [place] [address] Care Team Providers Care Bd Special Education Teacher Name Role Phone Parrish Cabrera MD Primary Care Provider [phone] Encounter Details Date Type Department Care Team Description 06/22/2010 City Route Driver Report Medical Records [address] [place] [address] Emily Vela Social History Tobacco Use Types Packs/Day Years Used Date Smoking Tobacco: Former Comments:quit 35 years ago Alcohol Use Standard Drinks/Week Comments No 0 [...] on filedocumented in this encounter Care Teams Bd Special Education Teacher Relationship Specialty Start Date End Date Parrish Cabrera MD [address] [place] [address] [phone] PCP - General 12/24/1998 documented as of this encounter
--- OUTSIDE RECORDS SUMMARY | 2025-02-21 18:33 | XMS_ITS | Encounter Summary ---
Author Organization [facility] Address [address] [place] [address] Care Team Providers Care Bail Bonding Agent Name Role Phone Parrish Cabrera MD Primary Care Provider [phone] Encounter Details Date Type Department Care Team Description 02/03/2018 Hospital Medical Records [address] [place] [address] Chandana Vega MD Social History Tobacco Use Types Packs/Day [...] on filedocumented in this encounter Care Teams Bail Bonding Agent Relationship Specialty Start Date End Date Parrish Cabrera MD [address] [place] [address] [phone] PCP - General 12/24/1998 documented as of this encounter
--- OUTSIDE RECORDS SUMMARY | 2025-02-21 18:33 | XMS_ITS | Encounter Summary ---
Author Organization [facility] Address [address] [place] [address] Care Team Providers Care Back Padder Name Role Phone Parrish Cabrera MD Primary Care Provider [phone] Encounter Details Date Type Department Care Team Description 12/28/2022 Damage Cutter Report Medical Records [address] [place] [address] Destin Jerome DO Social History Tobacco Use [...] on filedocumented in this encounter Care Teams Back Padder Relationship Specialty Start Date End Date Parrish Cabrera MD [address] [place] [address] [phone] PCP - General 12/24/1998 documented as of this encounter
--- OUTSIDE RECORDS SUMMARY | 2025-02-21 18:33 | XMS_ITS | Encounter Summary ---
Author Organization [facility] Address [address] [place] [address] Care Team Providers Care Army Helicopter Pilot Name Role Phone Parrish Cabrera MD Primary Care Provider [phone] Encounter Details Date Type Department Care Team Description 12/30/2019 Hospital Medical Records [address] [place] [address] Fercho Foster PA-C [address] [place] [address] [place] [address] Social History Tobacco Use Types Packs/Day Years [...] on filedocumented in this encounter Care Teams Army Helicopter Pilot Relationship Specialty Start Date End Date Parrish Cabrera MD [address] [place] [address] PCP - General 12/24/1998 documented as of this encounter
--- OUTSIDE RECORDS SUMMARY | 2025-02-21 18:33 | XMS_ITS | Clinical Summary ---
Author Organization [facility] Address [address] [place] [address] Care Team Providers Care Scudding Inspector Name Role Phone Unavailable Primary Care Provider [...]
--- OUTSIDE RECORDS SUMMARY | 2025-02-21 18:33 | XMS_ITS | Encounter Summary ---
Author Organization [facility] Address [address] [place] [address] Care Team Providers Care Trimmer Sawyer Name Role Phone Parrish Cabrera MD Primary Care Provider [phone] Reason for Visit * Reason Comments E-prescribe Rx Request Encounter Details Date Type Department Care Team Description 11/12/2020 Refill Adult Medicine [address] [address] Parrish Cabrera MD [address] [place] [address] [phone] E-prescribe Rx Request Social History Tobacco Use Types Packs/Day Years [...] encounter Miscellaneous Notes * Telephone Encounter - Jennifer Gregory M.A. - 11/12/2020 4:24 PM EDT Spoke with the pt and his , pt has been on this for years. States he takes it daily. Will wait for Dr Cabrera to return on Sunday11/15/20 * Telephone Encounter - Sharda Molina PA-C - 11/12/2020 2:37 PM EDT Uncertain why he has not had refills since June after only 30 day supply, needs phone call for clarification prior to rviewing for refill, thanks * Telephone Encounter - Jennifer Gregory M.A. - 11/12/2020 2:28 PM EDT Last office visit 07/22/20 Next office visit 11/26/20 Last filled on 07/08/20 for 30 tabs. Will you fill? Lab Results Component Value Date ALB 4.3 05/24/2012 SGOT 20 01/21/2020 SGPT 28 01/21/2020 TBILI 0.6 05/24/2012 ALKPHOS 85 05/24/2012 TP 7.0 05/24/2012 * Telephone Encounter - Reshma Fine - 11/12/2020 2:24 PM EDT Patient would like script to be: E-PRESCRIBED/FAXED TO PHARMACY WHEN WAS THE PATIENT'S LAST APPOINTMENT IN ADULT MEDICINE? 07/22/2020 WHEN WAS THE LAST TIME THE PATIENT SAW THEIR PCP? Same as above Does patient have an upcoming appointment? Yes 11/26/2020 (THE MEDICATION REQUESTED IS ON THE MED LIST ABOVE) All of the medications requested were on the CURRENT MEDS list Did you check the Pharmacy information above?: YES Patient wants: 30 -day supply Is this a mail order prescription request ? NO If the refill is from a FAXED refill request what is the RX # listed on the fax? N/A Patients current insurance carrier is: [place] / [place] / Product Type: MED[place]ARE [id number] documented in this encounter Plan of Treatment Not on file documented as of this encounter Visit Diagnoses Not on filedocumented in this encounter Care Teams Trimmer Sawyer Relationship Specialty Start Date End Date Parrish Cabrera MD [address] [place] [phone] PCP - General 12/24/1998 documented as of this encounter
--- OUTSIDE RECORDS SUMMARY | 2025-02-21 18:33 | XMS_ITS | Encounter Summary ---
Author Organization [facility] Address [address] [place] [address] Care Team Providers Care Clinical Trials Systems Administrator Name Role Phone Parrish Cabrera MD Primary Care Provider [phone] Encounter Details Date Type Department Care Team Description 05/29/2019 Ring Packer Report Medical Records [address] [place] [address] Fercho Foster PA-C [address] [place] [address] [place] [address] Social History Tobacco Use Types Packs/Day Years [...] on filedocumented in this encounter Care Teams Clinical Trials Systems Administrator Relationship Specialty Start Date End Date Parrish Cabrera MD [address] [place] [address] PCP - General 12/24/1998 documented as of this encounter
--- OUTSIDE RECORDS SUMMARY | 2025-02-21 18:33 | XMS_ITS | Encounter Summary ---
Author Organization [facility] Address [address] [place] [address] Care Team Providers Care Axle Polisher Name Role Phone Parrish Cabrera MD Primary Care Provider [phone] Encounter Details Date Type Department Care Team Description 12/21/2022 Walk In Clinic Visit Medical Records [address] [place] [address] Abstract, Provider Social History Tobacco Use Types Packs/Day Years [...] on filedocumented in this encounter Care Teams Axle Polisher Relationship Specialty Start Date End Date Parrish Cabrera MD [address] [place] [address] [phone] PCP - General 12/24/1998 documented as of this encounter
--- OUTSIDE RECORDS SUMMARY | 2025-02-21 18:33 | XMS_ITS | Encounter Summary ---
Author Organization [facility] Address [address] [place] [address] Care Team Providers Care Optical Laboratory Technician Name Role Phone Parrish Cabrera MD Primary Care Provider [phone] Encounter Details Date Type Department Care Team Description 03/20/2022 Senior Linux Unix Engineer Report Medical Records [address] [place] [address] [facility] Social History Tobacco Use Types Packs/Day Years [...] Recorded In the last 10 days, have jerome u been in contact with someone who was confirmed or suspected to have Coronavirus/COVID-19? No / Unsure 03/21/2022 10:54 AM EST documented as of this encounter Plan of Treatment Not on file documented as of this encounter Visit Diagnoses Not on filedocumented in this encounter Care Teams Optical Laboratory Technician Relationship Specialty Start Date End Date Parrish Cabrera MD [address] [place] [address] [phone] PCP - General 12/24/1998 documented as of this encounter
--- OUTSIDE RECORDS SUMMARY | 2025-02-21 18:33 | XMS_ITS | Encounter Summary ---
Author Organization [facility] Address [address] [place] [address] Care Team Providers Care Lather Apprentice Name Role Phone Parrish Cabrera MD Primary Care Provider [phone] Reason for Visit * Reason Onset Date Comments APPOINTMENT 02/21/2011 Encounter Details Date Type Department Care Team Description 02/21/2011 Telephone Radiology - [address] [phone] Parrish Cabrera MD [address] [place], [place] [phone] APPOINTMENT Social History Tobacco Use Types Packs/Day Years [...] encounter Miscellaneous Notes * Telephone Encounter - Parrish Cabrera MD - 02/21/2011 10:29 AM EDT The best is for pt to check with his neurosurgen, as to the best time for MRI. * Telephone Encounter - Osito Escobar - 02/21/2011 9:56 AM EDT Pt would like to have his mri done at [facility] ,therefore an external order needs to be entered into the computer, thank you documented in this encounter Plan of Treatment Not on file documented as of this encounter Visit Diagnoses Not on filedocumented in this encounter Care Teams Lather Apprentice Relationship Specialty Start Date End Date Parrish Cabrera MD [address] [place] [address] PCP - General 12/24/1998 documented as of this encounter
--- OUTSIDE RECORDS SUMMARY | 2025-02-21 18:33 | XMS_ITS | Encounter Summary ---
Author Organization [facility] Address [address] [place] [address] Care Team Providers Care Gaming Cage Cashier Name Role Phone Parrish Cabrera MD Primary Care Provider [phone] Encounter Details Date Type Department Care Team (Late Contact Info) Description 08/02/2024 Lab Requisition [facility] - Main Lab [address] [facility] [place] [place] [address] Nilesh Adams MD [address] [place] [address] [phone] Encounter for other general examination Social History [...] PM EST Office Visit Orthopedic Surgery - [place] [address] [facility] [address] [place] [address] Dalton Rodriguez DPM [address] [place] [phone] 04/01/2025 1:00 PM EST Office Visit Adult Medicine [facility] [address] [place] [address] Parrish Cabrera MD [address] [place] 04/14/2025 1:00 PM EST Appointment [facility] Ultrasound [address] [place] [phone] 05/20/2025 10:00 AM EST Office Visit Vascular Surgery - [place] [address] [place] [address] Zeniada Rose MD [address] [place] [address] documented as of this encounter Procedures Procedure [...] and culture (08/02/2024 4:00 AM EDT) Specific [place] Urine 1.025 1.003 - 1.030 LAB URINALYSIS - AUTOMATED METHOD 08/02/2024 11:47 AM EDT [facility] pH, Urine 5.5 5.0 - 8.0 pH LAB URINALYSIS - AUTOMATED METHOD 08/02/2024 11:47 AM EDT [facility] Leukocytes, Urine Negative Negative LAB URINALYSIS - AUTOMATED METHOD 08/02/2024 11:47 AM [facility] Nitrite, Urine Negative Negative LAB URINALYSIS - AUTOMATED METHOD 08/02/2024 11:47 AM [facility] Protein, Urine Trace <=Trace mg/dL LAB URINALYSIS - AUTOMATED METHOD 08/02/2024 11:47 AM [facility] Glucose, Urine Negative Negative mg/dL LAB URINALYSIS - AUTOMATED METHOD 08/02/2024 11:47 AM [facility] Ketones, Urine Trace(A) Negative mg/dL LAB URINALYSIS - AUTOMATED METHOD 08/02/2024 11:47 AM [facility] Urobilinogen, Urine 1.0 0.2 - 1.0 mg/dL LAB URINALYSIS - AUTOMATED METHOD 08/02/2024 11:47 AM [facility] Bilirubin, Urine Negative Negative LAB URINALYSIS - AUTOMATED METHOD 08/02/2024 11:47 AM [facility] Blood, Urine Negative Negative LAB URINALYSIS - AUTOMATED METHOD 08/02/2024 11:47 AM [facility] Urine Urine specimen obtained by clean catch procedure / Unknown Non-blood Collection / Unknown 08/02/2024 4:00 AM EDT 08/02/2024 11:03 AM EDT us Nilesh Adams MD LAB URINE ORDERABLES Final Res ult [facility] [address] [place] [address], * Montes urine culture tube (08/02/2024 4:00 AM EDT) Extra Tube Hold for add-ons. 08/02/2024 1:01 PM [facility] Comment:Auto resulted. Urine Urine specimen obtained by clean catch procedure / Unknown Non-blood Collection / Unknown 08/02/2024 4:00 AM EDT 08/02/2024 11:03 AM EDT us Nilesh Adams MD LAB URINE ORDERABLES Final Res ult [facility] [address] [place] [address], documented in this encounter Visit Diagnoses Diagnosis Encounter for other general examination documented in this encounter Care Teams Gaming Cage Cashier Relationship Specialty Start Date End Date Parrish Cabrera MD [address] [place] [address] PCP - General 12/24/1998 documented as of this encounter
--- OUTSIDE RECORDS SUMMARY | 2025-02-21 18:33 | XMS_ITS | Encounter Summary ---
Author Organization [facility] Address [address] [place] [address] Care Team Providers Care Pig Lead Melter Helper Name Role Phone Parrish Cabrera MD Primary Care Provider [phone] Encounter Details Date Type Department Care Team Description 07/16/2015 Medical Device Report Medical Records [address] [place] [address] Chandana Vega MD Social History Tobacco Use [...] on filedocumented in this encounter Care Teams Pig Lead Melter Helper Relationship Specialty Start Date End Date Parrish Cabrera MD [address] [place] [address] [phone] PCP - General 12/24/1998 documented as of this encounter
--- OUTSIDE RECORDS SUMMARY | 2025-02-21 18:33 | XMS_ITS | Encounter Summary ---
Author Organization [facility] Address [address] [place] [address] Care Team Providers Care Nurse Behavioral Health Care Name Role Phone Parrish Cabrera MD Primary Care Provider [phone] Encounter Details Date Type Department Care Team Description 12/07/2010 Release of Information Medical Records [address] [place] [address] Abstract, Provider Social History Tobacco Use Types [...] on filedocumented in this encounter Care Teams Nurse Behavioral Health Care Relationship Specialty Start Date End Date Parrish Cabrera MD [address] [place] [address] [phone] PCP - General 12/24/1998 documented as of this encounter
--- OUTSIDE RECORDS SUMMARY | 2025-02-21 18:33 | XMS_ITS | Encounter Summary ---
Author Organization [facility] Address [address] [place] [address] Care Team Providers Care District Traffic Chief Name Role Phone Parrish Cabrera MD Primary Care Provider [phone] Encounter Details Date Type Department Care Team Description 03/06/2019 Control Systems Engineer Report Medical Records [address] [place] [address] Fercho Foster PA-C [address] [place] [address] [place] [address] Social History Tobacco Use Types Packs/Day Years [...] on filedocumented in this encounter Care Teams District Traffic Chief Relationship Specialty Start Date End Date Parrish Cabrera MD [address] [place] [address] PCP - General 12/24/1998 documented as of this encounter
--- OUTSIDE RECORDS SUMMARY | 2025-02-21 18:33 | XMS_ITS | Encounter Summary ---
Author Organization [facility] Address [address] [place] [address] Care Team Providers Care Manager Paid Name Role Phone Parrish Cabrera MD Primary Care Provider [phone] Encounter Details Date Type Department Care Team (Late Contact Info) Description 08/01/2024 Lab Requisition [facility] - Main Lab 299 [facility] [place] [address] Nilesh Adams MD [address] [place] [address] [phone] Encounter for other general examination Social History [...] PM EST Office Visit Orthopedic Surgery - [place] [address] [facility] [address] [place] [address] Dalton Rodriguez DPM [address] [place] [phone] 04/01/2025 1:00 PM EST Office Visit Adult Medicine [facility] [address] [place] [address] Parrish Cabrera MD [address] [place] [address] 04/14/2025 1:00 PM EST Appointment [facility] Ultrasound [address] [place] [phone] 05/20/2025 10:00 AM EST Office Visit Vascular Surgery - [place] [address] [place] [address] Zenaida Rose MD [address] [place] [address] documented as of this encounter Procedures Procedure [...] with indices Consistent with indices, Normal for Arma LAB HEMETOLOGY METHOD 08/01/2024 12:00 PM EDT [facility] ([facility]) [facility] Platelet Morphology - WAM See Note(A) Normal LAB HEMETOLOGY METHOD 08/01/2024 12:00 PM EDT [facility] Comment:PLT: Normal Blood Venous blood specimen / Unknown Venipuncture / Unknown 08/01/2024 6:47 AM EDT 08/01/2024 10:49 AM EDT us Nilesh Adams MD LAB BLOOD ORDERABLES Final Res ult [facility] [address] [place] [address], * (ABNORMAL) CBC auto differential (08/01/2024 6:47 AM EDT) WBC 12.5(H) 4.8 - 10.8 K/mcL LAB HEMETOLOGY METHOD 08/01/2024 12:00 PM EDT [facility] RBC 2.70(L) 4.50 - 5.50 M/mcL LAB HEMETOLOGY METHOD 08/01/2024 12:00 PM [facility] Hemoglobin 8.8(L) 13.5 - 17.5 g/dL LAB HEMETOLOGY METHOD 08/01/2024 12:00 PM [facility] Hematocrit 27.6(L) 42.0 - 54.0 % LAB HEMETOLOGY METHOD 08/01/2024 12:00 PM [facility] MCV 102.6(H) 79.0 - 98.0 FL LAB HEMETOLOGY METHOD 08/01/2024 12:00 PM [facility] MCH 32.7(H) 27.0 - 32.0 pcg LAB HEMETOLOGY METHOD 08/01/2024 12:00 PM [facility] MCHC 31.9(L) 32.0 - 37.0 g/dL LAB HEMETOLOGY METHOD 08/01/2024 12:00 PM [facility] RDW 13.4 11.0 - 15.0 % LAB HEMETOLOGY METHOD 08/01/2024 12:00 PM [facility] Platelets 189 130 - 400 K/mcL LAB HEMETOLOGY METHOD 08/01/2024 12:00 PM [facility] MPV 10.9 7.0 - 11.0 FL LAB HEMETOLOGY METHOD 08/01/2024 12:00 PM [facility] NRBC 0.0 <1.0 % LAB HEMETOLOGY METHOD 08/01/2024 12:00 PM [facility] NRBC Absolute 0.00 <0.10 K/mcL LAB HEMETOLOGY METHOD 08/01/2024 12:00 PM [facility] Neutrophils Relative 77.5 % LAB HEMETOLOGY METHOD 08/01/2024 12:00 PM [facility] Comment:This is an appended report. These results have been appended to a previously preliminary verified report. Lymphocytes Relative 7.7 % LAB HEMETOLOGY METHOD 08/01/2024 12:00 PM [facility] Comment:This is an appended report. These results have been appended to a previously preliminary verified report. Monocytes Relative 12.9 % LAB HEMETOLOGY METHOD 08/01/2024 12:00 PM [facility] Comment:This is an appended report. These results have been appended to a previously preliminary verified report. Eosinophils Relative 1.4 % LAB HEMETOLOGY METHOD 08/01/2024 12:00 PM T [facility] Comment:This is an appended report. These results have been appended to a previously preliminary verified report. Basophils Relative 0.2 % LAB HEMETOLOGY METHOD 08/01/2024 12:00 PM [facility] Comment:This is an appended report. These results have been appended to a previously preliminary verified report. Immature Granulocytes Relative 0.3 % LAB HEMETOLOGY METHOD 08/01/2024 12:00 PM [facility] Comment:This is an appended report. These results have been appended to a previously preliminary verified report. Neutrophils Absolute 9.71(H) 1.50 - 7.00 K/mcL LAB HEMETOLOGY METHOD 08/01/2024 12:00 PM [facility] Comment:This is an appended report. These results have been appended to a previously preliminary verified report. Lymphocytes Absolute 0.97(L) 1.00 - 5.00 K/mcL LAB HEMETOLOGY METHOD 08/01/2024 12:00 PM [facility] Comment:This is an appended report. These results have been appended to a previously preliminary verified report. Monocytes Absolute 1.62(H) 0.20 - 1.00 K/mcL LAB HEMETOLOGY METHOD 08/01/2024 12:00 PM [facility] Comment:This is an appended report. These results have been appended to a previously preliminary verified report. Eosinophils Absolute 0.18 0.00 - 0.50 K/mcL LAB HEMETOLOGY METHOD 08/01/2024 12:00 PM [facility] Comment:This is an appended report. These results have been appended to a previously preliminary verified report. Basophils Absolute 0.02 0.00 - 0.20 K/mcL LAB HEMETOLOGY METHOD 08/01/2024 12:00 PM [facility] Comment:This is an appended report. These results have been appended to a previously preliminary verified report. Immature Granulocytes Absolute 0.04(H) 0.00 - 0.03 K/mcL LAB HEMETOLOGY METHOD 08/01/2024 12:00 PM [facility] Comment:This is an appended report. These results have been appended to a previously preliminary verified report. Blood Venous blood specimen / Unknown Venipuncture / Unknown 08/01/2024 6:47 AM EDT 08/01/2024 10:49 AM EDT us Nilesh Adams MD LAB BLOOD ORDERABLES Final Res ult [facility] [address] [place] [address], [place] [phone] * Magnesium (08/01/2024 6:47 AM EDT) Pathologist [facility] Magnesium 2.1 1.9 - 2.6 mg/dL LAB CHEMISTRY METHOD 08/01/2024 12:20 PM EDT [facility] Blood Venous blood specimen / Unknown Venipuncture / Unknown 08/01/2024 6:47 AM EDT 08/01/2024 10:49 AM EDT us Nilesh Adams MD LAB BLOOD ORDERABLES Final Res ult Performing Organization Address City/[facility]/ZIP Co de Phone Number [facility] [address] [place] [address], [place] [phone] * (ABNORMAL) Comprehensive metabolic panel (08/01/2024 6:47 AM EDT) [facility] Sodium 136 133 - 145 mmol/L [...] mg/dL LAB CHEMISTRY METHOD 08/01/2024 12:20 PM [facility] Creatinine 0.96 0.70 - 1.30 mg/dL LAB CHEMISTRY METHOD 08/01/2024 12:20 PM [facility] eGFR 77 >=60 mL/min/1. 73m2 LAB CHEMISTRY METHOD 08/01/2024 12:20 PM [facility] Comment:Calculation based on the Chronic Kidney Disease Epidemiology Collaboration (CKD-EPI) equation refit without adjustment for race. BUN/Creatinine Ratio 34.4 LAB CHEMISTRY METHOD 08/01/2024 12:20 PM [facility] Calcium 8.9 8.5 - 10.5 mg/dL LAB CHEMISTRY METHOD 08/01/2024 12:20 PM [facility] AST (SGOT) 53(H) 10 - 42 unit/L LAB CHEMISTRY METHOD 08/01/2024 12:20 PM [facility] ALT (SGPT) 27 10 - 60 unit/L LAB CHEMISTRY METHOD 08/01/2024 12:20 PM [facility] Alkaline Phosphatase 81 42 - 121 unit/L LAB CHEMISTRY METHOD 08/01/2024 12:20 PM [facility] Total Protein 5.9(L) 6.0 - 8.0 g/dL LAB CHEMISTRY METHOD 08/01/2024 12:20 PM [facility] Albumin 2.9(L) 3.2 - 5.0 g/dL LAB CHEMISTRY METHOD 08/01/2024 12:20 PM [facility] Total Bilirubin 0.7 0.0 - 1.4 mg/dL LAB CHEMISTRY METHOD 08/01/2024 12:20 PM [facility] Blood Venous blood specimen / Unknown Venipuncture / Unknown 08/01/2024 6:47 AM EDT 08/01/2024 10:49 AM EDT us Nilesh Adams MD LAB BLOOD ORDERABLES Final Res ult [facility] ([facility]) [facility] [address] [place] [address], documented in this encounter Visit Diagnoses Diagnosis Encounter for other general examination documented in this encounter Care Teams Manager Paid Relationship Specialty Start Date End Date Parrish Cabrera MD [address] [place] [address] PCP - General 12/24/1998 documented as of this encounter
--- OUTSIDE RECORDS SUMMARY | 2025-02-21 18:33 | XMS_ITS | Encounter Summary ---
Author Organization [facility] Address [address] [place] [address] Care Team Providers Care Fund Controller Name Role Phone Parrish Cabrera MD Primary Care Provider [phone] Encounter Details Date Type Department Care Team (Late Contact Info) Description 08/02/2024 Lab Requisition [facility] - Main Lab 299 [facility] [place] [address] Nilesh Adams MD [address] [place] [address] [phone] Encounter for other general examination Social History [...] PM EST Office Visit Orthopedic Surgery - [place] [address] [facility] [address] [place] [address] Dalton Rodriguez DPM [address] [place] [phone] 04/01/2025 1:00 PM EST Office Visit Adult Medicine [facility] [address] [place] [address] Parrish Cabrera MD [address] [place] [address] 04/14/2025 1:00 PM EST Appointment [facility] Ultrasound [address] [place] [phone] 05/20/2025 10:00 AM EST Office Visit Vascular Surgery - [place] [address] [place] [address] Zenaida Rose MD [address] [place] [address] documented as of this encounter Procedures Procedure [...] at 5 days 08/07/2024 6:02 PM EDT [facility] ([facility]) [facility] Blood 08/02/2024 2:45 PM EDT 08/02/2024 5:03 PM EDT us Nilesh Adams MD LAB MICROBIOLOGY - GENERAL ORD ERABLES Final Result [facility] [address] [place] [address], [place] [phone] * (ABNORMAL) CBC auto differential (08/02/2024 2:40 PM EDT) Pathologist [facility] WBC 7.4 4.8 - 10.8 K/mcL LAB HEMETOLOGY METHOD 08/02/2024 5:[address] [facility] RBC 2.50(L) 4.50 - 5.50 M/mcL LAB HEMETOLOGY METHOD 08/02/2024 5:[address] [facility] Hemoglobin 8.2(L) 13.5 - 17.5 g/dL LAB HEMETOLOGY METHOD 08/02/2024 5:[address] [facility] Hematocrit 25.1(L) 42.0 - 54.0 % LAB HEMETOLOGY METHOD 08/02/2024 5:[address] [facility] MCV 99.6(H) 79.0 - 98.0 FL LAB HEMETOLOGY METHOD 08/02/2024 5:[address] [facility] MCH 32.5(H) 27.0 - 32.0 pcg LAB HEMETOLOGY METHOD 08/02/2024 5:[address] [facility] MCHC 32.7 32.0 - 37.0 g/dL LAB HEMETOLOGY METHOD 08/02/2024 5:[address] [facility] RDW 13.3 11.0 - 15.0 % LAB HEMETOLOGY METHOD 08/02/2024 5:[address] [facility] Platelets 235 130 - 400 [...] LAB HEMETOLOGY METHOD 08/02/2024 5:[address] [facility] Basophils Absolute 0.02 0.00 - 0.20 K/mcL LAB HEMETOLOGY METHOD 08/02/2024 5:[address] [facility] Immature Granulocytes Absolute 0.03 0.00 - 0.03 K/[facility] LAB HEMETOLOGY METHOD 08/02/2024 5:[address] [facility] Blood Venous blood specimen / Unknown 08/02/2024 2:40 PM EDT 08/02/2024 5:03 PM EDT Nilesh Adams MD LAB BLOOD ORDERABLES Final Res ult Performing Organization Address [facility]/ZIP Co de Phone Number [facility] [address] [place] [address], [place] [phone] * Culture blood (08/02/2024 2:40 PM EDT) [facility] Culture, Blood No growth at 5 days 08/07/2024 6:[address] [facility] Blood Venipuncture / Unknown 08/02/2024 2:40 PM EDT 08/02/2024 5:03 PM EDT us Nilesh Adams MD LAB MICROBIOLOGY - GENERAL ORD ERABLES Final Result Performing Organization Address City/[facility]/ZIP Co de Phone Number [facility] [address] [place] [address], [place] [phone] * (ABNORMAL) Comprehensive metabolic panel (08/02/2024 2:40 PM EDT) Sodium 138 133 - 145 mmol/L LAB CHEMISTRY METHOD 08/02/2024 5:[address] [facility] Potassium 4.4 3.5 - 5.5 mmol/L LAB CHEMISTRY METHOD 08/02/2024 5:[address] [facility] Chloride 105 96 [...] LAB CHEMISTRY METHOD 08/02/2024 5:[address] [facility] Albumin 2.7(L) 3.2 - 5.0 g/dL LAB CHEMISTRY METHOD 08/02/2024 5:[address] [facility] Total Bilirubin 0.5 0.0 - 1.4 mg/dL LAB CHEMISTRY METHOD 08/02/2024 5:[address] [facility] Blood Venous blood specimen / Unknown Venipuncture / Unknown 08/02/2024 2:40 PM EDT 08/02/2024 5:03 PM EDT us Nilesh Adams MD LAB BLOOD ORDERABLES Final Res ult [facility] [address] [place] [address], documented in this encounter Visit Diagnoses Diagnosis Encounter for other general examination documented in this encounter Care Teams Fund Controller Relationship Specialty Start Date End Date Parrish Cabrera MD [address] [place] [address] PCP - General 12/24/1998 documented as of this encounter
--- OUTSIDE RECORDS SUMMARY | 2025-02-21 18:33 | XMS_ITS | Encounter Summary ---
Author Organization [facility] Address [address] [place] [address] Care Team Providers Care Rubber And Plastics Worker Name Role Phone Parrish Cabrera MD Primary Care Provider [phone] Encounter Details Date Type Department Care Team Description 06/07/2018 Release of Information Medical Records [address] [place] [phone] Abstract, Provider Social History Tobacco Use Types [...] on filedocumented in this encounter Care Teams Rubber And Plastics Worker Relationship Specialty Start Date End Date Parrish Cabrera MD [address] [place] [address] [phone] PCP - General 12/24/1998 documented as of this encounter
--- OUTSIDE RECORDS SUMMARY | 2025-02-21 18:33 | XMS_ITS | Encounter Summary ---
Author Organization [facility] Address [address] [place] [address] Care Team Providers Care Family Medicine Physician Assistant Name Role Phone Parrish Cabrera MD Primary Care Provider [phone] Encounter Details Date Type Department Care Team Description 02/13/2018 Hospital Medical Records [address] [place] [phone] Chandana Vega MD Social History Tobacco Use [...] on filedocumented in this encounter Care Teams Family Medicine Physician Assistant Relationship Specialty Start Date End Date Parrish Cabrera MD [address] [place] [address] [phone] PCP - General 12/24/1998 documented as of this encounter
--- OUTSIDE RECORDS SUMMARY | 2025-02-21 18:33 | XMS_ITS | Encounter Summary ---
Author Organization [facility] Address [address] [place] [address] Care Team Providers Care Incinerator Operator Name Role Phone Parrish Cabrera MD Primary Care Provider [phone] Encounter Details Date Type Department Care Team Description 01/03/2022 Orders Only Medical Records [address] [place] [address] Bk Mclaughlin MD [address] [place] [address] Social History Tobacco Use Types Packs/Day Years [...] suspected to have Coronavirus/COVID-19? No / Unsure 12/28/2021 10:52 AM EDT documented as of this encounter Progress Notes * Rito Mclaughlin MD - 01/17/2022 10:57 AM EDT Mr. Ibrahim,The polyp(s) that were removed during your colonoscopy were precancerous, but benign. Fortunately, we removed them and therefore, they will not cause any more problems in the future.Based on the number, the size, and the features of the polyp(s) removed, I no longer recommend a follow-upcolonoscopy unless you have issues in the future.I would like to personally thank you for allowing us to take care of you. Please don't hesitate to call us for any questions or concerns.Regards,Ford Mclaughlin MDBoard Certified Gastroenterology and Internal MedicineTransplant HepatologyDallas County Hospital documented in this encounter Plan of Treatment Not on file documented as of this encounter Procedures Procedure Name Priority Date/Time Associated Diagnosis Comments OUTSIDE PATHOLOGY Routine 12/30/2021 documented in this encounter Results * OUTSIDE PATHOLOGY (12/30/2021) Bk Mclaughlin MD OUTSIDE LAB documented in this encounter Visit Diagnoses Not on filedocumented in this encounter Care Teams Incinerator Operator Relationship Specialty Start Date End Date Parrish Cabrera MD [address] [place] [phone] PCP - General 12/24/1998 documented as of this encounter
--- OUTSIDE RECORDS SUMMARY | 2025-02-21 18:33 | XMS_ITS | Encounter Summary ---
Author Organization [facility] Address [address] [place] [address] Care Team Providers Care Bullet Assembly Press Setter Operator Name Role Phone Parrish Cabrera MD Primary Care Provider [phone] Encounter Details Date Type Department Care Team Description 11/30/2009 Eye Leather Parts Matcher Report Medical Records [address] [place] [address] Dayton Miller MD Social History Tobacco Use Types Packs/Day [...] on filedocumented in this encounter Care Teams Bullet Assembly Press Setter Operator Relationship Specialty Start Date End Date Parrish Cabrera MD [address] [place] [address] [phone] PCP - General 12/24/1998 documented as of this encounter
--- OUTSIDE RECORDS SUMMARY | 2025-02-21 18:33 | XMS_ITS | Encounter Summary ---
Author Organization [facility] Address [address] [place] [address] Care Team Providers Care Lathe Machine Operator Name Role Phone Parrish Cabrera MD Primary Care Provider [phone] Encounter Details Date Type Department Care Team (Late Contact Info) Description 08/04/2024 Lab Requisition [facility] - Main Lab 299 [facility] [place] [address] Nilesh Adams MD [address] [place] [address] [phone] Encounter for other general examination Social History [...] PM EST Office Visit Orthopedic Surgery - [place] [address] [facility] [address] [place] [address] Dalton Rodriguez DPM [address] [place] [phone] 04/01/2025 1:00 PM EST Office Visit Adult Medicine [facility] [address] [place] [address] Parrish Cabrera MD [address] [place], [place] 04/14/2025 1:00 PM EST Appointment [facility] Ultrasound [address] [place] [phone] 05/20/2025 10:00 AM EST Office Visit Vascular Surgery - [place] [address] [place] [address] Zenaida Rose MD [address] [place] [phone] documented as of this encounter Procedures Procedure [...] ult [facility] [address] [place] [address], documented in this encounter Visit Diagnoses Diagnosis Encounter for other general examination documented in this encounter Care Teams Lathe Machine Operator Relationship Specialty Start Date End Date Parrish Cabrera MD [address] [place] [phone] PCP - General 12/24/1998 documented as of this encounter
--- OUTSIDE RECORDS SUMMARY | 2025-02-21 18:33 | XMS_ITS | Encounter Summary ---
Author Organization [facility] Address [address] [place] [address] Care Team Providers Care Supply Clerk Name Role Phone Parrish Cabrera MD Primary Care Provider [phone] Encounter Details Date Type Department Care Team Description 10/30/2018 Telephone Adult Medicine [address] [phone] Parrish Cabrera MD [address] [place] [address] [phone] Social History Tobacco Use Types Packs/Day Years [...] on filedocumented in this encounter Care Teams Supply Clerk Relationship Specialty Start Date End Date Parrish Cabrera MD [address] [place] [address] [phone] PCP - General 12/24/1998 documented as of this encounter
--- OUTSIDE RECORDS SUMMARY | 2025-02-21 18:33 | XMS_ITS | Clinical Summary ---
Author Organization [facility] Address [address] [place] [address] Phone Care Team Providers Care Chess Instructor Name Role Phone Parrish Cabrera MD Primary Care Provider [phone] Allergies No known active allergies Medications tamsulosin [...] (03/18/2024): Noted on CT scan done in [facility] emergency room on 12/22/2023. [...] (periodic limb movement disorder) 7 Overview (03/18/2024): [facility] Polysomn[facility]: Date 06/22/2016; SE 60%; SM 79%; [...] Actinic keratosis Lumbar spinal stenosis 07/02/2012 Meningioma ([facility] V24, [facility] V28) 07/28/2008 Overview (03/18/2024): Follow with Dr. [...] colonoscopy 04/02/2007. Benign neoplasm of cerebral meninges ([facility] V24, [facility] V28) 11/22/2006 Overview (03/18/2024): small frontal meningioma on MRI 2006 Pt prefers no further evaluation DM w/o complication type II ([facility] V24, [facility]/ [facility] V28) 11/13/2006 Overview (03/18/2024): Last Assessment [...] just unsure what to do Educational Resources [place] [employer] (www.diabetes.org) Centers for Disease Control [...] Department Care Team Description 01/08/2025 Telephone Adult [address] [address] Rimma Lamb [place] 01/08/2025 Telephone Adult Medicine [address] [address] Rimma Lamb [place] 12/29/2024 3:00 PM EDT Office Visit Orthopedic Surgery - [address] [address] Dalton Rodriguez DPM Controlled type 2 diabetes mellitus with diabetic polyneuropathy, without long-term current use of insulin ([facility] V24, [facility] V28) (Primary Dx); Arthritis of both feet; Neuropathy; Right foot drop; Onychomycosis; Callus 12/16/2024 Telephone Adult [address] [address] Parrish Cabrera MD 11/26/2024 9:45 AM EDT Office Visit [address] [phone] Parrish Cabrera MD Abrasion of skin of [...] Site/Laterality Comments OTHER SURGICAL HISTORY 1967 PROCEDURE: AL VGTMY W/PYLOROPLASTY W/WO GASTROST PARIETAL CELL; COMMENT: GI bleeding, remote; [facility]. ROTATOR CUFF REPAIR 2002 PROCEDURE: HISTORICAL ROTATOR CUFF REPAIR; COMMENT: right CATARACT EXTRACTION PROCEDURE: HISTORICAL CATARACT REMOVAL; COMMENT: right eye COLONOSCOPY 04/02/2007 PROCEDURE: HISTORICAL COLONOSCOPY; COMMENT: negative COLONOSCOPY 04/21/2019 PROCEDURE: HISTORICAL COLONOSCOPY; COMMENT: 5 mm AC polyp: Tubular adenoma UPPER GASTROINTESTINAL ENDOSCOPY 04/21/2019 PROCEDURE: AL UPPER GI ENDOSCOPY PERFORMED; COMMENT: Visually normal, duodenal biopsies obtained, pathology: Normal APPENDECTOMY PROCEDURE: AL APPENDECTOMY Medical History Medical History Date Comments [...] Medical DX 10/14/2007 DX:BPH Meningioma (CMS/HCC V24, [facility] V28) 07/28/2008 DX:Meningioma (HCC) Type II or [...] PM EST Office Visit Orthopedic Surgery - [place] [address] [place] [phone] Dalton Rodriguez DPM [address] [place] [address] 04/01/2025 1:00 PM EST Office Visit Adult Medicine [facility] [address] [place] [address] Parrish Cabrera MD [address] [place] [address] 04/14/2025 1:00 PM EST Appointment [facility] Ultrasound [address] [place] [phone] 05/20/2025 10:00 AM EST Office Visit Vascular Surgery - [place] [address] [place] [phone] Zenaida Rose MD [address] [place] [phone] Health Maintenance Due Date Last Done Comments [...] mmol/L LAB CHEMISTRY METHOD 08/11/2024 3:12 PM [facility] Potassium 4.5 3.5 - 5.5 mmol/L LAB CHEMISTRY METHOD 08/11/2024 3:12 PM [facility] Chloride 105 96 - 110 mmol/L LAB CHEMISTRY METHOD 08/11/2024 3:12 PM [facility] CO2 27 21 - 32 mmol/L LAB CHEMISTRY METHOD 08/11/2024 3:12 PM [facility] Anion Gap 7 3 - 11 LAB CHEMISTRY METHOD 08/11/2024 3:12 PM [facility] Glucose 91 70 - 100 mg/dL LAB CHEMISTRY METHOD 08/11/2024 3:12 PM [facility] BUN 15 5 - 25 mg/dL LAB CHEMISTRY METHOD 08/11/2024 3:12 PM [facility] Creatinine 0.60(L) 0.70 - 1.30 mg/dL LAB CHEMISTRY METHOD 08/11/2024 3:12 PM [facility] eGFR 94 >=60 mL/min/1. 73m2 LAB CHEMISTRY METHOD 08/11/2024 3:12 PM [facility] Comment:Calculation based on the Chronic Kidney Disease Epidemiology Collaboration (CKD-EPI) equation refit without adjustment for race. BUN/Creatinine Ratio 25.0 LAB CHEMISTRY METHOD 08/11/2024 3:12 PM [facility] Calcium 9.1 8.5 - 10.5 mg/dL LAB CHEMISTRY METHOD 08/11/2024 3:12 PM [facility] AST (SGOT) 45(H) 10 - [...] [facility] [address] [place] [address], * Falls Risk Assessment (12/04/2023) Pathologist [facility] Falls Risk Assessment Abstracted Historical Provider HEALTH MAINTENANCE Final Result * Hemoglobin A1c (09/25/2023) Pathologist [facility] Hemoglobin A1C 6.3 <=6.5 % Blood Venous blood specimen / Unknown Historical Provider LAB BLOOD ORDERABLES Soniya l Result * Depression Screening (08/20/2023) Pathologist [facility] Depression Screening Abstracted Historical Provider HEALTH MAINTENANCE [...] Recently Relevant to Health Maintenance Insurance MEDICARE [facility] Member Subscriber Plan / Payer (Ef fective 2015-Present) Name:MIKY MONGE Relation to Subscriber:Spouse Name:BETTE MONGE Date of :1941 Address: [address] [place] [id number] Payer ID:[id number] Group ID:[id number] Type:Not on file Address: [address] [place] [address] Care Teams Chess Instructor Relationship Specialty Start Date End Date Parrish Cabrera MD [address] [place] [address] PCP - General 12/24/1998
--- OUTSIDE RECORDS SUMMARY | 2025-02-21 18:33 | XMS_ITS | Encounter Summary ---
Author Organization [facility] Address [address] [place] [address] Care Team Providers Care Sports Apparel Internship Name Role Phone Parrish Cabrera MD Primary Care Provider [phone] Encounter Details Date Type Department Care Team Description 06/02/2015 Wellness Visit Medical Records [address] [place] [address] Parrish Cabrera MD [address] [place] [address] [phone] Social History Tobacco Use Types Packs/Day Years [...] on filedocumented in this encounter Care Teams Sports Apparel Internship Relationship Specialty Start Date End Date Parrish Cabrera MD [address] [place] [address] [phone] PCP - General 12/24/1998 documented as of this encounter
--- OUTSIDE RECORDS SUMMARY | 2025-02-21 18:33 | XMS_ITS | Encounter Summary ---
Author Organization [facility] Address [address] [place] [address] Care Team Providers Care Professional Poker Player Name Role Phone Parrish Cabrera MD Primary Care Provider [phone] Encounter Details Date Type Department Care Team Description 02/21/2022 Disbursing Officer Report Medical Records [address] [place] [address] Asad Hercules MD Social History Tobacco Use Types Packs/Day [...] on filedocumented in this encounter Care Teams Professional Poker Player Relationship Specialty Start Date End Date Parrish Cabrera MD [address] [place] [address] [phone] PCP - General 12/24/1998 documented as of this encounter
--- OUTSIDE RECORDS SUMMARY | 2025-02-21 18:33 | XMS_ITS | Encounter Summary ---
Author Organization [facility] Address [address] [place] [address] Care Team Providers Care Bow Making Machine Operator Name Role Phone Parrish Cabrera MD Primary Care Provider [phone] Encounter Details Date Type Department Care Team Description 02/29/2012 Farmworker Diversified Crops Report Medical Records [address] [place] [address] Chandana Vega MD Social History Tobacco Use [...] on filedocumented in this encounter Care Teams Bow Making Machine Operator Relationship Specialty Start Date End Date Parrish Cabrera MD [address] [place] [address] [phone] PCP - General 12/24/1998 documented as of this encounter
--- OUTSIDE RECORDS SUMMARY | 2025-02-21 18:33 | XMS_ITS | Encounter Summary ---
Author Organization [facility] Address [address] [place] [address] Care Team Providers Care Cash Applications Representative Name Role Phone Parrish Cabrera MD Primary Care Provider [phone] Encounter Details Date Type Department Care Team Description 08/02/2015 Release of Information Medical Records [address] [place] [address] Abstract, Provider Social History Tobacco Use Types [...] on filedocumented in this encounter Care Teams Cash Applications Representative Relationship Specialty Start Date End Date Parrish Cabrera MD [address] [place] [address] [phone] PCP - General 12/24/1998 documented as of this encounter
--- OUTSIDE RECORDS SUMMARY | 2025-02-21 18:33 | XMS_ITS | Encounter Summary ---
Author Organization [facility] Address [address] [place] [address] Care Team Providers Care Lieutenant Colonel Name Role Phone Parrish Cabrera MD Primary Care Provider [phone] Encounter Details Date Type Department Care Team Description 03/02/2015 Release of Information Medical Records [address] [place] [phone] Abstract, Provider Social History Tobacco Use Types [...] on filedocumented in this encounter Care Teams Lieutenant Colonel Relationship Specialty Start Date End Date Parrish Cabrera MD [address] [place] [address] [phone] PCP - General 12/24/1998 documented as of this encounter
--- OUTSIDE RECORDS SUMMARY | 2025-02-21 18:33 | XMS_ITS | Encounter Summary ---
Author Organization [facility] Address [address] [place] [address] Care Team Providers Care Undergraduate Advisor Name Role Phone Parrish Cabrera MD Primary Care Provider [phone] Encounter Details Date Type Department Care Team Description 05/09/2019 Hospital Medical Records [address] [place] [phone] Charlie Arrieta MD, PHD Social History Tobacco [...] on filedocumented in this encounter Care Teams Undergraduate Advisor Relationship Specialty Start Date End Date Parrish Cabrera MD [address] [place] [address] [phone] PCP - General 12/24/1998 documented as of this encounter
--- OUTSIDE RECORDS SUMMARY | 2025-02-21 18:33 | XMS_ITS | Encounter Summary ---
Author Organization [facility] Address [address] [place] [address] Care Team Providers Care Feed And Farm Management Adviser Name Role Phone Parrish Cabrera MD Primary Care Provider [phone] Encounter Details Date Type Department Care Team Description 08/14/2022 Paper Cup Handle Machine Operator Report Medical Records [address] [place] [address] Destin Jerome DO Social History Tobacco Use [...] suspected to have Coronavirus/COVID-19? No / Unsure 08/16/2022 11:04 AM EDT documented as of this encounter Plan of Treatment Not on file documented as of this encounter Visit Diagnoses Not on filedocumented in this encounter Care Teams Feed And Farm Management Adviser Relationship Specialty Start Date End Date Parrish Cabrera MD [address] [place] [address] [phone] PCP - General 12/24/1998 documented as of this encounter
--- OUTSIDE RECORDS SUMMARY | 2025-02-21 18:33 | XMS_ITS | Encounter Summary ---
Author Organization [facility] Address [address] [place] [address] Care Team Providers Care Lightout Examiner Name Role Phone Parrish Cabrera MD Primary Care Provider [phone] Encounter Details Date Type Department Care Team Description 07/17/2019 System Development Engineer Report Medical Records [address] [place] [address] Fercho Foster PA-C [address] [place] [address] [place] [address] Social History Tobacco Use Types Packs/Day Years [...] on filedocumented in this encounter Care Teams Lightout Examiner Relationship Specialty Start Date End Date Parrish Cabrera MD [address] [place] [address] PCP - General 12/24/1998 documented as of this encounter
--- OUTSIDE RECORDS SUMMARY | 2025-02-21 18:33 | XMS_ITS | Encounter Summary ---
Author Organization [facility] Address [address] [place] [address] Care Team Providers Care Sensitized Paper Tester Name Role Phone Parrish Cabrera MD Primary Care Provider [phone] Encounter Details Date Type Department Care Team Description 01/14/2016 Business Doc Medical Records [address] [place] [address] Abstract, Provider Social History Tobacco Use Types [...] on filedocumented in this encounter Care Teams Sensitized Paper Tester Relationship Specialty Start Date End Date Parrish Cabrera MD [address] [place] [address] [phone] PCP - General 12/24/1998 documented as of this encounter
--- OUTSIDE RECORDS SUMMARY | 2025-02-21 18:33 | XMS_ITS | Encounter Summary ---
Author Organization [facility] Address [address] [place] [address] Care Team Providers Care Rougher Helper Name Role Phone Parrish Cabrera MD Primary Care Provider [phone] Encounter Details Date Type Department Care Team (Late st Contact Info) Description 08/11/2024 Lab Requisition [facility] [address] [facility] [place] [address] Nilesh Adams MD [address] [place] [address] [phone] Encounter for other general examination Social History [...] Orthopedic Surgery [facility] [address] [facility] [address] [place] [phone] Dalton Rodriguez DPM [address] [place] [phone] 04/01/2025 1:00 PM EST Office Visit Adult Medicine [facility] [address] [place] [address] Parrish Cabrera MD [address] [place] [address] 04/14/2025 1:00 PM EST Appointment [facility] Ultrasound [address] [place] [phone] 05/20/2025 10:00 AM EST Office Visit Vascular Surgery [facility] [address] [facility] [address] [place] [phone] Zenaida Rose MD [address] [place] [phone] documented as of this encounter Procedures Procedure [...] CBC auto differential (08/11/2024 5:25 AM EDT) [facility] WBC 10.1 4.8 - 10.8 K/mcL LAB HEMETOLOGY METHOD 08/11/2024 1:15 PM [facility] RBC 2.90(L) 4.50 - 5.50 M/mcL LAB HEMETOLOGY METHOD 08/11/2024 1:15 PM [facility] Hemoglobin 9.4(L) 13.5 - 17.5 g/dL LAB HEMETOLOGY METHOD 08/11/2024 1:15 PM [facility] Hematocrit 30.1(L) 42.0 - 54.0 % LAB HEMETOLOGY METHOD 08/11/2024 1:15 PM [facility] MCV 103.1(H) 79.0 - 98.0 FL LAB HEMETOLOGY METHOD 08/11/2024 1:15 PM [facility] MCH 32.2(H) 27.0 - 32.0 pcg LAB HEMETOLOGY METHOD 08/11/2024 1:15 PM [facility] MCHC 31.2(L) 32.0 - 37.0 g/dL LAB HEMETOLOGY METHOD 08/11/2024 1:15 PM [facility] RDW 13.4 11.0 - 15.0 % LAB HEMETOLOGY METHOD 08/11/2024 1:15 PM [facility] Platelets 425(H) 130 - 400 K/mcL LAB HEMETOLOGY METHOD 08/11/2024 1:15 PM [facility] MPV 9.8 7.0 - 11.0 FL LAB HEMETOLOGY METHOD 08/11/2024 1:15 PM [facility] NRBC 0.0 <1.0 % LAB HEMETOLOGY METHOD 08/11/2024 1:[facility] PM [facility] NRBC Absolute 0.00 <0.10 [...] % LAB HEMETOLOGY METHOD 08/11/2024 1:15 PM [facility] Immature Granulocytes Relative 0.6 % LAB HEMETOLOGY METHOD 08/11/2024 1:15 PM [facility] Neutrophils Absolute 6.74 1.50 - 7.00 K/mcL LAB HEMETOLOGY METHOD 08/11/2024 1:15 PM [facility] Lymphocytes Absolute 1.72 1.00 - 5.00 K/mcL LAB HEMETOLOGY METHOD 08/11/2024 1:15 PM [facility] Monocytes Absolute 1.13(H) 0.20 - 1.00 K/mcL LAB HEMETOLOGY METHOD 08/11/2024 [facility] Eosinophils Absolute 0.35 0.00 - 0.50 K/mcL LAB HEMETOLOGY METHOD 08/11/2024 1:[facility] PM [facility] Basophils Absolute 0.05 0.00 - 0.20 K/mcL LAB HEMETOLOGY METHOD 08/11/2024 1:15 PM [facility] Immature Granulocytes Absolute 0.06(H) 0.00 - 0.03 K/mcL LAB HEMETOLOGY METHOD 08/11/2024 1:15 PM EDT [facility] Blood Venous blood specimen / Unknown Venipuncture / Unknown 08/11/2024 5:25 AM EDT 08/11/2024 11:25 AM EDT us Nilesh Adams MD LAB BLOOD ORDERABLES Final Res ult [facility] [address] [place] [address], [place] [phone] * (ABNORMAL) Comprehensive metabolic panel (08/11/2024 5:25 AM EDT) Sodium 139 133 - 145 mmol/L LAB CHEMISTRY METHOD 08/11/2024 3:12 PM [facility] Potassium 4.5 3.5 - 5.5 mmol/L LAB CHEMISTRY METHOD 08/11/2024 3:12 PM [facility] Chloride 105 96 - 110 mmol/L LAB CHEMISTRY METHOD 08/11/2024 3:12 PM [facility] CO2 27 21 - 32 mmol/L LAB CHEMISTRY METHOD 08/11/2024 3:12 PM [facility] Anion Gap 7 3 - 11 LAB CHEMISTRY METHOD 08/11/2024 3:12 PM [facility] Glucose 91 70 - 100 mg/dL LAB CHEMISTRY METHOD 08/11/2024 3:12 PM [facility] BUN 15 5 - 25 mg/dL LAB CHEMISTRY METHOD 08/11/2024 3:12 PM [facility] Creatinine 0.60(L) 0.70 - 1.30 mg/dL LAB CHEMISTRY METHOD 08/11/2024 3:12 PM [facility] eGFR 94 >=60 mL/min/1. 73m2 LAB CHEMISTRY METHOD 08/11/2024 3:12 PM [facility] Comment:Calculation based on the Chronic Kidney Disease Epidemiology Collaboration (CKD-EPI) equation refit without adjustment for race. BUN/Creatinine Ratio 25.0 LAB CHEMISTRY METHOD 08/11/2024 3:12 PM T [facility] Calcium 9.1 8.5 - 10.5 mg/dL LAB CHEMISTRY METHOD 08/11/2024 3:12 PM [facility] AST (SGOT) 45(H) 10 - 42 unit/L LAB CHEMISTRY METHOD 08/11/2024 3:12 PM [facility] ALT (SGPT) 60 10 - 60 unit/L LAB CHEMISTRY METHOD 08/11/2024 3:12 PM [facility] Alkaline Phosphatase 120 42 - 121 unit/L LAB CHEMISTRY METHOD 08/11/2024 3:12 PM [facility] Total Protein 6.5 6.0 - 8.0 g/dL LAB CHEMISTRY METHOD 08/11/2024 3:12 PM [facility] Albumin 3.1(L) 3.2 - 5.0 g/dL LAB CHEMISTRY METHOD 08/11/2024 3:12 PM [facility] Total Bilirubin 0.4 0.0 - 1.4 mg/dL LAB CHEMISTRY METHOD 08/11/2024 3:12 PM [facility] Blood Venous blood specimen / Unknown Venipuncture / Unknown 08/11/2024 5:25 AM EDT 08/11/2024 11:25 AM EDT us Nilesh Adams MD LAB BLOOD ORDERABLES Final Res ult [facility] [address] [place] [address], documented in this encounter Visit Diagnoses Diagnosis Encounter for other general examination documented in this encounter Care Teams Rougher Helper Relationship Specialty Start Date End Date Parrish Cabrera MD [address] [place] [phone] PCP - General 12/24/1998 documented as of this encounter
--- OUTSIDE RECORDS SUMMARY | 2025-02-21 18:33 | XMS_ITS | Encounter Summary ---
Author Organization [facility] Address [address] [place] [address] Care Team Providers Care Sales Account Executive Name Role Phone Parrish Cabrera MD Primary Care Provider [phone] Reason for Referral * Non PATRIA (Routine) - Closed Specialty Diagnoses / Procedures Referred By Contac t Referred To Contact Gastroenterology Diagnoses Iron deficiency anemia, unspecified iron deficiency anemia type Procedures REFERRAL TO GASTROENTEROLOGY Andrea Yoon FNP [address] [place] [address] Gastro [place]/[address] [phone] Referral ID Status Reason Start Date Expiration Date Visits Re quested Visits Authorized [id number] Closed 12/16/2018 12/16/2019 1 1 Encounter Details Date Type Department Care Team Description 12/16/2018 Telephone Adult Medicine [address] [address] Andrea Yoon FNP [address] [place] [address] [phone] Social History Tobacco Use Types Packs/Day Years [...] encounter Miscellaneous Notes * Telephone Encounter - Samra Watkins - 12/16/2018 11:44 AM EDT Patient is returning phone call [phone] * Telephone Encounter - LARRY Toth - 12/16/2018 8:13 AM EDT I called patient. We lost connection. If he calls back please tell him he still has an iron deficiency anemia. Though he has a colonoscopy scheduled in March he should have a consult with gastroenterology. I have placed this referral. 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
--- OUTSIDE RECORDS SUMMARY | 2025-02-21 18:33 | XMS_ITS | Encounter Summary ---
Author Organization [facility] Address [address] [place] [address] Care Team Providers Care Mannequin Decorator Name Role Phone Parrish Cabrera MD Primary Care Provider [phone] Encounter Details Date Type Department Care Team Description 03/05/2023 Technical Sourcing Recruiter Report Medical Records [address] [place] [phone] Ashish Harrington MD Social History Tobacco Use Types Packs/Day [...] on filedocumented in this encounter Care Teams Mannequin Decorator Relationship Specialty Start Date End Date Parrish Cabrera MD [address] [place] [address] [phone] PCP - General 12/24/1998 documented as of this encounter
--- OUTSIDE RECORDS SUMMARY | 2025-02-21 18:33 | XMS_ITS | Encounter Summary ---
Author Organization [facility] Address [address] [place] [address] Care Team Providers Care Transportation Coordinator Name Role Phone Parrish Cabrera MD Primary Care Provider [phone] Encounter Details Date Type Department Care Team (Late Contact Info) Description 08/06/2024 Lab Requisition [facility] - Main Lab [address] [facility] [place] [address] Nilesh Adams MD [address] [place] [address] [phone] Encounter for other general examination Social History [...] PM EST Office Visit Orthopedic Surgery - [place] [address] [facility] [address] [place] [address] Dalton Rodriguez DPM [address] [place] [phone] 04/01/2025 1:00 PM EST Office Visit Adult Medicine [facility] [place] [address] [place] [address] Parrish Cabrera MD [address] [place] 04/14/2025 1:00 PM EST Appointment [facility] Ultrasound [address] [place] [phone] 05/20/2025 10:00 AM EST Office Visit Vascular Surgery - [place] [address] [place] [address] Zenaida Rose MD [address] [place] [phone] documented as of this encounter Procedures Procedure [...] CBC auto differential (08/06/2024 6:12 AM EDT) [facility] WBC 8.1 4.8 - 10.8 K/mcL LAB HEMETOLOGY METHOD 08/06/2024 11:04 AM EDT [facility] RBC 2.60(L) 4.50 - 5.50 M/mcL LAB HEMETOLOGY METHOD 08/06/2024 11:04 AM EDT [facility] Hemoglobin 8.4(L) 13.5 - 17.5 g/dL LAB HEMETOLOGY METHOD 08/06/2024 11:04 AM [facility] Hematocrit 26.6(L) 42.0 - 54.0 % LAB HEMETOLOGY METHOD 08/06/2024 11:04 AM [facility] MCV 102.3(H) 79.0 - 98.0 FL LAB HEMETOLOGY METHOD 08/06/2024 11:04 AM [facility] MCH 32.3(H) 27.0 - 32.0 pcg LAB HEMETOLOGY METHOD 08/06/2024 11:04 AM [facility] MCHC 31.6(L) 32.0 - 37.0 g/dL LAB HEMETOLOGY METHOD 08/06/2024 11:04 AM [facility] RDW 13.2 11.0 - 15.0 % LAB HEMETOLOGY METHOD 08/06/2024 11:04 AM [facility] Platelets 348 130 - 400 K/mcL LAB HEMETOLOGY METHOD 08/06/2024 11:04 AM [facility] MPV 9.9 7.0 - 11.0 FL LAB HEMETOLOGY METHOD 08/06/2024 11:04 AM [facility] NRBC 0.0 <1.0 % LAB HEMETOLOGY METHOD 08/06/2024 11:04 AM [facility] NRBC Absolute 0.00 <0.10 K/mcL LAB HEMETOLOGY METHOD 08/06/2024 11:04 AM [facility] Neutrophils Relative 67.9 % LAB HEMETOLOGY METHOD 08/06/2024 11:04 AM [facility] Lymphocytes Relative 14.1 % LAB HEMETOLOGY METHOD 08/06/2024 11:04 AM [facility] Monocytes Relative 14.3 % LAB HEMETOLOGY METHOD 08/06/2024 11:04 AM [facility] Eosinophils Relative 2.2 % LAB HEMETOLOGY METHOD 08/06/2024 11:04 AM EDT [facility] Basophils Relative 0.6 % LAB HEMETOLOGY METHOD 08/06/2024 11:04 AM EDT [facility] Immature Granulocytes Relative 0.9 % LAB HEMETOLOGY METHOD 08/06/2024 11:04 AM EDT [facility] Neutrophils Absolute 5.53 1.50 - 7.00 K/mcL LAB HEMETOLOGY METHOD 08/06/2024 11:04 AM EDT [facility] Lymphocytes Absolute 1.15 1.00 - 5.00 K/mcL LAB HEMETOLOGY METHOD 08/06/2024 11:04 AM EDT [facility] Monocytes Absolute 1.16(H) 0.20 - 1.00 K/mcL LAB HEMETOLOGY METHOD 08/06/2024 11:04 AM EDT [facility] Eosinophils Absolute 0.18 0.00 - 0.50 K/mcL LAB HEMETOLOGY METHOD 08/06/2024 11:04 AM EDT [facility] Basophils Absolute 0.05 0.00 - 0.20 K/mcL LAB HEMETOLOGY METHOD 08/06/2024 11:04 AM EDT [facility] Immature Granulocytes Absolute 0.07(H) 0.00 - 0.03 K/mcL LAB HEMETOLOGY METHOD 08/06/2024 11:04 AM EDT [facility] Blood Venous blood specimen / Unknown Venipuncture / Unknown 08/06/2024 6:12 AM EDT 08/06/2024 10:00 AM EDT us Nilesh Adams MD LAB BLOOD ORDERABLES Final Res ult [facility] [address] [place] [address], * (ABNORMAL) Comprehensive metabolic panel (08/06/2024 6:12 AM EDT) [facility] Signature Sodium 135 133 - 145 mmol/L LAB CHEMISTRY METHOD 08/06/2024 11:52 AM [facility] Potassium 4.1 3.5 - 5.5 mmol/L LAB CHEMISTRY METHOD 08/06/2024 11:52 AM [facility] Chloride 102 96 - 110 mmol/L LAB CHEMISTRY METHOD 08/06/2024 11:52 AM [facility] CO2 25 21 - 32 mmol/L LAB CHEMISTRY METHOD 08/06/2024 11:52 AM [facility] Anion Gap 8 3 - 11 LAB CHEMISTRY METHOD 08/06/2024 11:52 AM [facility] Glucose 144(H) 70 - 100 mg/dL LAB CHEMISTRY METHOD 08/06/2024 11:52 AM [facility] BUN 11 5 - 25 mg/dL LAB CHEMISTRY METHOD 08/06/2024 11:52 AM [facility] Creatinine 0.66(L) 0.70 - 1.30 mg/dL LAB CHEMISTRY METHOD 08/06/2024 11:52 AM [facility] eGFR 91 >=60 mL/min/1. 73m2 LAB CHEMISTRY METHOD 08/06/2024 11:52 AM [facility] Comment:Calculation based on the Chronic Kidney Disease Epidemiology Collaboration (CKD-EPI) equation refit without adjustment for race. BUN/Creatinine Ratio 16.7 LAB CHEMISTRY METHOD 08/06/2024 11:52 AM [facility] Calcium 8.7 8.5 - 10.5 mg/dL LAB CHEMISTRY METHOD 08/06/2024 11:52 AM [facility] AST (SGOT) 46(H) 10 - 42 unit/L LAB CHEMISTRY METHOD 08/06/2024 11:52 AM [facility] ALT (SGPT) 50 10 - 60 unit/L LAB CHEMISTRY METHOD 08/06/2024 11:52 AM EDT [facility] Alkaline Phosphatase 100 42 - 121 unit/L LAB CHEMISTRY METHOD 08/06/2024 11:52 AM T [facility] Total Protein 5.9(L) 6.0 - 8.0 g/dL LAB CHEMISTRY METHOD 08/06/2024 11:52 AM T [facility] Albumin 2.8(L) 3.2 - 5.0 g/dL LAB CHEMISTRY METHOD 08/06/2024 11:52 AM [facility] Total Bilirubin 0.5 0.0 - 1.4 mg/dL LAB CHEMISTRY METHOD 08/06/2024 11:52 AM [facility] Blood Venous blood specimen / Unknown Venipuncture / Unknown 08/06/2024 6:12 AM EDT 08/06/2024 10:00 AM EDT us Nilesh Adams MD LAB BLOOD ORDERABLES Final Res ult [facility] [address] [place] [address], documented in this encounter Visit Diagnoses Diagnosis Encounter for other general examination documented in this encounter Care Teams Transportation Coordinator Relationship Specialty Start Date End Date Parrish Cabrera MD [address] [place] [address] PCP - General 12/24/1998 documented as of this encounter
--- OUTSIDE RECORDS SUMMARY | 2025-02-21 18:33 | XMS_ITS | Encounter Summary ---
Author Organization [facility] Address [address] [place] [address] Care Team Providers Care Soldering Machine Setter Name Role Phone Parrish Cabrera MD Primary Care Provider [phone] Encounter Details Date Type Department Care Team Description 06/14/2020 Psych Specialist Report Medical Records [address] [place] [id number] Abstract, Provider Social History Tobacco Use Types [...] on filedocumented in this encounter Care Teams Soldering Machine Setter Relationship Specialty Start Date End Date Parrish Cabrera MD [address] [place] [address] [phone] PCP - General 12/24/1998 documented as of this encounter
--- OUTSIDE RECORDS SUMMARY | 2025-02-21 18:33 | XMS_ITS | Encounter Summary ---
Author Organization [facility] Address [facility] [place] [address] Care Team Providers Care Ese Teacher Name Role Phone Parrish Cabrera MD Primary Care Provider [phone] Encounter Details Date Type Department Care Team Description 05/09/2023 Orders Only MRI - [place] [address] [place] [address] Jose Grullon, PAMaritzaC [address] [place] [address] Spinal stenosis of lumbar region, unspecified whether neurogenic claudication present; Chronic low back pain, unspecified back pain laterality, unspecified whether sciatica present Social History Tobacco Use Types Packs/Day Years [...] Procedure Name Priority Date/Time Associated Diagnosis Comments MRI OF LUMBAR SPINE W/WO CONTRAST Routine 05/03/2023 Spinal stenosis of lumbar region, unspecified whether neurogenic claudication present Chronic low back pain, unspecified back pain laterality, unspecified whether sciatica present documented in this encounter Results * MRI OF LUMBAR SPINE W/WO CONTRAST (05/03/2023) 05/03/2023 Jose Grullon PA-C MRI [facility] [address] [place] [address] documented in this encounter Visit Diagnoses Diagnosis Spinal stenosis of lumbar region, unspecified whether neurogenic claudication present Chronic low back pain, unspecified back pain laterality, unspecified whether sciatica present documented in this encounter Care Teams Ese Teacher Relationship Specialty Start Date End Date Parrish Cabrera MD [address] [place] [phone] PCP - General 12/24/1998 documented as of this encounter
--- OUTSIDE RECORDS SUMMARY | 2025-02-21 18:34 | XMS_ITS | Encounter Summary ---
Author Organization [facility] Address [address] [place] [address] Care Team Providers Care Osha Inspector Name Role Phone Parrish Cabrera MD Primary Care Provider [phone] Encounter Details Date Type Department Care Team Description 06/05/2017 Dietetic Technician Registered Report Medical Records [address] [place] [phone] Fercho López Social History Tobacco Use Types Packs/Day Years [...] on filedocumented in this encounter Care Teams Osha Inspector Relationship Specialty Start Date End Date Parrish Cabrera MD [address] [place] [address] [phone] PCP - General 12/24/1998 documented as of this encounter
--- OUTSIDE RECORDS SUMMARY | 2025-02-21 18:34 | XMS_ITS | Encounter Summary ---
Author Organization [facility] Address [address] [place] [address] Care Team Providers Care In House Counsel Name Role Phone Parrish Cabrera MD Primary Care Provider [phone] Encounter Details Date Type Department Care Team Description 04/20/2017 Community Health Agent Report Medical Records [address] [place] [id number] Fercho Woodard Social History Tobacco Use Types Packs/Day Years [...] on filedocumented in this encounter Care Teams In House Counsel Relationship Specialty Start Date End Date Parrish Cabrera MD [address] [place] [address] [phone] PCP - General 12/24/1998 documented as of this encounter
--- OUTSIDE RECORDS SUMMARY | 2025-02-21 18:34 | XMS_ITS | Encounter Summary ---
Author Organization [facility] Address [address] [place] [address] Care Team Providers Care Plant Operations Vice President Name Role Phone Parrish Cabrera MD Primary Care Provider [phone] Reason for Visit * Reason Onset Date Comments refill request 08/07/2016 Encounter Details Date Type Department Care Team Description 08/07/2016 Telephone Adult Medicine [facility] [address] [place] [address] [phone] Parrish Cabrera MD [address] [place] [address] [phone] refill request Social History Tobacco Use Types Packs/Day Years [...] encounter Miscellaneous Notes * Telephone Encounter - Kiarra Olmedo C.M.A. - 08/07/2016 1:[address] Cabrera please advise if you would fill patient's lidocaine 5% ointment. Rx has not previously been filled by our office. DELLA 06/27/16 NOV 11/01/16 * Telephone Encounter - Mary Kay Raya - 08/07/2016 12:06 PM EDT Patient would like script to be: E-PRESCRIBED/FAXED TO PHARMACY When was the patients last office visit in Adult Medicine?:06/27/16 When was the last time the patient saw their PCP? Same as above Does patient have an upcoming appointment? Yes 11/01/16 (THE MEDICATION IS NOT ON THE MED LIST AND IS IDENTIFIED BELOW): {MED LIST:69794) Med name: Lidocaine 5% Ointment Dosage: 744.24 # of tablets: 90 day supply Local pharmacy with request for 90 -day supply Instructions: Apply 2 grams up to 4x a day to affected area Did you check the pharmacy information above?: YES Patients current insurance carrier: Payor: MEDICARE-[employer] Information / Plan: MEDICARE-[employer] Information / Product Type: MEDICAREFEE-FOR-SERVICE documented in this encounter Plan of Treatment Not on file documented as of this encounter Visit Diagnoses Not on filedocumented in this encounter Care Teams Plant Operations Vice President Relationship Specialty Start Date End Date Parrish Cabrera MD [address] [place] [phone] PCP - General 12/24/1998 documented as of this encounter
--- OUTSIDE RECORDS SUMMARY | 2025-02-21 18:34 | XMS_ITS | Encounter Summary ---
Author Organization [facility] Address [address] [place] [address] Care Team Providers Care Mail Officer Name Role Phone Parrish Cabrera MD Primary Care Provider [phone] Encounter Details Date Type Department Care Team Description 08/26/2013 Senior Hydrogeologist Report Medical Records [address] [place] [address] Mando Ovalle MD Social History Tobacco Use Types Packs/Day [...] on filedocumented in this encounter Care Teams Mail Officer Relationship Specialty Start Date End Date Parrish Cabrera MD [address] [place] [address] [phone] PCP - General 12/24/1998 documented as of this encounter
--- OUTSIDE RECORDS SUMMARY | 2025-02-21 18:34 | XMS_ITS | Encounter Summary ---
Author Organization [facility] Address [address] [place] [address] Care Team Providers Care Manager Education Name Role Phone Parrish Parker MD Primary Care Provider [phone] Reason for Visit * Reason Onset Date Comments Diverticulitis 11/02/2021 Encounter Details Date Type Department Care Team Description 11/02/2021 Telephone Adult Medicine [facility] [address] [place] [address] [phone] Parrish Parker MD [address] [place] [address] [phone] Diverticulitis Social History Tobacco Use Types Packs/Day Years [...] suspected to have Coronavirus/COVID-19? No / Unsure 10/05/2021 4:06 PM EDT documented as of this encounter Miscellaneous Notes * Telephone Encounter - Heidi Hollingsworth R.N. - 11/03/2021 11:24 AM EDT Pt had awv in July so cannot be booked for awv, we can leave this as er f/u and he will need to disucss with dr parker booking a longer visit in future if he cannot address his needs in visit * Telephone Encounter - She Ryder - 11/03/2021 11:21 AM EDT Called and spoke with pt spouse, states pt has an upcoming appt with pcp on 11/08 and is questioning if ok to f/u at that appt, but would like more time with to discuss concerns about pt. I do not have anything for 30 min with pcp other than an AWV slot. Pt spouse is requesting pt to only seepcp . Please advise. * Telephone Encounter - Rob Ponce - 11/02/2021 9:42 AM EDT Hospital follow up appointment needed Hospital patient was treated at: [facility] Was this only an ER visit or was the patient admitted to the hospital? ER visit only Date of visit if ER visit only: 11/01/21 If patient was admitted what was the date of discharge? N/A Reason/diagnosis for visit or stay: Diverticulitis When was the patient told to follow up? barrie Was visit or stay related to an injury? NO If yes, what was the date of injury (DOI)? N/A If yes, was the injury due to N/A documented in this encounter Plan of Treatment Not on file documented as of this encounter Visit Diagnoses Not on filedocumented in this encounter Care Teams Manager Education Relationship Specialty Start Date End Date Parrish Parker MD [address] [place] [address] [phone] PCP - General 12/24/1998 documented as of this encounter
--- OUTSIDE RECORDS SUMMARY | 2025-02-21 18:34 | XMS_ITS | Encounter Summary ---
Author Organization [facility] Address [address] [place] [address] Care Team Providers Care Product Developer Name Role Phone Parrish Cabrera MD Primary Care Provider [phone] Reason for Visit * Reason Onset Date Comments VNA Call 11/27/2023 Encounter Details Date Type Department Care Team Description 11/27/2023 Telephone Triage [address] [place] [address] Parrish Cabrera MD [address] [place] [address] VNA Call Social History Tobacco Use Types Packs/Day Years [...] encounter Miscellaneous Notes * Telephone Encounter - Flash De OliveiraPNunuNNunu - 11/27/2023 1:35 PM EDT noted * Telephone Encounter - Jose Grullon PA-C - 11/27/2023 12:24 PM EDT [place] for VO * Telephone Encounter - Flash De OliveiraPNunuNNunu - 11/27/2023 12:19 PM EDT [facility]NA called for nursing PT and OT Please review and advise for Dr. Cabrera You saw the patient today has a hospital follow up with Dr. Cabrera on 12/03 Please send response to the VNA pool P [phone] Thank you * Telephone Encounter - Petr Riggs R.N - 11/27/2023 11:54 AM EDT Hosp fu already booked * Telephone Encounter - Litzy Kaiser - 11/27/2023 11:49 AM EDT [facility]NA CALL Which [facility] office is calling? [facility] Full name of caller: Claribel The caller is A nurse Is the caller at the patients home?: NO Reason for call: Claribel states patient was referred to them from hospital. When calling to set up start of care patient's spouse asked that they hold off on services for now Does caller need an urgent call back? NO Was CONTACT Telephone # obtained above?: YES Fax #: n/a documented in this encounter Plan of Treatment Not on file documented as of this encounter Visit Diagnoses Not on filedocumented in this encounter Care Teams Product Developer Relationship Specialty Start Date End Date Parrish Cabrera MD [address] [place] [phone] PCP - General 12/24/1998 documented as of this encounter
--- OUTSIDE RECORDS SUMMARY | 2025-02-21 18:34 | XMS_ITS | Encounter Summary ---
Author Organization [facility] Address [address] [place] [address] Care Team Providers Care Welfare Service Aide Name Role Phone Parrish Cabrera MD Primary Care Provider [phone] Reason for Visit * Reason Onset Date Comments Mandrel Maker Feedback 10/30/2017 Dr. Vega Encounter Details Date Type Department Care Team Description 10/30/2017 Telephone Adult Medicine [facility] [address] [place] [address] [phone] Parrish Cabrera MD [address] [place] [address] [phone] Mandrel Maker Feedback (Dr. Vega) Social History Tobacco Use Types Packs/Day Years [...] encounter Miscellaneous Notes * Telephone Encounter - Sarita Mosquera - 10/31/2017 11:10 AM EDT Images sent to neuro box 10/31/17mmk * Telephone Encounter - Ama Lima - 10/30/2017 9:53 AM EDT Can you please upload MRI Lumbar Spine 09/25/17 to [facility] Neuro[facility] box. Thank you, Ama Policy Analyst documented in this encounter Plan of Treatment Not on file documented as of this encounter Visit Diagnoses Not on filedocumented in this encounter Care Teams Welfare Service Aide Relationship Specialty Start Date End Date Parrish Cabrera MD [address] [place] [phone] PCP - General 12/24/1998 documented as of this encounter
--- OUTSIDE RECORDS SUMMARY | 2025-02-21 18:34 | XMS_ITS | Encounter Summary ---
Author Organization [facility] Address [address] [place] [address] Care Team Providers Care Certified Peer Specialist Name Role Phone Parrish Cabrera MD Primary Care Provider [phone] Reason for Visit * Reason Onset Date Comments injection 04/10/2013 Encounter Details Date Type Department Care Team Description 04/10/2013 Telephone Physiatry - [address] [phone] Destin Marshall DO injection Social History Tobacco Use Types Packs/Day Years [...] Telephone Encounter - Jeannie Bautista M.A. - 04/14/2013 8:25 AM EST I will schedule and call patient * Telephone Encounter - Destin Marshall - 04/11/2013 7:39 AM EST Bilateral C6 transforaminal epidural steroid injections were ordered, please schedule. Thank you. * Telephone Encounter - Bernadine Trujillo C.M.A. - 04/10/2013 11:36 AM EST Pt wishes to go through with any possile injection. * Telephone Encounter - Bernadine Trujillo C.M.A. - 04/10/2013 11:36 AM EST Message copied by BERNADINE TRUJILLO C.M.A. 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 Schedule a follow up if he wants to discuss options. documented in this encounter Plan of Treatment Scheduled Orders Name Type Priority Associated Diagnoses Orde r Schedule PHYSIATRY PROCEDURE PHYSIATRY Routine Cervical radiculitis Ordered: 04/11/2013 documented as of this encounter Visit Diagnoses Diagnosis Cervical radiculitis- Primary Brachial neuritis or radiculitis nos documented in this encounter Care Teams Certified Peer Specialist Relationship Specialty Start Date End Date Parrish Cabrera MD [address] [place] [phone] PCP - General 12/24/1998 documented as of this encounter
--- OUTSIDE RECORDS SUMMARY | 2025-02-21 18:34 | XMS_ITS | Encounter Summary ---
Author Organization [facility] Address [address] [place] [address] Care Team Providers Care Meat And Poultry Inspector Name Role Phone Parrish Cabrera MD Primary Care Provider [phone] Encounter Details Date Type Department Care Team Description 08/24/2023 Orders Only Medical Records [address] [place] [phone] Social History Tobacco Use Types Packs/Day Years [...] Name Priority Date/Time Associated Diagnosis Comments OUTSIDE EYE EXAM Routine 08/14/2023 documented in this encounter Results * OUTSIDE EYE EXAM (08/14/2023) [facility] PROCEDURES documented in this encounter Visit Diagnoses Not on filedocumented in this encounter Care Teams Meat And Poultry Inspector Relationship Specialty Start Date End Date Parrish Cabrera MD [address] [place] [address] [phone] PCP - General 12/24/1998 documented as of this encounter
--- OUTSIDE RECORDS SUMMARY | 2025-02-21 18:34 | XMS_ITS | Encounter Summary ---
Author Organization [facility] Address [address] [place] [address] Care Team Providers Care Industrial Eng Name Role Phone Parrish Cabrera MD Primary Care Provider [phone] Reason for Visit * Reason Onset Date Comments Provider Call Back 01/26/2017 Encounter Details Date Type Department Care Team Description 01/26/2017 Telephone Adult Medicine [address] [address] Parrish Cabrera MD [address] [place] [address] [phone] Provider Call Back Social History Tobacco Use [...] encounter Miscellaneous Notes * Telephone Encounter - Jannie Méndez - 01/26/2017 12:03 PM EDT Patient call back,stating he just got out of surgery. Please call back. documented in this encounter Plan of Treatment Not on file documented as of this encounter Visit Diagnoses Not on filedocumented in this encounter Care Teams Industrial Eng Relationship Specialty Start Date End Date Parrish Cabrera MD [address] [place] [address] [phone] PCP - General 12/24/1998 documented as of this encounter
--- OUTSIDE RECORDS SUMMARY | 2025-02-21 18:34 | XMS_ITS | Encounter Summary ---
Author Organization [facility] Address [address] [place] [address] Care Team Providers Care Can Coverer Name Role Phone Parrish Cabrera MD Primary Care Provider [phone] Encounter Details Date Type Department Care Team Description 10/10/2021 Catalogue Librarian Report Medical Records [address] [place] [address] Awais Queen Social History Tobacco Use Types Packs/Day Years [...] on filedocumented in this encounter Care Teams Can Coverer Relationship Specialty Start Date End Date Parrish Cabrera MD [address] [place] [address] [phone] PCP - General 12/24/1998 documented as of this encounter
--- OUTSIDE RECORDS SUMMARY | 2025-02-21 18:34 | XMS_ITS | Encounter Summary ---
Author Organization [facility] Address [address] [place] [address] Care Team Providers Care Air Conditioning Unit Tester Name Role Phone Parrish Cabrera MD Primary Care Provider [phone] Encounter Details Date Type Department Care Team Description 02/16/2021 Clinical Asst Report Medical Records [address] [place] [address] Awais Queen Social History Tobacco Use Types [...] have Coronavirus / COVID-19? No / Unsure 02/02/2021 12:36 PM EDT documented as of this encounter Plan of Treatment Not on file documented as of this encounter Visit Diagnoses Not on filedocumented in this encounter Care Teams Air Conditioning Unit Tester Relationship Specialty Start Date End Date Parrish Cabrera MD [address] [place] [address] [phone] PCP - General 12/24/1998 documented as of this encounter
--- OUTSIDE RECORDS SUMMARY | 2025-02-21 18:34 | XMS_ITS | Encounter Summary ---
Author Organization [facility] Address [address] [place] [address] Care Team Providers Care Retail Center Receptionist Name Role Phone Parrish Cabrera MD Primary Care Provider [phone] Encounter Details Date Type Department Care Team Description 01/14/2018 Orders Only Adult Medicine [address] [phone] Parrish Cabrera MD [address] [place] [address] [phone] Preoperative examination; Screening for deficiency anemia; terminal gauger supervisor current use of anticoagulant therapy Social History Tobacco Use Types Packs/Day Years [...] documented as of this encounter Results * THROMBOPLASTIN TIME, PARTIAL (01/31/2018 4:17 PM EDT) PTT 30.3 25.1 - 36.5 SEC 01/31/2018 4:54 PM EDT [facility] Comment: Please note adjusted APTT reference range effective 2018. 01/31/2018 4:17 PM EDT 01/31/2018 4:18 PM EDT Parrish Cabrera MD LAB Performing Organization Address City/State/[facility] Co de Phone Number [address] * PROTHROMBIN TIME (01/31/2018 4:17 PM EDT) PT 11.7 10.5 - 13.3 SEC 01/31/2018 4:54 PM T [facility] Comment: Please note adjusted PT normal reference range effective 2018. INR 1.01 01/31/2018 4:54 PM [facility] 01/31/2018 4:17 PM EDT 01/31/2018 4:18 PM EDT Parrish Cabrera MD LAB Performing Organization Address [facility] de Phone Number [address] * (ABNORMAL) BASIC METABOLIC PANEL (01/31/2018 4:17 PM EDT) GLUCOSE 88 70 - 100 mg/dL 01/31/2018 6:13 PM [facility] Comment: Reference range applicable to fasting specimens only Based on recommendations from the ADA and AACE, the fasting glucose reference range has been changed to 70-100 mg/dL. This change is effective September 06, 2009 BUN 28(H) 5 - 25 mg/dL 01/31/2018 6:13 PM [facility] CREAT 1.1 0.7 - 1.5 mg/dL 01/31/2018 6:13 PM [facility] GFR > 60 >60 01/31/2018 6:13 PM [facility] Comment: If patient is -H[place]ian, multiply result by 1.21 Chronic Kidney Disease: < 60 ml/min/1.73 square meters Kidney Failure: < 15 ml/min/1.73 square meters Sodium 142 133 - 145 mEq/L 01/31/2018 6:13 PM [facility] Potassium 5.5 3.5 - 5.5 mEq/L 01/31/2018 6:13 PM [facility] Chloride 105 96 - 108 mEq/L 01/31/2018 6:13 PM EDT [facility] CO2 22.9 21.0 - 32.0 mEq/L 01/31/2018 6:13 PM EDT [facility] CALCIUM 9.8 8.5 - 10.5 mg/dL 01/31/2018 6:13 PM EDT [facility] 01/31/2018 4:17 PM EDT 01/31/2018 4:18 PM EDT Parrish Cabrera MD LAB [facility] [address] [facility] * (ABNORMAL) CBC (AUTO DIFF PLATELET) (01/31/2018 4:17 PM EDT) WBC 8.9 4.8 - 10.8 x10-3 01/31/2018 4:58 PM EDT [facility] RBC 3.6(L) 4.5 - 5.5 x10-6 01/31/2018 4:58 PM EDT [facility] HGB 11.2(L) 13.5 - 17.5 g/dl 01/31/2018 4:58 PM EDT [facility] HCT 35.6(L) 42 - 54 % 01/31/2018 4:58 PM EDT [facility] MCV 98.9(H) 79 - 98 fl 01/31/2018 4:58 PM EDT [facility] MCH 31.1 27 - 32 pg 01/31/2018 4:58 PM EDT [facility] MCHC 31.5(L) 32 - 37 g/dl 01/31/2018 4:58 PM EDT [facility] RDW 13.6 11 - 15 % 01/31/2018 4:58 PM EDT [facility] PLT COUNT 240 130 - 400 x10-3 01/31/2018 4:58 PM EDT [facility] MEAN PLATELET VOLUME 10.7 7 - 11 fl 01/31/2018 4:58 PM EDT [facility] NEUT % 61.2 41 - 85 % 01/31/2018 4:58 PM EDT [facility] LYMPH % 19.7 15 - 48 % 01/31/2018 4:58 PM EDT [facility] MONO % 16.6(H) 0 - 12 % 01/31/2018 4:58 PM EDT [facility] EOS % 2.2 0 - 5 % 01/31/2018 4:58 PM EDT [facility] BASO % 0.3 0 - 2 % 01/31/2018 4:58 PM EDT [facility] 01/31/2018 4:17 PM EDT 01/31/2018 4:18 PM EDT Parrish Cabrera MD LAB Performing Organization Address City/State/[facility] Co de Phone Number [address] documented in this encounter Visit Diagnoses Diagnosis Preoperative examination Preoperative examination, unspecified Screening for deficiency anemia Screening for other and unspecified deficiency anemia terminal gauger supervisor current use of anticoagulant therapy documented in this encounter Care Teams Retail Center Receptionist Relationship Specialty Start Date End Date Parrish Cabrera MD [address] [place] [phone] PCP - General 12/24/1998 documented as of this encounter
--- OUTSIDE RECORDS SUMMARY | 2025-02-21 18:34 | XMS_ITS | Encounter Summary ---
Author Organization [facility] Address [address] [place] [address] Care Team Providers Care Licensing Representative Name Role Phone Parrish Cabrera MD Primary Care Provider [phone] Encounter Details Date Type Department Care Team Description 08/19/2013 Canvas Repairer Report Medical Records [address] [place] [address] Chandana Vega MD Social History Tobacco Use [...] on filedocumented in this encounter Care Teams Licensing Representative Relationship Specialty Start Date End Date Parrish Cabrera MD [address] [place] [address] [phone] PCP - General 12/24/1998 documented as of this encounter
--- OUTSIDE RECORDS SUMMARY | 2025-02-21 18:34 | XMS_ITS | Encounter Summary ---
Author Organization [facility] Address [address] [place] [address] Care Team Providers Care Web Marketing Manager Name Role Phone Parrish Cabrera MD Primary Care Provider [phone] Reason for Visit * Reason Onset Date Comments Special Procedure 02/27/2017 10 year rpt CN Encounter Details Date Type Department Care Team Description 02/27/2017 Telephone Gastroenterology - [address] [address] Dar Joyner MD Special Procedure (10 year rpt CN) Social History Tobacco Use Types Packs/Day Years [...] encounter Miscellaneous Notes * Telephone Encounter - Dar Joyner MD - 03/01/2017 6:31 PM EST Chart reviewed, he is ok for screening colonoscopy. * Telephone Encounter - Jazzy Bonilla - 02/27/2017 6:18 PM EST Pt is 77 years old and is on waitlist for 10 year repeat Colonoscopy and i was wondering if you want to go forward with procedure ? documented in this encounter Plan of Treatment Not on file documented as of this encounter Visit Diagnoses Not on filedocumented in this encounter Care Teams Web Marketing Manager Relationship Specialty Start Date End Date Parrish Cabrera MD [address] [place] [phone] PCP - General 12/24/1998 documented as of this encounter
--- OUTSIDE RECORDS SUMMARY | 2025-02-21 18:34 | XMS_ITS | Encounter Summary ---
Author Organization [facility] Address [facility] [place] [address] Care Team Providers Care Tractor Mechanic Helper Name Role Phone Parrish Cabrera MD Primary Care Provider [phone] Reason for Visit * Reason Onset Date Comments refill request 10/28/2012 Encounter Details Date Type Department Care Team Description 10/28/2012 Refill Physiatry - [address] [address] Adelina Elam PA-C refill request Social History Tobacco Use Types [...] encounter Miscellaneous Notes * Telephone Encounter - Litzy Landis - 10/28/2012 10:18 AM EDT (THE MEDICATION REQUESTED IS ON THE MED LIST ABOVE) All of the medications requested were on the CURRENT MEDS list Did you check the Pharmacy information above?: YES Patient wants: 30 -day supply Patient would like script to be: E-PRESCRIBED/FAXED TO PHARMACY Is this a mail order prescription request ? NO Indicate how soon the patient needs the script: DAR[place]ING Patients current insurance carrier is: [place] Product Type: [place] [id number] documented in this encounter Plan of Treatment Not on file documented as of this encounter Visit Diagnoses Not on filedocumented in this encounter Care Teams Tractor Mechanic Helper Relationship Specialty Start Date End Date Parrish Cabrera MD [address] [place] [address] PCP - General 12/24/1998 documented as of this encounter
--- OUTSIDE RECORDS SUMMARY | 2025-02-21 18:34 | XMS_ITS | Encounter Summary ---
Author Organization [facility] Address [address] [place] [address] Care Team Providers Care Woodworking Machinist Name Role Phone Parrish Cabrera MD Primary Care Provider [phone] Encounter Details Date Type Department Care Team Description 08/15/2016 Wellness Visit Medical Records [address] [place] [address] Parrish Cabrera MD [address] [place] [address] [phone] Social History Tobacco Use Types Packs/Day Years [...] on filedocumented in this encounter Care Teams Woodworking Machinist Relationship Specialty Start Date End Date Parrish Cabrera MD [address] [place] [address] [phone] PCP - General 12/24/1998 documented as of this encounter
--- OUTSIDE RECORDS SUMMARY | 2025-02-21 18:34 | XMS_ITS | Encounter Summary ---
Author Organization [facility] Address [address] [place] [address] Care Team Providers Care Tugboat Dispatcher Name Role Phone Parrish Cabrera MD Primary Care Provider [phone] Encounter Details Date Type Department Care Team Description 11/09/2023 Pt. Non Urgent Medical Question Adult Medicine [address] [phone] Parrish Cabrera MD [address] [place] [address] [phone] Social History Tobacco Use Types Packs/Day Years [...] encounter Miscellaneous Notes * Telephone Encounter - Lin Guthrie L.P.N. - 11/09/2023 10:47 AM EDTFrom: Miky Beard Patrice To: Kayla Cabrera Sent: 11/09/2023 9:56 AM EDT Subject: Salve You prescribed a salve for Milo Seaman???s arms to take away the purple blotches on his arms. Guevara would like you to send a prescription for this as he hates the purple blotches on both of his arms. It worked for him and that is why he is asking. Milo and Guevara are friends for 60 years. Milo noticed the blotches on Guevara???s arms and told him about the stuff that came in a tube. He does not remember the name of it. This is Samra Ibrahim doing the typing. Have a great day. documented in this encounter Plan of Treatment Not on file documented as of this encounter Visit Diagnoses Not on filedocumented in this encounter Care Teams Tugboat Dispatcher Relationship Specialty Start Date End Date Parrish Cabrera MD [address] [place], [place] [phone] PCP - General 12/24/1998 documented as of this encounter
--- OUTSIDE RECORDS SUMMARY | 2025-02-21 18:34 | XMS_ITS | Encounter Summary ---
Author Organization [facility] Address [address] [place] [address] Care Team Providers Care Manufacturing Group Leader Name Role Phone Parrish Cabrera MD Primary Care Provider [phone] Encounter Details Date Type Department Care Team Description 11/22/2023 Hospital Medical Records [address] [place] [id number] [place] [address] Social History Tobacco Use Types Packs/Day Years [...] on filedocumented in this encounter Care Teams Manufacturing Group Leader Relationship Specialty Start Date End Date Parrish Cabrera MD [address] [place] [address] [phone] PCP - General 12/24/1998 documented as of this encounter
--- OUTSIDE RECORDS SUMMARY | 2025-02-21 18:34 | XMS_ITS | Encounter Summary ---
Author Organization [facility] Address [address] [place] [address] Care Team Providers Care Language Translator Name Role Phone Parrish Cabrera MD Primary Care Provider [phone] Encounter Details Date Type Department Care Team Description 01/19/2017 Release of Information Medical Records [address] [place] [id number] Abstract, Provider Social History Tobacco Use Types [...] on filedocumented in this encounter Care Teams Language Translator Relationship Specialty Start Date End Date Parrish Cabrera MD [address] [place] [address] [phone] PCP - General 12/24/1998 documented as of this encounter
--- OUTSIDE RECORDS SUMMARY | 2025-02-21 18:34 | XMS_ITS | Encounter Summary ---
Author Organization [facility] Address [address] [place] [address] Care Team Providers Care Car Painter Name Role Phone Parrish Cabrera MD Primary Care Provider [phone] Reason for Visit * Reason Onset Date Comments Provider Call Back 01/16/2017 Encounter Details Date Type Department Care Team Description 01/16/2017 Telephone Adult Medicine [address] [phone] Parrish Cabrera MD [address] [place] [address] [phone] Provider Call Back Social History Tobacco Use [...] encounter Miscellaneous Notes * Telephone Encounter - Rosetta Baumanndo - 01/16/2017 10:44 AM EDT Caller requesting call back from provider: Is the caller the patient? YES If caller is not the patient, what is the callers name? N/A Callers relationship to patient? N/A If person calling is not the patient themselves, is there a verbal release in FYI or permanent comments for this person: YES Reason for call back: Patient would like a call to discuss results with Neuro Surgeon, Dr. Cabrera please call patient. Patient was here today, and Khadar are aware that patient wanted a call backwas asking to speak to you in person for 5 minutes will wait for call. Caller offered to speak with the nurse for assistance: YES Response: Patient offered to speak with nurse for assistance and patient agreed. Message forwarded to nurse. documented in this encounter Plan of Treatment Not on file documented as of this encounter Visit Diagnoses Not on filedocumented in this encounter Care Teams Car Painter Relationship Specialty Start Date End Date Parrish Cabrera MD [address] [place] [phone] PCP - General 12/24/1998 documented as of this encounter
[2025-02-21 18:41] VITALS: BP 121/60; PULSE 103; RESP 18; TEMP 36.6; O2SAT 97
== END 2025-02-21 18:42 | disposition home or self-care (01) ==
PROVIDERS: Emergency Provider Emergency Medicine; PCP Internal Medicine
DX: H92.01 Otalgia, right ear (principal); T16.1XXA Foreign body in right ear, initial encounter; W44.E4XA Non-magnetic metal jewelry entering into or through a natural orifice, initial encounter; Y93.9 Activity, unspecified; Y92.9 Unspecified place or not applicable; Y99.8 Other external cause status; Z79.899 Other long term (current) drug therapy
CPT/HCPCS: 10120; 99283; 99284

== ENCOUNTER 2025-03-02 11:20 | Outpatient (REF) | payer MEDICARE, BC, SELFPAY ==
--- OUTSIDE RECORDS SUMMARY | 2025-02-25 13:00 | XMS_ITS | Encounter Summary ---
Author Organization [facility] Address [address] [place] [address] Care Team Providers Care Donor Services Coordinator Name Role Phone Parrish Cabrera MD Primary Care Provider Reason for Referral * Imaging (Routine) - Authorized Specialty Diagnoses / Procedures Referred By Penny tay Referred To Contact Radiology Diagnoses Urinary frequency 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, CMS/HCC V28) Abdominal pain, unspecified abdominal location Procedures CT Abdomen Pelvis wo Contrast Jose Grullon PA [address] [place] [address] Phone: tel: fax: CT Scan [address] Phone: tel: fax: Referral ID Status Reason Start Date Expiration Date V isits Requested Visits Authorized [id number] Authorized 02/25/2025 02/25/2026 1 1 Reason for Visit * Reason Comments UTI Encounter Details Date Type Department Care Team ([facility] Contact Info) Description 02/25/2025 1:00 PM EST Office Visit Adult Medicine [address] [phone] Jose Grullon PA [address] [place] [address] Urinary frequency (Primary Dx); 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, CMS/HCC V28); Abdominal pain, unspecified abdominal location Social History Tobacco Use Types Packs/Day Years [...] Sign Reading Time Taken Comments Blood Pressure 142/58 02/25/2025 1:03 PM EST no cp no sob Pulse 111 02/25/2025 1:03 PM EST no cp no sob Temperature 36.4 C (97.5 F) 02/25/2025 1:03 PM EST Respiratory Rate 13 02/25/2025 1:03 PM EST Oxygen Saturation 96% 02/25/2025 1:03 PM EST Inhaled Oxygen Concentration - - Weight 63.5 kg (140 lb) 02/25/2025 1:03 PM EST Height 167.6 cm (5' 6 ) 02/25/2025 1:03 PM EST Body Mass Index 22.6 02/25/2025 1:03 PM EST documented in this encounter Ordered Prescriptions Prescription Sig Dispense Quantity Refills Last Filled Start Date End Date ketoconazole (NIZORAL) 2 % cream Apply topically 1 (one) time each day for 14 days. 30 g 02/25/2025 5 hydrocortisone 1 % lotion Apply topically 2 (two) times a day for 7 days. 60 mL 02/25/2025 5 documented in this encounter Progress Notes * Jose Grullon, SG - 02/25/2025 1:00 PM EST esrCHIEF COMPLAINT: UTI IDENTIFIER: Miky Ibrahim is a 85 y.o. old male who comes with his HPI: 85 y/o M with 3-4 days of urinary frequency. No acute abdominal pain, but does describe ongoing abdominal discomfort which improves with eating.This has been present for several months. His weight has dropped recently. Currently at 140lb. His has noticed diminished appetite. No fevers, chills, night sweats. No dysuria, hematuria. Does have long standing hx of phimosis and has refused circumcision. No longer followed by urology. + history of previous abdominal surgery. He is passing flatus and having Bms. 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 ([facility] V24, [facility] V28) 04/03/2016 Actinic keratosis 03/05/2014 Lumbar spinal stenosis 07/02/2012 Meningioma ([facility] V24, [facility] V28) 07/28/2008 Benign prostatic hyperplasia 10/14/2007 Diverticulitis of colon without hemorrhage 04/02/2007 Benign neoplasm of cerebral meninges ([facility] V24, [facility] V28) 11/22/2006 DM w/o complication type II ([facility] V24, [facility] V28) 11/13/2006 Pure hypercholesterolemia 11/13/2006 Osteoarthrosis 03/31/2005 ACTIVE MEDICATIONS: Medications Taking[1] ALLERGIES: Current Allergies[2] PHYSICAL EXAM: Visit Vitals BP (!) 142/58 Comment: no cp no sob Pulse (!) 111 Comment: no cp no sob Temp 36.4 ??C (97.5 ??F) (Temporal) Resp 13 Ht 1.676 m (66 ) Wt 63.5 kg (140 lb) SpO2 96% BMI 22.60 kg/m?? Smoking Status Former BSA 1.72 m?? APPEARANCE: Alert and in no acute distress HEART: RRR with normal S1 and S2, no murmurs, no gallops LUNG: clear to auscultation : phimosis with erythema and no discharge. EXTREMITIES: Extremities warm and well perfused without clubbing, cyanosis, or edema SKIN: Skin color, texture, turgor normal. No rashes or lesions. PSYCH: Stable mood and affect. Nonpressured speech. IMPRESSION: 1. Urinary frequency 2. Diabetes mellitus type 2 with neurological manifestations ([facility] V24, [facility] V28) 3. Abdominal pain, unspecified abdominal location PLAN: Urinary frequency, will check A1c. No dysuria. May be related to phimosis. Will check labs. Phimosis with some skin changes suggesting balanitis to be treated with antifungal and corticosteroid. SE reviewed. Pt refuses urology involvement. Will recheck A1c as he is over due for labs. Unspecified abdominal pain with decreased appetite. Exam benign. Has had some weight loss. US showed cholelithiasis but no colicky pain, it actually improves with eating. Will check CT scan and consider GI referral. Due to age, malignancy is considered. My colleagues and I have maintained a longitudinal relationship with this patient and serve as a focal point of their care. Orders Placed This Encounter Procedures CT Abdomen Pelvis wo Contrast Urinalysis with reflex microscopic and culture Hemoglobin A1c CBC and differential Comprehensive metabolic panel ADDITIONAL ORDERS: CT ABDOMEN PELVIS WO CONTRAST Today's documentation was made using voice recognition software.This note may contain grammatical errors secondary to this software. SG Vines on 02/25/2025 at 1:40 PM EST [1] Outpatient Medications Marked as Taking for the 02/25/25 encounter (Office Visit) with SG Vines Medication Sig Dispense Refill acetaminophen (TYLENOL) 500 [...] by mouth 1 (one) time each day. [2] No Known Allergies documented in this encounter Plan of Treatment Upcoming Encounters Date Type Department Care Team (Late st Contact Info) Description 03/04/2025 2:[address] Scan [address] [address] 03/30/2025 1:15 PM EST Office Visit Orthopedic Surgery - [place] [address] [facility] [address] [place] [address] Dalton Rodriguez, DPShayan 175 [facility] [place] [address] [place] [address] 04/01/2025 1:00 PM EST Office Visit Adult Medicine [facility] [address] [place] [address] Parrish Cabrera MD [address] [place] [address] 04/14/2025 1:00 PM EST Appointment [facility] Ultrasound [address] [place] [phone] 05/20/2025 10:00 AM EST Office Visit Vascular Surgery - [place] [address] [place] [address] Zenaida Rose MD [address] [place] [phone] Scheduled Orders Name Type Priority Associated Diagnoses Orde r Schedule Hemoglobin A1c Lab Routine Urinary frequency Diabetes mellitus type 2 with neurological manifestations ([facility] V24, [facility] V28) Expected: 05/28/2025, Expires: 02/25/2026 CT Abdomen Pelvis wo Contrast Imaging Routine Urinary frequency Diabetes mellitus type 2 with neurological manifestations ([facility] V24, [facility] V28) Abdominal pain, unspecified abdominal location Expected: 02/25/2025, Expires: 02/25/2026 documented as of this encounter Results * (ABNORMAL) Comprehensive metabolic panel (02/25/2025 2:07 PM EST) Sodium 137 133 - 145 mmol/L LAB CHEMISTRY METHOD 02/25/2025 5:55 PM EST [facility] Potassium 4.4 3.5 - 5.5 mmol/L LAB CHEMISTRY METHOD 02/25/2025 5:55 PM EST [facility] Chloride 105 96 - 110 mmol/L LAB CHEMISTRY METHOD 02/25/2025 5:55 PM EST [facility] CO2 26 21 - 32 mmol/L LAB CHEMISTRY METHOD 02/25/2025 5:55 PM [facility] Anion Gap 6 3 - 11 LAB CHEMISTRY METHOD 02/25/2025 5:55 PM [facility] Glucose 113(H) 70 - 100 mg/dL LAB CHEMISTRY METHOD 02/25/2025 5:55 PM [facility] BUN 13 5 - 25 mg/dL LAB CHEMISTRY METHOD 02/25/2025 5:55 PM [facility] Creatinine 0.76 0.70 - 1.30 mg/dL LAB CHEMISTRY METHOD 02/25/2025 5:55 PM [facility] eGFR 87 >=60 mL/min/1. 73m2 LAB CHEMISTRY METHOD 02/25/2025 5:55 PM [facility] Comment:Calculation based on the Chronic Kidney Disease Epidemiology Collaboration (CKD-EPI) equation refit without adjustment for race. BUN/Creatinine Ratio 17.1 LAB CHEMISTRY METHOD 02/25/2025 5:55 PM [facility] Calcium 9.5 8.5 - 10.5 mg/dL LAB CHEMISTRY METHOD 02/25/2025 5:55 PM [facility] AST (SGOT) 28 10 - 42 unit/L LAB CHEMISTRY METHOD 02/25/2025 5:55 PM [facility] ALT (SGPT) 42 10 - 60 unit/L LAB CHEMISTRY METHOD 02/25/2025 5:55 PM [facility] Alkaline Phosphatase 110 42 - 121 unit/L LAB CHEMISTRY METHOD 02/25/2025 5:55 PM [facility] Total Protein 7.5 6.0 - 8.0 g/dL LAB CHEMISTRY METHOD 02/25/2025 5:55 PM [facility] Albumin 4.0 3.2 - 5.0 g/dL LAB CHEMISTRY METHOD 02/25/2025 5:55 PM [facility] Total Bilirubin 0.5 0.0 - 1.4 mg/dL LAB CHEMISTRY METHOD 02/25/2025 5:55 PM EST [facility] Blood Venous blood specimen / Unknown Venipuncture / Unknown 02/25/2025 2:07 PM EST 02/25/2025 2:07 PM EST us Jose BETTENCOURT LAB BLOOD ORDERABLES Fin al Result [facility] [address] [place] [address], documented in this encounter Visit Diagnoses Diagnosis Urinary frequency- Primary 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, CMS/HCC V28) Abdominal pain, unspecified abdominal location documented in this encounter Orders Lab Orders Without Results Count Last Ordered D ate First Ordered Date URINALYSIS WITH REFLEX MICRO SCOPIC AND CULTURE 1 02/25/2025 documented in this encounter Care Teams Donor Services Coordinator Relationship Specialty Start Date End Date Parrish Cabrera MD [address] [place] [id number] PCP - General 12/24/1998 documented as of this encounter
--- OUTSIDE RECORDS SUMMARY | 2025-02-25 13:50 | XMS_ITS | Encounter Summary ---
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, CMS/HCC V28); Forgetfulness; Chronic bilateral low back pain with bilateral sciatica Social History Tobacco Use Types Packs/Day Years [...] 03/04/2025 2:[address] [place] [facility] [address] [place] [address] 03/30/2025 1:15 PM EST Office Visit Orthopedic Surgery [facility] [address] [facility] 250 [place] [address] Dalton Rodriguez, DONNA 175 [facility] [address] [place] [address] 04/01/2025 1:00 PM EST Office Visit Adult Medicine [facility] [address] [place] [address] Parrish Cabrera MD [address] [place] [address] 04/14/2025 1:00 PM EST Appointment [facility] Ultrasound [address] [place] [phone] 05/20/2025 10:00 AM EST Office Visit Vascular Surgery [facility] [address] [place] [address] Zenaida Rose MD [address] [place] [phone] Scheduled Orders Name Type Priority Associated Diagnoses Orde r Schedule Urinalysis with reflex microscopic Lab Routine Urinary frequency 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, CMS/HCC V28) Forgetfulness Chronic bilateral low back pain with bilateral sciatica 1 Occurrences starting 02/25/2025 until 02/25/2026 Montes urine culture tube Lab Routine Urinary frequency 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, CMS/HCC V28) Forgetfulness Chronic bilateral low back pain with bilateral sciatica 1 Occurrences starting 02/25/2025 until 02/25/2026 documented as of this encounter Procedures Procedure Name Priority Date/Time Associated Diagnosis Comments CBC WITH AUTO DIFFERENTIAL Routine 02/25/2025 2:07 PM EST Urinary frequency 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, CMS/HCC V28) CBC AND DIFFERENTIAL Routine 02/25/2025 2:07 PM EST Urinary frequency 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, CMS/HCC V28) THYROID STIMULATING HORMONE Routine 02/25/2025 2:07 PM EST Forgetfulness 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, CMS/HCC V28) HEMOGLOBIN A1C Routine 02/25/2025 2:07 PM EST Forgetfulness 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, CMS/HCC V28) VITAMIN B12 Routine 02/25/2025 2:07 PM EST Forgetfulness 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, CMS/HCC V28) COMPREHENSIVE METABOLIC PANEL Routine 02/25/2025 2:07 PM EST Urinary frequency 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, CMS/HCC V28) documented in this encounter Results * (ABNORMAL) CBC auto differential (02/25/2025 2:07 PM EST) WBC 10.0 4.8 - 10.8 K/[facility] LAB HEMETOLOGY METHOD 02/25/2025 4:44 PM EST [facility] RBC 3.70(L) 4.50 - 5.50 M/[facility] LAB HEMETOLOGY METHOD 02/25/2025 4:44 PM EST [facility] Hemoglobin 11.0(L) 13.5 - 17.5 g/dL LAB HEMETOLOGY METHOD 02/25/2025 4:[address] [facility] Hematocrit 36.2(L) 42.0 - 54.0 % LAB HEMETOLOGY METHOD 02/25/2025 4:[address] [facility] MCV 97.6 79.0 - 98.0 FL LAB HEMETOLOGY METHOD 02/25/2025 4:[address] [facility] MCH 29.6 27.0 - 32.0 pcg LAB HEMETOLOGY METHOD 02/25/2025 4:[address] [facility] MCHC 30.4(L) 32.0 - 37.0 g/dL LAB HEMETOLOGY METHOD 02/25/2025 4:[address] [facility] RDW 14.3 11.0 - 15.0 % LAB HEMETOLOGY METHOD 02/25/2025 4:[address] [facility] Platelets 347 130 - 400 K/mcL LAB HEMETOLOGY METHOD 02/25/2025 4:[address] [facility] MPV 10.1 7.0 - 11.0 FL LAB HEMETOLOGY METHOD 02/25/2025 4:[address] [facility] NRBC 0.0 <1.0 % LAB HEMETOLOGY METHOD 02/25/2025 4:[address] [facility] NRBC Absolute 0.00 <0.10 K/mcL LAB HEMETOLOGY METHOD 02/25/2025 4:[address] [facility] Neutrophils Relative 71.5 % LAB HEMETOLOGY METHOD 02/25/2025 4:[address] [facility] Lymphocytes Relative 15.7 % LAB HEMETOLOGY METHOD 02/25/2025 4:[address] [facility] Monocytes Relative 10.5 % LAB HEMETOLOGY METHOD 02/25/2025 4:[address] [facility] Eosinophils Relative 1.2 % LAB HEMETOLOGY METHOD 02/25/2025 4:44 PM EST [facility] Basophils Relative 0.5 % LAB HEMETOLOGY METHOD 02/25/2025 4:44 PM EST [facility] Immature Granulocytes Relative 0.6 % LAB HEMETOLOGY METHOD 02/25/2025 4:[address] [facility] Neutrophils Absolute 7.14(H) 1.50 - 7.00 K/mcL LAB HEMETOLOGY METHOD 02/25/2025 4:44 PM EST [facility] Lymphocytes Absolute 1.57 1.00 - 5.00 K/mcL LAB HEMETOLOGY METHOD 02/25/2025 4:[address] [facility] Monocytes Absolute 1.05(H) 0.20 - 1.00 K/mcL LAB HEMETOLOGY METHOD 02/25/2025 4:[address] [facility] Eosinophils Absolute 0.12 0.00 - 0.50 K/mcL LAB HEMETOLOGY METHOD 02/25/2025 4:44 PM EST [facility] Basophils Absolute 0.05 0.00 - 0.20 K/mcL LAB HEMETOLOGY METHOD 02/25/2025 4:[address] [facility] Immature Granulocytes Absolute 0.06(H) 0.00 - 0.03 K/mcL LAB HEMETOLOGY METHOD 02/25/2025 4:[address] [facility] Blood Venous blood specimen / Unknown Venipuncture / Unknown 02/25/2025 2:07 PM EST 02/25/2025 2:07 PM EST us Jose BETTENCOURT LAB BLOOD ORDERABLES Fin al Result [facility] [address] [place] [address], * (ABNORMAL) Thyroid stimulating hormone (02/25/2025 2:07 PM EST) TSH 5.61(H) 0.40 - 4.00 mcIU/mL LAB CHEMISTRY METHOD 02/25/2025 5:53 PM EST [facility] Blood Venous blood specimen / Unknown Venipuncture / Unknown 02/25/2025 2:07 PM EST 02/25/2025 2:07 PM EST Jose BETTENCOURT LAB BLOOD ORDERABLES Fin al Result Performing Organization Address City/[facility]/ZIP Co de Phone Number [facility] [address] [place] [address], [place] [phone] * Vitamin B12 (02/25/2025 2:07 PM EST) [facility] Vitamin B-12 750 250 - 900 pcg/mL LAB CHEMISTRY METHOD 02/25/2025 5:55 PM EST [facility] Blood Venous blood specimen / Unknown Venipuncture / Unknown 02/25/2025 2:07 PM EST 02/25/2025 2:07 PM EST Jose BETTENCOURT LAB BLOOD ORDERABLES Fin al Result Performing Organization Address [facility] Co de Phone Number [facility] [address] [place] [address], [place] [phone] * Hemoglobin A1c (02/25/2025 2:07 PM EST) [facility] Hemoglobin A1C 6.2 <6.5 % LAB CHEMISTRY METHOD 02/26/2025 1:29 PM EST [facility] Mean Bld Glu Estim. 131 mg/dL LAB CHEMISTRY METHOD 02/26/2025 1:29 PM EST [facility] Blood Venous blood specimen / Unknown Venipuncture / Unknown 02/25/2025 2:07 PM EST 02/25/2025 2:07 PM EST Jose BETTENCOURT LAB BLOOD ORDERABLES Fin al Result Performing Organization Address City/[facility]/ZIP Co de Phone Number [facility] [address] [place] [address], [place] [phone] * (ABNORMAL) Comprehensive metabolic panel (02/25/2025 2:07 PM EST) Sodium 137 133 - 145 mmol/L LAB CHEMISTRY METHOD 02/25/2025 5:55 PM EST [facility] Potassium 4.4 3.5 - 5.5 mmol/L LAB CHEMISTRY METHOD 02/25/2025 5:[address] [facility] Chloride 105 96 - 110 mmol/L LAB CHEMISTRY METHOD 02/25/2025 5:[address] [facility] CO2 26 21 - 32 mmol/L LAB CHEMISTRY METHOD 02/25/2025 5:[address] [facility] Anion Gap 6 3 - 11 LAB CHEMISTRY METHOD 02/25/2025 5:[address] [facility] Glucose 113(H) 70 - 100 mg/dL LAB CHEMISTRY METHOD 02/25/2025 5:[address] [facility] BUN 13 5 - 25 mg/dL LAB CHEMISTRY METHOD 02/25/2025 5:[address] [facility] Creatinine 0.76 0.70 - 1.30 mg/dL LAB CHEMISTRY METHOD 02/25/2025 5:[address] [facility] eGFR 87 >=60 mL/min/1. 73m2 LAB CHEMISTRY METHOD 02/25/2025 5:[address] [facility] Comment:Calculation based on the Chronic Kidney Disease Epidemiology Collaboration (CKD-EPI) equation refit without adjustment for race. BUN/Creatinine Ratio 17.1 LAB CHEMISTRY METHOD 02/25/2025 5:[address] [facility] Calcium 9.5 8.5 - 10.5 mg/dL LAB CHEMISTRY METHOD 02/25/2025 5:[address] [facility] AST (SGOT) 28 10 - 42 unit/L LAB CHEMISTRY METHOD 02/25/2025 5:[address] [facility] ALT (SGPT) 42 10 - 60 unit/L LAB CHEMISTRY METHOD 02/25/2025 5:[address] [facility] Alkaline Phosphatase 110 42 - 121 unit/L LAB CHEMISTRY METHOD 02/25/2025 5:[address] [facility] Total Protein 7.5 6.0 - 8.0 g/dL LAB CHEMISTRY METHOD 02/25/2025 5:[address] [facility] Albumin 4.0 3.2 - 5.0 g/dL LAB CHEMISTRY METHOD 02/25/2025 5:[address] [facility] Total Bilirubin 0.5 0.0 - 1.4 mg/dL LAB CHEMISTRY METHOD 02/25/2025 5:[address] [facility] Blood Venous blood specimen / Unknown Venipuncture / Unknown 02/25/2025 2:07 PM EST 02/25/2025 2:07 PM EST us Jose BETTENCOURT LAB BLOOD ORDERABLES Fin al Result [facility] [address] [place] [address], documented in this encounter Visit Diagnoses Diagnosis Urinary frequency 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
--- OUTSIDE RECORDS SUMMARY | 2025-03-02 13:42 | XMS_ITS | Clinical Summary ---
Author Organization [facility] Address [address] [place] [address] Care Team Providers Care Dial Printer Name Role Phone Unavailable Primary Care Provider [...]
--- OUTSIDE RECORDS SUMMARY | 2025-03-02 13:42 | XMS_ITS | Encounter Summary ---
Author Organization [facility] Address [address] [place] [address] Care Team Providers Care Drier Take Off Tender Name Role Phone Parrish Cabrera MD Primary Care Provider [phone] Encounter Details Date Type Department Care Team (Late Contact Info) Description 08/02/2024 Lab Requisition [facility] - Main Lab 299 [facility] [place] [phone] Nilesh Adams MD [address] [place] [address] [phone] Encounter for other general examination Social History [...] Department Care Team (Late Contact Info) Description 03/04/2025 2:[address] Scan [address] [address] 03/30/2025 1:15 PM EST Office Visit Orthopedic Surgery - [place] 250 175 [facility] 250 [place] [phone] Dalton oRdriguez, DPM 175 [facility] [address] [place] [address] 04/01/2025 1:00 PM EST Office Visit Adult Medicine [facility] [place] [address] [place] [address] Parrish Cabrera MD [address] [place] [address] 04/14/2025 1:00 PM EST Appointment [facility] Ultrasound [address] [place] [phone] 05/20/2025 10:00 AM EST Office Visit Vascular Surgery [facility] [address] [place] [phone] Zenaida Rose MD [address] [place] [phone] documented as of this encounter Procedures Procedure [...] at 5 days 08/07/2024 6:02 PM EDT [facility] Blood 08/02/2024 2:45 PM EDT 08/02/2024 5:03 PM EDT Nilesh Adams MD LAB MICROBIOLOGY - GENERAL ORD ERABLES Final Result [facility] [address] [place] [address], * (ABNORMAL) CBC auto differential (08/02/2024 2:40 PM EDT) WBC 7.4 4.8 - 10.8 K/mcL LAB HEMETOLOGY METHOD 08/02/2024 5:16 PM EDT [facility] RBC 2.50(L) 4.50 - 5.50 M/mcL LAB HEMETOLOGY METHOD 08/02/2024 5:16 PM EDT [facility] Hemoglobin 8.2(L) 13.5 - 17.5 g/dL LAB HEMETOLOGY METHOD 08/02/2024 5:16 PM EDT [facility] Hematocrit 25.1(L) 42.0 - 54.0 % LAB HEMETOLOGY METHOD 08/02/2024 5:16 PM EDT [facility] MCV 99.6(H) 79.0 - 98.0 FL LAB HEMETOLOGY METHOD 08/02/2024 5:16 PM EDT [facility] MCH 32.5(H) 27.0 - 32.0 pcg LAB HEMETOLOGY METHOD 08/02/2024 5:16 PM EDT [facility] MCHC 32.7 32.0 - 37.0 g/dL LAB HEMETOLOGY METHOD 08/02/2024 5:16 PM EDT [facility] RDW 13.3 11.0 - 15.0 % LAB HEMETOLOGY METHOD 08/02/2024 5:16 PM EDT [facility] Platelets 235 130 - 400 K/mcL LAB HEMETOLOGY METHOD 08/02/2024 5:16 PM [facility] MPV 10.4 7.0 - 11.0 FL LAB HEMETOLOGY METHOD 08/02/2024 5:16 PM [facility] NRBC 0.0 <1.0 % LAB HEMETOLOGY METHOD 08/02/2024 5:16 PM [facility] NRBC Absolute 0.00 <0.10 K/mcL LAB HEMETOLOGY METHOD 08/02/2024 5:16 PM [facility] Neutrophils Relative 76.2 % LAB HEMETOLOGY METHOD 08/02/2024 5:16 PM [facility] Lymphocytes Relative 10.8 % LAB HEMETOLOGY METHOD 08/02/2024 5:16 PM [facility] Monocytes Relative 9.9 % LAB HEMETOLOGY METHOD 08/02/2024 5:16 PM [facility] Eosinophils Relative 2.4 % LAB HEMETOLOGY METHOD 08/02/2024 5:16 PM [facility] Basophils Relative 0.3 % LAB HEMETOLOGY METHOD 08/02/2024 5:16 PM [facility] Immature Granulocytes Relative 0.4 % LAB HEMETOLOGY METHOD 08/02/2024 5:16 PM [facility] Neutrophils Absolute 5.67 1.50 - 7.00 K/mcL LAB HEMETOLOGY METHOD 08/02/2024 5:16 PM [facility] Lymphocytes Absolute 0.80(L) 1.00 - 5.00 K/mcL LAB HEMETOLOGY METHOD 08/02/2024 5:16 PM [facility] Monocytes Absolute 0.74 0.20 - 1.00 K/mcL LAB HEMETOLOGY METHOD 08/02/2024 5:16 PM EDT [facility] Eosinophils Absolute 0.18 0.00 - 0.50 K/[facility] LAB HEMETOLOGY METHOD 08/02/2024 5:16 PM EDT [facility] Basophils Absolute 0.02 0.00 - 0.20 K/[facility] LAB HEMETOLOGY METHOD 08/02/2024 5:16 PM EDT [facility] Immature Granulocytes Absolute 0.03 0.00 - 0.03 K/[facility] LAB HEMETOLOGY METHOD 08/02/2024 5:16 PM EDT [facility] Blood Venous blood specimen / Unknown 08/02/2024 2:40 PM EDT 08/02/2024 5:03 PM EDT Nilesh Adams MD LAB BLOOD ORDERABLES Final Res ult [facility] [address] [place] [address], [place] [phone] * Culture blood (08/02/2024 2:40 PM EDT) [facility] Culture, Blood No growth at 5 days 08/07/2024 6:02 PM EDT [facility] Blood Venipuncture / Unknown 08/02/2024 2:40 PM EDT 08/02/2024 5:03 PM EDT Nilesh Adams MD LAB MICROBIOLOGY - GENERAL ORD ERABLES Final Result [facility] [address] [place] [address], [place] [phone] * (ABNORMAL) Comprehensive metabolic panel (08/02/2024 2:40 PM EDT) [facility] Sodium 138 133 - 145 mmol/L LAB CHEMISTRY METHOD 08/02/2024 5:43 PM EDT [facility] Potassium 4.4 3.5 - 5.5 mmol/L LAB CHEMISTRY METHOD 08/02/2024 5:43 PM [facility] Chloride 105 96 - 110 mmol/L LAB CHEMISTRY METHOD 08/02/2024 5:43 PM [facility] CO2 27 21 - 32 mmol/L LAB CHEMISTRY METHOD 08/02/2024 5:43 PM [facility] Anion Gap 6 3 - 11 LAB CHEMISTRY METHOD 08/02/2024 5:43 PM [facility] Glucose 153(H) 70 - 100 mg/dL LAB CHEMISTRY METHOD 08/02/2024 5:43 PM [facility] BUN 41(H) 5 - 25 mg/dL LAB CHEMISTRY METHOD 08/02/2024 5:43 PM [facility] Creatinine 0.69(L) 0.70 - 1.30 mg/dL LAB CHEMISTRY METHOD 08/02/2024 5:43 PM [facility] eGFR 90 >=60 mL/min/1. 73m2 LAB CHEMISTRY METHOD 08/02/2024 5:43 PM [facility] Comment:Calculation based on the Chronic Kidney Disease Epidemiology Collaboration (CKD-EPI) equation refit without adjustment for race. BUN/Creatinine Ratio 59.4 LAB CHEMISTRY METHOD 08/02/2024 5:43 PM [facility] Calcium 9.1 8.5 - 10.5 mg/dL LAB CHEMISTRY METHOD 08/02/2024 5:43 PM [facility] AST (SGOT) 46(H) 10 - 42 unit/L LAB CHEMISTRY METHOD 08/02/2024 5:43 PM [facility] ALT (SGPT) 33 10 - 60 unit/L LAB CHEMISTRY METHOD 08/02/2024 5:43 PM [facility] Alkaline Phosphatase 83 42 - 121 unit/L LAB CHEMISTRY METHOD 08/02/2024 5:43 PM EDT [facility] Total Protein 5.6(L) 6.0 - 8.0 g/dL LAB CHEMISTRY METHOD 08/02/2024 5:43 PM EDT [facility] Albumin 2.7(L) 3.2 - 5.0 g/dL LAB CHEMISTRY METHOD 08/02/2024 5:43 PM EDT [facility] Total Bilirubin 0.5 0.0 - 1.4 mg/dL LAB CHEMISTRY METHOD 08/02/2024 5:43 PM EDT [facility] Blood Venous blood specimen / Unknown Venipuncture / Unknown 08/02/2024 2:40 PM EDT 08/02/2024 5:03 PM EDT us Nilesh Adams MD LAB BLOOD ORDERABLES Final Res ult [facility] [address] [place] [address], documented in this encounter Visit Diagnoses Diagnosis Encounter for other general examination documented in this encounter Care Teams Drier Take Off Tender Relationship Specialty Start Date End Date Parrish Cabrera MD [address] [place] [address] PCP - General 12/24/1998 documented as of this encounter
--- OUTSIDE RECORDS SUMMARY | 2025-03-02 13:42 | XMS_ITS | Encounter Summary ---
Author Organization [facility] Address [address] [place] [address] Care Team Providers Care Hand Bunch Maker Name Role Phone Parrish Cabrera MD Primary Care Provider Encounter Details Date Type Department Care Team (Late Contact Info) Description 08/02/2024 Lab Requisition [facility] - Main Lab 299 [facility] [place] [phone] Nilesh Adams MD [address] [place] [address] [phone] Encounter for other general examination Social History [...] 03/04/2025 2:[address] Scan [address] [phone] 03/30/2025 1:15 PM EST Office Visit Orthopedic Surgery - [place] 250 175 [facility] 250 [place] [phone] Dalton Rodriguez, DONNA 175 [facility] 250 [place] [address] 04/01/2025 1:00 PM EST Office Visit Adult Medicine [facility] [address] [place] [address] Parrish Cabrera MD [address] [place] [address] 04/14/2025 1:00 PM EST Appointment [facility] Ultrasound [address] [place] [phone] 05/20/2025 10:00 AM EST Office Visit Vascular Surgery [facility] [address] [place] [phone] Zenaida Rose MD [address] [place] [phone] documented as of this encounter Procedures Procedure [...] and culture (08/02/2024 4:00 AM EDT) Specific [place] Urine 1.025 1.003 - 1.030 LAB URINALYSIS - AUTOMATED METHOD 08/02/2024 11:47 AM EDT [facility] pH, Urine 5.5 5.0 - 8.0 pH LAB URINALYSIS - AUTOMATED METHOD 08/02/2024 11:47 AM [facility] Leukocytes, Urine Negative Negative [...] MD LAB URINE ORDERABLES Final Res ult [facility] [address] [place] [address], * Montes urine culture tube (08/02/2024 4:00 AM EDT) Extra Tube Hold for add-ons. 08/02/2024 1:01 PM EDT [facility] Comment:Auto resulted. Urine Urine specimen obtained by clean catch procedure / Unknown Non-blood Collection / Unknown 08/02/2024 4:00 AM EDT 08/02/2024 11:03 AM EDT us Nilesh Adams MD LAB URINE ORDERABLES Final Res ult [facility] [address] [place] [address], documented in this encounter Visit Diagnoses Diagnosis Encounter for other general examination documented in this encounter Care Teams Hand Bunch Maker Relationship Specialty Start Date End Date Parrish Cabrera MD [address] [place] [address] PCP - General 12/24/1998 documented as of this encounter
--- OUTSIDE RECORDS SUMMARY | 2025-03-02 13:42 | XMS_ITS | Encounter Summary ---
Author Organization [facility] Address [address] [place] [address] Care Team Providers Care Model Builder Name Role Phone Parrish Cabrera MD Primary Care Provider [phone] Encounter Details Date Type Department Care Team (Late Contact Info) Description 08/01/2024 Lab Requisition [facility] - Main Lab 299 [facility] [place] [phone] Nilesh Adams MD [address] [place] [address] [phone] Encounter for other general examination Social History [...] 03/04/2025 2:[address] Scan [address] [phone] 03/30/2025 1:15 PM EST Office Visit Orthopedic Surgery - [place] 250 175 [facility] [address] [place] [phone] Dalton Rodriguez, DPM 175 [facility] [address] [place] [address] 04/01/2025 1:00 PM EST Office Visit Adult Medicine [facility] [place] [address] [place] [address] Parrish Cabrera MD [address] [place] [address] 04/14/2025 1:00 PM EST Appointment [facility] Ultrasound [address] [place] [phone] 05/20/2025 10:00 AM EST Office Visit Vascular Surgery [facility] [address] [place] [phone] Zenaida Rose MD [address] [place] [phone] documented as of this encounter Procedures Procedure [...] LAB HEMETOLOGY METHOD 08/01/2024 12:00 PM EDT [facility] Platelet Morphology - WAM See Note(A) Normal LAB HEMETOLOGY METHOD 08/01/2024 12:00 PM EDT [facility] Comment:PLT: Normal Blood Venous blood specimen / Unknown Venipuncture / Unknown 08/01/2024 6:47 AM EDT 08/01/2024 10:49 AM EDT us Nilesh Adams MD LAB BLOOD ORDERABLES Final Res ult [facility] [address] [place] [address], * (ABNORMAL) CBC auto differential (08/01/2024 6:47 AM EDT) WBC 12.5(H) 4.8 - 10.8 K/mcL LAB HEMETOLOGY METHOD 08/01/2024 12:00 PM [facility] RBC 2.70(L) 4.50 - 5.50 M/mcL LAB HEMETOLOGY METHOD 08/01/2024 12:00 PM [facility] Hemoglobin 8.8(L) 13.5 - 17.5 g/dL LAB HEMETOLOGY METHOD 08/01/2024 12:00 PM [facility] Hematocrit 27.6(L) 42.0 - 54.0 % LAB HEMETOLOGY METHOD 08/01/2024 12:00 PM [facility] MCV 102.6(H) 79.0 - 98.0 FL LAB HEMETOLOGY METHOD 08/01/2024 12:00 PM [facility] MCH 32.7(H) 27.0 - 32.0 pcg LAB HEMETOLOGY METHOD 08/01/2024 12:00 PM EDT [facility] MCHC 31.9(L) 32.0 - 37.0 g/dL LAB HEMETOLOGY METHOD 08/01/2024 12:00 PM [facility] RDW 13.4 11.0 - 15.0 % LAB HEMETOLOGY METHOD 08/01/2024 12:00 PM [facility] Platelets 189 130 - 400 K/mcL LAB HEMETOLOGY METHOD 08/01/2024 12:00 PM [facility] MPV 10.9 7.0 - 11.0 FL LAB HEMETOLOGY METHOD 08/01/2024 12:00 PM [facility] NRBC 0.0 <1.0 % LAB HEMETOLOGY METHOD 08/01/2024 12:00 PM [facility] NRBC Absolute 0.00 <0.10 K/mcL LAB HEMETOLOGY METHOD 08/01/2024 12:00 PM [facility] Neutrophils Relative 77.5 % LAB HEMETOLOGY METHOD 08/01/2024 12:00 PM [facility] Comment:This is an appended report. These results have been appended to a previously preliminary verified report. Lymphocytes Relative 7.7 % LAB HEMETOLOGY METHOD 08/01/2024 12:00 PM [facility] Comment:This is an appended report. These results have been appended to a previously preliminary verified report. Monocytes Relative 12.9 % LAB HEMETOLOGY METHOD 08/01/2024 12:00 PM [facility] Comment:This is an appended report. These results have been appended to a previously preliminary verified report. Eosinophils Relative 1.4 % LAB HEMETOLOGY METHOD 08/01/2024 12:00 PM [facility] Comment:This is an appended report. These results have been appended to a previously preliminary verified report. Basophils Relative 0.2 % LAB HEMETOLOGY METHOD 08/01/2024 12:00 PM [facility] Comment:This is an appended report. These results have been appended to a previously preliminary verified report. Immature Granulocytes Relative 0.3 % LAB HEMETOLOGY METHOD 08/01/2024 12:00 PM [facility] Comment:This is an appended report. These results have been appended to a previously preliminary verified report. Neutrophils Absolute 9.71(H) 1.50 - 7.00 K/mcL LAB HEMETOLOGY METHOD 08/01/2024 12:00 PM [facility] Comment:This is an appended report. These results have been appended to a previously preliminary verified report. Lymphocytes Absolute 0.97(L) 1.00 - 5.00 K/mcL LAB HEMETOLOGY METHOD 08/01/2024 12:00 PM [facility] Comment:This is an appended report. These results have been appended to a previously preliminary verified report. Monocytes Absolute 1.62(H) 0.20 - 1.00 K/mcL LAB HEMETOLOGY METHOD 08/01/2024 12:00 PM [facility] Comment:This is an appended report. These results have been appended to a previously preliminary verified report. Eosinophils Absolute 0.18 0.00 - 0.50 K/mcL LAB HEMETOLOGY METHOD 08/01/2024 12:00 PM [facility] Comment:This is an appended report. These results have been appended to a previously preliminary verified report. Basophils Absolute 0.02 0.00 - 0.20 K/mcL LAB HEMETOLOGY METHOD 08/01/2024 12:00 PM [facility] Comment:This is an appended report. These results have been appended to a previously preliminary verified report. Immature Granulocytes Absolute 0.04(H) 0.00 - 0.03 K/mcL LAB HEMETOLOGY METHOD 08/01/2024 12:00 PM [facility] Comment:This is an appended report. These results have been appended to a previously preliminary verified report. Blood Venous blood specimen / Unknown Venipuncture / Unknown 08/01/2024 6:47 AM EDT 08/01/2024 10:49 AM EDT Nilesh Adams MD LAB BLOOD ORDERABLES Final Res ult Performing Organization Address [facility]/ZIP Co de Phone Number [facility] [address] [place] [address], [place] [phone] * Magnesium (08/01/2024 6:47 AM EDT) Magnesium 2.1 1.9 - 2.6 mg/dL LAB CHEMISTRY METHOD 08/01/2024 12:20 PM EDT [facility] Blood Venous blood specimen / Unknown Venipuncture / Unknown 08/01/2024 6:47 AM EDT 08/01/2024 10:49 AM EDT Nilesh Adams MD LAB BLOOD ORDERABLES Final Res ult Performing Organization Address [facility]/ZIP Co de Phone Number [facility] [address] [place] [address], [place] [phone] * (ABNORMAL) Comprehensive metabolic panel (08/01/2024 6:47 AM EDT) Sodium 136 133 - 145 mmol/L LAB CHEMISTRY METHOD 08/01/2024 12:20 PM EDT [facility] Potassium 4.2 3.5 - 5.5 mmol/L LAB CHEMISTRY METHOD 08/01/2024 12:20 PM EDT [facility] Chloride 103 96 - 110 mmol/L LAB CHEMISTRY METHOD 08/01/2024 12:20 PM EDT [facility] CO2 25 21 - 32 mmol/L LAB CHEMISTRY METHOD 08/01/2024 12:20 PM EDT [facility] Anion Gap 8 3 - 11 LAB CHEMISTRY METHOD 08/01/2024 12:20 PM [facility] Glucose 132(H) 70 - 100 mg/dL LAB CHEMISTRY METHOD 08/01/2024 12:20 PM [facility] BUN 33(H) 5 - 25 mg/dL LAB CHEMISTRY METHOD 08/01/2024 12:20 PM [facility] Creatinine 0.96 0.70 - 1.30 mg/dL LAB CHEMISTRY METHOD 08/01/2024 12:20 PM [facility] eGFR 77 >=60 mL/min/1. 73m2 LAB CHEMISTRY METHOD 08/01/2024 12:20 PM [facility] Comment:Calculation based on the Chronic Kidney Disease Epidemiology Collaboration (CKD-EPI) equation refit without adjustment for race. BUN/Creatinine Ratio 34.4 LAB CHEMISTRY METHOD 08/01/2024 12:20 PM [facility] Calcium 8.9 8.5 - 10.5 mg/dL LAB CHEMISTRY METHOD 08/01/2024 12:20 PM [facility] AST (SGOT) 53(H) 10 - 42 unit/L LAB CHEMISTRY METHOD 08/01/2024 12:20 PM [facility] ALT (SGPT) 27 10 - 60 unit/L LAB CHEMISTRY METHOD 08/01/2024 12:20 PM [facility] Alkaline Phosphatase 81 42 - 121 unit/L LAB CHEMISTRY METHOD 08/01/2024 12:20 PM [facility] Total Protein 5.9(L) 6.0 - 8.0 g/dL LAB CHEMISTRY METHOD 08/01/2024 12:20 PM [facility] Albumin 2.9(L) 3.2 - 5.0 g/dL LAB CHEMISTRY METHOD 08/01/2024 12:20 PM [facility] Total Bilirubin 0.7 0.0 - 1.4 mg/dL LAB CHEMISTRY METHOD 08/01/2024 12:20 PM [facility] Blood Venous blood specimen / Unknown Venipuncture / Unknown 08/01/2024 6:47 AM EDT 08/01/2024 10:49 AM EDT Nilesh Adams MD LAB BLOOD ORDERABLES Final Res ult [facility] [address] [place] [address], documented in this encounter Visit Diagnoses Diagnosis Encounter for other general examination documented in this encounter Care Teams Model Builder Relationship Specialty Start Date End Date Parrish Cabrera MD [address] [place] [phone] PCP - General 12/24/1998 documented as of this encounter
--- OUTSIDE RECORDS SUMMARY | 2025-03-02 13:43 | XMS_ITS | Encounter Summary ---
Author Organization [facility] Address [address] [place] [address] Care Team Providers Care Extension Specialist Name Role Phone Parrish Cabrera MD Primary Care Provider [phone] Encounter Details Date Type Department Care Team (Late Contact Info) Description 08/06/2024 Lab Requisition [facility] - Main Lab [address] [facility] [place] [phone] Nilesh Adams MD [address] [place] [address] [phone] Encounter for other general examination Social History [...] 03/04/2025 2:[address] Scan [address] [address] 03/30/2025 1:15 PM EST Office Visit Orthopedic Surgery - [place] 250 175 [facility] 250 [place] [phone] Dalton Rodriguez, DPM 175 [facility] [address] [place] [address] 04/01/2025 1:00 PM EST Office Visit Adult Medicine [facility] [address] [place] [address] Parrish Cabrera MD [address] [place] [address] 04/14/2025 1:00 PM EST Appointment [facility] Ultrasound [address] [place] [phone] 05/20/2025 10:00 AM EST Office Visit Vascular Surgery [facility] [address] [place] [phone] Zenaida Rose MD [address] [place] [phone] documented as of this encounter Procedures Procedure [...] CBC auto differential (08/06/2024 6:12 AM EDT) WBC 8.1 4.8 - 10.8 [facility] LAB HEMETOLOGY METHOD 08/06/2024 11:04 AM EDT [facility] LAB RBC 2.60(L) 4.50 - 5.50 M/[facility] LAB HEMETOLOGY METHOD 08/06/2024 11:04 AM [facility] LAB Hemoglobin 8.4(L) 13.5 - 17.5 g/dL LAB HEMETOLOGY METHOD 08/06/2024 11:04 AM [facility] LAB Hematocrit 26.6(L) 42.0 - 54.0 % LAB HEMETOLOGY METHOD 08/06/2024 11:04 AM [facility] LAB MCV 102.3(H) 79.0 - 98.0 FL LAB HEMETOLOGY METHOD 08/06/2024 11:04 AM [facility] LAB MCH 32.3(H) 27.0 - 32.0 pcg LAB HEMETOLOGY METHOD 08/06/2024 11:04 AM [facility] LAB MCHC 31.6(L) 32.0 - 37.0 g/dL LAB HEMETOLOGY METHOD 08/06/2024 11:04 AM [facility] LAB RDW 13.2 11.0 - 15.0 % LAB HEMETOLOGY METHOD 08/06/2024 11:04 AM [facility] LAB Platelets 348 130 - 400 K/mcL LAB HEMETOLOGY METHOD 08/06/2024 11:04 AM [facility] LAB MPV 9.9 7.0 - 11.0 FL LAB HEMETOLOGY METHOD 08/06/2024 11:04 AM [facility] LAB NRBC 0.0 <1.0 % LAB HEMETOLOGY METHOD 08/06/2024 11:04 AM [facility] LAB NRBC Absolute 0.00 <0.10 K/mcL LAB HEMETOLOGY METHOD 08/06/2024 11:04 AM [facility] LAB Neutrophils Relative 67.9 % LAB HEMETOLOGY METHOD 08/06/2024 11:04 AM [facility] LAB Lymphocytes Relative 14.1 % LAB HEMETOLOGY METHOD 08/06/2024 11:04 AM [facility] LAB Monocytes Relative 14.3 % LAB HEMETOLOGY METHOD 08/06/2024 11:04 AM [facility] LAB Eosinophils Relative 2.2 % LAB HEMETOLOGY METHOD 08/06/2024 11:04 AM [facility] LAB Basophils Relative 0.6 % LAB HEMETOLOGY METHOD 08/06/2024 11:04 AM [facility] LAB Immature Granulocytes Relative 0.9 % LAB HEMETOLOGY METHOD 08/06/2024 11:04 AM [facility] LAB Neutrophils Absolute 5.53 1.50 - 7.00 K/mcL LAB HEMETOLOGY METHOD 08/06/2024 11:04 AM [facility] LAB Lymphocytes Absolute 1.15 1.00 - 5.00 K/mcL LAB HEMETOLOGY METHOD 08/06/2024 11:04 AM [facility] LAB Monocytes Absolute 1.16(H) 0.20 - 1.00 K/mcL LAB HEMETOLOGY METHOD 08/06/2024 11:04 AM [facility] LAB Eosinophils Absolute 0.18 0.00 - 0.50 K/mcL LAB HEMETOLOGY METHOD 08/06/2024 11:04 AM [facility] LAB Basophils Absolute 0.05 0.00 - 0.20 K/mcL LAB HEMETOLOGY METHOD 08/06/2024 11:04 AM [facility] LAB Immature Granulocytes Absolute 0.07(H) 0.00 - 0.03 K/mcL LAB HEMETOLOGY METHOD 08/06/2024 11:04 AM [facility] LAB Blood Venous blood specimen / Unknown Venipuncture / Unknown 08/06/2024 6:12 AM EDT 08/06/2024 10:00 AM EDT us Nilesh Adams MD LAB BLOOD ORDERABLES Final Res ult [facility] LAB [address] [place] [address], * (ABNORMAL) Comprehensive metabolic panel (08/06/2024 6:12 AM EDT) Sodium 135 133 - 145 mmol/L LAB CHEMISTRY METHOD 08/06/2024 11:52 AM [facility] LAB Potassium 4.1 3.5 - 5.5 mmol/L LAB CHEMISTRY METHOD 08/06/2024 11:52 AM [facility] LAB Chloride 102 96 - 110 mmol/L LAB CHEMISTRY METHOD 08/06/2024 11:52 AM [facility] LAB CO2 25 21 - 32 mmol/L LAB CHEMISTRY METHOD 08/06/2024 11:52 AM [facility] LAB Anion Gap 8 3 - 11 LAB CHEMISTRY METHOD 08/06/2024 11:52 AM [facility] LAB Glucose 144(H) 70 - 100 mg/dL LAB CHEMISTRY METHOD 08/06/2024 11:52 AM [facility] LAB BUN 11 5 - 25 mg/dL LAB CHEMISTRY METHOD 08/06/2024 11:52 AM [facility] LAB Creatinine 0.66(L) 0.70 - 1.30 mg/dL LAB CHEMISTRY METHOD 08/06/2024 11:52 AM [facility] LAB eGFR 91 >=60 mL/min/1. 73m2 LAB CHEMISTRY METHOD 08/06/2024 11:52 AM [facility] LAB Comment:Calculation based on the Chronic Kidney Disease Epidemiology Collaboration (CKD-EPI) equation refit without adjustment for race. BUN/Creatinine Ratio 16.7 LAB CHEMISTRY METHOD 08/06/2024 11:52 AM [facility] LAB Calcium 8.7 8.5 - 10.5 mg/dL LAB CHEMISTRY METHOD 08/06/2024 11:52 AM [facility] LAB AST (SGOT) 46(H) 10 - 42 unit/L LAB CHEMISTRY METHOD 08/06/2024 11:52 AM T [facility] LAB ALT (SGPT) 50 10 - 60 unit/L LAB CHEMISTRY METHOD 08/06/2024 11:52 AM T [facility] LAB Alkaline Phosphatase 100 42 - 121 unit/L LAB CHEMISTRY METHOD 08/06/2024 11:52 AM T [facility] LAB Total Protein 5.9(L) 6.0 - 8.0 g/dL LAB CHEMISTRY METHOD 08/06/2024 11:52 AM T [facility] LAB Albumin 2.8(L) 3.2 - 5.0 g/dL LAB CHEMISTRY METHOD 08/06/2024 11:52 AM [facility] LAB Total Bilirubin 0.5 0.0 - 1.4 mg/dL LAB CHEMISTRY METHOD 08/06/2024 11:52 AM T [facility] LAB Blood Venous blood specimen / Unknown Venipuncture / Unknown 08/06/2024 6:12 AM EDT 08/06/2024 10:00 AM EDT us Nilesh Adams MD LAB BLOOD ORDERABLES Final Res ult [facility] LAB [address] [place] [address], documented in this encounter Visit Diagnoses Diagnosis Encounter for other general examination documented in this encounter Care Teams Extension Specialist Relationship Specialty Start Date End Date Parrish Cabrera MD [address] [place] [phone] PCP - General 12/24/1998 documented as of this encounter
--- OUTSIDE RECORDS SUMMARY | 2025-03-02 13:43 | XMS_ITS | Encounter Summary ---
Author Organization [facility] Address [address] [place] [address] Care Team Providers Care Finance Lead Name Role Phone Parrish Cabrera MD Primary Care Provider [phone] Encounter Details Date Type Department Care Team (Late st Contact Info) Description 02/27/2025 Results Follow-Up Adult [address] [phone] Rafael Gates MD [address] [place] [address] Social History Tobacco Use Types Packs/Day Years [...] 03/04/2025 2:[address] Scan [facility] [address] [place] [address] 03/30/2025 1:15 PM EST Office Visit Orthopedic Surgery [facility] 250 175 [facility] 250 [place] [address] Dalton Rodriguez, DPM [address] [address] 04/01/2025 1:00 PM EST Office Visit Adult Medicine [facility] [address] [place] [address] Parrish Cabrera MD [address] [place] [address] 04/14/2025 1:[address] [facility] Ultrasound [address] [place] [address] 05/20/2025 10:00 AM EST Office Visit Vascular Surgery [facility] [address] [place] [address] Zenaida Rose MD [address] [place] [phone] documented as of this encounter Visit Diagnoses Not on filedocumented in this encounter Care Teams Finance Lead Relationship Specialty Start Date End Date Parrish Cabrera MD [address] [place] [address] PCP - General 12/24/1998 documented as of this encounter
--- OUTSIDE RECORDS SUMMARY | 2025-03-02 13:43 | XMS_ITS | Data Portability ---
Author Organization [facility] [address] Address [address] [place] [address] Care Team Providers Care Motor Lodge Clerk Name Role Phone [facility] Prim brayan Care Provider Assessment No assessment recorded. Plan of Treatment Reminders Order Date Submit Date Provider Last Modified By Organization Details Last Modified Time Details Appointments None recorded. Lab None recorded. Referral None recorded. Procedures None recorded. Surgeries None recorded. Imaging None recorded. Medication Orders Keflex 500 mg capsule 023 023 [facility], [address] [place] [address], [address], 19:00:14 Patient TargetsNo targets recorded. Patient Instructions Encounter Date Encounter Id Patient Instructions Last Modified By Organization Details Last Modified Time 10/04/2022 [id number] A puncture wound can happen anywhere on [...] your doctor if you can take an zhox-pbr-kgwgtes medicine. If your doctor prescribed antibiotics, take them as directed. Do not stop taking them just because you feel better. You need to take the full course of antibiotics. [email or web address] Not available 10/04/2022 18:59:50 Reason for Referral None Reported. Problems Name Problem SNOMED Code Status Onset Date Resolution Date Notes Provider Name and Address Organization Details Recorded Time Diabetes mellitus 88210098 Active 023 [facility] 18:40:47 Notes:enlarged [...] active Not Available Not Available Not Available Htskvg-I-Aap nitine 1000 mg, 1 tablet by mouth [...] Updated DateTime 3 167.64 cm 25.5 kg/m2 11261.5 9 g 10 98 % 98 % [...] [place] - [facility] 10/04/2022 18:39:42 Novel [id number], preservative-free 0 completed Ashlyn Ruszala null, [place] - [facility] 10/04/2022 18:39:42 Past Encounters Encounter ID Performer Location Encounter Start Date Encounter Closed Date Diagnosis/Indication Diagnosis SNOMED-CT Code Diagnosis ICD10 Code Diagnosis IMO Codes Diagnosis [place] [id number] [address] [address] 10/04/2022 16:30:19 10/04/2022 19:05:45 Puncture wound of heel 824088447 S91.331A Health Concerns Section Related Observation LastModified by Organization Detai ls LastModified Time None Recorded Concern Status LastModified by Organization Details LastModified Time None Recorded Advance Directives Directive None Recorded Payers Insurance Date Sequence Insurance Name Policy Number Policy Briggs Covered Member ID Briggs Member ID Guarantor Name 10/05/2022 1 [place]: [employer] Miky Ibrahim [id number] Miky Ibrahim 10/05/2022 2 [facility] [employer] Samra Ibrahim [id number] Miky Ibrahim Notes Date Note Type Note [...] Munguia NP [address] [place], [address], [place] - [facility] 10/04/2022 19:00:29
--- OUTSIDE RECORDS SUMMARY | 2025-03-02 13:43 | XMS_ITS | Encounter Summary ---
Author Organization [facility] Address [address] [place] [address] Care Team Providers Care Wallpaper Printer Name Role Phone Parrish Cabrera MD Primary Care Provider [phone] Encounter Details Date Type Department Care Team (Late Contact Info) Description 08/04/2024 Lab Requisition [facility] - Main Lab [address] [facility] [place] [phone] Nilesh Adams MD [address] [place] [phone] Encounter for other general examination Social History [...] 03/04/2025 2:[address] Scan [address] [address] 03/30/2025 1:15 PM EST Office Visit Orthopedic Surgery - [place] 250 175 [facility] 250 [place] [phone] Dalton Rodriguez, DONNA 175 [facility] 250 [place] [address] 04/01/2025 1:00 PM EST Office Visit Adult Medicine [facility] [address] [place] [address] Parrish Cabrera MD [address] [place] [address] 04/14/2025 1:00 PM EST Appointment [facility] Ultrasound [address] [place] [phone] 05/20/2025 10:00 AM EST Office Visit Vascular Surgery [facility] [address] [place] [phone] Zenaida Rose MD [address] [place] [phone] documented as of this encounter Procedures Procedure Name Priority Date/Time Associated Diagnosis Comments BASIC METABOLIC PANEL Routine 08/04/2024 6:06 AM EDT Encounter for other general examination documented in this encounter Results * (ABNORMAL) Basic metabolic panel (08/04/2024 6:06 AM EDT) Sodium 140 133 - 145 mmol/L LAB CHEMISTRY METHOD 08/04/2024 1:42 PM EDT [facility] LAB Potassium 4.4 3.5 - 5.5 mmol/L LAB CHEMISTRY METHOD 08/04/2024 1:42 PM EDT [facility] LAB Chloride 110 96 - 110 mmol/L LAB CHEMISTRY METHOD 08/04/2024 1:42 PM EDT [facility] LAB CO2 23 21 - 32 mmol/L LAB CHEMISTRY METHOD 08/04/2024 1:42 PM EDT [facility] LAB Anion Gap 7 3 - 11 LAB CHEMISTRY METHOD 08/04/2024 1:42 PM EDT [facility] LAB Glucose 107(H) 70 - 100 mg/dL LAB CHEMISTRY METHOD 08/04/2024 1:42 PM EDT [facility] LAB BUN 20 5 - 25 mg/dL LAB CHEMISTRY METHOD 08/04/2024 1:42 PM EDT [facility] LAB Creatinine 0.68(L) 0.70 - 1.30 mg/dL LAB CHEMISTRY METHOD 08/04/2024 1:42 PM EDT [facility] LAB eGFR 91 >=60 mL/min/1. 73m2 LAB CHEMISTRY METHOD 08/04/2024 1:42 PM EDT [facility] LAB Comment:Calculation based on the Chronic Kidney Disease Epidemiology Collaboration (CKD-EPI) equation refit without adjustment for race. BUN/Creatinine Ratio 29.4 LAB CHEMISTRY METHOD 08/04/2024 1:42 PM EDT [facility] LAB Calcium 8.7 8.5 - 10.5 mg/dL LAB CHEMISTRY METHOD 08/04/2024 1:42 PM [facility] LAB Blood Venous blood specimen / Unknown Venipuncture / Unknown 08/04/2024 6:06 AM EDT 08/04/2024 9:47 AM EDT us Nilesh Adams MD LAB BLOOD ORDERABLES Final Res ult [facility] LAB [address] [place] [address], documented in this encounter Visit Diagnoses Diagnosis Encounter for other general examination documented in this encounter Care Teams Wallpaper Printer Relationship Specialty Start Date End Date Parrish Cabrera MD [address] [place] [address] PCP - General 12/24/1998 documented as of this encounter
--- OUTSIDE RECORDS SUMMARY | 2025-03-02 13:43 | XMS_ITS | Clinical Summary ---
Author Organization [facility] Address [address] [place] [address] Phone Care Team Providers Care Sales And Marketing Coordinator Name Role Phone Parrish Cabrera MD Primary Care Provider [phone] Allergies No known active allergies Medications tamsulosin [...] strip Test blood sugar Daily 6 Active ACETYLCARNITINE HCL ORAL Take 1,000 mg by mouth 2 (two) times a day. OTC Active ONETOUCH DELICA LANCETS MISC 1 Each by Does not apply route daily. 5 Active Autolet lancing device Use to test blood sugar once daily 4 Active lisinopriL (PRINIVIL,ZESTR IL) 2.5 mg tablet [...] TWICE DAILY 60 tablet 5 5 Active hydrocortisone 1 % lotion Apply topically 2 (two) times a day for 7 days. 60 mL 5 03/04/20 25 Active ketoconazole (NIZORAL) 2 % cream Apply topically 1 (one) time each day for 14 days. 30 g 5 03/11/20 25 Active Active Problems Problem Noted Date Diagnosed [...] (03/18/2024): Noted on CT scan done in [facility] emergency room on 12/22/2023. Mild [...] (periodic limb movement disorder) 7 Overview (03/18/2024): [facility] Polysomnogram: Date 06/22/2016; SE 60%; SM 79%; REM 1%; RDI 2 (AHI 5), worse in REM (RDI 13 - AHI 13), Central apneas 0; Obstructive apneas 0; Mixed apneas 0; hypopneas 10; RERAs 16; average oxygen saturation 93% (lowest 89% - without saturations <88% for 5% or more of study); PLMs 102. Obstructive sleep apnea 06/20/2016 Overview (03/18/2024): [facility] Polysomnogram: Date 06/22/2016; SE 60%; SM 79%; [...] Actinic keratosis Lumbar spinal stenosis 07/02/2012 Meningioma ([facility] V24, [facility] V28) 07/28/2008 Overview (03/18/2024): Follow with [...] colonoscopy 04/02/2007. Benign neoplasm of cerebral meninges ([facility] V24, [facility] V28) 11/22/2006 Overview (03/18/2024): small frontal meningioma on MRI 2006 Pt prefers no further evaluation DM w/o complication type II ([facility] V24, [facility] V28) 11/13/2006 Overview (03/18/2024): Last [...] just unsure what to do Educational Resources [place] [employer] (www.diabetes.org) Centers for Disease Control [...] Encounters Date Type Department Care Team Description 02/27/2025 Results Follow-Up Adult [address] [phone] Rafael Gates MD 02/25/2025 1:50 PM EST Lab Draw [address] Urinary frequency; 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, CMS/HCC V28); Forgetfulness; Chronic bilateral low back pain with bilateral sciatica 02/25/2025 1:00 PM EST Office Visit Adult [address] [phone] Jose Grullon PA Urinary frequency (Primary Dx); 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, CMS/HCC V28); Abdominal pain, unspecified abdominal location 02/24/2025 Telephone Adult [address] [phone] Parrish Cabrera MD 01/08/2025 Telephone Adult Medicine [address] [phone] Rimma Lamb MA 01/08/2025 Telephone Adult [address] [phone] Rimma Lamb MA 12/29/2024 3:00 PM EDT Office Visit Orthopedic Surgery [place] [address] [address] [facility] [address] [place] [address] Dalton Rodriguez DPM Controlled type 2 diabetes mellitus with diabetic polyneuropathy, without long-term current use of insulin ([facility] V24, [facility] V28) (Primary Dx); Arthritis of both feet; Neuropathy; Right foot drop; Onychomycosis; Callus 12/16/2024 Telephone Adult [address] [phone] Parrish Cabrera MD from Last 3 Months Immunizations Immunization Administration [...] Site/Laterality Comments OTHER SURGICAL HISTORY 1967 PROCEDURE: MN VGTMY W/PYLOROPLASTY W/WO GASTROST PARIETAL CELL; COMMENT: GI bleeding, remote; [facility]. ROTATOR CUFF REPAIR 2002 PROCEDURE: HISTORICAL ROTATOR CUFF REPAIR; COMMENT: right CATARACT EXTRACTION PROCEDURE: HISTORICAL CATARACT REMOVAL; COMMENT: right eye COLONOSCOPY 04/02/2007 PROCEDURE: HISTORICAL COLONOSCOPY; COMMENT: negative COLONOSCOPY 04/21/2019 PROCEDURE: HISTORICAL COLONOSCOPY; COMMENT: 5 mm AC polyp: Tubular adenoma UPPER GASTROINTESTINAL ENDOSCOPY 04/21/2019 PROCEDURE: MN UPPER GI ENDOSCOPY PERFORMED; COMMENT: Visually normal, duodenal biopsies obtained, pathology: Normal APPENDECTOMY PROCEDURE: MN APPENDECTOMY Medical History Medical History Date Comments [...] Mass Index 22.6 02/25/2025 1:03 PM EST Plan of Treatment Upcoming Encounters Date Type Department Care Team (Late st Contact Info) Description 03/04/2025 2:[address] [facility] [address] [place] [address] 03/30/2025 1:15 PM EST Office Visit Orthopedic Surgery [facility] [address] 175 [facility] [address] [place] [phone] Dalton Rodriguez, DPM 175 [facility] 250 [place] [address] 04/01/2025 1:00 PM EST Office Visit Adult Medicine [facility] [address] [place] [address] Parrish Cabrera MD [address] [place] [address] 04/14/2025 1:00 PM EST Appointment [facility] Ultrasound [address] [place] [address] 05/20/2025 10:00 AM EST Office Visit Vascular Surgery - [place] [address] [place] [phone] Zenaida Rose MD [address] [place] [phone] Health Maintenance Due Date Last Done Comments Diabetes: Annual Foot Exam 01/25/1950 RSV Immunization Adult Patients (1 - 1-dose 75+ series) 2013 Depression Screening 04/23/2024 08/20/2023 Diabetes: Annual Retina Eye Exam 08/13/2024 08/14/2023 Medicare Annual Wellness Visit 08/19/2024 08/20/2023 Falls Risk Assessment 12/03/2024 12/04/2023 COVID-19 Vaccine (8 - Pfizer risk 2024- season) 2025 01/14/2025, 01/26/2024, 02/17/2022, Additional history exists Social Influencers of Health Screening 08/15/2025 08/15/2024 Diabetes: Blood Sugar Control Test (HGBA1C) 08/25/2025 02/25/2025, 09/25/2023, 09/25/2023 Hypertension/CHF/CAD Annual BMP Blood Test 02/25/2026 02/25/2025, 08/11/2024, 08/06/2024, Additional history exists Cholesterol Screening (Lipid Panel) 11/17/2027 11/16/2022 DTaP,Tdap,and [...] with neurological manifestations (CMS/HCC V24, CMS/HCC V28) EXTERNAL CLINICAL LAB 12/31/2024 FALLS RISK ASSESSMENT Routine 12/04/2023 DEPRESSION SCREENING Routine 08/20/2023 DIABETES EYE EXAM Routine 08/14/2023 LIPID PANEL Routine 11/16/2022 from Last 3 Months or Most Recently Relevant to Health Maintenance Results * (ABNORMAL) CBC auto differential (02/25/2025 2:07 PM EST) [facility] WBC 10.0 4.8 - 10.8 K/mcL LAB HEMETOLOGY METHOD 02/25/2025 4:44 PM [facility] RBC 3.70(L) 4.50 - 5.50 M/mcL LAB HEMETOLOGY METHOD 02/25/2025 4:44 PM [facility] Hemoglobin 11.0(L) 13.5 - 17.5 g/dL LAB HEMETOLOGY METHOD 02/25/2025 4:44 PM [facility] Hematocrit 36.2(L) 42.0 - 54.0 % LAB HEMETOLOGY METHOD 02/25/2025 4:44 PM [facility] MCV 97.6 79.0 - 98.0 FL LAB HEMETOLOGY METHOD 02/25/2025 4:44 PM [facility] MCH 29.6 27.0 - 32.0 pcg LAB HEMETOLOGY METHOD 02/25/2025 4:44 PM [facility] MCHC 30.4(L) 32.0 - 37.0 g/dL LAB HEMETOLOGY METHOD 02/25/2025 4:44 PM [facility] RDW 14.3 11.0 - 15.0 % LAB HEMETOLOGY METHOD 02/25/2025 4:44 PM [facility] Platelets 347 130 - 400 K/mcL LAB HEMETOLOGY METHOD 02/25/2025 4:44 PM [facility] MPV 10.1 7.0 - 11.0 FL LAB HEMETOLOGY METHOD 02/25/2025 4:44 PM [facility] NRBC 0.0 <1.0 % LAB HEMETOLOGY METHOD 02/25/2025 4:44 PM [facility] NRBC Absolute 0.00 <0.10 K/mcL LAB HEMETOLOGY METHOD 02/25/2025 4:44 PM [facility] Neutrophils Relative 71.5 % LAB HEMETOLOGY METHOD 02/25/2025 4:44 PM [facility] Lymphocytes Relative 15.7 % LAB HEMETOLOGY METHOD 02/25/2025 4:44 PM [facility] Monocytes Relative 10.5 % LAB HEMETOLOGY METHOD 02/25/2025 4:44 PM [facility] Eosinophils Relative 1.2 % LAB HEMETOLOGY METHOD 02/25/2025 4:44 PM [facility] Basophils Relative 0.5 % LAB HEMETOLOGY METHOD 02/25/2025 4:44 PM [facility] Immature Granulocytes Relative 0.6 % LAB HEMETOLOGY METHOD 02/25/2025 4:44 PM [facility] Neutrophils Absolute 7.14(H) 1.50 - 7.00 K/mcL LAB HEMETOLOGY METHOD 02/25/2025 4:44 PM [facility] Lymphocytes Absolute 1.57 1.00 - 5.00 K/mcL LAB HEMETOLOGY METHOD 02/25/2025 4:44 PM [facility] Monocytes Absolute 1.05(H) 0.20 - 1.00 K/mcL LAB HEMETOLOGY METHOD 02/25/2025 4:44 PM [facility] Eosinophils Absolute 0.12 0.00 - 0.50 K/mcL LAB HEMETOLOGY METHOD 02/25/2025 4:44 PM [facility] Basophils Absolute 0.05 0.00 - 0.20 K/mcL LAB HEMETOLOGY METHOD 02/25/2025 4:44 PM EST [facility] Immature Granulocytes Absolute 0.06(H) 0.00 - 0.03 K/mcL LAB HEMETOLOGY METHOD 02/25/2025 4:44 PM EST [facility] Blood Venous blood specimen / Unknown Venipuncture / Unknown 02/25/2025 2:07 PM EST 02/25/2025 2:07 PM EST Jose BETTENCOURT LAB BLOOD ORDERABLES Fin al Result Performing Organization Address [facility]/ZIP Co de Phone Number [facility] [address] [place] [address], [place] [phone] * (ABNORMAL) Thyroid stimulating hormone (02/25/2025 2:07 PM EST) TSH 5.61(H) 0.40 - 4.00 mcIU/mL LAB CHEMISTRY METHOD 02/25/2025 5:53 PM EST [facility] Blood Venous blood specimen / Unknown Venipuncture / Unknown 02/25/2025 2:07 PM EST 02/25/2025 2:07 PM EST Jose BETTENCOURT LAB BLOOD ORDERABLES Fin al Result Performing Organization Address [facility]/ZIP Co de Phone Number [facility] [address] [place] [address], [place] [phone] * Hemoglobin A1c (02/25/2025 2:07 PM EST) Hemoglobin A1C 6.2 <6.5 % LAB CHEMISTRY METHOD 02/26/2025 1:29 PM EST [facility] Mean Bld Glu Estim. 131 mg/dL LAB CHEMISTRY METHOD 02/26/2025 1:29 PM EST [facility] Blood Venous blood specimen / Unknown Venipuncture / Unknown 02/25/2025 2:07 PM EST 02/25/2025 2:07 PM EST Jose BETTENCOURT LAB BLOOD ORDERABLES Fin al Result Performing Organization Address City/[facility]/ZIP Co de Phone Number [facility] [address] [place] [address], [place] [phone] * Vitamin B12 (02/25/2025 2:07 PM EST) [facility] Vitamin B-12 750 250 - 900 pcg/mL LAB CHEMISTRY METHOD 02/25/2025 5:55 PM [facility] Blood Venous blood specimen / Unknown Venipuncture / Unknown 02/25/2025 2:07 PM EST 02/25/2025 2:07 PM EST Jose BETTENCOURT LAB BLOOD ORDERABLES Fin al Result Performing Organization Address [facility] Co de Phone Number [facility] [address] [place] [address], [place] [phone] * (ABNORMAL) Comprehensive metabolic panel (02/25/2025 2:07 PM EST) [facility] Sodium 137 133 - 145 mmol/L LAB CHEMISTRY METHOD 02/25/2025 5:55 PM [facility] Potassium 4.4 3.5 - 5.5 mmol/L LAB CHEMISTRY METHOD 02/25/2025 5:55 PM [facility] Chloride 105 96 - 110 mmol/L LAB CHEMISTRY METHOD 02/25/2025 5:55 PM [facility] CO2 26 21 - 32 mmol/L LAB CHEMISTRY METHOD 02/25/2025 5:55 PM [facility] Anion Gap 6 3 - 11 LAB CHEMISTRY METHOD 02/25/2025 5:55 PM [facility] Glucose 113(H) 70 - 100 mg/dL LAB CHEMISTRY METHOD 02/25/2025 5:55 PM [facility] BUN 13 5 - 25 mg/dL LAB CHEMISTRY METHOD 02/25/2025 5:55 PM [facility] Creatinine 0.76 0.70 - 1.30 mg/dL LAB CHEMISTRY METHOD 02/25/2025 5:55 PM [facility] eGFR 87 >=60 mL/min/1. 73m2 LAB CHEMISTRY METHOD 02/25/2025 5:55 PM [facility] Comment:Calculation based on the Chronic Kidney Disease Epidemiology Collaboration (CKD-EPI) equation refit without adjustment for race. BUN/Creatinine Ratio 17.1 LAB CHEMISTRY METHOD 02/25/2025 5:55 PM [facility] Calcium 9.5 8.5 - 10.5 mg/dL LAB CHEMISTRY METHOD 02/25/2025 5:55 PM [facility] AST (SGOT) 28 10 - 42 unit/L LAB CHEMISTRY METHOD 02/25/2025 5:55 PM [facility] ALT (SGPT) 42 10 - 60 unit/L LAB CHEMISTRY METHOD 02/25/2025 5:55 PM [facility] Alkaline Phosphatase 110 42 - 121 unit/L LAB CHEMISTRY METHOD 02/25/2025 5:55 PM [facility] Total Protein 7.5 6.0 - 8.0 g/dL LAB CHEMISTRY METHOD 02/25/2025 5:55 PM [facility] Albumin 4.0 3.2 - 5.0 g/dL LAB CHEMISTRY METHOD 02/25/2025 5:55 PM [facility] Total Bilirubin 0.5 0.0 - 1.4 mg/dL LAB CHEMISTRY METHOD 02/25/2025 5:55 PM [facility] Blood Venous blood specimen / Unknown Venipuncture / Unknown 02/25/2025 2:07 PM EST 02/25/2025 2:07 PM EST us Jose BETTENCOURT LAB BLOOD ORDERABLES Fin al Result [facility] [address] [place] [address], [place] [phone] * External clinical lab (12/31/2024) Provider Arina Onbase LAB BLOOD ORDERABLES Fin al Result * Falls Risk Assessment (12/04/2023) Pathologist [facility] Falls Risk Assessment Abstracted Historical Provider HEALTH MAINTENANCE Final Result * Depression Screening (08/20/2023) Pathologist [facility] Depression Screening Abstracted [facility] Provider HEALTH MAINTENANCE Final Result * Diabetes Eye Exam (08/14/2023) [facility] Diabetes: Annual Retina Eye Exam Abstracted [facility] Provider HEALTH MAINTENANCE Final Result * Lipid panel (11/16/2022) [facility] LDL/HDL Ratio 3 0 - 4 Triglycerides 89 0 - 150 mg/dL Cholesterol 123 0 - 200 mg/dL HDL 44 >=40 mg/dL LDL Cholesterol 62 0 - 100 mg/dL Blood Venous blood specimen / Unknown Result [facility] Provider LAB BLOOD ORDERABLES Soniya l Result from Last 3 Months or Most Recently Relevant to Health Maintenance Insurance MEDICARE [facility] Member Subscriber Plan / Payer (Ef fective 2015-Present) Name:MIKY MONGE Relation to Subscriber:Spouse Name:SAMRA MONGE Date of :1941 Address: [address] [place] [id number] Payer ID:[id number] Group ID:[id number] Type:Not on file Address: [facility] [id number] [address] Care Teams Sales And Marketing Coordinator Relationship Specialty Start Date End Date Parrish Cabrera MD [address] [place] [address] PCP - General 12/24/1998
--- OUTSIDE RECORDS SUMMARY | 2025-03-02 13:43 | XMS_ITS | Encounter Summary ---
Author Organization [facility] Address [address] [place] [address] Care Team Providers Care Educational/Development Assistant Name Role Phone Parrish Cabrera MD Primary Care Provider [phone] Encounter Details Date Type Department Care Team (Late st Contact Info) Description 08/11/2024 Lab Requisition [facility] - Main Lab [address] [facility] [place] [address] Nilesh Adams MD [address] [place] [address] [phone] Encounter for other general examination Social History [...] PM EST Appointment CT Scan [facility] [address] [place] [address] 03/30/2025 1:15 PM EST Office Visit Orthopedic Surgery [facility] 250 175 [facility] 250 [place] [address] Dalton Rodriguez, DONNA [address] [address] 04/01/2025 1:00 PM EST Office Visit Adult Medicine [facility] [address] [place] [address] Parrish Cabrera MD [address] [place] [address] 04/14/2025 1:00 PM EST Appointment [facility] Ultrasound [address] [place] [address] 05/20/2025 10:00 AM EST Office Visit Vascular Surgery [facility] [address] [facility] [address] [place] [address] Zenaida Rose MD [address] [place] [phone] documented as of this encounter Procedures Procedure [...] CBC auto differential (08/11/2024 5:25 AM EDT) [facility] Signature WBC 10.1 4.8 - 10.8 K/mcL LAB HEMETOLOGY METHOD [facility] RBC 2.90(L) 4.50 - 5.50 M/mcL LAB HEMETOLOGY METHOD 08/11/2024 1:15 PM EDT [facility] Hemoglobin 9.4(L) 13.5 - 17.5 g/dL LAB HEMETOLOGY METHOD 08/11/2024 1:[facility] Hematocrit 30.1(L) 42.0 - 54.0 % LAB HEMETOLOGY METHOD 08/11/2024 1:[facility] MCV 103.1(H) 79.0 - 98.0 FL LAB HEMETOLOGY METHOD 08/11/2024 1:[facility] MCH 32.2(H) 27.0 - 32.0 pcg LAB HEMETOLOGY METHOD 08/11/2024 1:15 PM [facility] MCHC 31.2(L) 32.0 - 37.0 g/dL LAB HEMETOLOGY METHOD 08/11/2024 1:15 PM [facility] RDW 13.4 11.0 - 15.0 % LAB HEMETOLOGY METHOD 08/11/2024 1:15 PM [facility] Platelets 425(H) 130 - 400 K/mcL LAB HEMETOLOGY METHOD 08/11/2024 1:[facility] MPV 9.8 7.0 - 11.0 FL LAB HEMETOLOGY METHOD 08/11/2024 1:[facility] NRBC 0.0 <1.0 % LAB HEMETOLOGY METHOD 08/11/2024 1:15 PM EDT [facility] NRBC Absolute 0.00 <0.10 K/mcL LAB HEMETOLOGY METHOD 08/11/2024 1:[facility] PM [facility] Neutrophils Relative 67.1 % LAB HEMETOLOGY METHOD 08/11/2024 1:15 PM EDT [facility] Lymphocytes Relative 17.1 % LAB HEMETOLOGY METHOD 08/11/2024 1:15 PM EDT [facility] Monocytes Relative 11.2 % LAB HEMETOLOGY METHOD 08/11/2024 1:15 PM EDT [facility] Eosinophils Relative 3.5 % LAB HEMETOLOGY METHOD 08/11/2024 1:[facility] Basophils Relative 0.5 % LAB HEMETOLOGY METHOD 08/11/2024 1:15 PM [facility] Immature Granulocytes Relative 0.6 % LAB HEMETOLOGY METHOD 08/11/2024 1:15 PM [facility] Neutrophils Absolute 6.74 1.50 - 7.00 K/mcL LAB HEMETOLOGY METHOD 08/11/2024 1:15 PM [facility] Lymphocytes Absolute 1.72 1.00 - 5.00 K/mcL LAB HEMETOLOGY METHOD 08/11/2024 1:15 PM [facility] Monocytes Absolute 1.13(H) 0.20 - 1.00 K/mcL LAB HEMETOLOGY METHOD 08/11/2024 1:[facility] Eosinophils Absolute 0.35 0.00 - 0.50 K/mcL LAB HEMETOLOGY METHOD 08/11/2024 1:15 PM [facility] Basophils Absolute 0.05 0.00 - 0.20 K/mcL LAB HEMETOLOGY METHOD 08/11/2024 1:[facility] PM [facility] Immature Granulocytes Absolute 0.06(H) 0.00 - 0.03 K/mcL LAB HEMETOLOGY METHOD 08/11/2024 1:15 PM T [facility] Blood Venous blood specimen / Unknown Venipuncture / Unknown 08/11/2024 5:25 AM EDT 08/11/2024 11:25 AM EDT us Nilesh Adams MD LAB BLOOD ORDERABLES Final Res ult [facility] [address] [place] [address], [place] [phone] * (ABNORMAL) Comprehensive metabolic panel (08/11/2024 5:25 AM EDT) Sodium 139 133 - 145 mmol/L LAB CHEMISTRY METHOD 08/11/2024 3:12 PM [facility] Potassium 4.5 3.5 - 5.5 mmol/L LAB CHEMISTRY METHOD 08/11/2024 3:12 PM [facility] Chloride 105 96 - 110 mmol/L LAB CHEMISTRY METHOD 08/11/2024 3:12 PM [facility] CO2 27 21 - 32 mmol/L LAB CHEMISTRY METHOD 08/11/2024 3:12 PM [facility] Anion Gap 7 3 - 11 LAB CHEMISTRY METHOD 08/11/2024 3:12 PM [facility] Glucose 91 70 - 100 mg/dL LAB CHEMISTRY METHOD 08/11/2024 3:12 PM [facility] BUN 15 5 - 25 mg/dL LAB CHEMISTRY METHOD 08/11/2024 3:12 PM [facility] Creatinine 0.60(L) 0.70 - 1.30 mg/dL LAB CHEMISTRY METHOD 08/11/2024 3:12 PM [facility] eGFR 94 >=60 mL/min/1. 73m2 LAB CHEMISTRY METHOD 08/11/2024 3:12 PM T [facility] Comment:Calculation based on the Chronic Kidney Disease Epidemiology Collaboration (CKD-EPI) equation refit without adjustment for race. BUN/Creatinine Ratio 25.0 LAB CHEMISTRY METHOD 08/11/2024 3:12 PM [facility] Calcium 9.1 8.5 - 10.5 mg/dL LAB CHEMISTRY METHOD 08/11/2024 3:12 PM [facility] AST (SGOT) 45(H) 10 - 42 unit/L LAB CHEMISTRY METHOD 08/11/2024 3:12 PM [facility] ALT (SGPT) 60 10 - 60 unit/L LAB CHEMISTRY METHOD 08/11/2024 3:12 PM [facility] Alkaline Phosphatase 120 42 - 121 unit/L LAB CHEMISTRY METHOD 08/11/2024 3:12 PM [facility] Total Protein 6.5 6.0 - 8.0 g/dL LAB CHEMISTRY METHOD 08/11/2024 3:12 PM [facility] Albumin 3.1(L) 3.2 - 5.0 g/dL LAB CHEMISTRY METHOD 08/11/2024 3:12 PM [facility] Total Bilirubin 0.4 0.0 - 1.4 mg/dL LAB CHEMISTRY METHOD 08/11/2024 3:12 PM [facility] Blood Venous blood specimen / Unknown Venipuncture / Unknown 08/11/2024 5:25 AM EDT 08/11/2024 11:25 AM EDT us Nilesh Adams MD LAB BLOOD ORDERABLES Final Res ult [facility] [address] [place] [address], documented in this encounter Visit Diagnoses Diagnosis Encounter for other general examination documented in this encounter Care Teams Educational/Development Assistant Relationship Specialty Start Date End Date Parrish Cabrera MD [address] [place] [address] PCP - General 12/24/1998 documented as of this encounter
== END 2025-03-02 11:21 | disposition home or self-care (01) ==
LOC: HO.MRI 11:20
PROVIDERS: PCP Internal Medicine; Visit Provider Psychiatry & Neurology Neurology
DX: Z13.89 Encounter for screening for other disorder (principal)

== ENCOUNTER → 2025-03-30 10:22 | Outpatient (BNV) | payer MEDICARE, BC, SELFPAY | PROVIDERS: PCP Internal Medicine; Visit Provider Radiology Diagnostic Radiology | DX: D32.9 Benign neoplasm of meninges, unspecified (principal) | CPT/HCPCS: 70553 ==

== ENCOUNTER 2025-03-30 10:24 | Outpatient (REF) | payer MEDICARE, BC, SELFPAY ==
--- NOTE | ~2025-03-30 | MR_ITS ---
EXAMINATION: MR BRAIN WITHOUT AND WITH CONTRAST CLINICAL INFORMATION: D32.9. Benign neoplasm of the meninges, unspecified. COMPARISON: Correlated to CT dated March 20, 2022. TECHNIQUE: Multiplanar, multisequence MRI of the brain was obtained before and after the intravenous administration of 7.0 mL gadolinium based (Gadavist) without reported immediate complications.. FINDINGS: There is a well-defined, 6.6 x 5.6 x 9.1 mm extra-axial isointense T1, intermediate T2 homogeneous enhancing lesion without restricted diffusion centered in the left midline anterior cranial fossa abutting the left superior frontal gyrus without perilesional vasogenic edema or mass effect. Posterior surgical changes anterior inferior right frontal bone. Associated the focal encephalomalacia with susceptibility signal and the anterior proximal right frontal gyrus. There is an extra-axial CSF equivalent nonenhancing abnormality within the anterior right midline interhemispheric falx. There is slight asymmetric prominent right lateral ventricle related to volume loss. No restricted diffusion. No acute intracranial hemorrhage, mass effect, midline shift, hydrocephalus or herniation. Bilateral multifocal patchy and confluent deep periventricular white matter hyperintense T2 FLAIR signal involving centrum semiovale and steele radiata. Prominence of the extra-axial CSF spaces cerebral sulci and ventricles. Flow-void signal within the main cerebral vessels is normal. No main cerebral venous sinus thrombosis. Sellar/suprasellar region is normal. Craniocervical junction is intact with a pannus formation in the periodontal C1 region. Normal position of the cerebellar tonsils. MR/MR head/brain wo/w con IMPRESSION: 6.6 x 5.6 x 9.1 mm meningioma, left midline anterior cranial fossa. Overall stable. No acute brain abnormality. Electronically signed by: Jordi Bell MD 03/30/2025 12:00 PM [facility] [place], [place]
== END 2025-03-30 10:25 | disposition home or self-care (01) ==
LOC: HO.MRI 10:24
PROVIDERS: PCP Internal Medicine; Visit Provider Psychiatry & Neurology Neurology
DX: D32.9 Benign neoplasm of meninges, unspecified (principal)
CPT/HCPCS: 70553; A9585